=== PATIENT | female | born 1985 | race Two or more races ===

== ENCOUNTER 2017-03-20 03:25 | Inpatient (IN) | payer OTHER ==
[2017-03-20] MEDS ORDERED: METOCLOPRAMIDE HCL INJECTION 10 MG/2 ML VIAL IVPB ONE (03:55)
[2017-03-20] MEDS ORDERED: SODIUM CHLORIDE 1,000 ML IV STA ×2 (03:55→06:39)
--- NOTE | 2017-03-20 03:55 | PDOC ---
History of Present Illness - General Stated Complaint: VOMITING Time Seen by Provider: 03/20/17 03:31 History Source: Patient, Other (boyfriend) Exam Limitations: No Limitations - History of Present Illness Initial Comments: 03/20/17 05:04 Surg h/o Lap christiano turned into OPEN cholecystectomy 31-year-old female with no medical history presents to the emergency department with her boyfriend complaining of subjective fever, nausea/vomiting and diarrhea , general malaise. Patient states she's been complaining of 6/10 nonradiating intermittent epigastric abdominal discomfort 5 days. There were no alleviating or exacerbating factors. Patient had 2 bouts of vomiting this evening that were nonbloody and nonbilious. Patient had 5 episodes of diarrhea this evening and denies noticing any blood. Patient took Tylenol for the past 3 days with minimal relief. Patient denies any headache, dizziness, lightheadedness, chest pain, shortness of breath, flank pains. No recent travels, no prolong sitting, no BCP Timing/Duration: 24 hours Severity: mild Associated Symptoms: reports: fever/chills Past History - Past Medical History Allergies/Adverse Reactions: Allergies Allergy/AdvReac Type Severity Reaction Status Date / Time No Known Allergies Allergy Verified 03/20/17 04:04 Home Medications: Ambulatory Orders No Home Medications 0 dose .ROUTE UTDICT 05/05/12 Anemia: No Asthma: No Cancer: No Cardiac Disorders: No CVA: No COPD: No CHF: No Dementia: No Diabetes: No Dialysis: No GI Disorders: No Disorders: No HTN: No Hypercholesterolemia: No HIV: No Kidney Stones: No Liver Disease: No Suicide Attempt (Hx): No Seizures: No Thyroid Disease: No - Surgical History Abdominal Surgery: No Appendectomy: No Cardiac Surgery: No Cholecystectomy: No Lung Surgery: No Neurologic Surgery: No Orthopedic Surgery: No - Immunization History Td Vaccination: Yes TDAP Vaccination: No Immunization Up to Date: Yes - Psycho/Social/Smoking Cessation Hx Anxiety: No Suicidal Ideation: No Smoking Status: No Smoking History: Never smoked Years of Tobacco Use: 0 Number of Cigarettes Smoked Daily: 0 Cigars Per Day: 0 Hx Alcohol Use: No Drug/Substance Use Hx: No Substance Use Type: None Hx Substance Use Treatment: No Review of Systems - Review of Systems Able to Perform ROS?: Yes Comments:: 03/20/17 04:09 CONSTITUTIONAL: +malaise Absent: fever, chills, diaphoresis, generalized weakness, loss of appetite HEENT: Absent: rhinorrhea, nasal congestion, throat pain, throat swelling, difficulty swallowing, mouth swelling, ear pain, eye pain, visual Changes CARDIOVASCULAR: Absent: chest pain, loss of consciousness, palpitations, irregular heart rate, peripheral edema RESPIRATORY: Absent: cough, shortness of breath, dyspnea with exertion, orthopnea, wheezing, stridor, hemoptysis GASTROINTESTINAL: +epigastric pain Absent: abdominal distension, nausea, vomiting, diarrhea, constipation, melena, hematochezia GENITOURINARY: Absent: dysuria, frequency, urgency, hesitancy, hematuria, flank pain, genital pain MUSCULOSKELETAL: Absent: myalgia, arthralgia, joint swelling SKIN: Absent: rash, itching, pallor HEMATOLOGIC/IMMUNOLOGIC: Absent: easy bleeding, easy bruising, lymphadenopathy, frequent infections ENDOCRINE: Absent: unexplained weight gain, unexplained weight loss, heat intolerance, cold intolerance NEUROLOGIC: +dizziness Absent: headache, focal weakness or paresthesias unsteady gait, seizure, mental status changes, bladder or bowel incontinence PSYCHIATRIC: Absent: anxiety, depression, suicidal or homicidal ideation, hallucinations. Is the patient limited Bel[place]ian proficient: No *Physical Exam - Physical Exam Comments: 03/20/17 04:10 GENERAL: Well developed, well nourished. Awake and alert. No acute distress. HEENT: Normocephalic, atraumatic. PERRLA, EOMI. No conjunctival pallor. Sclera are non- icteric. Moist mucous membranes. Oropharynx is clear. NECK: Supple. Full ROM. No JVD. Carotid pulses 2+ and symmetric, without bruits. No thyromegaly. No lymphadenopathy. CARDIOVASCULAR: Regular rate and rhythm. No murmurs, rubs, or gallops. Distal pulses are 2+ and symmetric. PULMONARY: No evidence of respiratory distress. Lungs clear to auscultation bilaterally. No wheezing, rales or rhonchi. ABDOMINAL: +epigastric pain on palp Soft. Non-distended. No rebound or guarding. No organomegaly. Normoactive bowel sounds. MUSCULOSKELETAL Normal range of motion at all joints. No bony deformities or tenderness. No CVA tenderness. EXTREMITIES: No cyanosis. No clubbing. No edema. No calf tenderness. SKIN: Warm and dry. Normal capillary refill. No rashes. No jaundice. NEUROLOGICAL: Alert, awake, appropriate. Cranial nerves 2-12 intact. No deficits to light touch and temperature in face, upper extremities and lower extremities. No motor deficits in the in face, upper extremities and lower extremities. Normoreflexic in the upper and lower extremities. Normal speech. Toes are down- going bilaterally. Gait is normal without ataxia. PSYCHIATRIC: Cooperative. Good eye contact. Appropriate mood and affect. Heart Score/ECG Review - History History: Slightly suspicious - Electrocardiogram EKG: Normal - Age Age: >/= 65 - Risk Factors Based on the list above the patient has:: No risk factors known ED Treatment Course - LABORATORY CBC & Chemistry Diagram: 03/20/17 09:45 03/20/17 09:45 Medical Decision Making - Critical Care Time Total Critical Care Time (minutes): 60 Critical Care Statement: The care of this patient involved high complexity decision making to prevent further life threatening deterioration of the patient 's condition and/or to evalute & treat vital organ system(s) failure or risk of failure. - Medical Decision Making 03/20/17 05:59 Pt extremely hypotensive but mentating well. B/P slowly increasing with NS IVB Multiple bedside visits Pressure improving Empirically will tx with karen Called learning and development consultant for ICU bed/ approved by DR. Hayden Called general surgery/Dr. Perdomo, will consult pt *DC/Admit/Observation/Transfer Diagnosis at time of Disposition: Dehydration, Hypovolemic shock, Enterocolitis Hypotension Qualifiers: Hypotension type: other hypotension type Qualified Code(s): I95.89 - Other hypotension Renal failure Qualifiers: Renal failure chronicity: acute Acute renal failure type: with other specified pathological lesion Qualified Code(s): N17.8 - Other acute kidney failure Liver failure Qualifiers: Liver failure chronicity: acute Hepatic coma status: without hepatic coma Qualified Code(s): K72.00 - Acute and subacute hepatic failure without coma - Discharge Dispostion Condition at time of disposition: Guarded Admit: Yes - Referrals Progress Note - Progress Note Progress Note: Ct abd/pelvis without contrast: There is a heterogeneous right liver lobe lesion measuring up to 7.2 cm x 6.5 cm There is no evidence of obstructive urolithiasis, free air, free fluid or acute appendicitis ?liver abscess 0605hrs: Consulted Dr. Perdomo/General surgery ?CBD stone 0614: US tech called/ will come in 0628hrs: Spoke to Dr. Hayden/ learning and development consultant. Assproced ICU bed 0641hrs: Spoke to Hospitalist
[2017-03-20] MEDS ORDERED: METOCLOPRAMIDE HCL INJECTION 10 MG/2 ML VIAL ONE (04:09)
[2017-03-20 04:20] LABS: MCH 30.1 pg (25.7-33.7); MCHC 32.6 g/dl (32.0-36.0); MEAN CELL VOLUME 92.5 fl (80-96); MEAN PLT VOLUME 8.1 fl (7.5-11.1); PLATELET COUNT 165 K/MM3 (134-434); RDW 14.1 % (11.6-15.6); WHITE BLOOD COUNT 18.3 K/mm3 (4.0-10.0)
[2017-03-20 04:54] LABS: ALBUMIN 2.3 g/dl (3.4-5.0); ALK PHOS 198 U/L (45-117); ANION GAP 19 (8-16); BILIRUBIN,TOTAL 2.2 mg/dL (0.2-1.0); CALCIUM 7.7 mg/dL (8.5-10.1); CO2 21 mmol/L (21-32); CREATININE 3.4 mg/dL (0.55-1.02); GLUCOSE,RANDOM 104 mg/dL (74-106); SGOT/AST 203 U/L (15-37); SGPT/ALT 133 U/L (12-78); TOT PROT 5.9 g/dl (6.4-8.2)
[2017-03-20] MEDS ORDERED: METRONIDAZOLE 500 MG PREMIXED 100 ML IVPB ONE ×2 (06:16→06:22)
[2017-03-20] MEDS ORDERED: PIPERACILLIN/TAZOB 3.375 GM/50 ML PRE-DOCKED IV ONE (06:16)
[2017-03-20 06:17] LABS: ANISOCYTOSIS 1+; METAMYELOCYTE 5 % (0-2); PLATELET COMMENT2 NO CLOTTING DETECTED; PLATELET ESTIMATE ADEQUATE (NORMAL)
[2017-03-20] MEDS ORDERED: PIPERACILLIN/TAZOB 3.375 GM 50 ML IVPB ONE (06:22)
[2017-03-20 06:39] LABS: AMYLASE 31 U/L (25-115)
[2017-03-20] MEDS ORDERED: DEXTROSE 5%-LACTATED RINGERS 1,000 ML IV SCH (06:45)
[2017-03-20] MEDS ORDERED: HYDROCORTISONE SOD SUCCINATE 100 MG/2 ML VIAL IVPUSH ONE (06:53)
[2017-03-20] MEDS ORDERED: HYDROCORTISONE SOD SUCCINATE 2 ML ONE (06:57)
[2017-03-20 07:02] LABS: INR 1.8 (0.82-1.09)
[2017-03-20 07:39] LABS: ARTERIAL BLD GAS O2 SATURATION 93.7 % (90-98.9); ARTERIAL BLOOD GAS BASE EXCESS -19.9 meq/l (-2-2); ARTERIAL BLOOD GAS HCO3 7.8 meq/L (22-26); ARTERIAL BLOOD GAS PO2 98.7 mmHg (80-100)
[2017-03-20 07:42] LABS: ART PUNCT SITE RIGHT BRACHIAL; LPM/O2% 100; PT. ON O2? YES
[2017-03-20 07:45] LABS: TYPE OF O2 non rebreather
[2017-03-20 07:46] LABS: ARTERIAL BLOOD GAS pH 7.13 (7.35-7.45)
[2017-03-20 07:49] LABS: URINE APPEARANCE CLOUDY; URINE BILIRUBIN NEGATIVE (NEGATIVE); URINE COLOR AMBER; URINE GLUCOSE (UA) NEGATIVE (NEGATIVE); URINE KETONE TRACE (NEGATIVE); URINE LEUK ESTERASE NEGATIVE (NEGATIVE); URINE NITRITE NEGATIVE (NEGATIVE); URINE UROBILINOGEN 2.0 E.U/dl E.U./dl (0.2-1.0)
[2017-03-20] MEDS ORDERED: VANCOMYCIN 1 GRAM (PRE-DOCKED) 250 ML IVPB ONE (07:51)
[2017-03-20 08:00] LABS: URINE BLOOD 3+ (NEGATIVE); URINE PROTEIN 2+ (NEGATIVE)
[2017-03-20 08:01] LABS: URINE BACTERIA RARE /hpf (NONE SEEN); URINE MUCUS MODERATE; URINE RBC 10 /hpf (0-3); URINE WBC 40 /hpf (3-5); YEAST FEW
[2017-03-20] MEDS ORDERED: POTASSIUM CHLORIDE TABS 20 MEQ TABLET.ER (FP) PO ONE (08:15)
[2017-03-20] MEDS ORDERED: SODIUM BICARBONATE 8.4% 50 MEQ/50 ML VIAL ONE (08:18)
[2017-03-20] MEDS ORDERED: SODIUM BICARBONATE 8.4% - 150 MEQ in DEXTROSE 5%-NORMAL SALINE 1,000 ML IV SCH (08:30)
--- NOTE | 2017-03-20 08:30 | HP ---
CHIEF COMPLAINT: PCP: None HISTORY OF PRESENT ILLNESS: The patient is a 31 year old female with a significant past medical history of cholecystectomy (8 years ago), who emigrated from [place] (9 years ago) and presents with two weeks of intermittent fever and chills, constant right shoulder pain and progressive weakness/fatigue. Last night she developed severe generalized weakness, nausea with two episodes of vomiting (non-bloody/ bilious) and three episodes of diarrhea (no blood or mucous). She denies travel outside of the [place] since emigration. She denies ingestion or river, stream or [place] water. She denies ER course was notable for: -Septic shock -Uptrending lactic acid -US and CT abd/pelvis (non-contrast) suggestive of liver abscess -7 liters of IVF (NS) -Zosyn/Flagyl Recent Travel: None PAST MEDICAL HISTORY: Nephrolithiasis / Ureterolithiasis PAST SURGICAL HISTORY: Lap to open cholecystectomy 8 years ago 2 C-sections Social History: Smoking: No Alcohol: No Drugs: No Allergies No Known Allergies Allergy (Verified 03/20/17 04:04) HOME MEDICATIONS: Home Medications Medication Instructions Recorded No Home Medications 0 dose .ROUTE UTDICT 05/05/12 REVIEW OF SYSTEMS CONSTITUTIONAL: Present: fever, chills, diaphoresis, generalized weakness, malaise, loss of appetite Absent: weight change HEENT: Absent: rhinorrhea, nasal congestion, throat pain, throat swelling, difficulty swallowing, mouth swelling, ear pain, eye pain, visual changes CARDIOVASCULAR: Absent: chest pain, syncope, palpitations, irregular heart rate, lightheadedness , peripheral edema RESPIRATORY: Absent: cough, shortness of breath, dyspnea with exertion, orthopnea, wheezing, stridor, hemoptysis GASTROINTESTINAL: Present: abdominal pain, nausea, vomiting, diarrhea Absent: constipation, melena, hematochezia, abdominal distension GENITOURINARY: Present: menses now Absent: dysuria, frequency, urgency, hesitancy, hematuria, flank pain, genital pain MUSCULOSKELETAL: Absent: myalgia, arthralgia, joint swelling, back pain, neck pain SKIN: Absent: rash, itching, pallor HEMATOLOGIC/IMMUNOLOGIC: Absent: easy bleeding, easy bruising, lymphadenopathy, frequent infections ENDOCRINE: Absent: unexplained weight gain, unexplained weight loss, heat intolerance, cold intolerance NEUROLOGIC: Absent: headache, focal weakness or paresthesias, dizziness, unsteady gait, seizure, mental status changes, bladder or bowel incontinence PSYCHIATRIC: Absent: anxiety, depression, suicidal or homicidal ideation, hallucinations. PHYSICAL EXAMINATION Vital Signs - 24 hr 03/20/17 07:00 Pulse Rate [ 100 H Apical] Respiratory 32 H Rate Blood Pressure 77/52 [Right Arm] O2 Sat by Pulse 100 Oximetry (%) GENERAL: Awake, alert, and fully oriented. Mild distress. Slightly lethargic. HEAD: Normal with no signs of trauma. EYES: Pupils equal, round and reactive to light, extraocular movements intact, sclera anicteric, conjunctiva clear. No lid lag. EARS, NOSE, THROAT: Ears normal, nares patent, oropharynx clear without exudates. Moist mucous membranes. NECK: Normal range of motion, supple without lymphadenopathy, JVD, or masses. LUNGS: Tachynpneic. Scattered rhonchi and crackles (L slightly greater than right) HEART: Regular rate and rhythm, normal S1 and S2 without murmur, rub or gallop. ABDOMEN: Soft, nontender, not distended, normoactive bowel sounds, no guarding, no rebound, no masses. No hepatomegaly or splenomegaly. MUSCULOSKELETAL: Normal range of motion at all joints. No bony deformities or tenderness. No CVA tenderness. UPPER EXTREMITIES: 2+ pulses, warm, well-perfused. No cyanosis. No clubbing. No peripheral edema. LOWER EXTREMITIES: 2+ pulses, warm, well-perfused. No calf tenderness. No peripheral edema. NEUROLOGICAL: Cranial nerves II-XII intact. Normal speech. Normal gait. PSYCHIATRIC: Cooperative. Good eye contact. Appropriate mood and affect. SKIN: Warm, dry, normal turgor, no rashes or lesions noted, normal capillary refill. Laboratory Results - last 24 hr 03/20/17 03/20/17 03/20/17 06:42 07:23 07:30 INR 1.80 H PTT (Actin FS) 30.0 Puncture Site Right brachial ABG pH 7.13 L* ABG pCO2 at Pt Temp 24.9 L ABG pO2 at Pt Temp 98.7 ABG HCO3 7.8 L* ABG O2 Sat (Measured) 93.7 ABG O2 Content 11.0 L ABG Base Excess -19.9 L* Beau Test Not applicable O2 Delivery Device non rebreather Oxygen Flow Rate 100 PEEP 0.0 Urine Color Tresa Urine Appearance Cloudy Urine pH 5.0 Urine Protein 2+ H Urine Glucose (UA) Negative Urine Ketones Trace H Urine Blood 3+ H Urine Nitrite Negative Urine Bilirubin Negative Urine Urobilinogen 2.0 e.u/dl H Ur Leukocyte Esterase Negative Urine RBC 10 Urine WBC 40 Ur Epithelial Cells Rare Urine Bacteria Rare Urine Mucus Moderate Urine Yeast Few ASSESSMENT/PLAN: -Septic shock with severe lactic acidosis and possible developing ARDS Source is unclear Possible liver abscess seen on CT and US Her clinical presentation is most consistent with liver abscess, and this is my primary concern DDx: pyogenic or amoebic I feel she will most liklely require percutaneous evacuation / drainage Infiltrative changes seen on CXR and Chest CT, which are somewhat dependent and not clearly infectious These infiltrative changes were not as pronounced on the earlier CT abd/ pelvis as compared to the Abd CT I am concerned with developing ARDS I do not suspect primary pneumonia Urine with moderate pyuria but only minimal bacteriuria. I don't think this is the source. IR has reviewed the CT and US images and he feels that the appearance is not necessarily one of a clear-cut liver abscess He suggests further evaluation prior to any IR procedure I also discussed the case with our radiologist (Dr. Loco) and is going to read the study stat Official radiology reading of US and Abd/Pelvis CT pending She is making urine, approximately 150ml in the last hour Her mentation is much improved She looks clinically improved per the ED staff MAP is now 65 She received Zosyn and Flagyl in the ED I will add Vancomycin and Levaquin now IVF changed to D5W with 3 amps bicarbonate and slowed rate to 125ml / hr I suspect she has been adequately volume resuscitated Will place central line for CVP monitoring and more accurate hemodynamic monitoring I have consulted ID, general surgery, gastroenterology General surgery is at the bedside Will repeat labs now and obtain HIV test She received stress dose steroids in the ED to cover possible adrenal insufficiency She was inappropriately bradycardic in [facility] ED She is hypothermic in the ICU I asked the ED to add a random cortisol Radiology has noted some adrenal abnormality Will continue hydrocortisone Will also add TSH to rule out hypothyroidism Elevated INR noted WIth normal platelet count, DIC is unlikely Will monitor She will need reversal of coagulopathy if we are to percutaneously drain liver lesion -Pulmonary infiltrates As above, I suspect developing ARDS Will electively intubate -Severe acidemia She has a triple acid base disorder Primary metabolic anion gap acidosis (due to lactic acidosis) Concurrent respiratory acidosis (due to pulmonary infiltrates and inadequate ventilation) Concurrent metabolic alkalosis (I suspect due to contraction alkalosis and diarrhea) Given SETH, will begin D5W with bicarbonate Given suspected developing ARDS, will intubate electively to assure adequate ventilation -SETH / Hypokalemia Triple acid base disorder as above I suspect this is largely pre-renal from hypovolemia / septic shock but am concerned for intrinsic renal causes due to possible ATN Will consult renal I have ordered additional K replacement Repeat labs sent -Prophylaxis SCDs No lovenox for now pending biopsy and given coagulopathy IV Protonix She is a full code Visit type - Emergency Visit Emergency Visit: Yes ED Registration Date: 03/20/17 Care time: The patient presented to the Emergency Department on the above date and was hospitalized for further evaluation of their emergent condition. - New Patient This patient is new to me today: Yes Date on this admission: 03/20/17 - Critical Care Critical Care patient: Yes Total Critical Care Time (in minutes): 90 Critical Care Statement: The care of this patient involved high complexity decision making to prevent further life threatening deterioration of the patient 's condition and/or to evalute & treat vital organ system(s) failure or risk of failure.
[2017-03-20] MEDS: KCL 10 MEQ IVPB 100 ML IVPB SCH ×2 (08:37→09:30)
[2017-03-20] MEDS ORDERED: LEVOFLOXACIN 750 MG IVPB 150 ML IVPB ONE (08:45)
[2017-03-20] MEDS: SODIUM BICARBONATE 8.4% - 150 MEQ in DEXTROSE 5%-WATER - 1,000 ML IV SCH ×3 (08:50→23:24)
[2017-03-20] MEDS ORDERED: NOREPINEPHRINE BITARTRATE 4 MG/4 ML ML IV ONE ×2 (08:56→20:01)
--- NOTE | 2017-03-20 08:59 | CONSULT ---
Consult - text type - Consultation Consultation Note: Renal Consult for SETH and Metabolic acidosis This is a 31 year old woman with PMhx of ovarian cyst, ? nephrolithiasis who presented with Abd pain and fever and found to have Sepsis with shock with suspected liver abcess and SETH and metabolic acidosis. Pt currently in the ICU, s/p 7-8L of fluid in the ED. Pt very hypotensive and hypothermic on presenation. Pt with worsening congestion on CXR. Lanier in place with good urine output. No prior Hx of renal insufficiency. + NSAID use at home. no contrast exposure. No + N/V. No diarrhea. No Rash. No recent Abx use. Was given Vanco and Levaquin in the ED. PMhx: as above Allergies: NKDA Family hx: NC Social hx: + Tobacco ROs: as per HPI, all other pertinent ros negative Home Meds: Home Medications Medication Instructions Recorded No Home Medications 0 dose .ROUTE UTDICT 05/05/12 Vital Signs Temperature 95.2 F L 03/20/17 08:30 Pulse Rate 114 H 03/20/17 08:30 Respiratory Rate 32 H 03/20/17 08:30 Blood Pressure 97/59 03/20/17 08:30 O2 Sat by Pulse Oximetry (%) 100 03/20/17 07:00 Intake & Output 03/17/17 03/18/17 03/19/17 03/20/17 23:59 23:59 23:59 23:59 Intake Total 6000 Balance 6000 Weight 149 lb Gen: Moderate distress from pain and dyspnea HEENT: NC/AT, No JVD, neck supple CVS: tachycardic, no M/R Lungs: DEC BS throughout the lung giraldo Abd: + diffuse tenderness, + guardiing Ext: No edema, clubbing or cyanosis : Lanier in place with yellow urine Neuro: awake and alert CBC, BMP 03/20/17 03:58 03/20/17 03:58 Laboratory Tests 03/20/17 03/20/17 03/20/17 03:58 03:58 04:00 Lactic Acid 8.5 H* Calcium 7.7 L Total Bilirubin 2.2 H D AST 203 H D ALT 133 H D Alkaline Phosphatase 198 H D Albumin 2.3 L D Total Amylase 31 Lipase 49 L 03/20/17 05:13 Lactic Acid 9.5 H* Calcium Total Bilirubin AST ALT Alkaline Phosphatase Albumin Total Amylase Lipase Current Medications Chlorhexidine Gluconate (Hibiclens For Decolonization -) 1 applic TP HS CHELY Potassium Chloride (Potassium Chloride 10 Meq Premix Ivpb -) 100 mls @ 100 mls/ hr IVPB Q60M [facility] Stop: 03/20/17 09:14 Last Admin: 03/20/17 08:37 Dose: 100 mls/hr Levofloxacin (Levaquin 750 Mg Premixed Ivpb -) 150 mls @ 100 mls/hr IVPB ONCE ONE Stop: 03/20/17 10:14 Sodium Bicarbonate 150 meq/ (Dextrose) 1,150 mls @ 125 mls/hr IV Q9H [facility] Stop: 03/21/17 11:44 Mupirocin (Bactroban Ointment (For Decolonization) -) 1 applic NS BID [facility] Stop: 03/25/17 09:59 A/P 31 year old woman with PMhx of ovarian cyst, ? nephrolithiasis who presented with Abd pain and fever and found to have Sepsis with shock with suspected liver abcess and SETH and metabolic acidosis. 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
[2017-03-20] MEDS ORDERED: PROPOFOL 100 ML ONE (09:01)
--- NOTE | 2017-03-20 09:02 | CONSULT ---
Consult Consult Specialty:: General Surgery Referred by:: Dr. Delgadillo Reason for Consultation:: septic shock s/p cholecystectomy with elevated LFTs - History of Present Illness Chief Complaint: epigastric pain, n/v, f/c, diarrhea History of Present Illness: 31yo [place] F with h/o urolithiasis, c/s x 2, lap converted to open cholecystectomy 8 yrs ago with intermittent epigastric pain since, 2 weeks ago developed subjective fever/chills, sweats, R shoulder pain and progressive overall weakness. Yesterday, she began vomiting NBNB and having diarrhea NB and was brought to ER nearly unresponsive by boyfriend. She had initial BP of 30 systolic, was tachycardic and afebrile, and had labs consistent with septic shock, acute kidney injury and INR 1.8. She was aggressively volume resuscitated , had blood cultures drawn, and was given Zosyn renal dose and Flagyl, as well as stress dose hydrocortisone. Her pressure improved and she has been responsive but remains tachycardic and tachypneic. Lanier was inserted with initial anuria. Imaging includes noncontrast CT which showed a heterogeneous liver lesion, no free air/fluid, no urolithiasis, normal appendix, no obvious cause for abdominal pain. CXR afterward showed infiltrates. US was called in - showed 9x6cm collection in right lobe dome of liver with central necrosis, cbd 2.2mm. Chest CT was then done suggestive of developing ARDS. She has been transferred to ICU and is now making urine. BP has improved to means in 60s and bicarb drip is starting. - History Source History Provided By: Patient, Medical Record (and Dr. Stephen) Limitations to Obtaining History: Clinical Condition (acutely septic) - Past Medical History Hepatobiliary: Yes: Other (s/p cholecystectomy) Renal/: Yes: Renal Calculi ...LMP: 03/20/17 ...: No - Past Surgical History Past Surgical History: Yes: Cholecystectomy (lap converted to open 8y ago (here per pt)), (x2) - Alcohol/Substance Use Hx Alcohol Use: No - Smoking History Smoking history: Never smoked Aproximately how many cigarettes per day: 0 - Social History Place of : Other ([place]) Came to [place] (year[place] ~2007 History of Recent Travel: No (not out of country since immigration) Home Medications - Allergies Allergies/Adverse Reactions: Allergies Allergy/AdvReac Type Severity Reaction Status Date / Time No Known Allergies Allergy Verified 03/20/17 04:04 - Home Medications Home Medications: Ambulatory Orders No Home Medications 0 dose .ROUTE UTDICT 05/05/12 Home Medications (free text): used tylenol last few days for pain without effect Family Disease History - Family Disease History Family History: Unable to Obtain Review of Systems Unable to obtain ROS, reason: limited - Review of Systems Constitutional: reports: Chills, Diaphoresis, Fever, Weakness Neck: denies: Pain on Movement, Stiffness Cardiovascular: denies: Chest Pain, Shortness of Breath Respiratory: denies: Cough, SOB Gastrointestinal: reports: Abdominal Pain, Diarrhea, Nausea, Vomiting. denies: Melena, Vomiting Blood Genitourinary: reports: Other (urine smelled strong this am). denies: Dysuria Integumentary: denies: Change in Color, Rash Neurological: reports: Weakness. denies: Pre-Existing Deficit Psychiatric: reports: No Symptoms Pain Intensity: 3 Physical Exam Vital Signs: Vital Signs Temperature 95.2 F L 03/20/17 08:30 Pulse Rate 114 H 03/20/17 08:30 Respiratory Rate 32 H 03/20/17 08:30 Blood Pressure 97/59 03/20/17 08:30 O2 Sat by Pulse Oximetry (%) 100 03/20/17 07:00 Constitutional: Yes: Well Nourished, Moderate Distress Eyes: Yes: Conjunctiva Clear. No: Sclera Icterus HENT: Yes: Atraumatic, Normocephalic Neck: Yes: Supple, Trachea Midline Cardiovascular: Yes: Tachycardia. No: Pulse Irregular Respiratory: Yes: On Venti-Mask, Rhonchi (scattered at bases), Tachypnea, Wheezes (expiratory on right) Gastrointestinal: Yes: Soft, Hepatomegaly, Hypoactive Bowel Sounds, Tenderness ( RUQ less than epigastric), Tenderness, Epigastrium. No: Distention, Tenderness , Rebound ...Rectal Exam: Yes: Deferred, Other (+ soft/loose diarrhea) Renal/: Yes: Lanier Present (yellow), Menses Present Extremities: No: Cool, Cyanosis Edema: No Peripheral Pulses WNL: Yes Integumentary: No: Jaundice, Rash Neurological: Yes: Alert, Oriented Psychiatric: Yes: Alert, Oriented Imaging - Results Chest X-ray: Image Reviewed Cat Scan: Report Reviewed, Image Reviewed (abd/pel with hepatomegaly, liver lesion, gb clips, no free air/fluid; chest with dependent changes, worse than seen on abd/pelvis earlier) Ultrasound: Image Reviewed (9x6cm likely liver abscess with necrotic center, cbd 2.2mm, s/p christiano) Assessment/Plan septic shock likely secondary to liver abscess of unknown etiology developing ARDS acute kidney injury pt admitted to ICU agree with volume resuscitation and bicarb drip agree with cultures and antibiotics recommend correction of coags and percutaneous drainage of liver collection with cultures pt being intubated consider transfer if IR unavailable This patient is critically ill. Time spent reviewing studies, discussing with pt and providers and documenting is 90 min.
[2017-03-20] MEDS ORDERED: MIDAZOLAM HCL 5 MG/1 ML Single Dose Vial ONE (09:03)
--- NOTE | 2017-03-20 09:28 | HOSP ---
Subjective - Review of Symptoms Subjective: 03/20/2017 General surgery and Geotechnical Laboratory Technician at bedside Elective intubation in progress MAP 60 She is making urine I discussed the case with GI, Dr. Loo who will see the patient in consultation Renal has seen the patient Awaiting ID input Given the clinical picture, I do remain concerned for liver abscess IR is in agreement Will tranfuse FFP 1 unit now, with 2 on standby for procedure Physical Examination Vital Signs: Vital Signs Temperature 95.2 F L 03/20/17 08:30 Pulse Rate 114 H 03/20/17 08:30 Respiratory Rate 32 H 03/20/17 08:30 Blood Pressure 97/59 03/20/17 08:30 O2 Sat by Pulse Oximetry (%) 100 03/20/17 07:00
[2017-03-20] MEDS: FENTANYL INJECTION 500 MCG in DEXTROSE 5%-WATER - 90 ML IJ SCH (09:30)
[2017-03-20] MEDS: NOREPINEPHRINE BITARTRATE 8,000 MCG in DEXTROSE 5%-WATER - 492 ML IV SCH ×2 (09:30→23:00)
[2017-03-20] MEDS: MIDAZOLAM 100 MG in SODIUM CHLORIDE 100 ML IVPB SCH (09:35)
[2017-03-20 10:23] LABS: MCH 30.4 pg (25.7-33.7); MCHC 32.1 g/dl (32.0-36.0); MEAN CELL VOLUME 94.7 fl (80-96); MEAN PLT VOLUME 8.1 fl (7.5-11.1); PLATELET COUNT 116 K/MM3 (134-434); RDW 14.4 % (11.6-15.6); WHITE BLOOD COUNT 28.3 K/mm3 (4.0-10.0)
--- NOTE | 2017-03-20 10:27 | PN ---
Progress Note (short form) - Note Progress Note: ID consult dictated imp/reccd septic shock/multiorgan failure possible liver abscess less likely UTI SETH received 7 liters ivf and vancomycin/zosyn/flagyl/levaquin meropenem/flagyl to continue vancomycin level at 6 pm f/u cultures IR to see for possible drainage of abscess -send gram stain, routine culture, afb and fungal culture/cytology amebic serology d/w Dr Stephen, surgery, critical care Problem List - Problems (1) Septic shock Code(s): A41.9 - SEPSIS, UNSPECIFIED ORGANISM R65.21 - SEVERE SEPSIS WITH SEPTIC SHOCK (2) Multiorgan failure Code(s): SKS4037 - (3) Liver abscess Code(s): K75.0 - ABSCESS OF LIVER (4) UTI (urinary tract infection) Code(s): N39.0 - URINARY TRACT INFECTION, SITE NOT SPECIFIED
--- NOTE | 2017-03-20 10:55 | HP ---
CHIEF COMPLAINT: "Fever/Chills" PCP: Doesn't remember the name. HISTORY OF PRESENT ILLNESS: Patient currently sedated and intubated hence history obtained from the chart and patients boyfriend. Patient is a 31 year old female with significant past medical history of Cholecystectomy (8 years ago), pyelonephritis, nephrolithiasis, emigrated from [place] 8 years ago who was brought in by patients boyfriend, with the chief complaints of fever, chills and generalized weakness since 2 weeks. As per the boyfriend, patient was apparently well until 2 weeks ago, started developing fever (not recorded) associated with chills. She took some tylenol and aleeve and was able to go to work until 2 days ago. Last night at around 10pm patient had one episode of vomiting, non bilious, non bloody, non projectile as per her boyfriend. The next episode of vomiting was at 1pm, patient woke up to go the bathroom but didn't know where the light switch was, slightly confused, started complaining of dizziness. Had nausea and 3-4 episodes of diarrhoea. Non bloody. Patients boyfriend mentioned she looked very pale. Hence she was brought to the ED. In the ER, patient was Hypothermic 95.2 F, Hypotensive systolic 60's; WI 100's; tachypenic to 30's; Leukocytosis 18.3, Triple base disorder on ABG, lactic acidosis 9.5, SETH (creatinine 3.4), elevated liver enzymes. CT abdomen: liver abscess; Chest CT- . Patient was resuscitated with IV NS 7 L and IV D5. Patient was intubated for airway protection; transferred to the ICU. Central line was placed. Pressors were started. IR was consulted who performed stat IR guided abscess drainage. Patient's and boyfriend at bed side. Recent Travel: None. (came from [place] 8 years ago) PAST MEDICAL HISTORY: PAST SURGICAL HISTORY: Social History: Smoking: Alcohol: Drugs: Family History: Allergies No Known Allergies Allergy (Verified 03/20/17 04:04) HOME MEDICATIONS: Home Medications Medication Instructions Recorded No Home Medications 0 dose .ROUTE UTDICT 05/05/12 REVIEW OF SYSTEMS CONSTITUTIONAL: Absent: fever, chills, diaphoresis, generalized weakness, malaise, loss of appetite, weight change HEENT: Absent: rhinorrhea, nasal congestion, throat pain, throat swelling, difficulty swallowing, mouth swelling, ear pain, eye pain, visual changes CARDIOVASCULAR: Absent: chest pain, syncope, palpitations, irregular heart rate, lightheadedness , peripheral edema RESPIRATORY: Absent: cough, shortness of breath, dyspnea with exertion, orthopnea, wheezing, stridor, hemoptysis GASTROINTESTINAL: Absent: abdominal pain, abdominal distension, nausea, vomiting, diarrhea, constipation, melena, hematochezia GENITOURINARY: Absent: dysuria, frequency, urgency, hesitancy, hematuria, flank pain, genital pain MUSCULOSKELETAL: Absent: myalgia, arthralgia, joint swelling, back pain, neck pain SKIN: Absent: rash, itching, pallor HEMATOLOGIC/IMMUNOLOGIC: Absent: easy bleeding, easy bruising, lymphadenopathy, frequent infections ENDOCRINE: Absent: unexplained weight gain, unexplained weight loss, heat intolerance, cold intolerance NEUROLOGIC: Absent: headache, focal weakness or paresthesias, dizziness, unsteady gait, seizure, mental status changes, bladder or bowel incontinence PSYCHIATRIC: Absent: anxiety, depression, suicidal or homicidal ideation, hallucinations. PHYSICAL EXAMINATION Vital Signs - 24 hr 03/20/17 03/20/17 03/20/17 07:00 08:00 08:15 Temperature 95.2 F L 95.1 F L Pulse Rate 110 H 112 H Pulse Rate [ 100 H Apical] Respiratory 32 H 28 H 30 H Rate Blood Pressure 97/55 105/57 Blood Pressure 77/52 [Right Arm] O2 Sat by Pulse 100 Oximetry (%) 03/20/17 03/20/17 03/20/17 08:30 09:15 09:30 Temperature 95.2 F L 95.2 F L Pulse Rate 114 H 107 H Pulse Rate [ Apical] Respiratory 32 H 31 H 30 H Rate Blood Pressure 97/59 81/62 Blood Pressure [Right Arm] O2 Sat by Pulse Oximetry (%) GENERAL: Intubated, sedated. IV line: Right IJ HEAD: Normal with no signs of trauma. EYES: No pallor or icterus, PERRL EARS, NOSE, THROAT: Ears normal. Frothing from the mouth. NECK: Normal range of motion, supple without lymphadenopathy, JVD, or masses. LUNGS: Breath sounds equal, clear to auscultation bilaterally. No wheezes, and no crackles. No accessory muscle use. HEART: Regular rate and rhythm, normal S1 and S2 without murmur, rub or gallop. ABDOMEN: Soft, not distended, normoactive bowel sounds, no guarding, no rebound , no masses. No hepatomegaly or splenomegaly. MUSCULOSKELETAL: Normal range of motion at all joints. No bony deformities or tenderness. UPPER EXTREMITIES: 2+ pulses, warm, well-perfused. No cyanosis. No clubbing. No peripheral edema. LOWER EXTREMITIES: 2+ pulses, warm, well-perfused. No calf tenderness. No peripheral edema. NEUROLOGICAL: Intubated and sedated, hence couldnt perform neuro exam. PERRL, moving all her limbs on low sedation. PSYCHIATRIC: couldn't assess. SKIN: Warm, normal turgor, no rashes or lesions noted, normal capillary refill. Laboratory Results - last 24 hr 03/20/17 03/20/17 03/20/17 06:42 07:23 07:30 WBC RBC Hgb Hct MCV MCHC RDW Plt Count MPV Neutrophils % Lymphocytes % INR 1.80 H PTT (Actin FS) 30.0 Puncture Site Right brachial ABG pH 7.13 L* ABG pCO2 at Pt Temp 24.9 L ABG pO2 at Pt Temp 98.7 ABG HCO3 7.8 L* ABG O2 Sat (Measured) 93.7 ABG O2 Content 11.0 L ABG Base Excess -19.9 L* Beau Test Not applicable O2 Delivery Device non rebreather Oxygen Flow Rate 100 PEEP 0.0 TSH Urine Color Tresa Urine Appearance Cloudy Urine pH 5.0 Urine Protein 2+ H Urine Glucose (UA) Negative Urine Ketones Trace H Urine Blood 3+ H Urine Nitrite Negative Urine Bilirubin Negative Urine Urobilinogen 2.0 e.u/dl H Ur Leukocyte Esterase Negative Urine RBC 10 Urine WBC 40 Ur Epithelial Cells Rare Urine Bacteria Rare Urine Mucus Moderate Urine Yeast Few 03/20/17 03/20/17 09:45 09:45 WBC 28.3 H D RBC 2.93 L Hgb 8.9 L D Hct 27.7 L MCV 94.7 MCHC 32.1 RDW 14.4 Plt Count 116 L D MPV 8.1 Neutrophils % Y Lymphocytes % Y INR PTT (Actin FS) Puncture Site ABG pH ABG pCO2 at Pt Temp ABG pO2 at Pt Temp ABG HCO3 ABG O2 Sat (Measured) ABG O2 Content ABG Base Excess Beau Test O2 Delivery Device Oxygen Flow Rate PEEP TSH Cancelled Urine Color Urine Appearance Urine pH Urine Protein Urine Glucose (UA) Urine Ketones Urine Blood Urine Nitrite Urine Bilirubin Urine Urobilinogen Ur Leukocyte Esterase Urine RBC Urine WBC Ur Epithelial Cells Urine Bacteria Urine Mucus Urine Yeast ASSESSMENT/PLAN: Patient is a 31 year old female with significant past medical history of Cholecystectomy (8 years ago), pyelonephritis, nephrolithiasis, emigrated from [place] 8 years ago who was brought in by patients boyfriend, with the chief complaints of fever, chills and generalized weakness since 2 weeks. # Respiratory failure due to septic shock with severe lactic acidosis with impending ARDS Likely due to Liver abscess Amoebic(More likely) VS Pyogenic, as abscess single and patient originally from [place] Admitted in ICU; s/p intubated and placed in MV S/p NS 7 ltrs in ED, Right IJ placed, Started on Levophed Drip CT abdomen- S/o Liver Abscess Consulted with IR by ED physician and 25 Ml of IR Guuided drainage was done and sent for Analysis including culture S/p Zosyn and Metron in ED Continue IV fluid @125 Mls/hr Vancomycin Added, ID service evaluated the patient CT chest- Infiltrative changes, likely due to fluid Overload , Less likely due to co- comitant Pneumonia Lactic Acid-9, started trending down after resucitation, will trend Q 2 hoursly Blood Culture X 2sets General surgery and GI consult called, will f/u recommendations # MODS with septic shock d/t Liver Abscess with bandemia and lactic acidosis Blood culture 2 - Pending s/p IR guided drainage, purulent drainage ~ 25 ccs and sent for analysis including culture and cytology Entamoeba Ab pending, HIV test sent s/p IV NS around 7L in ED and continued with IV D5 with 3amps of bicarb Severe lactic acidosis, will trend Q2H unless normalized IV Zosyn and Metron, one time dose Vanc given, ID on board Hydrocortisone IV 100mg Q8H for possible adrenal insufficiency due to septic shock # Abnormal LFT;s with coagulopathy like shock liver Rising LFTs on repeat labs 2 FFPs given for coagulopathy prior to IR drainage Will monitor Avoid hepatotoxic drugs # SETH with high anion gap metabolic acidosis with lactic acidosis baseline creatinine 0.7, now 3.4 After resuscitation, creatinine improved to 1.7 ABG showed- HAGMA with respiratory alkalosis Lanier in place to monitor urine output Avoid nephrotoxic drugs Renal consult requested Monitor BUN and creatinine and electrolytes # Thrombocytopenia due to septic shock vs dilutational No signs of active bleeding will monitor Avoid medication causing thrombocytopenia # NCNC Anemia likely due to septic shock 07/25.7 H/H No active signs of bleeding No transfusion required at this time Transfuse if Hb < 7gm/dl # FEN IV D5 with 3amps of bicarb @ 125mls/hr Electrolytes to be repeated Intubated, NPO # Prophylaxis FOr DVT: Not on AC due to coagulopathy, on SCDs For GI: ON Protonix # Code status: Full Code # Dispo: Admitted in the ICU Illness, INvestigation and PLan of care explained to the patients ( since 2 years) and boyfriend (living together since two years). They verbalized understanding and agreed to the plan. Case seen and discussed with Dr. Stephen. Visit type - Emergency Visit Emergency Visit: Yes ED Registration Date: 03/20/17 Care time: The patient presented to the Emergency Department on the above date and was hospitalized for further evaluation of their emergent condition. - New Patient This patient is new to me today: Yes Date on this admission: 03/20/17 - Critical Care Critical Care patient: No
[2017-03-20 11:07] LABS: ALBUMIN 1.6 g/dl (3.4-5.0); ANION GAP 15 (8-16); BILIRUBIN,TOTAL 2.1 mg/dL (0.2-1.0); CO2 15 mmol/L (21-32); CREATININE 2.1 mg/dL (0.55-1.02); GLUCOSE,RANDOM 241 mg/dL (74-106); MAGNESIUM 1.4 mg/dL (1.8-2.4); PHOSPHOROUS 5.4 mg/dL (2.5-4.9); TOT PROT 4.5 g/dl (6.4-8.2)
[2017-03-20 11:16] LABS: ALK PHOS 158 U/L (45-117); THYROID STIMULATING HORMONE 1.78 uIU/ml (0.358-3.74)
--- NOTE | 2017-03-20 11:16 | CONSULT ---
Consult - text type - Consultation Consultation Note: consulted to perform a liver collection drainage. films reviewed. small fluid collection in the liver with mostly solid component. felt by clinicians that its the source of sepsis. review of chest ct reveals a bilateral basilar infiltrates suggesting aspiration pneumonia. nevertheless, it is felt by clinicians that the abscess in the liver should be drained percutaneously.
[2017-03-20 11:22] LABS: SGOT/AST 842 U/L (15-37); SGPT/ALT 402 U/L (12-78)
[2017-03-20 11:28] LABS: CALCIUM 5.8 mg/dL (8.5-10.1)
[2017-03-20] MEDS ORDERED: MAGNESIUM SULFATE 2 GM in SODIUM CHLORIDE 100 ML IVPB ONE (11:28)
[2017-03-20 11:30] LABS: DOHLE BODIES 1+; HYPOCHROMIA 1+; METAMYELOCYTE 1 % (0-2); PLATELET ESTIMATE DECREASED (NORMAL); POLYCHROMASIA FEW
[2017-03-20] MEDS: MEROPENEM 1 GM in DEXTROSE 5%-WATER - 100 ML IVPB SCH ×2 (11:30→22:05)
--- NOTE | 2017-03-20 11:34 | CONSULT ---
Consult Consult Specialty:: PULM/CCM Referred by:: BRANDT Reason for Consultation:: Sepsis - History of Present Illness Chief Complaint: fever, N/V, malaise History of Present Illness: 31 F, history of cholecystectomy 8 years ago. She emigrated from [place] about 9 years ago. Admitted via the ER due to 2 weeks of intermittent fever and chills and persistent right shoulder pain. Apparently, last night she developed worsening weakness and fatigue with associated nausea and vomiting. She apparently had three episodes of diarrhea. Seen in the ICU in significant respiratory distress. Intubated with Glidescope, size 8 ETT. Emergent Right IJ TLC Inserted for access and pressors. CXR : Bilateral infiltrates : rapidly worsening since her presentation to the ER. DDX : diffuse Aspiration pneumonitis / ARDS - History Source History Provided By: Medical Record Limitations to Obtaining History: Clinical Condition - Past Medical History Hepatobiliary: Yes: Other (s/p cholecystectomy) Renal/: Yes: Renal Calculi ...LMP: 03/20/17 ...: No - Past Surgical History Past Surgical History: Yes: Cholecystectomy (lap converted to open 8y ago (here per pt)), (x2) - Alcohol/Substance Use Hx Alcohol Use: No - Smoking History Smoking history: Never smoked Aproximately how many cigarettes per day: 0 - Social History History of Recent Travel: No (not out of country since immigration) Home Medications - Allergies Allergies/Adverse Reactions: Allergies Allergy/AdvReac Type Severity Reaction Status Date / Time No Known Allergies Allergy Verified 03/20/17 04:04 - Home Medications Home Medications: Ambulatory Orders No Home Medications 0 dose .ROUTE UTDICT 05/05/12 Review of Systems Unable to obtain ROS, reason: not able to provide Physical Exam Vital Signs: Vital Signs Temperature 95.2 F L 03/20/17 09:30 Pulse Rate 107 H 03/20/17 09:30 Respiratory Rate 25 H 03/20/17 11:26 Blood Pressure 81/62 03/20/17 09:30 O2 Sat by Pulse Oximetry (%) 100 03/20/17 07:00 Constitutional: Yes: Severe Distress Eyes: Yes: Conjunctiva Clear, EOM Intact HENT: Yes: Atraumatic, Normocephalic Neck: Yes: Supple, Trachea Midline Cardiovascular: Yes: Tachycardia Respiratory: Yes: Accessory Muscle Use, Mechanically Ventilated, Rhonchi, Tachypnea. No: Stridor, Wheezes Gastrointestinal: Yes: Normal Bowel Sounds, Soft, Abdomen, Obese Renal/: Yes: WNL Breast(s): Yes: WNL Musculoskeletal: Yes: WNL Extremities: Yes: WNL Edema: No Peripheral Pulses WNL: Yes Integumentary: Yes: WNL Neurological: Yes: Other (sedated) Labs: CBC, BMP 03/20/17 09:45 03/20/17 09:45 Imaging - Results Chest X-ray: Report Reviewed, Image Reviewed Cat Scan: Report Reviewed, Image Reviewed Assessment/Plan IMP: Acute Respiratory Failure Bilateral and rapidly progressive infiltrates : DDX: Aspiration Pneumonitis : ARDS : TACO R/O Liver Abscess Septic Shock ARF Coagulopathy R/O DIC ARF UTI Transaminitis Severe Electrolyte Derangement PLAN: Lung protective ventilation based on ideal body weight starting at 8cc/kg : VT = 450cc : Pplat : 22 Follow Pplat Follow ABG IVF Follow CVP ABX per ID Pelvic exam has been completed BD TX Follow Lactic acid Renal consult called Strict I&O For IR drainage of possible abscess Patient critically ill with rapidly worsening MOF. Family/significant other has been made aware. Dr Hayden Critical care time spent in reviewing chart, evaluating patient and formulating plan 40 min
[2017-03-20] MEDS ORDERED: MAGNESIUM SULF 50% (8.12 MEQ/2 ML-1 GM VIAL) ONE (11:35)
--- NOTE | 2017-03-20 11:35 | HOSP ---
Subjective - Review of Symptoms Subjective: 03/20/2017 11:30am Interventional Radiologist is on site Awaiting IR nurse arrival 2nd and 3rd unit of FFP thawing for transfusion Repeat labs noted Lactate has trended slightly down Bicarbonate remains decreased Corrected calcium does not need repletion Will replete magnesium Bedside pelvic exam with no evidence of retained tampon/vaginal foreign body MAP 60 but requiring Levophed 12mcg She is making urine No signs of peripheral necrosis Hopefully, percutaneous drainage on suspected liver abscess will provide source control and allow for resolution of septic shock Physical Examination Vital Signs: Vital Signs Temperature 95.2 F L 03/20/17 09:30 Pulse Rate 107 H 03/20/17 09:30 Respiratory Rate 25 H 03/20/17 11:26 Blood Pressure 81/62 03/20/17 09:30 O2 Sat by Pulse Oximetry (%) 100 03/20/17 07:00 Labs: CBC, BMP 03/20/17 09:45 03/20/17 09:45 Critical Care Total Critical Care Time (in minutes): 35 Critical Care Statement: The care of this patient involved high complexity decision making to prevent further life threatening deterioration of the patient 's condition and/or to evalute & treat vital organ system(s) failure or risk of failure.
[2017-03-20] MEDS ORDERED: MAGNESIUM SULF 50% (8.12 MEQ/2 ML-1 GM VIAL) IVPB ONE (12:00)
[2017-03-20] MEDS ORDERED: PROPOFOL 200 MG/20 ML VIAL IVPUSH ONE (12:13)
--- NOTE | 2017-03-20 12:13 | PROC ---
Central Line Insertion Indication: Poor Venous Access, Vasopressor Risks and Benefits Explained: No (emeregent) Central Line: Triple Lumen Catheter Anesthesia: 1% Lidocaine Sterile Technique: Yes Ultrasound Guided Assistance: Yes Position: Right Internal Jugular Post Insertion: Yes: Bilateral Breath Sounds, Bilateral Chest Expansion, Chest X-Ray Ordered
--- NOTE | 2017-03-20 12:14 | PROC ---
Intubation - Intubation Reason for Intubation: Respiratory Failure, Ventilatory Failure Intubation Method: orotracheal Blade used: Glidescope Tube Size (cm): 8.0 Tube position @ lip (cm): 22 Tube position confirmed by: Direct visualization, CO2 detector, Chest x-ray, Breath sounds Breath Sounds after Intubation: equal Post Intubation Xray: Yes
[2017-03-20 12:59] LABS: ACTIVATED PTT 31.6 SECONDS (26.9-34.4); INR 2.1 (0.82-1.09); PROTHROMBIN TIME (PATIENT) 23.4 SEC (9.98-11.88)
[2017-03-20] MEDS ORDERED: PIPERACILLIN/TAZOB 3.375 GM/50 ML PRE-DOCKED IVPB ONE (13:00)
[2017-03-20 13:05] LABS: HIV 1 & 2 AB NEGATIVE; HIV 1 AGp24 NEGATIVE
[2017-03-20 13:47] LABS: ARTERIAL BLD GAS O2 SATURATION 99.3 % (90-98.9); ARTERIAL BLOOD GAS BASE EXCESS -11.4 meq/l (-2-2); ARTERIAL BLOOD GAS HCO3 14.5 meq/L (22-26)
[2017-03-20 13:50] LABS: ALLENS TEST POSITIVE; ART PUNCT SITE RIGHT RADIAL; LPM/O2% 1005; MECH. VENT. ESPRIT; PT. ON O2? YES; TYPE OF O2 MEC.VENT; VENT RATE 16; VT/PRESS 400
[2017-03-20 13:51] LABS: ARTERIAL BLOOD GAS pH 7.25 (7.35-7.45)
--- NOTE | 2017-03-20 13:54 | HOSP ---
Subjective - Review of Symptoms Subjective: 03/20/17 1:51pm Pt returned from IR 25ml purulence drained There was reportedly a significant solid portion of the lesion Drain placed She remains intubated and well sedated All cultures (bacterial, fungal) and gram stain were ordered MAP is now 78 UOP 1200ml since 7am 300ml in last 3 hours Repeat ABG noted Will titrate Levophed lower and to off Will decrease IVF rate to 100ml/hr HIV negativity noted Will add AFP, Hepatitis panel, Amoeba titers Labs to be repeated at 4pm Will continue to follow closely Case discussed in detail with several family members who are aware of her critical illness Physical Examination Vital Signs: Vital Signs Temperature 95.2 F L 03/20/17 11:30 Pulse Rate 100 H 03/20/17 13:00 Respiratory Rate 22 03/20/17 13:00 Blood Pressure 102/75 03/20/17 13:00 O2 Sat by Pulse Oximetry (%) 100 03/20/17 13:00 Labs: CBC, BMP 03/20/17 09:45 03/20/17 09:45 Critical Care Total Critical Care Time (in minutes): 35 Critical Care Statement: The care of this patient involved high complexity decision making to prevent further life threatening deterioration of the patient 's condition and/or to evalute & treat vital organ system(s) failure or risk of failure.
[2017-03-20 14:21] VITALS: BMI 28.5
--- NOTE | 2017-03-20 14:21 | CONS ---
DATE OF CONSULTATION: 03/20/2017 REQUESTED BY: Everardo Stephen MD The patient was seen immediately after consult was placed. This is a 31-year-old woman, otherwise healthy, who immigrated from [place] 9 years ago. She has been living here since that time. She presents with 2 weeks of intermittent fevers and chills, right shoulder pain, and progressive weakness and fatigue. She, last night, started having severe chills at home. She had 2 episodes of vomiting, 3 episodes of nonbloody diarrhea. She presented to the emergency room. In the ER, she was found to be in septic shock. She had a systolic blood pressure of 57/46. She had an initial blood pressure of 60/palpable and temperature of 98.6. She was aggressively fluid resuscitated and she was treated with Zosyn and Flagyl in the emergency room, after which she also received vancomycin and Levaquin. 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 She was brought to the ICU, where she was immediately intubated. She has a central line in place as well and is now on pressors. She has received 7 L of fluids. She has gotten vancomycin, Levaquin, Zosyn, and Flagyl. I spoke with her boyfriend, who she lives with for the last 2 years. They have not been on any recent vacations. Their last trip was last year: they went to [place], [place], and did some camping. They did not drink any stream water, they used bottled water, and they did not go swimming in any water. They have no pets at home. They live with their children, two 6-year-olds and a 14-year-old. He does not know if she has been on any antibiotics. He says she goes to the [facility] with the children. She rarely drinks any alcohol. She does not smoke any cigarettes. She has no known drug allergies. Her past medical history is notable for nephrolithiasis, ureterolithiasis. He does not know about UTIs. She has evidence of an E coli UTI in 2012 in our computer. Surgical history is notable for a cholecystectomy 8 years ago and 2 sections. 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 She socially drinks alcohol rarely. There is no history of any drug or smoking use. She has no known drug allergies. She does not take any medicine at home. REVIEW OF SYSTEMS: He notes the shoulder pain, which has been worsening over the past 2 weeks, and he is not aware of any weight loss. She has apparently been having intermittent fevers and chills at home along with generalized weakness. PHYSICAL EXAMINATION: Vital Signs: Temperature is 95.2. T-max was 100. Blood pressure is 97/59. Pulse 114. Respiratory rate 31. HEENT: Normocephalic. Her eyes are anicteric. General: She is sedated and intubated. Neck: Supple. Lungs: Diminished breath sounds at the bases. Heart: Tachycardic. Abdomen: Soft. There is no distention. Extremities: Without edema. She has no rash. Her labs are notable for a white count of 18.3, hemoglobin 10, platelets of 165, with 32% bands. INR is 1.8. On ABG this morning, her pH was 7.13. Her lactic acid is 9.5. Her labs on admission, BUN 27, creatinine 3.4, with a total bilirubin of 2.2, AST of 203, ALT of 133, and alkaline phosphatase of 198, lipase is 49. Urinalysis shows 40 white cells. Blood cultures and urine cultures are pending. Chest CT was also done this morning and shows she now has prominent bilateral alveolar opacities that are new, which is suggesting of non-cardiogenic pulmonary edema. She had a CAT scan of her abdomen and pelvis earlier that confirms this nonspecific 7.3 x 6.4-cm right hepatic lobe lesion. In summary, this is a 31-year-old woman with severe septic shock, multiorgan failure, possible liver abscess, less likely UTI, acute kidney injury. I would suggest we continue meropenem and Flagyl to cover for possible ESBL-producing organisms. We have started to see them [place] in the community, even in antibiotic-inexperienced patients, and given the level of her sepsis, this would be appropriate. Would repeat a vancomycin level later today and continue vancomycin as well to cover for possible MRSA, follow up cultures. IR to see the patient today for possible drainage. Would send Gram stain, routine culture, AFB, fungal culture, and cytology. This was also discussed with Dr. Corvini, Surgery, and Critical Care. SARAY ELIAS M.D. [id number]
[2017-03-20 14:42] LABS: URINE MARIJUANA THC NEGATIVE ng/ml (CUTOFF=50)
[2017-03-20] MEDS: PANTOPRAZOLE SODIUM 100 ML IVPB SCH ×2 (15:22→15:23)
[2017-03-20] MEDS: CHLORHEXIDINE GLUCONATE 0.12% 15ML CUP MM SCH ×2 (16:48→22:06)
[2017-03-20] MEDS: MUPIROCIN 2% TOPICAL OINTMENT FOR DECOLONIZATION NS SCH ×2 (16:49→22:04)
[2017-03-20 16:51] LABS: MCH 30.1 pg (25.7-33.7); MCHC 32.5 g/dl (32.0-36.0); MEAN CELL VOLUME 92.6 fl (80-96); MEAN PLT VOLUME 8.5 fl (7.5-11.1); PLATELET COUNT 100 K/MM3 (134-434); RDW 14.2 % (11.6-15.6); WHITE BLOOD COUNT 20.2 K/mm3 (4.0-10.0)
--- NOTE | 2017-03-20 17:02 | CON.GI ---
Consult Consult Specialty:: Gastroenterology Referred by:: Dr Everardo Stephen - History of Present Illness History of Present Illness: The patient is a 31 year old female with a significant past medical history of cholecystectomy (8 years ago), who emigrated from [place] (9 years ago) and presents with two weeks of intermittent fever and chills, constant right shoulder pain and progressive weakness/fatigue. Last night she developed severe generalized weakness, nausea with two episodes of vomiting (non-bloody/ bilious) and three episodes of diarrhea (no blood or mucous). - Past Medical History Hepatobiliary: Yes: Other (s/p cholecystectomy) Renal/: Yes: Renal Calculi ...LMP: 03/20/17 ...: No - Past Surgical History Past Surgical History: Yes: Cholecystectomy (lap converted to open 8y ago (here per pt)), (x2) - Alcohol/Substance Use Hx Alcohol Use: No - Smoking History Smoking history: Never smoked Have you smoked in the past 12 months: No Aproximately how many cigarettes per day: 0 - Social History History of Recent Travel: No (not out of country since immigration) Home Medications - Allergies Allergies/Adverse Reactions: Allergies Allergy/AdvReac Type Severity Reaction Status Date / Time No Known Allergies Allergy Verified 03/20/17 04:04 - Home Medications Home Medications: Ambulatory Orders No Home Medications 0 dose .ROUTE UTDICT 05/05/12 Review of Systems Unable to obtain ROS, reason: intubated Physical Exam-GI Vital Signs: Vital Signs Temperature 96.9 F L 03/20/17 15:00 Pulse Rate 92 H 03/20/17 15:00 Respiratory Rate 24 03/20/17 16:37 Blood Pressure 92/70 03/20/17 15:00 O2 Sat by Pulse Oximetry (%) 100 03/20/17 13:00 Constitutional: Yes: Well Nourished Eyes: Yes: Conjunctiva Clear HENT: Yes: Atraumatic Neck: Yes: Supple Cardiovascular: Yes: Regular Rate and Rhythm Respiratory: Yes: CTA Bilaterally ...Palpate: Yes: Soft. No: Firm/Rigid, Guarding, Hepatomegaly, Mass, Splenomegaly Labs: CBC, BMP 03/20/17 16:00 INR, PTT INR 2.10 (0.82-1.09) H 03/20/17 07:49 Fibrinogen 540.0 mg/dL (238-498) H 03/20/17 09:45 Problem List - Problems (1) Liver abscess Assessment/Plan: s/p percutaneous drainage,on Norepinephrine 10mic /hr R> discussed case with Dr Stephen culture, cytology AFP level ameoba ab titer hepatitis profile Code(s): K75.0 - ABSCESS OF LIVER
[2017-03-20] MEDS: HYDROCORTISONE SOD SUCCINATE 100 MG/2 ML VIAL IVPB SCH (17:07)
[2017-03-20 17:15] LABS: BODY FLUID CHLORIDE 98.64 mmol/L
[2017-03-20 17:19] LABS: INR 2.18 (0.82-1.09); PROTHROMBIN TIME (PATIENT) 24.4 SEC (9.98-11.88)
[2017-03-20 17:22] LABS: ACTIVATED PTT 29.9 SECONDS (26.9-34.4)
[2017-03-20 17:33] LABS: ALBUMIN 1.9 g/dl (3.4-5.0); ALK PHOS 147 U/L (45-117); ANION GAP 14 (8-16); CO2 20 mmol/L (21-32); CREATININE 1.7 mg/dL (0.55-1.02); GLUCOSE,RANDOM 235 mg/dL (74-106); MAGNESIUM 2.2 mg/dL (1.8-2.4); PHOSPHOROUS 3.3 mg/dL (2.5-4.9); TOT PROT 4.6 g/dl (6.4-8.2)
[2017-03-20 17:48] LABS: SGOT/AST 1429 U/L (15-37); SGPT/ALT 672 U/L (12-78)
[2017-03-20 17:50] LABS: CALCIUM 5.6 mg/dL (8.5-10.1); TROPONIN I 0.94 ng/ml (0.00-0.05)
[2017-03-20 17:56] LABS: PERITONEAL FLUID LYMPHOCYTE 6 %; PERITONEAL FLUID MONOCYTE 4 %; PERITONEAL FLUID NEUTROPHIL 90 %
[2017-03-20] MEDS ORDERED: PIPERACILLIN/TAZOB 3.375 GM/50 ML PRE-DOCKED IVPB SCH (18:00)
[2017-03-20] MEDS: METRONIDAZOLE 500 MG PREMIXED 100 ML IVPB SCH (18:27)
[2017-03-20 19:14] LABS: METAMYELOCYTE 2 % (0-2); PLATELET ESTIMATE SLT DECREASED (NORMAL)
[2017-03-20 19:16] LABS: TOXIC GRANULATION 1+
[2017-03-20] MEDS ORDERED: PT OWN MED DRAWER 7, Y5N ONE (20:41)
--- NOTE | 2017-03-20 20:47 | HOSP ---
Subjective - Review of Symptoms Subjective: Pt. Evaluated at bedside, able to open eyes to name Physical VS: MAP 79 on matthew 11 02 100 on 80% vent RR 24 T 97.4 GEN: Sedated, on Vent HEENT: PERRL CARD: RRR S1, S2 RESP: Bilateral Breath sounds ABD: Drain in place with serosanginous drainage EXT: - C/C/E U OP 1200 Drain OP: 14 cc LABS: CBCD WBC 20.2 K/mm3 (4.0-10.0) H 03/20/17 16:00 RBC 2.47 M/mm3 (3.60-5.2) L 03/20/17 16:00 Hgb 7.4 GM/dL (10.7-15.3) L D 03/20/17 16:00 Hct 22.8 % (32.4-45.2) L D 03/20/17 16:00 MCV 92.6 fl (80-96) 03/20/17 16:00 MCHC 32.5 g/dl (32.0-36.0) 03/20/17 16:00 RDW 14.2 % (11.6-15.6) 03/20/17 16:00 Plt Count 100 K/MM3 (134-434) L 03/20/17 16:00 MPV 8.5 fl (7.5-11.1) 03/20/17 16:00 CMP Sodium 142 mmol/L (136-145) 03/20/17 16:00 Potassium 4.1 mmol/L (3.5-5.1) 03/20/17 16:00 Chloride 108 mmol/L (98-107) H 03/20/17 16:00 Carbon Dioxide 20 mmol/L (21-32) L D 03/20/17 16:00 Anion Gap 14 (8-16) 03/20/17 16:00 BUN 22 mg/dL (7-18) H 03/20/17 16:00 Creatinine 1.7 mg/dL (0.55-1.02) H 03/20/17 16:00 Creat Clearance w eGFR 34.83 (>60) 03/20/17 16:00 Random Glucose 235 mg/dL (74-106) H 03/20/17 16:00 Calcium 5.6 mg/dL (8.5-10.1) L* 03/20/17 16:00 Total Bilirubin 2.0 mg/dL (0.2-1.0) H 03/20/17 16:00 AST 1429 U/L (15-37) H 03/20/17 16:00 ALT 672 U/L (12-78) H D 03/20/17 16:00 Alkaline Phosphatase 147 U/L (45-117) H 03/20/17 16:00 Total Protein 4.6 g/dl (6.4-8.2) L 03/20/17 16:00 Albumin 1.9 g/dl (3.4-5.0) L 03/20/17 16:00 CARDIAC ENZYMES Creatine Kinase 253 IU/L (26-192) H D 03/20/17 16:00 Troponin I 0.94 ng/ml (0.00-0.05) H* 03/20/17 16:00 ABG Results ABG pH 7.25 (7.35-7.45) L 03/20/17 13:40 ABG pCO2 at Pt Temp 34.1 mmHg (35-45) L D 03/20/17 13:40 ABG pO2 at Pt Temp 234.0 mmHg (80-100) H* 03/20/17 13:40 ABG HCO3 14.5 meq/L (22-26) L* 03/20/17 13:40 ABG O2 Sat (Measured) 99.3 % (90-98.9) H 03/20/17 13:40 ABG O2 Content 11.7 % vol (15-22) L 03/20/17 13:40 ABG Base Excess -11.4 meq/l (-2-2) L* 03/20/17 13:40 A/P.) Sepsis MODS- Hepatic Abcess - S/P Drain - C/W Meropenum/Flagyl - Follow up Cx - C/W IVF, Decrease Matthew maintain MAP >70 - Repeat LA, CBC, CMP, ABG - Repeat ABG, Decrease Fi02 - C/W 5 cc flush of drain - Follow AFP, Cx's, Ameoba, Hep panel Troponin Elevation - Most likely demand - Repeat EKG - Trend - Hold off A/C for now- Inc. Inr - FU Echo SETH - Improving - C/W IVF Thrombocytopenia/ Anemia/ inc INR - FIrbinogen 540 ( less likely DIC), trend coags - Trend - Most likely due to sepsis DVt PPX - SCD CC time 40 Minutes Addendum: NSTEMI - Trend Trop - EKG no acute ST-T chnages - Cardiology called, No A/C due to Thrombocytopenia -Trend Trop/EKG Physical Examination Vital Signs: Vital Signs Temperature 97.4 F L 03/20/17 17:30 Pulse Rate 92 H 03/20/17 18:31 Respiratory Rate 24 03/20/17 18:54 Blood Pressure 81/64 03/20/17 18:31 O2 Sat by Pulse Oximetry (%) 100 03/20/17 18:30 Labs: CBC, BMP 03/20/17 16:00 03/20/17 16:00
--- NOTE | 2017-03-20 20:56 | EKG ---
Test Reason : Blood Pressure : / mmHG Vent. Rate : 110 BPM Atrial Rate : 110 BPM P-R Int : 128 ms QRS Dur : 084 ms QT Int : 358 ms P-R-T Axes : 058 066 035 degrees QTc Int : 484 ms SINUS TACHYCARDIA OTHERWISE NORMAL ECG NO PREVIOUS ECGS AVAILABLE Confirmed by MIGUEL A PERSAUD MD ([id number]) on 03/20/2017 8:55:49 PM Referred By: Confirmed By:MIGUEL A PERSAUD MD
[2017-03-20] MEDS: SODIUM CHLORIDE 500 ML IV SCH (21:00)
[2017-03-20 21:42] LABS: MCH 29.6 pg (25.7-33.7); MCHC 32.1 g/dl (32.0-36.0); MEAN CELL VOLUME 92.4 fl (80-96); PLATELET COUNT 88 K/MM3 (134-434); RDW 14.4 % (11.6-15.6); WHITE BLOOD COUNT 21.5 K/mm3 (4.0-10.0)
[2017-03-20] MEDS: CHLORHEXIDINE GLUCONATE 4% CLEANSER FOR DECOLONIZATION TP SCH (22:05)
[2017-03-20 22:17] LABS: ANION GAP 13 (8-16); CO2 21 mmol/L (21-32); CREATININE 1.5 mg/dL (0.55-1.02); GLUCOSE,RANDOM 199 mg/dL (74-106)
[2017-03-20 22:34] LABS: CALCIUM 5.7 mg/dL (8.5-10.1)
[2017-03-20 22:35] LABS: TROPONIN I 2.18 ng/ml (0.00-0.05)
[2017-03-21] MEDS: FENTANYL INJECTION 500 MCG in DEXTROSE 5%-WATER - 90 ML IJ SCH ×3 (01:52→22:11)
[2017-03-21] MEDS: MIDAZOLAM 100 MG in SODIUM CHLORIDE 100 ML IVPB SCH ×2 (01:53→19:05)
[2017-03-21] MEDS: HYDROCORTISONE SOD SUCCINATE 100 MG/2 ML VIAL IVPB SCH ×3 (02:25→17:54)
[2017-03-21] MEDS: METRONIDAZOLE 500 MG PREMIXED 100 ML IVPB SCH ×3 (02:25→17:54)
[2017-03-21] MEDS: SODIUM BICARBONATE 8.4% - 150 MEQ in DEXTROSE 5%-WATER - 1,000 ML IV SCH (03:00)
[2017-03-21] MEDS ORDERED: VANCOMYCIN 1 GRAM (PRE-DOCKED) 1,000 MG/250 ML BAG IVPB ONE (05:05)
[2017-03-21 06:36] LABS: BASOPHIL 0.2 % (0-2.0); MCH 30.2 pg (25.7-33.7); MCHC 33.2 g/dl (32.0-36.0); MEAN PLT VOLUME 9.3 fl (7.5-11.1); NEUTROPHILS 89.1 % (42.8-82.8); PLATELET COUNT 70 K/MM3 (134-434); RDW 14.3 % (11.6-15.6); WHITE BLOOD COUNT 21.4 K/mm3 (4.0-10.0)
[2017-03-21 07:10] LABS: INR 2.77 (0.82-1.09); PROTHROMBIN TIME (PATIENT) 31.1 SEC (9.98-11.88)
[2017-03-21 07:13] LABS: ACTIVATED PTT 28.4 SECONDS (26.9-34.4)
--- NOTE | 2017-03-21 07:29 | PN ---
Progress Note, Physician Chief Complaint: ICU follow up for sepsis with bacteremia Meropenem and metronidazole Intubated & pressor support - Current Medication List Current Medications: Active Medications Chlorhexidine Gluconate (Hibiclens For Decolonization -) 1 applic TP HS CHELY Last Admin: 03/20/17 22:05 Dose: 1 applic Chlorhexidine Gluconate (Peridex -) 15 ml MM BID CHELY Last Admin: 03/20/17 22:06 Dose: 15 ml Hydrocortisone Sodium Succinate (Solu-Cortef -) 100 mg IVPB Q8H-IV CHELY Last Admin: 03/21/17 02:25 Dose: 100 mg Sodium Bicarbonate 150 meq/ (Dextrose) 1,150 mls @ 125 mls/hr IV Q9H CHELY Stop: 03/21/17 11:44 Last Admin: 03/21/17 03:00 Dose: Not Given Pantoprazole Sodium (Protonix 40mg Ivpb (Pre-Docked)) 100 mls @ 200 mls/hr IVPB DAILY CHELY Last Admin: 03/20/17 15:23 Dose: Not Given Metronidazole (Flagyl 500mg Premixed Ivpb -) 100 mls @ 100 mls/hr IVPB Q8H-IV CHELY Last Admin: 03/21/17 02:25 Dose: 100 mls/hr Meropenem 1 gm/ Dextrose 100 mls @ 100 mls/hr IVPB BID CHELY PRN Reason: Protocol Last Admin: 03/20/17 22:05 Dose: 100 mls/hr Midazolam HCl 100 mg/ Sodium (Chloride) 100 mls @ 4 mls/hr IVPB TITR CHELY; 4 MG/ HR PRN Reason: Protocol Last Admin: 03/21/17 01:53 Dose: 4 mls/hr Norepinephrine Bitartrate 8, (000 mcg/ Dextrose) 500 mls @ 37.5 mls/hr IV TITR CHELY; 10 MCG/MIN PRN Reason: Protocol Last Admin: 03/20/17 23:00 Dose: 45 mls/hr Fentanyl 500 mcg/ Dextrose 100 mls @ 5 mls/hr IJ TITR CHELY PRN Reason: 25 MCG/HR Last Admin: 03/21/17 01:52 Dose: 5 mls/hr Sodium Chloride (Normal Saline -) 500 mls @ 500 mls/hr IV ASDIR CHELY Mupirocin (Bactroban Ointment (For Decolonization) -) 1 applic NS BID CHELY Stop: 03/25/17 09:59 Last Admin: 03/20/17 22:04 Dose: 1 applic - Objective Vital Signs: Vital Signs Temperature 98.1 F 03/21/17 06:00 Pulse Rate 90 03/21/17 06:00 Respiratory Rate 17 03/21/17 07:05 Blood Pressure 113/91 03/21/17 06:00 O2 Sat by Pulse Oximetry (%) 100 03/20/17 22:00 Constitutional: Yes: Other (Intubated) Cardiovascular: Yes: Regular Rate and Rhythm, S1, S2. No: Murmur Respiratory: Yes: WNL, Regular, CTA Bilaterally Gastrointestinal: Yes: WNL, Normal Bowel Sounds, Soft, Other (drainage catheter) . No: Tenderness Edema: No Labs: CBC, BMP 03/21/17 05:20 INR, PTT INR 2.18 (0.82-1.09) H 03/20/17 16:00 Fibrinogen 540.0 mg/dL (238-498) H 03/20/17 09:45 Problem List - Problems (1) Liver abscess Code(s): K75.0 - ABSCESS OF LIVER (2) Multiorgan failure Code(s): SIC2909 - (3) Anaerobic bacteremia Code(s): R78.81 - BACTEREMIA Assessment/Plan Microbiology 03/20/17 04:32 Blood - Peripheral Venous Blood Culture - Preliminary Pending Organism Laboratory Tests 03/20/17 03/20/17 03/20/17 13:40 16:00 20:00 WBC Plt Count INR 2.18 H ABG pH 7.25 L ABG pO2 at Pt Temp 234.0 H* BUN 23 H Creatinine 1.5 H Lactic Acid Troponin I 03/20/17 03/21/17 03/21/17 20:00 02:30 05:20 WBC 21.4 H Plt Count 70 L D INR ABG pH ABG pO2 at Pt Temp BUN Creatinine Lactic Acid 6.4 H* Troponin I 20.50 H* 03/21/17 05:20 WBC Plt Count INR ABG pH ABG pO2 at Pt Temp BUN Pending Creatinine Pending Lactic Acid Troponin I Assessment Sepsis syndrome Multiorgan failure Liver abscess ? source ? Anaerobic bacteremia Elevated TNI !! Cardiogenic pulmnary edema Plan Continue current antibiotics Awaiting c/s Critical care support Eunice RANDOLPH
[2017-03-21 07:34] LABS: ALBUMIN 1.9 g/dl (3.4-5.0); ALK PHOS 172 U/L (45-117); ANION GAP 12 (8-16); BILIRUBIN,TOTAL 1.3 mg/dL (0.2-1.0); CO2 25 mmol/L (21-32); CREATININE 1.4 mg/dL (0.55-1.02); GLUCOSE,RANDOM 245 mg/dL (74-106); MAGNESIUM 2.1 mg/dL (1.8-2.4); PHOSPHOROUS 2.6 mg/dL (2.5-4.9); TOT PROT 4.8 g/dl (6.4-8.2)
[2017-03-21 07:37] LABS: SGOT/AST 3636 U/L (15-37); SGPT/ALT 1776 U/L (12-78)
[2017-03-21 07:39] LABS: CALCIUM 5.6 mg/dL (8.5-10.1)
[2017-03-21 07:45] LABS: ALLENS TEST POSITIVE; ART PUNCT SITE RIGHT RADIAL; ARTERIAL BLD GAS O2 SATURATION 99.4 % (90-98.9); ARTERIAL BLOOD GAS BASE EXCESS 0.6 meq/l (-2-2); ARTERIAL BLOOD GAS HCO3 24.2 meq/L (22-26); ARTERIAL BLOOD GAS pH 7.44 (7.35-7.45); LPM/O2% 70%; PT. ON O2? YES
[2017-03-21 07:46] LABS: MECH. VENT. Y; TYPE OF O2 VENT; VENT RATE 16; VT/PRESS 400
[2017-03-21] MEDS ORDERED: NOREPINEPHRINE BITARTRATE 4 MG/4 ML ML IV ONE ×2 (07:48→23:51)
--- NOTE | 2017-03-21 08:51 | CON.CARD ---
Consult Consult Specialty:: cardio Referred by:: hospitalist Reason for Consultation:: elev troponin - History of Present Illness Chief Complaint: fever, vomiting History of Present Illness: 31 year old female with a significant past medical history of cholecystectomy ( 8 years ago), who emigrated from [place] (9 years ago) and presents with two weeks of intermittent fever and chills, constant right shoulder pain and progressive weakness/fatigue. Last night she developed severe generalized weakness, nausea with two episodes of vomiting (non-bloody/bilious) and three episodes of diarrhea (no blood or mucous). She denies travel outside of the [place] since emigration. She denies ingestion or river, stream or [place] water. She denies ER course was notable for: -Septic shock -Uptrending lactic acid -US and CT abd/pelvis (non-contrast) suggestive of liver abscess -7 liters of IVF (NS) -Zosyn/Flagyl required high dose pressors for shock. was intubated for impending resp failure, with ? of ARDS given rapidly developing infiltrates on CT scan had IR drainage of purulent liver abscess with solid component. BCx's growing gram negative rods severe lactic acidosis, severe SETH (creat > 3) noted, ivf resuscitation started she is intubated/sedated, cannot provide further hx PMH (from chart): no known DM, HTN, CV dz no cigs - Past Medical History Hepatobiliary: Yes: Other (s/p cholecystectomy) Renal/: Yes: Renal Calculi ...LMP: 03/20/17 ...: No - Past Surgical History Past Surgical History: Yes: Cholecystectomy (lap converted to open 8y ago (here per pt)), (x2) - Alcohol/Substance Use Hx Alcohol Use: No - Smoking History Smoking history: Never smoked Have you smoked in the past 12 months: No Aproximately how many cigarettes per day: 0 - Social History History of Recent Travel: No (not out of country since immigration) Home Medications - Allergies Allergies/Adverse Reactions: Allergies Allergy/AdvReac Type Severity Reaction Status Date / Time No Known Allergies Allergy Verified 03/20/17 04:04 - Home Medications Home Medications: Ambulatory Orders No Home Medications 0 dose .ROUTE UTDICT 05/05/12 Family Disease History - Family Disease History Family History: Unable to Obtain Review of Systems Unable to obtain ROS, reason: sedated/intubated Vital Signs: Vital Signs Temperature 98.1 F 03/21/17 06:00 Pulse Rate 90 03/21/17 06:00 Respiratory Rate 17 03/21/17 07:05 Blood Pressure 113/91 03/21/17 06:00 O2 Sat by Pulse Oximetry (%) 100 03/20/17 22:00 Constitutional: Yes: Well Nourished, No Distress Eyes: No: Sclera Icterus HENT: No: Nasal Congestion Neck: No: Decreased ROM Respiratory: Yes: CTA Bilaterally (anteriorly). No: Accessory Muscle Use, Rales , Wheezes Gastrointestinal: Yes: Normal Bowel Sounds. No: Distention, Hepatomegaly, Palpable Mass, Tenderness Cardiovascular: Yes: Regular Rate and Rhythm JVD: No Carotid Bruit: No PMI: Non-Displaced Heart Sounds: Yes: S1, S2. No: Gallop Murmur: No: Systolic Murmur, Diastolic Murmur Musculoskeletal: Yes: Other (No kyphosis) Extremities: No: Cold, Cyanosis Edema: No Peripheral Pulses: 2+ Left Carotid, 2+ Right Carotid, 2+ Left Doralis Pedis, 2+ Right Dorsalis Pedis Integumentary: No: Jaundice Neurological: No: Alert, Oriented (x3), Seizure Psychiatric: No: Agitated - Other Data Labs, Other Data: CBC, BMP 03/21/17 05:20 03/21/17 05:20 INR, PTT INR 2.77 (0.82-1.09) H 03/21/17 05:20 Fibrinogen 540.0 mg/dL (238-498) H 03/20/17 09:45 Troponin, BNP 03/20/17 03/20/17 03/21/17 16:00 20:00 02:30 Troponin I 0.94 H* 2.18 H* 20.50 H* 03/21/17 05:20 Troponin I 19.00 H* Troponin, BNP 03/20/17 03/20/17 03/21/17 16:00 20:00 02:30 Troponin I 0.94 H* 2.18 H* 20.50 H* 03/21/17 05:20 Troponin I 19.00 H* Laboratory Tests 03/20/17 03/20/17 03/20/17 03:58 16:00 20:00 WBC Hgb Plt Count INR ABG pH ABG pCO2 at Pt Temp ABG pO2 at Pt Temp Oxygen Flow Rate Sodium Potassium Carbon Dioxide BUN 27 H D Creatinine 3.4 H D Lactic Acid 6.4 H* Total Bilirubin AST ALT Alkaline Phosphatase Troponin I 0.94 H* Albumin 03/21/17 03/21/17 03/21/17 02:30 05:20 05:20 WBC 21.4 H Hgb 8.1 L Plt Count 70 L D INR 2.77 H ABG pH ABG pCO2 at Pt Temp ABG pO2 at Pt Temp Oxygen Flow Rate Sodium Potassium Carbon Dioxide BUN Creatinine Lactic Acid Total Bilirubin AST ALT Alkaline Phosphatase Troponin I 20.50 H* Albumin 03/21/17 03/21/17 05:20 07:30 WBC Hgb Plt Count INR ABG pH 7.44 D ABG pCO2 at Pt Temp 36.8 ABG pO2 at Pt Temp 196.0 H* Oxygen Flow Rate 70% Sodium 141 Potassium 3.5 Carbon Dioxide 25 BUN 25 H Creatinine 1.4 H Lactic Acid Total Bilirubin 1.3 H D AST 3636 H ALT 1776 H D Alkaline Phosphatase 172 H Troponin I 19.00 H* Albumin 1.9 L tele: NSR/sinus tach Assessment/Plan ECG's: #1: sinus tach, no isch abnormality #2: same, mildly prolonged QT #3: NSR, nonspecific ST-T abnormalities (QT normalized) CXR 03/21 am: bilat effusions and diffuse infiltrates, stable vs last film (incr vs admit film) septic shock, gram negative rich bacteremia: -hemodynamically stable at present -cont levophed at current dose--goal MAP >60 -cont stress dose steroids for now -abx per ID, f/u of abscess cx's elevated troponin: -trop peg to 20, trending down -ECG initially non-ischemic, now with nonspecific changes this am -young female pt with no reported history of severe hyperlipidemia, diabetes, cigarettes--extremely low pretest prob of obstructive CAD -troponins and ECG are very likely secondary to sepsis related myonecrosis. hence ASA/AC, BB, statin not indicated (regardless, she is at prohibitive risks for these medical therapies, or invasive therapy of CAD, in light of heme abnormalities described above and septic shock) -less likely Takotsubo's from immense stressors -f/u echo for LV fxn -f/u rpt ECG this am shows stable nonsp ST-Ts (actually improved slightly vs last tracing) anemia, thrombocytopenia, coagulopathy: -likely sec to sepsis -shock liver likely contributing to coagulopathy, ? DIC component -PLTs trending down, INR trending up -per critical care--consider heme consult SETH: -sec to hypoperfusion vs sepsis -renal fxn improving -IVF, hemodynamic support as doing -renal following shock liver: -BP support as doing -coagulation support as above -per critical care acute resp failure: -sec to severe metabolic acidosis/septic shock -oxygenating and ventilating well on current vent settings, per last ABG -acidosis has resolved -rapid vent wean if tolerates, per crit care est crit care time in mgmt and review of data = 35 min
[2017-03-21] MEDS: MEROPENEM 1 GM in DEXTROSE 5%-WATER - 100 ML IVPB SCH ×2 (09:25→22:17)
[2017-03-21] MEDS: PANTOPRAZOLE SODIUM 100 ML IVPB SCH (09:29)
[2017-03-21] MEDS: MUPIROCIN 2% TOPICAL OINTMENT FOR DECOLONIZATION NS SCH ×2 (09:30→22:10)
--- NOTE | 2017-03-21 09:51 | PN ---
Progress Note, Physician Chief Complaint: This is a 31 year old woman with PMhx of ovarian cyst, ? nephrolithiasis who presented with Abd pain and fever and found to have Sepsis with shock and liver abcess and SETH and metabolic acidosis. Pt currently in the ICU.Pt hypotensive on Levophed. The liver abscess was drained, and further studies are pending. The patient has a walter catheter draining dark yellow urine. - Current Medication List Current Medications: Active Medications Chlorhexidine Gluconate (Hibiclens For Decolonization -) 1 applic TP HS CHELY Last Admin: 03/20/17 22:05 Dose: 1 applic Chlorhexidine Gluconate (Peridex -) 15 ml MM BID CHELY Last Admin: 03/20/17 22:06 Dose: 15 ml Hydrocortisone Sodium Succinate (Solu-Cortef -) 100 mg IVPB Q8H-IV CHELY Last Admin: 03/21/17 09:25 Dose: 100 mg Sodium Bicarbonate 150 meq/ (Dextrose) 1,150 mls @ 125 mls/hr IV Q9H CHELY Stop: 03/21/17 11:44 Last Admin: 03/21/17 03:00 Dose: Not Given Pantoprazole Sodium (Protonix 40mg Ivpb (Pre-Docked)) 100 mls @ 200 mls/hr IVPB DAILY CEHLY Last Admin: 03/21/17 09:29 Dose: 200 mls/hr Metronidazole (Flagyl 500mg Premixed Ivpb -) 100 mls @ 100 mls/hr IVPB Q8H-IV HCELY Last Admin: 03/21/17 09:28 Dose: 100 mls/hr Meropenem 1 gm/ Dextrose 100 mls @ 100 mls/hr IVPB BID CHELY PRN Reason: Protocol Last Admin: 03/21/17 09:25 Dose: 100 mls/hr Midazolam HCl 100 mg/ Sodium (Chloride) 100 mls @ 4 mls/hr IVPB TITR CHELY; 4 MG/ HR PRN Reason: Protocol Last Admin: 03/21/17 01:53 Dose: 4 mls/hr Norepinephrine Bitartrate 8, (000 mcg/ Dextrose) 500 mls @ 37.5 mls/hr IV TITR CHELY; 10 MCG/MIN PRN Reason: Protocol Last Admin: 03/20/17 23:00 Dose: 45 mls/hr Fentanyl 500 mcg/ Dextrose 100 mls @ 5 mls/hr IJ TITR CHELY PRN Reason: 25 MCG/HR Last Admin: 03/21/17 01:52 Dose: 5 mls/hr Sodium Chloride (Normal Saline -) 500 mls @ 500 mls/hr IV ASDIR CHELY Mupirocin (Bactroban Ointment (For Decolonization) -) 1 applic NS BID CHELY Stop: 03/25/17 09:59 Last Admin: 03/21/17 09:30 Dose: 1 applic - Objective Vital Signs: Vital Signs Temperature 98.1 F 03/21/17 06:00 Pulse Rate 87 03/21/17 08:00 Respiratory Rate 16 03/21/17 08:00 Blood Pressure 97/81 03/21/17 08:00 O2 Sat by Pulse Oximetry (%) 100 03/20/17 22:00 Constitutional: Yes: Other (Patient sedated, intubated and supported by mechanical vent.) HENT: Yes: Atraumatic, Normocephalic Neck: Yes: Trachea Midline Respiratory: Yes: Mechanically Ventilated, Rhonchi Gastrointestinal: Yes: Hypoactive Bowel Sounds Genitourinary: Yes: Walter Present Labs: CBC, BMP 03/21/17 05:20 03/21/17 05:20 INR, PTT INR 2.77 (0.82-1.09) H 03/21/17 05:20 Fibrinogen 540.0 mg/dL (238-498) H 03/20/17 09:45 Problem List - Problems (1) Anaerobic bacteremia Code(s): R78.81 - BACTEREMIA (2) Hypotension Code(s): I95.9 - HYPOTENSION, UNSPECIFIED Qualifiers: Hypotension type: other hypotension type Qualified Code(s): I95.89 - Other hypotension (3) Hypovolemic shock Code(s): R57.1 - HYPOVOLEMIC SHOCK (4) Liver abscess Code(s): K75.0 - ABSCESS OF LIVER (5) Renal failure Code(s): N19 - UNSPECIFIED KIDNEY FAILURE Qualifiers: Renal failure chronicity: acute Acute renal failure type: with other specified pathological lesion Qualified Code(s): N17.8 - Other acute kidney failure (6) Septic shock Code(s): A41.9 - SEPSIS, UNSPECIFIED ORGANISM R65.21 - SEVERE SEPSIS WITH SEPTIC SHOCK Assessment/Plan 31 y/o female admitted with Septic shock, and the finding of Liver abscess, which was drained and further studies pending. Acute renal failure related to Renal Hypoperfusion in the setting of Hypotension and sepsis. There is profound Hypocalcemia( even when corrected for Hypoalbuminemia), and if the Calcium drops any further, will need supplements. The Serum Bicarb is 25, and will reduce the Bicarb supplement. Should help improve the Alkalemia and the ionized Calcium level. Will monitor the Renal functions with you. Laura Tirado MD
--- NOTE | 2017-03-21 11:36 | PN ---
Physical Exam: SUBJECTIVE: ICU Progress Note Patient seen and examined at bedside. Intubated and sedated. Norepinephrine ggt , Bicarb ggt, fentanyl ggt. OBJECTIVE: Vital Signs Period Temp Pulse Resp BP Sys/Bonner Pulse Ox Last 24 Hr 96.4 F-98.1 F 86-100 16-25 81-113/59-93 77-100 GENERAL: Intubated, sedated. HEAD: Normal with no signs of trauma. EYES: PERRL, sclera anicteric, conjunctiva clear. NECK: Trachea midline, full range of motion, supple. LUNGS: Breath sounds equal, with scattered rhonchi to auscultation bilaterally, no wheezes, no crackles, no accessory muscle use. HEART: Regular rate and rhythm, S1, S2 without murmur, rub or gallop. ABDOMEN: Soft, nontender, nondistended, normoactive bowel sounds, no guarding, no rebound, no hepatosplenomegaly, no masses. EXTREMITIES: 2+ pulses, warm, well-perfused, 2+ edema b/l UE and LE NEUROLOGICAL: Sedated. PERRLA SKIN: Warm, dry, normal turgor, no rashes, bruising, or lesions noted Laboratory Results - last 24 hr 03/20/17 03/20/17 03/20/17 07:30 07:49 09:45 INR 2.10 H PTT (Actin FS) 31.6 Urine Color Tresa Urine Appearance Cloudy Urine pH 5.0 Ur Specific Shunk 1.025 Urine Protein 2+ H Urine Glucose (UA) Negative Urine Ketones Trace H Urine Blood 3+ H Urine Nitrite Negative Urine Bilirubin Negative Urine Urobilinogen 2.0 e.u/dl H Ur Leukocyte Esterase Negative Urine RBC 10 Urine WBC 40 Ur Epithelial Cells Rare Urine Bacteria Rare Urine Mucus Moderate Urine Yeast Few HIV 1&2 Antibody Screen Negative HIV P24 Antigen Negative 03/20/17 03/20/17 03/20/17 12:50 13:40 13:40 Puncture Site Right radial ABG pH 7.25 L ABG pCO2 at Pt Temp 34.1 L D ABG pO2 at Pt Temp 234.0 H* ABG HCO3 14.5 L* ABG O2 Sat (Measured) 99.3 H ABG O2 Content 11.7 L ABG Base Excess -11.4 L* Beau Test Positive O2 Delivery Device [facility].vent Oxygen Flow Rate 1005 Vent Mode A/c Vent Rate 16 Mechanical Rate Esprit PEEP 7.0 Pressure Support Vent 400 Sodium Potassium Chloride Carbon Dioxide Anion Gap BUN Creatinine Creat Clearance w eGFR Random Glucose Lactic Acid Calcium Phosphorus Magnesium Total Bilirubin AST ALT Alkaline Phosphatase Creatine Kinase CK-MB (CK-2) Troponin I Total Protein Albumin Urine Color Urine Appearance Urine pH Ur Specific Shunk Urine Protein Urine Glucose (UA) Urine Ketones Urine Blood Urine Nitrite Urine Bilirubin Urine Urobilinogen Ur Leukocyte Esterase Urine RBC Urine WBC Ur Epithelial Cells Urine Bacteria Urine Mucus Urine Yeast U Random Total Protein Ur Random Sodium Ur Random Potassium Ur Random Chloride Urine Creatinine Fluid Chloride 98.64 Fluid Total Protein 3.2 LDH Serum/Fluid Ratio 67621 Peritoneal WBC Peritoneal RBC Shingle Inspector Periton Neutrophils 90 Periton Lymphocytes 6 Peritoneal Monocytes 4 Peritoneal Glucose 13 Random Vancomycin Opiates Screen Negative Methadone Screen Negative Barbiturate Screen Negative Phencyclidine Screen Negative Ur Amphetamines Screen Negative MDMA (Ecstasy) Screen Negative Benzodiazepines Screen Positive Cocaine Screen Negative U Marijuana (THC) Screen Negative 03/20/17 03/20/17 03/20/17 13:40 13:40 13:40 WBC RBC Hgb Hct MCV MCHC RDW Plt Count MPV Neutrophils % Lymphocytes % Monocytes % Eosinophils % Basophils % Band Neutrophils Metamyelocytes Differential Comment Toxic Granulation Platelet Estimate Platelet Comment Morphology Comment INR PTT (Actin FS) Anticoagulation Therapy Puncture Site ABG pH ABG pCO2 at Pt Temp ABG pO2 at Pt Temp ABG HCO3 ABG O2 Sat (Measured) ABG O2 Content ABG Base Excess Beau Test O2 Delivery Device Oxygen Flow Rate Vent Mode Vent Rate Mechanical Rate PEEP Pressure Support Vent Sodium Potassium Chloride Carbon Dioxide Anion Gap BUN Creatinine Creat Clearance w eGFR Random Glucose Lactic Acid Calcium Phosphorus Magnesium Total Bilirubin AST ALT Alkaline Phosphatase Creatine Kinase CK-MB (CK-2) Troponin I Total Protein Albumin Urine Color Urine Appearance Urine pH Ur Specific Shunk Urine Protein Urine Glucose (UA) Urine Ketones Urine Blood Urine Nitrite Urine Bilirubin Urine Urobilinogen Ur Leukocyte Esterase Urine RBC Urine WBC Ur Epithelial Cells Urine Bacteria Urine Mucus Urine Yeast U Random Total Protein 81 H Ur Random Sodium 33 Ur Random Potassium 30.8 Ur Random Chloride 33 Urine Creatinine 35.1 Fluid Chloride Fluid Total Protein LDH Serum/Fluid Ratio Peritoneal WBC Peritoneal RBC Periton Neutrophils Periton Lymphocytes Peritoneal Monocytes Peritoneal Glucose Random Vancomycin Opiates Screen Methadone Screen Barbiturate Screen Phencyclidine Screen Ur Amphetamines Screen MDMA (Ecstasy) Screen Benzodiazepines Screen Cocaine Screen U Marijuana (THC) Screen HIV 1&2 Antibody Screen HIV P24 Antigen 03/20/17 03/20/17 03/20/17 16:00 16:00 16:00 WBC 20.2 H RBC 2.47 L Hgb 7.4 L D Hct 22.8 L D MCV 92.6 MCHC 32.5 RDW 14.2 Plt Count 100 L MPV 8.5 Neutrophils % 64.0 Lymphocytes % 5.0 L D Monocytes % 2.0 L Eosinophils % Basophils % Band Neutrophils 27.0 H D Metamyelocytes 2 D Differential Comment Manual diff done Toxic Granulation 1+ Platelet Estimate Slt decreased Platelet Comment Few large plts Morphology Comment Slide scanned INR 2.18 H PTT (Actin FS) 29.9 Anticoagulation Therapy Puncture Site ABG pH ABG pCO2 at Pt Temp ABG pO2 at Pt Temp ABG HCO3 ABG O2 Sat (Measured) ABG O2 Content ABG Base Excess Beau Test O2 Delivery Device Oxygen Flow Rate Vent Mode Vent Rate Mechanical Rate PEEP Pressure Support Vent Sodium Potassium Chloride Carbon Dioxide Anion Gap BUN Creatinine Creat Clearance w eGFR Random Glucose Lactic Acid Calcium Phosphorus Magnesium Total Bilirubin AST ALT Alkaline Phosphatase Creatine Kinase CK-MB (CK-2) Troponin I Total Protein Albumin Urine Color Urine Appearance Urine pH Ur Specific Shunk Urine Protein Urine Glucose (UA) Urine Ketones Urine Blood Urine Nitrite Urine Bilirubin Urine Urobilinogen Ur Leukocyte Esterase Urine RBC Urine WBC Ur Epithelial Cells Urine Bacteria Urine Mucus Urine Yeast U Random Total Protein Ur Random Sodium Ur Random Potassium Ur Random Chloride Urine Creatinine Fluid Chloride Fluid Total Protein LDH Serum/Fluid Ratio Peritoneal WBC Peritoneal RBC Periton Neutrophils Periton Lymphocytes Peritoneal Monocytes Peritoneal Glucose Random Vancomycin 11.833 Opiates Screen Methadone Screen Barbiturate Screen Phencyclidine Screen Ur Amphetamines Screen MDMA (Ecstasy) Screen Benzodiazepines Screen Cocaine Screen U Marijuana (THC) Screen HIV 1&2 Antibody Screen HIV P24 Antigen 03/20/17 03/20/17 03/20/17 16:00 16:00 20:00 WBC 21.5 H RBC 2.68 L Hgb 8.0 L Hct 24.8 L MCV 92.4 MCHC 32.1 RDW 14.4 Plt Count 88 L MPV 9.0 Neutrophils % Lymphocytes % Monocytes % Eosinophils % Basophils % Band Neutrophils Metamyelocytes Differential Comment Toxic Granulation Platelet Estimate Platelet Comment Morphology Comment INR PTT (Actin FS) Anticoagulation Therapy Puncture Site ABG pH ABG pCO2 at Pt Temp ABG pO2 at Pt Temp ABG HCO3 ABG O2 Sat (Measured) ABG O2 Content ABG Base Excess Beau Test O2 Delivery Device Oxygen Flow Rate Vent Mode Vent Rate Mechanical Rate PEEP Pressure Support Vent Sodium 142 Potassium 4.1 Chloride 108 H Carbon Dioxide 20 L D Anion Gap 14 BUN 22 H Creatinine 1.7 H Creat Clearance w eGFR 34.83 Random Glucose 235 H Lactic Acid 7.2 H* Calcium 5.6 L* Phosphorus 3.3 D Magnesium 2.2 D Total Bilirubin 2.0 H AST 1429 H ALT 672 H D Alkaline Phosphatase 147 H Creatine Kinase 253 H D CK-MB (CK-2) 14.360 H Troponin I 0.94 H* Total Protein 4.6 L Albumin 1.9 L Urine Color Urine Appearance Urine pH Ur Specific Shunk Urine Protein Urine Glucose (UA) Urine Ketones Urine Blood Urine Nitrite Urine Bilirubin Urine Urobilinogen Ur Leukocyte Esterase Urine RBC Urine WBC Ur Epithelial Cells Urine Bacteria Urine Mucus Urine Yeast U Random Total Protein Ur Random Sodium Ur Random Potassium Ur Random Chloride Urine Creatinine Fluid Chloride Fluid Total Protein LDH Serum/Fluid Ratio Peritoneal WBC Peritoneal RBC Periton Neutrophils Periton Lymphocytes Peritoneal Monocytes Peritoneal Glucose Random Vancomycin Opiates Screen Methadone Screen Barbiturate Screen Phencyclidine Screen Ur Amphetamines Screen MDMA (Ecstasy) Screen Benzodiazepines Screen Cocaine Screen U Marijuana (THC) Screen HIV 1&2 Antibody Screen HIV P24 Antigen 03/20/17 03/20/17 03/21/17 20:00 20:00 02:30 WBC RBC Hgb Hct MCV MCHC RDW Plt Count MPV Neutrophils % Lymphocytes % Monocytes % Eosinophils % Basophils % Band Neutrophils Metamyelocytes Differential Comment Toxic Granulation Platelet Estimate Platelet Comment Morphology Comment INR PTT (Actin FS) Anticoagulation Therapy Puncture Site ABG pH ABG pCO2 at Pt Temp ABG pO2 at Pt Temp ABG HCO3 ABG O2 Sat (Measured) ABG O2 Content ABG Base Excess Beau Test O2 Delivery Device Oxygen Flow Rate Vent Mode Vent Rate Mechanical Rate PEEP Pressure Support Vent Sodium 140 Potassium 3.8 Chloride 106 Carbon Dioxide 21 Anion Gap 13 BUN 23 H Creatinine 1.5 H Creat Clearance w eGFR Random Glucose 199 H Lactic Acid 6.4 H* Calcium 5.7 L* Phosphorus Magnesium Total Bilirubin AST ALT Alkaline Phosphatase Creatine Kinase 306 H D CK-MB (CK-2) 19.109 H Troponin I 2.18 H* 20.50 H* Total Protein Albumin Urine Color Urine Appearance Urine pH Ur Specific Shunk Urine Protein Urine Glucose (UA) Urine Ketones Urine Blood Urine Nitrite Urine Bilirubin Urine Urobilinogen Ur Leukocyte Esterase Urine RBC Urine WBC Ur Epithelial Cells Urine Bacteria Urine Mucus Urine Yeast U Random Total Protein Ur Random Sodium Ur Random Potassium Ur Random Chloride Urine Creatinine Fluid Chloride Fluid Total Protein LDH Serum/Fluid Ratio Peritoneal WBC Peritoneal RBC Periton Neutrophils Periton Lymphocytes Peritoneal Monocytes Peritoneal Glucose Random Vancomycin Opiates Screen Methadone Screen Barbiturate Screen Phencyclidine Screen Ur Amphetamines Screen MDMA (Ecstasy) Screen Benzodiazepines Screen Cocaine Screen U Marijuana (THC) Screen HIV 1&2 Antibody Screen HIV P24 Antigen 03/21/17 03/21/17 03/21/17 05:20 05:20 05:20 WBC 21.4 H RBC 2.68 L Hgb 8.1 L Hct 24.4 L MCV 91.0 MCHC 33.2 RDW 14.3 Plt Count 70 L D MPV 9.3 Neutrophils % 89.1 H D Lymphocytes % 6.1 L D Monocytes % 1.6 L Eosinophils % 3.0 D Basophils % 0.2 Band Neutrophils Metamyelocytes Differential Comment Toxic Granulation Platelet Estimate Platelet Comment Morphology Comment INR 2.77 H PTT (Actin FS) 28.4 Anticoagulation Therapy Puncture Site ABG pH ABG pCO2 at Pt Temp ABG pO2 at Pt Temp ABG HCO3 ABG O2 Sat (Measured) ABG O2 Content ABG Base Excess Beau Test O2 Delivery Device Oxygen Flow Rate Vent Mode Vent Rate Mechanical Rate PEEP Pressure Support Vent Sodium 141 Potassium 3.5 Chloride 104 Carbon Dioxide 25 Anion Gap 12 BUN 25 H Creatinine 1.4 H Creat Clearance w eGFR 43.58 Random Glucose 245 H D Lactic Acid Calcium 5.6 L* Phosphorus 2.6 D Magnesium 2.1 Total Bilirubin 1.3 H D AST 3636 H ALT 1776 H D Alkaline Phosphatase 172 H Creatine Kinase 768 H D CK-MB (CK-2) 75.462 H Troponin I 19.00 H* Total Protein 4.8 L Albumin 1.9 L Urine Color Urine Appearance Urine pH Ur Specific Shunk Urine Protein Urine Glucose (UA) Urine Ketones Urine Blood Urine Nitrite Urine Bilirubin Urine Urobilinogen Ur Leukocyte Esterase Urine RBC Urine WBC Ur Epithelial Cells Urine Bacteria Urine Mucus Urine Yeast U Random Total Protein Ur Random Sodium Ur Random Potassium Ur Random Chloride Urine Creatinine Fluid Chloride Fluid Total Protein LDH Serum/Fluid Ratio Peritoneal WBC Peritoneal RBC Periton Neutrophils Periton Lymphocytes Peritoneal Monocytes Peritoneal Glucose Random Vancomycin Opiates Screen Methadone Screen Barbiturate Screen Phencyclidine Screen Ur Amphetamines Screen MDMA (Ecstasy) Screen Benzodiazepines Screen Cocaine Screen U Marijuana (THC) Screen HIV 1&2 Antibody Screen HIV P24 Antigen 03/21/17 07:30 WBC RBC Hgb Hct MCV MCHC RDW Plt Count MPV Neutrophils % Lymphocytes % Monocytes % Eosinophils % Basophils % Band Neutrophils Metamyelocytes Differential Comment Toxic Granulation Platelet Estimate Platelet Comment Morphology Comment INR PTT (Actin FS) Anticoagulation Therapy Y Puncture Site Right radial ABG pH 7.44 D ABG pCO2 at Pt Temp 36.8 ABG pO2 at Pt Temp 196.0 H* ABG HCO3 24.2 ABG O2 Sat (Measured) 99.4 H ABG O2 Content 12.5 L ABG Base Excess 0.6 Beau Test Positive O2 Delivery Device Vent Oxygen Flow Rate 70% Vent Mode A/c Vent Rate 16 Mechanical Rate Y PEEP 7.0 Pressure Support Vent 400 Sodium Potassium Chloride Carbon Dioxide Anion Gap BUN Creatinine Creat Clearance w eGFR Random Glucose Lactic Acid Calcium Phosphorus Magnesium Total Bilirubin AST ALT Alkaline Phosphatase Creatine Kinase CK-MB (CK-2) Troponin I Total Protein Albumin Urine Color Urine Appearance Urine pH Ur Specific Shunk Urine Protein Urine Glucose (UA) Urine Ketones Urine Blood Urine Nitrite Urine Bilirubin Urine Urobilinogen Ur Leukocyte Esterase Urine RBC Urine WBC Ur Epithelial Cells Urine Bacteria Urine Mucus Urine Yeast U Random Total Protein Ur Random Sodium Ur Random Potassium Ur Random Chloride Urine Creatinine Fluid Chloride Fluid Total Protein LDH Serum/Fluid Ratio Peritoneal WBC Peritoneal RBC Periton Neutrophils Periton Lymphocytes Peritoneal Monocytes Peritoneal Glucose Random Vancomycin Opiates Screen Methadone Screen Barbiturate Screen Phencyclidine Screen Ur Amphetamines Screen MDMA (Ecstasy) Screen Benzodiazepines Screen Cocaine Screen U Marijuana (THC) Screen HIV 1&2 Antibody Screen HIV P24 Antigen Active Medications Generic Name Dose Route Start Last Admin Trade Name Freq PRN Reason Stop Dose Admin Chlorhexidine Gluconate 1 applic 03/20/17 22:00 03/20/17 22:05 Hibiclens For Decolonization - TP 1 applic HS CHELY Administration Chlorhexidine Gluconate 15 ml 03/20/17 12:15 03/20/17 22:06 Peridex - MM 15 ml BID CHELY Administration Hydrocortisone Sodium Succinate 100 mg 03/20/17 18:00 03/21/17 09:25 Solu-Cortef - IVPB 100 mg Q8H-IV CHELY Administration Sodium Bicarbonate 150 meq/ 1,150 mls @ 125 mls/hr 03/20/17 08:45 03/21/17 03: 00 Dextrose IV 03/21/17 11:44 Not Given Q9H CHELY Pantoprazole Sodium 100 mls @ 200 mls/hr 03/20/17 09:30 03/21/17 09:29 Protonix 40mg Ivpb (Pre-Docked) IVPB 200 mls/hr DAILY CHELY Administration Metronidazole 100 mls @ 100 mls/hr 03/20/17 18:00 03/21/17 09:28 Flagyl 500mg Premixed Ivpb - IVPB 100 mls/hr Q8H-IV CHELY Administration Meropenem 1 gm/ Dextrose 100 mls @ 100 mls/hr 03/20/17 10:45 03/21/17 09:25 IVPB 100 mls/hr BID CHELY Administration Protocol Midazolam HCl 100 mg/ Sodium 100 mls @ 4 mls/hr 03/20/17 12:15 03/21/17 01:53 Chloride IVPB 4 mls/hr TITR CHELY Administration Protocol 4 MG/HR Norepinephrine Bitartrate 8, 500 mls @ 37.5 mls/hr 03/20/17 12:15 03/20/17 23: 00 000 mcg/ Dextrose IV 45 mls/hr TITR CHELY Administration Protocol 10 MCG/MIN Fentanyl 500 mcg/ Dextrose 100 mls @ 5 mls/hr 03/20/17 12:15 03/21/17 01:52 IJ 5 mls/hr TITR CHELY Administration 25 MCG/HR Sodium Chloride 500 mls @ 500 mls/hr 03/20/17 21:00 Normal Saline - IV ASDIR CHELY Mupirocin 1 applic 03/20/17 10:00 03/21/17 09:30 Bactroban Ointment (For Decolonization) - NS 03/25/17 09:59 1 applic BID CHELY Administration ASSESSMENT/PLAN: Pt. is a 31 y/o female with PMH of cholecystectomy who presents with gram negative sepsis bactermia with multi-system organ failure Sepsis with multi-system organ failure d/t liver abscess? - Blood cultures, UC, and abscess drainage growing lactose fermenting growing gram (-) bacilli - Continue meropenem and metronidazole per ID - Pressors to maintain BP. Weaning - MAP > 65% - Stop IVF at this time d/t CVP of 15 - Maintain CVP between 8-12 - Stress dose hydrocortisone Liver abscess - Percutaneously drained by IR on 03/20 - Catheter in place with ANNEMARIE drain to suction - Surgery following Respiratory failure; possible ARDS - Pt. remains intubated and sedated - Vent settings: a/c, FiO2 40%, PEEP 7, Rate 16, Tidal volume 400 - Ween FiO2 to maintain O2 saturation > 40% - Repeat CXR in morning - Possible aspiration pnumonitis SETH - Improving - Cr 3.4 --> 1.4 - + urine output - Hold Bicarb drip - Renal following Elevated Troponins - Most likely d/t sepsis - Trop of 20 this morning 0400; with repeat trop of 19 at 0700 - Serial Troponins - EKG - ECHO to evaluate LV function - Cardiology following Transaminitis - Most likely d/t ischemia from sepsis - Monitor LFT's - GI following Thrombocytopenia - S/p FFP transfusion x3 - Platelets count 70 - Will transfuse one PRBC, and one FFP today - Monitor coags, platelets, fibrinogen for signs of DIC F/E/N: - Fluids: hold until blood products complete. Then to D5NS @75 cc/hr - NPO - Repleted calcium Code Status: FULL CODE Disposition: Pt. still requiring ICU care. Problem List - Problems (1) Anaerobic bacteremia Code(s): R78.81 - BACTEREMIA (2) Hypotension Code(s): I95.9 - HYPOTENSION, UNSPECIFIED Qualifiers: Hypotension type: other hypotension type Qualified Code(s): I95.89 - Other hypotension (3) Liver abscess Code(s): K75.0 - ABSCESS OF LIVER (4) Multiorgan failure Code(s): AKQ8945 - (5) Septic shock Code(s): A41.9 - SEPSIS, UNSPECIFIED ORGANISM R65.21 - SEVERE SEPSIS WITH SEPTIC SHOCK (6) UTI (urinary tract infection) Code(s): N39.0 - URINARY TRACT INFECTION, SITE NOT SPECIFIED Visit type - Emergency Visit Emergency Visit: Yes ED Registration Date: 03/20/17 Care time: The patient presented to the Emergency Department on the above date and was hospitalized for further evaluation of their emergent condition. - New Patient This patient is new to me today: Yes Date on this admission: 03/21/17 - Critical Care Critical Care patient: Yes Total Critical Care Time (in minutes): 40 Critical Care Statement: The care of this patient involved high complexity decision making to prevent further life threatening deterioration of the patient 's condition and/or to evalute & treat vital organ system(s) failure or risk of failure.
--- NOTE | 2017-03-21 12:28 | PN ---
Teaching Attending Note Name of Resident: Clari Hearn ATTENDING PHYSICIAN STATEMENT I saw and evaluated the patient. I reviewed the resident's note and discussed the case with the resident. I agree with the resident's findings and plan as documented. SUBJECTIVE: Pt seen and examined in the ICU. Remains intubated, sedated on levophed gtt. Blood cultures growing gram negative bacilli. OBJECTIVE: Last Vital Signs Temp Pulse Resp BP Pulse Ox 97.9 F 93 H 16 101/80 100 03/21/17 10:02 03/21/17 10:02 03/21/17 11:25 03/21/17 10:02 03/21/17 11:26 Intake & Output 03/18/17 03/19/17 03/20/17 03/21/17 23:59 23:59 23:59 23:59 Intake Total 8499 2796 Output Total 2045 590 Balance 6454 2206 Weight 171 lb 4.787 oz 176 lb 5.917 oz Gen: intubated, sedated Heart: RRR Lung: scattered rhonchi Abd: soft, nontender, +ANNEMARIE drain with serosanguinous drainage Ext: + edema CBC, BMP 03/21/17 05:20 03/21/17 05:20 Active Medications Calcium Carbonate (Calcium Carb Oral Suspension -) 1,000 mg PO ONCE ONE Stop: 03/22/17 12:01 Chlorhexidine Gluconate (Hibiclens For Decolonization -) 1 applic TP HS CHELY Last Admin: 03/20/17 22:05 Dose: 1 applic Chlorhexidine Gluconate (Peridex -) 15 ml MM BID CHELY Last Admin: 03/20/17 22:06 Dose: 15 ml Hydrocortisone Sodium Succinate (Solu-Cortef -) 100 mg IVPB Q8H-IV CHELY Last Admin: 03/21/17 09:25 Dose: 100 mg Pantoprazole Sodium (Protonix 40mg Ivpb (Pre-Docked)) 100 mls @ 200 mls/hr IVPB DAILY CHELY Last Admin: 03/21/17 09:29 Dose: 200 mls/hr Metronidazole (Flagyl 500mg Premixed Ivpb -) 100 mls @ 100 mls/hr IVPB Q8H-IV CHELY Last Admin: 03/21/17 09:28 Dose: 100 mls/hr Meropenem 1 gm/ Dextrose 100 mls @ 100 mls/hr IVPB BID CHELY PRN Reason: Protocol Last Admin: 03/21/17 09:25 Dose: 100 mls/hr Midazolam HCl 100 mg/ Sodium (Chloride) 100 mls @ 4 mls/hr IVPB TITR CHELY; 4 MG/ HR PRN Reason: Protocol Last Admin: 03/21/17 01:53 Dose: 4 mls/hr Norepinephrine Bitartrate 8, (000 mcg/ Dextrose) 500 mls @ 37.5 mls/hr IV TITR CHELY; 10 MCG/MIN PRN Reason: Protocol Last Admin: 03/20/17 23:00 Dose: 45 mls/hr Fentanyl 500 mcg/ Dextrose 100 mls @ 5 mls/hr IJ TITR CHELY PRN Reason: 25 MCG/HR Last Admin: 03/21/17 01:52 Dose: 5 mls/hr Sodium Chloride (Normal Saline -) 500 mls @ 500 mls/hr IV ASDIR CHELY Mupirocin (Bactroban Ointment (For Decolonization) -) 1 applic NS BID CHELY Stop: 03/25/17 09:59 Last Admin: 03/21/17 09:30 Dose: 1 applic ASSESSMENT AND PLAN: Hepatic Abscess Gram Negative Bacteremia Septic Shock Multiorgan Failure Acute Hypoxic Respiratory Failure Acute Kidney Injury Lactic Acidosis +Troponins likely Demand Ischemia Elevated LFTs likely Ischemic Injury Coagulopathy/Thrombocytopenia r/o DIC - continue antibiotics - f/u cultures - IVF to keep CVP 8-12 - pressor support to maintain MAP >65 - empiric stress dose steroids - replete lytes - trend cardiac enzymes, LFTs, lactate - monitor coags, platelets, fibrinogen level - taper Fio2 to keep Spo2 >90% - keep sedated for now for vent synchrony - DVT/GI prophylaxis - ICU monitoring
[2017-03-21] MEDS ORDERED: CALCIUM CARBONATE SUSPENSION - 500 MG/5 ML ML PO ONE (12:45)
--- NOTE | 2017-03-21 12:51 | EKG ---
Test Reason : Blood Pressure : / mmHG Vent. Rate : 092 BPM Atrial Rate : 092 BPM P-R Int : 104 ms QRS Dur : 082 ms QT Int : 384 ms P-R-T Axes : 067 052 042 degrees QTc Int : 474 ms SINUS RHYTHM WITH SHORT ID NONSPECIFIC T WAVE ABNORMALITY PROLONGED QT ABNORMAL ECG WHEN COMPARED WITH ECG OF 20-MAR-2017 10:40, T WAVE VARIATION Confirmed by LIZETTE DIA MD [id number]) on 03/21/2017 12:51:25 PM Referred By: Confirmed By:LIZETTE DIA MD
--- NOTE | 2017-03-21 15:38 | PN ---
Physical Exam: SUBJECTIVE: Patient seen and examined at bed side this morning. Sedated and on Mechanical Ventilation settings @14/400/40/7 OBJECTIVE: Vital Signs Period Temp Pulse Resp BP Sys/Bonner Pulse Ox Last 24 Hr 97.3 F-98.1 F 86-96 16-24 81-113/59-93 100-100 GENERAL: Intubated, sedated. IV line: Right IJ HEAD: Normal with no signs of trauma. EYES: No pallor or icterus, PERRL EARS, NOSE, THROAT: Ears normal. No frothing from the mouth. NECK: Normal range of motion, supple without lymphadenopathy, JVD, or masses. LUNGS: Breath sounds equal, clear to auscultation bilaterally. No wheezes, and no crackles. No accessory muscle use. HEART: Regular rate and rhythm, normal S1 and S2 without murmur, rub or gallop. ABDOMEN: Soft, not distended, normoactive bowel sounds, no guarding, no rebound , no masses. No hepatomegaly or splenomegaly. MUSCULOSKELETAL: Normal range of motion at all joints. No bony deformities or tenderness. UPPER EXTREMITIES: 2+ pulses, warm, well-perfused. No cyanosis. No clubbing. No peripheral edema. LOWER EXTREMITIES: 2+ pulses, warm, well-perfused. No calf tenderness. No peripheral edema. NEUROLOGICAL: Intubated and sedated, hence couldnt perform neuro exam. PERRL, moving all her limbs on low sedation. PSYCHIATRIC: couldn't assess. SKIN: Warm, normal turgor, no rashes or lesions noted, normal capillary refill. Laboratory Results - last 24 hr 03/20/17 03/20/17 03/20/17 12:50 16:00 16:00 WBC 20.2 H RBC 2.47 L Hgb 7.4 L D Hct 22.8 L D MCV 92.6 MCHC 32.5 RDW 14.2 Plt Count 100 L MPV 8.5 Neutrophils % 64.0 Lymphocytes % 5.0 L D Monocytes % 2.0 L Eosinophils % Basophils % Band Neutrophils 27.0 H D Metamyelocytes 2 D Differential Comment Manual diff done Toxic Granulation 1+ Platelet Estimate Slt decreased Platelet Comment Few large plts Morphology Comment Slide scanned INR PTT (Actin FS) Anticoagulation Therapy Puncture Site ABG pH ABG pCO2 at Pt Temp ABG pO2 at Pt Temp ABG HCO3 ABG O2 Sat (Measured) ABG O2 Content ABG Base Excess Beau Test O2 Delivery Device Oxygen Flow Rate Vent Mode Vent Rate Mechanical Rate PEEP Pressure Support Vent Sodium Potassium Chloride Carbon Dioxide Anion Gap BUN Creatinine Creat Clearance w eGFR Random Glucose Lactic Acid Calcium Phosphorus Magnesium Total Bilirubin AST ALT Alkaline Phosphatase Creatine Kinase CK-MB (CK-2) Troponin I Total Protein Albumin Fluid Chloride 98.64 Fluid Total Protein 3.2 LDH Serum/Fluid Ratio 55316 Peritoneal WBC Peritoneal RBC Auto Body Technician Periton Neutrophils 90 Periton Lymphocytes 6 Peritoneal Monocytes 4 Peritoneal Glucose 13 Random Vancomycin 11.833 03/20/17 03/20/17 03/20/17 16:00 16:00 16:00 WBC RBC Hgb Hct MCV MCHC RDW Plt Count MPV Neutrophils % Lymphocytes % Monocytes % Eosinophils % Basophils % Band Neutrophils Metamyelocytes Differential Comment Toxic Granulation Platelet Estimate Platelet Comment Morphology Comment INR 2.18 H PTT (Actin FS) 29.9 Anticoagulation Therapy Puncture Site ABG pH ABG pCO2 at Pt Temp ABG pO2 at Pt Temp ABG HCO3 ABG O2 Sat (Measured) ABG O2 Content ABG Base Excess Beau Test O2 Delivery Device Oxygen Flow Rate Vent Mode Vent Rate Mechanical Rate PEEP Pressure Support Vent Sodium 142 Potassium 4.1 Chloride 108 H Carbon Dioxide 20 L D Anion Gap 14 BUN 22 H Creatinine 1.7 H Creat Clearance w eGFR 34.83 Random Glucose 235 H Lactic Acid 7.2 H* Calcium 5.6 L* Phosphorus 3.3 D Magnesium 2.2 D Total Bilirubin 2.0 H AST 1429 H ALT 672 H D Alkaline Phosphatase 147 H Creatine Kinase 253 H D CK-MB (CK-2) 14.360 H Troponin I 0.94 H* Total Protein 4.6 L Albumin 1.9 L Fluid Chloride Fluid Total Protein LDH Serum/Fluid Ratio Peritoneal WBC Peritoneal RBC Periton Neutrophils Periton Lymphocytes Peritoneal Monocytes Peritoneal Glucose Random Vancomycin 03/20/17 03/20/17 03/20/17 20:00 20:00 20:00 WBC 21.5 H RBC 2.68 L Hgb 8.0 L Hct 24.8 L MCV 92.4 MCHC 32.1 RDW 14.4 Plt Count 88 L MPV 9.0 Neutrophils % Lymphocytes % Monocytes % Eosinophils % Basophils % Band Neutrophils Metamyelocytes Differential Comment Toxic Granulation Platelet Estimate Platelet Comment Morphology Comment INR PTT (Actin FS) Anticoagulation Therapy Puncture Site ABG pH ABG pCO2 at Pt Temp ABG pO2 at Pt Temp ABG HCO3 ABG O2 Sat (Measured) ABG O2 Content ABG Base Excess Beau Test O2 Delivery Device Oxygen Flow Rate Vent Mode Vent Rate Mechanical Rate PEEP Pressure Support Vent Sodium 140 Potassium 3.8 Chloride 106 Carbon Dioxide 21 Anion Gap 13 BUN 23 H Creatinine 1.5 H Creat Clearance w eGFR Random Glucose 199 H Lactic Acid 6.4 H* Calcium 5.7 L* Phosphorus Magnesium Total Bilirubin AST ALT Alkaline Phosphatase Creatine Kinase 306 H D CK-MB (CK-2) 19.109 H Troponin I 2.18 H* Total Protein Albumin Fluid Chloride Fluid Total Protein LDH Serum/Fluid Ratio Peritoneal WBC Peritoneal RBC Periton Neutrophils Periton Lymphocytes Peritoneal Monocytes Peritoneal Glucose Random Vancomycin 03/21/17 03/21/17 03/21/17 02:30 05:20 05:20 WBC 21.4 H RBC 2.68 L Hgb 8.1 L Hct 24.4 L MCV 91.0 MCHC 33.2 RDW 14.3 Plt Count 70 L D MPV 9.3 Neutrophils % 89.1 H D Lymphocytes % 6.1 L D Monocytes % 1.6 L Eosinophils % 3.0 D Basophils % 0.2 Band Neutrophils Metamyelocytes Differential Comment Toxic Granulation Platelet Estimate Platelet Comment Morphology Comment INR 2.77 H PTT (Actin FS) 28.4 Anticoagulation Therapy Puncture Site ABG pH ABG pCO2 at Pt Temp ABG pO2 at Pt Temp ABG HCO3 ABG O2 Sat (Measured) ABG O2 Content ABG Base Excess Beau Test O2 Delivery Device Oxygen Flow Rate Vent Mode Vent Rate Mechanical Rate PEEP Pressure Support Vent Sodium Potassium Chloride Carbon Dioxide Anion Gap BUN Creatinine Creat Clearance w eGFR Random Glucose Lactic Acid Calcium Phosphorus Magnesium Total Bilirubin AST ALT Alkaline Phosphatase Creatine Kinase CK-MB (CK-2) Troponin I 20.50 H* Total Protein Albumin Fluid Chloride Fluid Total Protein LDH Serum/Fluid Ratio Peritoneal WBC Peritoneal RBC Periton Neutrophils Periton Lymphocytes Peritoneal Monocytes Peritoneal Glucose Random Vancomycin 03/21/17 03/21/17 05:20 07:30 WBC RBC Hgb Hct MCV MCHC RDW Plt Count MPV Neutrophils % Lymphocytes % Monocytes % Eosinophils % Basophils % Band Neutrophils Metamyelocytes Differential Comment Toxic Granulation Platelet Estimate Platelet Comment Morphology Comment INR PTT (Actin FS) Anticoagulation Therapy Y Puncture Site Right radial ABG pH 7.44 D ABG pCO2 at Pt Temp 36.8 ABG pO2 at Pt Temp 196.0 H* ABG HCO3 24.2 ABG O2 Sat (Measured) 99.4 H ABG O2 Content 12.5 L ABG Base Excess 0.6 Beau Test Positive O2 Delivery Device Vent Oxygen Flow Rate 70% Vent Mode A/c Vent Rate 16 Mechanical Rate Y PEEP 7.0 Pressure Support Vent 400 Sodium 141 Potassium 3.5 Chloride 104 Carbon Dioxide 25 Anion Gap 12 BUN 25 H Creatinine 1.4 H Creat Clearance w eGFR 43.58 Random Glucose 245 H D Lactic Acid Calcium 5.6 L* Phosphorus 2.6 D Magnesium 2.1 Total Bilirubin 1.3 H D AST 3636 H ALT 1776 H D Alkaline Phosphatase 172 H Creatine Kinase 768 H D CK-MB (CK-2) 75.462 H Troponin I 19.00 H* Total Protein 4.8 L Albumin 1.9 L Fluid Chloride Fluid Total Protein LDH Serum/Fluid Ratio Peritoneal WBC Peritoneal RBC Periton Neutrophils Periton Lymphocytes Peritoneal Monocytes Peritoneal Glucose Random Vancomycin Active Medications Generic Name Dose Route Start Last Admin Trade Name Freq PRN Reason Stop Dose Admin Calcium Carbonate 1,000 mg 03/22/17 12:00 Calcium Carb Oral Suspension - PO 03/22/17 12:01 ONCE ONE Chlorhexidine Gluconate 1 applic 03/20/17 22:00 03/20/17 22:05 Hibiclens For Decolonization - TP 1 applic HS CHELY Administration Chlorhexidine Gluconate 15 ml 03/20/17 12:15 03/20/17 22:06 Peridex - MM 15 ml BID CHELY Administration Hydrocortisone Sodium Succinate 100 mg 03/20/17 18:00 03/21/17 09:25 Solu-Cortef - IVPB 100 mg Q8H-IV CHELY Administration Pantoprazole Sodium 100 mls @ 200 mls/hr 03/20/17 09:30 03/21/17 09:29 Protonix 40mg Ivpb (Pre-Docked) IVPB 200 mls/hr DAILY CHELY Administration Metronidazole 100 mls @ 100 mls/hr 03/20/17 18:00 03/21/17 09:28 Flagyl 500mg Premixed Ivpb - IVPB 100 mls/hr Q8H-IV CHELY Administration Meropenem 1 gm/ Dextrose 100 mls @ 100 mls/hr 03/20/17 10:45 03/21/17 09:25 IVPB 100 mls/hr BID CHELY Administration Protocol Midazolam HCl 100 mg/ Sodium 100 mls @ 4 mls/hr 03/20/17 12:15 03/21/17 01:53 Chloride IVPB 4 mls/hr TITR CHELY Administration Protocol 4 MG/HR Norepinephrine Bitartrate 8, 500 mls @ 37.5 mls/hr 03/20/17 12:15 03/20/17 23: 00 000 mcg/ Dextrose IV 45 mls/hr TITR CHELY Administration Protocol 10 MCG/MIN Fentanyl 500 mcg/ Dextrose 100 mls @ 5 mls/hr 03/20/17 12:15 03/21/17 01:52 IJ 5 mls/hr TITR CHELY Administration 25 MCG/HR Sodium Chloride 500 mls @ 500 mls/hr 03/20/17 21:00 Normal Saline - IV ASDIR CHELY Mupirocin 1 applic 03/20/17 10:00 03/21/17 09:30 Bactroban Ointment (For Decolonization) - NS 03/25/17 09:59 1 applic BID CHELY Administration ASSESSMENT/PLAN: Patient is a 31 year old female with significant past medical history of Cholecystectomy (8 years ago), pyelonephritis, nephrolithiasis, emigrated from [place] 8 years ago who was brought in by patients boyfriend, with the chief complaints of fever, chills and generalized weakness since 2 weeks. # Respiratory failure due to septic shock with severe lactic acidosis with impending ARDS with gram negative bacteremia Likely due to Liver abscess Amoebic(More likely) VS Pyogenic, as abscess single and patient originally from [place] Admitted in ICU; s/p intubated and placed in MV On Levophed Drip @ 7 CT abdomen- S/o Liver Abscess Consulted with IR by ED physician and 25 Ml of IR Guuided drainage was done and sent for Analysis including culture Continue IV D5W @75 Mls/hr IV Meropenam 1gm BID added, as per ID CT chest- Infiltrative changes, likely due to fluid Overload , Less likely due to co- comitant Pneumonia Lactic Acid-initally 9, started trending down after resucitation, now its 4.4 Blood Culture -Lactose fermenting gram negative bacilli. General surgery and GI consult appreciated, will f/u recommendations # MODS with septic shock d/t Liver Abscess with bandemia and lactic acidosis Blood culture 2 - Pending s/p IR guided drainage, purulent drainage ~ 25 ccs and sent for analysis including culture and cytology Entamoeba Ab pending, HIV test negative IV Meropenam 1gm daily. Hydrocortisone IV 100mg Q8H for possible adrenal insufficiency due to septic shock # Abnormal LFT;s with coagulopathy like shock liver Rising LFTs on repeat labs FFPs 4 total given for coagulopathy Will monitor Avoid hepatotoxic drugs # SETH (improving) with high anion gap metabolic acidosis(now with normal anion gap) with lactic acidosis baseline creatinine 0.7, now 1.4 After resuscitation, creatinine improved On arrival, ABG showed- HAGMA with respiratory alkalosis Lanier in place to monitor urine output Avoid nephrotoxic drugs Renal consult requested Monitor BUN and creatinine and electrolytes # Thrombocytopenia due to septic shock vs dilutational No signs of active bleeding will monitor Avoid medication causing thrombocytopenia # NCNC Anemia likely due to septic shock 7.4/22.8 H/H- 1 PRBC No active signs of bleeding Transfuse if Hb < 7gm/dl # FEN IV D5W @ 75mls/hr Electrolytes to be repeated Intubated, NPO # Prophylaxis FOr DVT: Not on AC due to coagulopathy, on SCDs For GI: ON Protonix # Code status: Full Code # Dispo: Admitted in the ICU Illness, INvestigation and PLan of care explained to the patients boyfriend ( living together since two years). He verbalized understanding and agreed to the plan. Case seen and discussed with Dr. Leal. Visit type - Emergency Visit Emergency Visit: Yes ED Registration Date: 03/20/17 Care time: The patient presented to the Emergency Department on the above date and was hospitalized for further evaluation of their emergent condition. - New Patient This patient is new to me today: No - Critical Care Critical Care patient: No - Discharge Referral Referred to [facility] No
[2017-03-21 16:27] LABS: INR 2.32 (0.82-1.09)
[2017-03-21 16:30] LABS: ACTIVATED PTT 26.9 SECONDS (26.9-34.4)
[2017-03-21 16:32] LABS: ALBUMIN 1.6 g/dl (3.4-5.0); ANION GAP 10 (8-16); CO2 26 mmol/L (21-32); GLUCOSE,RANDOM 209 mg/dL (74-106)
--- NOTE | 2017-03-21 16:50 | PN ---
Progress Note, Physician Chief Complaint: HD2 septic shock secondary to liver abscess History of Present Illness: Pt had percutaneous drainage yesterday of liver abscess with drain left in place. 25ml pus was obtained, pending final cultures and cytology. Current output is serosanguineous - 45ml yesterday, 10ml today. Blood and urine are positive for GNR. Pt remains intubated and sedated; she does not respond to voice or the exam. She is on norepinephrine, fentanyl and versed drips and receiving antibiotics. BP with means ~90. Renal function is improving. Troponins peaked at 20 and are coming down. She received FFP yesterday for procedure, but is still coagulopathic. Platelets are low at 70. Lytes have been repleted, calcium is being given today. Lactate is decreasing. Vent support continues at FiO2 40%. - Current Medication List Current Medications: Active Medications Calcium Carbonate (Calcium Carb Oral Suspension -) 1,000 mg PO ONCE ONE Stop: 03/22/17 12:01 Chlorhexidine Gluconate (Hibiclens For Decolonization -) 1 applic TP HS CHELY Last Admin: 03/20/17 22:05 Dose: 1 applic Chlorhexidine Gluconate (Peridex -) 15 ml MM BID CHELY Last Admin: 03/20/17 22:06 Dose: 15 ml Hydrocortisone Sodium Succinate (Solu-Cortef -) 100 mg IVPB Q8H-IV CHELY Last Admin: 03/21/17 09:25 Dose: 100 mg Pantoprazole Sodium (Protonix 40mg Ivpb (Pre-Docked)) 100 mls @ 200 mls/hr IVPB DAILY CHELY Last Admin: 03/21/17 09:29 Dose: 200 mls/hr Metronidazole (Flagyl 500mg Premixed Ivpb -) 100 mls @ 100 mls/hr IVPB Q8H-IV CHELY Last Admin: 03/21/17 09:28 Dose: 100 mls/hr Meropenem 1 gm/ Dextrose 100 mls @ 100 mls/hr IVPB BID CHELY PRN Reason: Protocol Last Admin: 03/21/17 09:25 Dose: 100 mls/hr Midazolam HCl 100 mg/ Sodium (Chloride) 100 mls @ 4 mls/hr IVPB TITR CHELY; 4 MG/ HR PRN Reason: Protocol Last Admin: 03/21/17 01:53 Dose: 4 mls/hr Norepinephrine Bitartrate 8, (000 mcg/ Dextrose) 500 mls @ 37.5 mls/hr IV TITR CHELY; 10 MCG/MIN PRN Reason: Protocol Last Admin: 03/20/17 23:00 Dose: 45 mls/hr Fentanyl 500 mcg/ Dextrose 100 mls @ 5 mls/hr IJ TITR CHELY PRN Reason: 25 MCG/HR Last Admin: 03/21/17 01:52 Dose: 5 mls/hr Sodium Chloride (Normal Saline -) 500 mls @ 500 mls/hr IV ASDIR CHELY Mupirocin (Bactroban Ointment (For Decolonization) -) 1 applic NS BID CHELY Stop: 03/25/17 09:59 Last Admin: 03/21/17 09:30 Dose: 1 applic - Objective Vital Signs: Vital Signs Temperature 98.1 F 03/21/17 14:00 Pulse Rate 96 H 03/21/17 14:00 Respiratory Rate 19 03/21/17 15:34 Blood Pressure 99/85 03/21/17 14:00 O2 Sat by Pulse Oximetry (%) 100 03/21/17 11:26 Intake & Output 03/18/17 03/19/17 03/20/17 03/21/17 23:59 23:59 23:59 23:59 Intake Total 8499 2796 Output Total 2045 1590 Balance 6454 1206 Weight 171 lb 4.787 oz 176 lb 5.917 oz Constitutional: Yes: Other (sedated, intubated, + generalized edema) Eyes: Yes: Conjunctiva Clear, Other (closed - does not open to voice or exam) HENT: Yes: Other (ETT, OGT in place) Cardiovascular: Yes: Regular Rate and Rhythm. No: Murmur Respiratory: Yes: CTA Bilaterally, Intubated, Mechanically Ventilated Gastrointestinal: Yes: Soft, Distention (mild), Hypoactive Bowel Sounds (absent) , Other (perc drain at lateral RUQ, serosanguineous, to ANNEMARIE bulb). No: Tenderness (no response to exam) Genitourinary: Yes: Lanier Present (yellow urine). No: Hematuria Extremities: No: Cool, Cyanosis Edema: Yes (generalized) Integumentary: No: Bruising, Jaundice, Rash Wound/Incision: Yes: Dressing Dry and Intact (at drain site) Neurological: Yes: Unresponsive. No: Alert Labs: CBC, BMP 03/21/17 05:20 INR, PTT INR 2.32 (0.82-1.09) H 03/21/17 15:00 Fibrinogen 540.0 mg/dL (238-498) H 03/20/17 09:45 CMP Sodium 144 mmol/L (136-145) 03/21/17 15:00 Potassium 3.1 mmol/L (3.5-5.1) L 03/21/17 15:00 Chloride 108 mmol/L (98-107) H 03/21/17 15:00 Carbon Dioxide 26 mmol/L (21-32) 03/21/17 15:00 Anion Gap 10 (8-16) 03/21/17 15:00 BUN 18 mg/dL (7-18) D 03/21/17 15:00 Creatinine 0.9 mg/dL (0.55-1.02) D 03/21/17 15:00 Creat Clearance w eGFR > 60 (>60) 03/21/17 15:00 Random Glucose 209 mg/dL (74-106) H 03/21/17 15:00 Lactic Acid 4.4 mmol/L (0.4-2.0) H* 03/21/17 13:00 Calcium 5.1 mg/dL (8.5-10.1) L* 03/21/17 15:00 Phosphorus 2.6 mg/dL (2.5-4.9) D 03/21/17 05:20 Magnesium 2.1 mg/dL (1.8-2.4) 03/21/17 05:20 Total Bilirubin 0.8 mg/dL (0.2-1.0) D 03/21/17 15:00 AST 1831 U/L (15-37) H 03/21/17 15:00 ALT 1468 U/L (12-78) H 03/21/17 15:00 Alkaline Phosphatase 162 U/L (45-117) H 03/21/17 15:00 Creatine Kinase 368 IU/L (26-192) H D 03/21/17 15:00 CK-MB (CK-2) 75.462 ng/ml (0.5-3.6) H 03/21/17 05:20 Troponin I 4.54 ng/ml (0.00-0.05) H* 03/21/17 15:00 Total Protein 4.0 g/dl (6.4-8.2) L 03/21/17 15:00 Albumin 1.6 g/dl (3.4-5.0) L 03/21/17 15:00 Total Amylase 31 U/L (25-115) 03/20/17 03:58 Lipase 43 U/L (73-393) L 03/20/17 09:45 TSH 1.78 uIU/ml (0.358-3.74) 03/20/17 09:45 Serum , Qual Negative 03/20/17 03:58 Cortisol AM Sample 63.4 ug/dL (.) 03/20/17 03:58 Microbiology 03/20/17 Unknown Gram Stain - Final Abscess Body Fluid Culture - Preliminary Lactose Fermenting Neg Bacilli 03/20/17 06:20 Urine Culture - Preliminary Urine - Urine - Catheterized Lactose Fermenting Neg Bacilli 03/20/17 12:50 AFB Smear Concentration - Preliminary Abscess Mycobacterial Culture - Preliminary 03/20/17 04:32 Blood Culture - Preliminary Blood - Peripheral Venous Lactose Fermenting Neg Bacilli 03/20/17 04:32 Blood Culture - Preliminary Blood - Peripheral Venous Lactose Fermenting Neg Bacilli ABG Results ABG pH 7.44 (7.35-7.45) D 03/21/17 07:30 ABG pCO2 at Pt Temp 36.8 mmHg (35-45) 03/21/17 07:30 ABG pO2 at Pt Temp 196.0 mmHg (80-100) H* 03/21/17 07:30 ABG HCO3 24.2 meq/L (22-26) 03/21/17 07:30 ABG O2 Sat (Measured) 99.4 % (90-98.9) H 03/21/17 07:30 ABG O2 Content 12.5 % vol (15-22) L 03/21/17 07:30 ABG Base Excess 0.6 meq/l (-2-2) 03/21/17 07:30 Problem List - Problems (1) Liver abscess Assessment/Plan: s/p percutaneous drainage - continue to monitor and record drainage on antibiotics for gram negative sepsis cultures and cytology pending etiology unclear, especially with possible solid component continue current care Code(s): K75.0 - ABSCESS OF LIVER (2) Multiorgan failure Assessment/Plan: continue vent support, wean as able renal function improving - nephro on board cardiology consult noted would not attempt tube feeding yet - maintain NPO with OG suction correct coagulopathy as indicated, watch platelets anticipate positive fluid balance over next couple days with third-spacing replete lytes prn continue current care Code(s): JSQ4963 - (3) Gram negative septic shock Assessment/Plan: continue antibiotics await id of organism and sensitivities continue current care ID on board Code(s): A41.50 - GRAM-NEGATIVE SEPSIS, UNSPECIFIED R65.21 - SEVERE SEPSIS WITH SEPTIC SHOCK (4) Respiratory failure requiring intubation Assessment/Plan: continue vent support weaning trials as appropriate follow CXR Code(s): J96.90 - RESPIRATORY FAILURE, UNSP, UNSP W HYPOXIA OR HYPERCAPNIA Assessment/Plan This patient is critically ill. Time spent reviewing records, examining pt and documenting is 35 min.
[2017-03-21 16:54] LABS: ALK PHOS 162 U/L (45-117); BILIRUBIN,TOTAL 0.8 mg/dL (0.2-1.0); CREATININE 0.9 mg/dL (0.55-1.02)
[2017-03-21 16:57] LABS: SGOT/AST 1831 U/L (15-37); SGPT/ALT 1468 U/L (12-78)
[2017-03-21 17:00] LABS: CALCIUM 5.1 mg/dL (8.5-10.1); TROPONIN I 4.54 ng/ml (0.00-0.05)
--- NOTE | 2017-03-21 17:46 | PN ---
Teaching Attending Note Name of Resident: Mary Hernadez ATTENDING PHYSICIAN STATEMENT I saw and evaluated the patient. I reviewed the resident's note and discussed the case with the resident. I agree with the resident's findings and plan as documented. SUBJECTIVE: Patient is in ICU intubated ,sedated on Levophed ggt. OBJECTIVE: Vital Signs Temperature 97.7 F 03/21/17 17:04 Pulse Rate 82 03/21/17 17:04 Respiratory Rate 20 03/21/17 17:04 Blood Pressure 90/70 03/21/17 17:04 O2 Sat by Pulse Oximetry (%) 100 03/21/17 11:26 PE: per resident's note CBCD WBC 21.4 K/mm3 (4.0-10.0) H 03/21/17 05:20 RBC 2.68 M/mm3 (3.60-5.2) L 03/21/17 05:20 Hgb 8.1 GM/dL (10.7-15.3) L 03/21/17 05:20 Hct 24.4 % (32.4-45.2) L 03/21/17 05:20 MCV 91.0 fl (80-96) 03/21/17 05:20 MCHC 33.2 g/dl (32.0-36.0) 03/21/17 05:20 RDW 14.3 % (11.6-15.6) 03/21/17 05:20 Plt Count 70 K/MM3 (134-434) L D 03/21/17 05:20 MPV 9.3 fl (7.5-11.1) 03/21/17 05:20 CMP Sodium 144 mmol/L (136-145) 03/21/17 15:00 Potassium 3.1 mmol/L (3.5-5.1) L 03/21/17 15:00 Chloride 108 mmol/L (98-107) H 03/21/17 15:00 Carbon Dioxide 26 mmol/L (21-32) 03/21/17 15:00 Anion Gap 10 (8-16) 03/21/17 15:00 BUN 18 mg/dL (7-18) D 03/21/17 15:00 Creatinine 0.9 mg/dL (0.55-1.02) D 03/21/17 15:00 Creat Clearance w eGFR > 60 (>60) 03/21/17 15:00 Random Glucose 209 mg/dL (74-106) H 03/21/17 15:00 Calcium 5.1 mg/dL (8.5-10.1) L* 03/21/17 15:00 Total Bilirubin 0.8 mg/dL (0.2-1.0) D 03/21/17 15:00 AST 1831 U/L (15-37) H 03/21/17 15:00 ALT 1468 U/L (12-78) H 03/21/17 15:00 Alkaline Phosphatase 162 U/L (45-117) H 03/21/17 15:00 Total Protein 4.0 g/dl (6.4-8.2) L 03/21/17 15:00 Albumin 1.6 g/dl (3.4-5.0) L 03/21/17 15:00 CARDIAC ENZYMES Creatine Kinase 368 IU/L (26-192) H D 03/21/17 15:00 Troponin I 4.54 ng/ml (0.00-0.05) H* 03/21/17 15:00 Current Medications Generic Name Dose Route Start Last Admin Trade Name Freq PRN Reason Stop Dose Admin Calcium Carbonate 1,000 mg 03/22/17 12:00 Calcium Carb Oral Suspension - PO 03/22/17 12:01 ONCE ONE Chlorhexidine Gluconate 1 applic 03/20/17 22:00 03/20/17 22:05 Hibiclens For Decolonization - TP 1 applic HS CHELY Administration Chlorhexidine Gluconate 15 ml 03/20/17 12:15 03/20/17 22:06 Peridex - MM 15 ml BID CHELY Administration Hydrocortisone Sodium Succinate 100 mg 03/20/17 18:00 03/21/17 09:25 Solu-Cortef - IVPB 100 mg Q8H-IV CHELY Administration Pantoprazole Sodium 100 mls @ 200 mls/hr 03/20/17 09:30 03/21/17 09:29 Protonix 40mg Ivpb (Pre-Docked) IVPB 200 mls/hr DAILY CHELY Administration Metronidazole 100 mls @ 100 mls/hr 03/20/17 18:00 03/21/17 09:28 Flagyl 500mg Premixed Ivpb - IVPB 100 mls/hr Q8H-IV CHELY Administration Meropenem 1 gm/ Dextrose 100 mls @ 100 mls/hr 03/20/17 10:45 03/21/17 09:25 IVPB 100 mls/hr BID CHELY Administration Protocol Midazolam HCl 100 mg/ Sodium 100 mls @ 4 mls/hr 03/20/17 12:15 03/21/17 01:53 Chloride IVPB 4 mls/hr TITR CHELY Administration Protocol 4 MG/HR Norepinephrine Bitartrate 8, 500 mls @ 37.5 mls/hr 03/20/17 12:15 03/20/17 23: 00 000 mcg/ Dextrose IV 45 mls/hr TITR CHELY Administration Protocol 10 MCG/MIN Fentanyl 500 mcg/ Dextrose 100 mls @ 5 mls/hr 03/20/17 12:15 03/21/17 01:52 IJ 5 mls/hr TITR CHELY Administration 25 MCG/HR Sodium Chloride 500 mls @ 500 mls/hr 03/20/17 21:00 Normal Saline - IV ASDIR CHELY Dextrose/Sodium Chloride 1,000 mls @ 75 mls/hr 03/21/17 17:00 D5-Ns - IV ASDIR CHELY Mupirocin 1 applic 03/20/17 10:00 03/21/17 09:30 Bactroban Ointment (For Decolonization) - NS 03/25/17 09:59 1 applic BID CHELY Administration Home Medications Medication Instructions Recorded No Home Medications 0 dose .ROUTE UTDICT 05/05/12 Laboratory Tests 03/20/17 03/20/17 03/20/17 03:58 04:00 05:13 BUN 27 H D Creatinine 3.4 H D Lactic Acid 8.5 H* 9.5 H* Calcium Total Bilirubin 2.2 H D AST 203 H D ALT 133 H D Alkaline Phosphatase 198 H D Creatine Kinase CK-MB (CK-2) Troponin I 03/20/17 03/20/17 03/20/17 09:45 09:45 16:00 BUN 23 H 22 H Creatinine 2.1 H D 1.7 H Lactic Acid 7.5 H* Calcium 5.8 L* D Total Bilirubin AST 842 H D ALT 402 H D 672 H D Alkaline Phosphatase 158 H D 147 H Creatine Kinase 253 H D CK-MB (CK-2) Troponin I 0.94 H* 03/20/17 03/20/17 03/20/17 16:00 20:00 20:00 BUN Creatinine Lactic Acid 7.2 H* 6.4 H* Calcium Total Bilirubin AST ALT Alkaline Phosphatase Creatine Kinase 306 H D CK-MB (CK-2) 19.109 H Troponin I 2.18 H* 03/21/17 03/21/17 03/21/17 02:30 05:20 15:00 BUN 25 H 18 D Creatinine 1.4 H 0.9 D Lactic Acid Calcium Total Bilirubin 1.3 H D AST 3636 H 1831 H ALT 1776 H D 1468 H Alkaline Phosphatase 172 H 162 H Creatine Kinase 768 H D 368 H D CK-MB (CK-2) 75.462 H 31.013 H Troponin I 20.50 H* 19.00 H* 4.54 H* Microbiology 03/20/17 Unknown Abscess Gram Stain - Final 03/20/17 Unknown Abscess Body Fluid Culture - Preliminary Lactose Fermenting Neg Bacilli 03/20/17 06:20 Urine - Urine - Catheterized Urine Culture - Preliminary Lactose Fermenting Neg Bacilli 03/20/17 12:50 Abscess AFB Smear Concentration - Preliminary 03/20/17 12:50 Abscess Mycobacterial Culture - Preliminary 03/20/17 04:32 Blood - Peripheral Venous Blood Culture - Preliminary Lactose Fermenting Neg Bacilli 03/20/17 04:32 Blood - Peripheral Venous Blood Culture - Preliminary Lactose Fermenting Neg Bacilli ASSESSMENT AND PLAN: Patient is a 31 year old female with a significant past medical history of cholecystectomy (8 years ago), who emigrated from [place] (9 years ago) and presents with two weeks of intermittent fever and chills, constant right shoulder pain and progressive weakness/fatigue. Last night she developed severe generalized weakness, nausea with two episodes of vomiting (non-bloody/ bilious) and three episodes of diarrhea (no blood or mucous). # Acute severe septic shock due to Liver abscess/ gram negative bacteremia on IV antibiotic ; s/p drainange of Liver abscess by IR (03/20/2017). On iV levophed ggt. goal MAP >60 , On stress dose steroids, continue IV antibiotics on flagyl/ meropenem as per ID, f/u of abscess cx's, C&S IVF to keep CVP 8-12 # elevated troponin: trop peg to 20, trending down due to demand Ischemia. Cardiology on the case D. Gitig # Acute respiratory failure intubated, on IV sedation , Pulmonary/intencivist on the case for further management. # Acute shock liver: with coagulopathy with elevated INR, monitor LFTs. # Acute anemia, thrombocytopenia, coagulopathy: due to sepsis. Hematology consult # Acute Thrombocytopenia possible due to Liver shock will monitor # SETH: due sepsis s/p IVF # acute resp failure: improving s/p IVF # Acute Lactic acidosis improving DVT Px: SCds
[2017-03-21] MEDS ORDERED: CALCIUM GLUCONATE 10% - 1,000 MG/10 ML VIAL ONE (17:51)
[2017-03-21] MEDS: DEXTROSE 5%-NORMAL SALINE 1,000 ML IV SCH (17:54)
[2017-03-21] MEDS: CHLORHEXIDINE GLUCONATE 0.12% 15ML CUP MM SCH ×2 (17:54→22:17)
[2017-03-21] MEDS ORDERED: CALCIUM GLUCONATE 10% - 1,000 MG/10 ML VIAL IVPB ONE (17:56)
--- NOTE | 2017-03-21 18:58 | PN ---
GI Progress Note Subjective: Patient intubated, sedated - Objective Vital Signs: Vital Signs Temperature 97.7 F 03/21/17 17:04 Pulse Rate 78 03/21/17 18:46 Respiratory Rate 16 03/21/17 18:46 Blood Pressure 89/74 03/21/17 18:46 O2 Sat by Pulse Oximetry (%) 100 03/21/17 11:26 Constitutional: Well Nourished HENT: Yes: Normocephalic Cardiovascular: Yes: Regular Rate and Rhythm Respiratory: Yes: CTA Bilaterally ...Auscultate: Yes: Hypoactive Bowel Sounds Neurological: Yes: Other (sedated) Labs: CBC, BMP 03/21/17 05:20 03/21/17 15:00 INR, PTT INR 2.32 (0.82-1.09) H 03/21/17 15:00 Fibrinogen 540.0 mg/dL (238-498) H 03/20/17 09:45 Hepatic Panel Total Bilirubin 0.8 mg/dL (0.2-1.0) D 03/21/17 15:00 AST 1831 U/L (15-37) H 03/21/17 15:00 ALT 1468 U/L (12-78) H 03/21/17 15:00 Alkaline Phosphatase 162 U/L (45-117) H 03/21/17 15:00 Albumin 1.6 g/dl (3.4-5.0) L 03/21/17 15:00 - ....Imaging Cat Scan: Report Reviewed (Hepatic abscess as noted) Assessment/Plan Patient appears to be growing the same organism in urine, blood and abscess. Likely urosepsis with seeding of liver. She seems to be responding well to AbRx and vent support. Await final ID of organism-likely e coli VS improving and levo down to 4 Continue present care
[2017-03-21] MEDS: KCL 10 MEQ IVPB 100 ML IVPB SCH ×4 (20:44→23:50)
[2017-03-21] MEDS: CHLORHEXIDINE GLUCONATE 4% CLEANSER FOR DECOLONIZATION TP SCH (22:10)
[2017-03-21] MEDS ORDERED: PT OWN MED DRAWER 7, Y5N ONE (22:16)
[2017-03-22] MEDS: MIDAZOLAM 100 MG in SODIUM CHLORIDE 100 ML IVPB SCH (00:34)
[2017-03-22] MEDS: NOREPINEPHRINE BITARTRATE 8,000 MCG in DEXTROSE 5%-WATER - 492 ML IV SCH (00:38)
[2017-03-22] MEDS: METRONIDAZOLE 500 MG PREMIXED 100 ML IVPB SCH ×3 (01:22→17:41)
[2017-03-22] MEDS: HYDROCORTISONE SOD SUCCINATE 100 MG/2 ML VIAL IVPB SCH ×3 (01:22→17:41)
[2017-03-22 06:52] LABS: MCH 29.3 pg (25.7-33.7); MCHC 32.6 g/dl (32.0-36.0); MEAN CELL VOLUME 89.9 fl (80-96); MEAN PLT VOLUME 9.7 fl (7.5-11.1); PLATELET COUNT 43 K/MM3 (134-434); RDW 15.8 % (11.6-15.6); WHITE BLOOD COUNT 18.4 K/mm3 (4.0-10.0)
[2017-03-22 07:07] LABS: INR 2.07 (0.82-1.09); PROTHROMBIN TIME (PATIENT) 23.1 SEC (9.98-11.88)
[2017-03-22 07:24] LABS: ANION GAP 6 (8-16); CO2 32 mmol/L (21-32); GLUCOSE,RANDOM 228 mg/dL (74-106); MAGNESIUM 2.5 mg/dL (1.8-2.4)
[2017-03-22 07:26] LABS: ALLENS TEST POSITIVE; ART PUNCT SITE RIGHT RADIAL; ARTERIAL BLD GAS O2 SATURATION 98.6 % (90-98.9); ARTERIAL BLOOD GAS BASE EXCESS 5.2 meq/l (-2-2); LPM/O2% 40; MECH. VENT. YES; PT. ON O2? YES; TYPE OF O2 VENT; VENT RATE 14; VT/PRESS 400
[2017-03-22 07:27] LABS: ARTERIAL BLOOD GAS pH 7.46 (7.35-7.45)
[2017-03-22 07:42] LABS: ALK PHOS 218 U/L (45-117); BILIRUBIN,TOTAL 0.8 mg/dL (0.2-1.0); CREATININE 0.9 mg/dL (0.55-1.02); LDH 578 U/L (84-246); PHOSPHOROUS 1.2 mg/dL (2.5-4.9)
[2017-03-22] MEDS: SODIUM CHLORIDE 500 ML IV SCH (07:43)
[2017-03-22 07:58] LABS: SGOT/AST 1168 U/L (15-37); SGPT/ALT 1427 U/L (12-78)
[2017-03-22 08:00] LABS: CALCIUM 6.6 mg/dL (8.5-10.1); TROPONIN I 2.72 ng/ml (0.00-0.05)
[2017-03-22 08:18] LABS: PLATELET ESTIMATE DECREASED (NORMAL)
--- NOTE | 2017-03-22 08:55 | PN ---
Progress Note (short form) - Note Progress Note: remains sedated and intubated pressors being weaned fio2 down to 40% Vital Signs Period Temp Pulse Resp BP Sys/Bonner Pulse Ox Last 24 Hr 97.7 F-99.7 F 76-96 14-20 89-111/59-87 99-100 cor-rrr lungs decreased at bases abd soft,nt +drain with clear fluid ext +edema CBC, BMP 03/22/17 05:20 03/22/17 05:20 Microbiology 03/20/17 Unknown Abscess Gram Stain - Final 03/20/17 Unknown Abscess Body Fluid Culture - Preliminary Lactose Fermenting Neg Bacilli 03/20/17 06:20 Urine - Urine - Catheterized Urine Culture - Preliminary Lactose Fermenting Neg Bacilli 03/20/17 12:50 Abscess AFB Smear Concentration - Preliminary 03/20/17 12:50 Abscess Mycobacterial Culture - Preliminary 03/20/17 04:32 Blood - Peripheral Venous Blood Culture - Preliminary Lactose Fermenting Neg Bacilli 03/20/17 04:32 Blood - Peripheral Venous Blood Culture - Preliminary Lactose Fermenting Neg Bacilli a/p septic shock/multiorgan failure gram negative sepsis liver abscess s/p IR drainage less likely UTI SETH coagulopathy elevated LFTs continue antibiotics, adjust doses for improved renal function meropenem/flagyl f/u cultures f/u cytology and serologies Problem List - Problems (1) Septic shock Code(s): A41.9 - SEPSIS, UNSPECIFIED ORGANISM R65.21 - SEVERE SEPSIS WITH SEPTIC SHOCK (2) Multiorgan failure Code(s): JPI4913 - (3) Liver abscess Code(s): K75.0 - ABSCESS OF LIVER (4) UTI (urinary tract infection) Code(s): N39.0 - URINARY TRACT INFECTION, SITE NOT SPECIFIED
[2017-03-22 09:15] LABS: FERRITIN 858.147 ng/ml (6.9-282.5)
[2017-03-22] MEDS ORDERED: PT OWN MED DRAWER 7, Y5N ONE ×2 (09:46→17:37)
[2017-03-22] MEDS: PANTOPRAZOLE SODIUM 100 ML IVPB SCH (09:50)
[2017-03-22] MEDS: MEROPENEM 1 GM in DEXTROSE 5%-WATER - 100 ML IVPB SCH ×2 (09:50→17:41)
[2017-03-22] MEDS: MUPIROCIN 2% TOPICAL OINTMENT FOR DECOLONIZATION NS SCH ×2 (09:55→22:30)
[2017-03-22] MEDS: CHLORHEXIDINE GLUCONATE 0.12% 15ML CUP MM SCH ×2 (09:56→22:30)
--- NOTE | 2017-03-22 10:12 | PN ---
Progress Note, Physician Chief Complaint: The patient seen in bed. Off sedatives. Starting to wake up. Remains intubated. Possibly will be extubatd soon. Low grade fever. BIRDIE maintained on low dose Levophed. Good urine output is maintained. - Current Medication List Current Medications: Active Medications Chlorhexidine Gluconate (Hibiclens For Decolonization -) 1 applic TP HS CHELY Last Admin: 03/21/17 22:10 Dose: 1 applic Chlorhexidine Gluconate (Peridex -) 15 ml MM BID CHELY Last Admin: 03/22/17 09:56 Dose: 15 ml Hydrocortisone Sodium Succinate (Solu-Cortef -) 100 mg IVPB Q8H-IV CHELY Last Admin: 03/22/17 09:56 Dose: 100 mg Pantoprazole Sodium (Protonix 40mg Ivpb (Pre-Docked)) 100 mls @ 200 mls/hr IVPB DAILY CHELY Last Admin: 03/22/17 09:50 Dose: 200 mls/hr Metronidazole (Flagyl 500mg Premixed Ivpb -) 100 mls @ 100 mls/hr IVPB Q8H-IV CHELY Last Admin: 03/22/17 09:55 Dose: 100 mls/hr Midazolam HCl 100 mg/ Sodium (Chloride) 100 mls @ 4 mls/hr IVPB TITR CHELY; 4 MG/ HR PRN Reason: Protocol Last Admin: 03/22/17 00:34 Dose: 4 mls/hr Norepinephrine Bitartrate 8, (000 mcg/ Dextrose) 500 mls @ 37.5 mls/hr IV TITR CHELY; 10 MCG/MIN PRN Reason: Protocol Last Titration: 03/22/17 10:01 Dose: 2 mcg/min Fentanyl 500 mcg/ Dextrose 100 mls @ 5 mls/hr IJ TITR CHELY PRN Reason: 25 MCG/HR Last Admin: 03/21/17 22:11 Dose: 5 mls/hr Dextrose/Sodium Chloride (D5-Ns -) 1,000 mls @ 75 mls/hr IV ASDIR CHELY Last Admin: 03/21/17 17:54 Dose: 75 mls/hr Meropenem 1 gm/ Dextrose 100 mls @ 100 mls/hr IVPB Q8H-IV CHELY PRN Reason: Protocol Last Admin: 03/22/17 09:50 Dose: 100 mls/hr Mupirocin (Bactroban Ointment (For Decolonization) -) 1 applic NS BID CHELY Stop: 03/25/17 09:59 Last Admin: 03/22/17 09:55 Dose: 1 applic - Objective Vital Signs: Vital Signs Temperature 99.7 F H 03/22/17 06:00 Pulse Rate 92 H 03/22/17 10:01 Respiratory Rate 14 03/22/17 09:56 Blood Pressure 109/82 03/22/17 10:01 O2 Sat by Pulse Oximetry (%) 100 03/22/17 09:00 Constitutional: Yes: Calm HENT: Yes: Normocephalic Cardiovascular: Yes: S1, S2 Respiratory: Yes: Mechanically Ventilated, Rhonchi Gastrointestinal: Yes: Normal Bowel Sounds Genitourinary: Yes: [place] Present Labs: CBC, BMP 03/22/17 05:20 03/22/17 05:20 INR, PTT INR 2.07 (0.82-1.09) H 03/22/17 05:20 Fibrinogen 448.0 mg/dL (238-498) 03/22/17 05:20 Problem List - Problems (1) Anaerobic bacteremia Code(s): R78.81 - BACTEREMIA (2) Hypotension Code(s): I95.9 - HYPOTENSION, UNSPECIFIED Qualifiers: Hypotension type: other hypotension type Qualified Code(s): I95.89 - Other hypotension (3) Hypovolemic shock Code(s): R57.1 - HYPOVOLEMIC SHOCK (4) Liver abscess Code(s): K75.0 - ABSCESS OF LIVER (5) Renal failure Code(s): N19 - UNSPECIFIED KIDNEY FAILURE Qualifiers: Renal failure chronicity: acute Acute renal failure type: with other specified pathological lesion Qualified Code(s): N17.8 - Other acute kidney failure (6) Septic shock Code(s): A41.9 - SEPSIS, UNSPECIFIED ORGANISM R65.21 - SEVERE SEPSIS WITH SEPTIC SHOCK Assessment/Plan 31 y/o female admitted with Septic shock, and the finding of Liver abscess, which was drained . Urine, blood and the abscess C/S growing the same organism. IV Abx weel tolerated. Renal functions stable. Serum Calcium has improved since discontinuation of Bicarb. Corrected calcium >8.5 mg/dL. Will monitor the Renal and Electrolyte profile. Renal functions at her baseline. Laura Tirado MD
[2017-03-22] MEDS ORDERED: FUROSEMIDE 40 MG/4 ML INJECTABLE VIAL ONE (10:57)
--- NOTE | 2017-03-22 11:06 | PN ---
Teaching Attending Note Name of Resident: Clari Hearn ATTENDING PHYSICIAN STATEMENT I saw and evaluated the patient. I reviewed the resident's note and discussed the case with the resident. I agree with the resident's findings and plan as documented. SUBJECTIVE: Pt seen and examined in the ICU. Remains intubated, sedated. Pressor requirements improving. Good urine output. OBJECTIVE: Last Vital Signs Temp Pulse Resp BP Pulse Ox 99.7 F H 73 12 109/82 98 03/22/17 06:00 03/22/17 10:30 03/22/17 10:37 03/22/17 10:01 03/22/17 10:37 Intake & Output 03/19/17 03/20/17 03/21/17 03/22/17 23:59 23:59 23:59 23:59 Intake Total 8499 5746 1688 Output Total 2045 2220 950 Balance 6454 3526 738 Weight 171 lb 4.787 oz 176 lb 5.917 oz 181 lb 9 oz Gen: intubated, sedated Heart: RRR Lung: scattered rhonchi Abd: soft, nontender, +ANNEMARIE drain with minimal drainage Ext: + edema CBC, BMP 03/22/17 05:20 03/22/17 05:20 Active Medications Chlorhexidine Gluconate (Hibiclens For Decolonization -) 1 applic TP HS CHELY Last Admin: 03/21/17 22:10 Dose: 1 applic Chlorhexidine Gluconate (Peridex -) 15 ml MM BID CHELY Last Admin: 03/22/17 09:56 Dose: 15 ml Hydrocortisone Sodium Succinate (Solu-Cortef -) 100 mg IVPB Q8H-IV CHELY Last Admin: 03/22/17 09:56 Dose: 100 mg Pantoprazole Sodium (Protonix 40mg Ivpb (Pre-Docked)) 100 mls @ 200 mls/hr IVPB DAILY CHELY Last Admin: 03/22/17 09:50 Dose: 200 mls/hr Metronidazole (Flagyl 500mg Premixed Ivpb -) 100 mls @ 100 mls/hr IVPB Q8H-IV CHELY Last Admin: 03/22/17 09:55 Dose: 100 mls/hr Midazolam HCl 100 mg/ Sodium (Chloride) 100 mls @ 4 mls/hr IVPB TITR CHELY; 4 MG/ HR PRN Reason: Protocol Last Admin: 03/22/17 00:34 Dose: 4 mls/hr Norepinephrine Bitartrate 8, (000 mcg/ Dextrose) 500 mls @ 37.5 mls/hr IV TITR CHELY; 10 MCG/MIN PRN Reason: Protocol Last Titration: 03/22/17 10:01 Dose: 2 mcg/min Fentanyl 500 mcg/ Dextrose 100 mls @ 5 mls/hr IJ TITR CHELY PRN Reason: 25 MCG/HR Last Admin: 03/21/17 22:11 Dose: 5 mls/hr Dextrose/Sodium Chloride (D5-Ns -) 1,000 mls @ 75 mls/hr IV ASDIR CHELY Last Admin: 03/21/17 17:54 Dose: 75 mls/hr Meropenem 1 gm/ Dextrose 100 mls @ 100 mls/hr IVPB Q8H-IV CHELY PRN Reason: Protocol Last Admin: 03/22/17 09:50 Dose: 100 mls/hr Mupirocin (Bactroban Ointment (For Decolonization) -) 1 applic NS BID CHELY Stop: 03/25/17 09:59 Last Admin: 03/22/17 09:55 Dose: 1 applic ASSESSMENT AND PLAN: Hepatic Abscess UTI Gram Negative Bacteremia Septic Shock Multiorgan Failure Acute Hypoxic Respiratory Failure Acute Kidney Injury Lactic Acidosis +Troponins likely Demand Ischemia Elevated LFTs likely Ischemic Injury Coagulopathy/Thrombocytopenia r/o DIC - continue antibiotics - f/u cultures - IVF to keep CVP 8-12 - pressor support to maintain MAP >65 - empiric stress dose steroids - replete lytes - trend cardiac enzymes, LFTs, lactate - monitor coags, platelets, fibrinogen level - taper Fio2 to keep Spo2 >90% - hold sedation to assess mental status - spontaneous breathing trials as tolerated - DVT/GI prophylaxis - ICU monitoring critical care time spent in reviewing chart, evaluating patient and formulating plan 36 min
[2017-03-22] MEDS ORDERED: FUROSEMIDE 40 MG/4 ML INJECTABLE VIAL IVPB ONE (11:15)
[2017-03-22] MEDS ORDERED: CALCIUM CARBONATE SUSPENSION - 500 MG/5 ML ML PO ONE (12:00)
[2017-03-22] MEDS ORDERED: CALCIUM CHLORIDE 10% 1 GM/10 ML *VIAL IVPB ONE (13:46)
[2017-03-22] MEDS ORDERED: CALCIUM CHLORIDE 1 GM/10 ML *DISP.SYRIN ONE (13:52)
--- NOTE | 2017-03-22 13:59 | PN ---
Progress Note (short form) - Note Progress Note: Chief Complaint: fever, vomiting S: Remains intubated, and on pressors. sedation lifted today, making some movements per nursing. Trial of lasix yesterday. continues to make urine. Current Medications Chlorhexidine Gluconate (Hibiclens For Decolonization -) 1 applic TP HS [facility] Last Admin: 03/21/17 22:10 Dose: 1 applic Chlorhexidine Gluconate (Peridex -) 15 ml MM BID [facility] Last Admin: 03/22/17 09:56 Dose: 15 ml Hydrocortisone Sodium Succinate (Solu-Cortef -) 100 mg IVPB Q8H-IV CHELY Last Admin: 03/22/17 17:41 Dose: 100 mg Pantoprazole Sodium (Protonix 40mg Ivpb (Pre-Docked)) 100 mls @ 200 mls/hr IVPB DAILY [facility] Last Admin: 03/22/17 09:50 Dose: 200 mls/hr Metronidazole (Flagyl 500mg Premixed Ivpb -) 100 mls @ 100 mls/hr IVPB Q8H-IV CHELY Last Admin: 03/22/17 17:41 Dose: 100 mls/hr Norepinephrine Bitartrate 8, (000 mcg/ Dextrose) 500 mls @ 37.5 mls/hr IV TITR CHELY; 10 MCG/MIN PRN Reason: Protocol Last Titration: 03/22/17 10:01 Dose: 2 mcg/min Dextrose/Sodium Chloride (D5-Ns -) 1,000 mls @ 75 mls/hr IV ASDIR CHELY Last Admin: 03/22/17 17:42 Dose: 75 mls/hr Meropenem 1 gm/ Dextrose 100 mls @ 100 mls/hr IVPB Q8H-IV CHELY PRN Reason: Protocol Last Admin: 03/22/17 17:41 Dose: 100 mls/hr Midazolam HCl (Versed -) 2 mg IVPUSH PRN PRN PRN Reason: AGITATION Mupirocin (Bactroban Ointment (For Decolonization) -) 1 applic NS BID [facility] Stop: 03/25/17 09:59 Last Admin: 03/22/17 09:55 Dose: 1 applic Vital Signs Period Temp Pulse Resp BP Sys/Bonner Pulse Ox Last 24 Hr 98.5 F-100.0 F 64-92 12-18 91-114/54-89 98-100 Intake & Output 03/20/17 03/21/17 03/22/17 03/23/17 07:59 07:59 07:59 07:59 Intake Total 6000 5295 4638 1570 Output Total 2635 2580 2620 Balance 6000 2660 2058 -1050 Weight 149 lb 176 lb 5.917 oz 181 lb 9 oz Per nursing CVP remains < 5. Constitutional: Yes: Well Nourished, No Distress Eyes: No: Sclera Icterus HENT: intubated No: Nasal Congestion Neck: No: Decreased ROM Respiratory: Yes: Coarse BS, mech ventilation. No: Accessory Muscle Use, Rales , Wheezes Gastrointestinal: Yes: Normal Bowel Sounds. No: Distention, Hepatomegaly, Palpable Mass, Tenderness Cardiovascular: Yes: Regular Rate and Rhythm JVD: No Carotid Bruit: No PMI: Non-Displaced Heart Sounds: Yes: S1, S2. No: Gallop Murmur: No: Systolic Murmur, Diastolic Murmur Musculoskeletal: Yes: Other (No kyphosis) Extremities: + dependent edema diffusely No: Cold, Cyanosis Edema: No Peripheral Pulses: 2+ Left Carotid, 2+ Right Carotid, 2+ Left Doralis Pedis, 2+ Right Dorsalis Pedis Integumentary: No: Jaundice Neurological: sedated, withdraws to painful stimuli Psychiatric: No: Agitated - Other Data Labs, Other Data: CBC, BMP 03/22/17 14:00 03/22/17 14:00 tele: NSR/sinus tach Assessment/Plan ECG's: #1: sinus tach, no isch abnormality #2: same, mildly prolonged QT #3: NSR, nonspecific ST-T abnormalities (QT normalized) CXR 03/21 am: bilat effusions and diffuse infiltrates, stable vs last film (incr vs admit film) echo here 02/2017: moderately decreased biventricular function (global), mild- mod TR rvsp 34, + pleural effusion A/p 31 year old female with a significant past medical history of cholecystectomy ( 8 years ago), who emigrated from [place] (9 years ago) and presents in severe shock gram negative rich sepsis 2/2 hepatic abscess now s/p IR drainage.. septic shock, gram negative rich bacteremia, hepatic abscess: - s/p percutaneous liver drain -hemodynamically stable at present -cont levophed --goal MAP >60. IVF as needed, CVP remains low. -cont stress dose steroids for now -abx per ID, f/u of abscess cx's elevated troponin: -trop peg to 20, trending down -ECG initially non-ischemic, then with nonspecific changes --> repeat with nonsp ST-Ts (actually improved slightly vs last tracing) -young female pt with no reported history of severe hyperlipidemia, diabetes, cigarettes--extremely low pretest prob of obstructive CAD -troponins and ECG are very likely secondary to sepsis related myonecrosis. hence ASA/AC, BB, statin not indicated (regardless, she is at prohibitive risks for these medical therapies, or invasive therapy of CAD, in light of heme abnormalities described above and septic shock) -less likely Takotsubo's from immense stressors -f/u echo with moderately decreased biventricular function (global). 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 takotsubo cardiomyopathy (less likely ). - Will need follow up echo once acute issues resolve. - ongoing mgm't of underlying condition/sepsis - Although patient is total body volume overloaded, would not diurese. Fluid is mainly third-spaced as CVP is low. Would continue IVF resuscitation as needed to manage sepsis. Diuresis once clinical condition improves. anemia, thrombocytopenia, coagulopathy: -likely sec to sepsis -shock liver likely contributing to coagulopathy, ? DIC component -PLTs trending down, INR trending up -per critical care--consider heme consult SETH: -sec to hypoperfusion vs sepsis -renal fxn improving -IVF, hemodynamic support as doing -renal following shock liver: -BP support as doing -coagulation support as above -per critical care acute resp failure: -sec to severe metabolic acidosis/septic shock - vent settings, per pulm/critical care est crit care time in mgmt and review of data = 35 min
--- NOTE | 2017-03-22 14:17 | PN ---
Physical Exam: SUBJECTIVE: ICU Progress Note: ED PA Fellow Patient seen and examined at bedside. Sedated and intubated. Levophed ggt 4mcg/ min. Vent settings: CPAP, PSV: 10, PEEP 5, Rate 16, Tidal Volume, 400 No events over night. Pt. is making urine, In's 5746, Out's 2220. ANNEMARIE drain with serosanguanous fluid. OBJECTIVE: Vital Signs Period Temp Pulse Resp BP Sys/Bonner Pulse Ox Last 24 Hr 97.7 F-99.7 F 73-92 12-20 89-114/57-89 98-100 GENERAL: Sedated and intubated in no acute distress. EYES: PERRL, extraocular movements intact, sclera anicteric, conjunctiva clear. No ptosis. ENT: Ears normal, nares patent, oropharynx clear without exudates, moist mucous membranes. NECK: Trachea midline, full range of motion, supple. LUNGS: Breath sounds with fair aeration to the bases, scattered rhonchi b/l, no accessory muscle use. HEART: Regular rate and rhythm, S1, S2 without murmur, rub or gallop. ABDOMEN: ANNEMARIE drain from RUQ present to suction with serosanguanous drainage. Soft , nontender, nondistended, normoactive bowel sounds, no guarding, no rebound, no hepatosplenomegaly, no masses. EXTREMITIES: 2+ pulses, warm, well-perfused, 3+ edema in UE and LE. NEUROLOGICAL: PERRLA+ Sedated SKIN: Warm, dry, normal turgor, no rashes bruising or lesions noted Laboratory Results - last 24 hr 03/20/17 03/21/17 03/21/17 16:00 13:00 15:00 WBC RBC Hgb Hct MCV MCHC RDW Plt Count MPV Neutrophils % Lymphocytes % Monocytes % Eosinophils % Basophils % Band Neutrophils Myelocytes Differential Comment Platelet Estimate Platelet Comment Retic Count INR PTT (Actin FS) Fibrinogen Puncture Site ABG pH ABG pCO2 at Pt Temp ABG pO2 at Pt Temp ABG HCO3 ABG O2 Sat (Measured) ABG O2 Content ABG Base Excess Beau Test O2 Delivery Device Oxygen Flow Rate Vent Mode Vent Rate Mechanical Rate PEEP Pressure Support Vent Sodium 144 Potassium 3.1 L Chloride 108 H Carbon Dioxide 26 Anion Gap 10 BUN 18 D Creatinine 0.9 D Creat Clearance w eGFR > 60 Random Glucose 209 H Lactic Acid 4.4 H* Calcium 5.1 L* Phosphorus Magnesium Ferritin Total Bilirubin 0.8 D AST 1831 H ALT 1468 H Alkaline Phosphatase 162 H LD Total Creatine Kinase 368 H D CK-MB (CK-2) 31.013 H Troponin I 4.54 H* Total Protein 4.0 L Albumin 1.6 L Tumor Marker AFP 1.5 Vitamin B12 Serum Folate Hepatitis A IgM Ab Negative Hep Bs Antigen Negative Hep B Core IgM Ab Negative Hepatitis C Ab (EIA) <0.1 03/21/17 03/22/17 03/22/17 15:00 05:20 05:20 WBC 18.4 H RBC 3.29 L D Hgb 9.6 L D Hct 29.5 L D MCV 89.9 MCHC 32.6 RDW 15.8 H D Plt Count 43 L D MPV 9.7 Neutrophils % 73.0 Lymphocytes % 10.0 D Monocytes % 2.0 L Eosinophils % 0.0 D Basophils % 0.0 Band Neutrophils 14.0 H D Myelocytes 1 Differential Comment Manual diff done Platelet Estimate Decreased Platelet Comment No clumping noted Retic Count INR 2.32 H 2.07 H PTT (Actin FS) 26.9 Fibrinogen 448.0 Puncture Site ABG pH ABG pCO2 at Pt Temp ABG pO2 at Pt Temp ABG HCO3 ABG O2 Sat (Measured) ABG O2 Content ABG Base Excess Beau Test O2 Delivery Device Oxygen Flow Rate Vent Mode Vent Rate Mechanical Rate PEEP Pressure Support Vent Sodium Potassium Chloride Carbon Dioxide Anion Gap BUN Creatinine Creat Clearance w eGFR Random Glucose Lactic Acid Calcium Phosphorus Magnesium Ferritin Total Bilirubin AST ALT Alkaline Phosphatase LD Total Creatine Kinase CK-MB (CK-2) Troponin I Total Protein Albumin Tumor Marker AFP Vitamin B12 Serum Folate Hepatitis A IgM Ab Hep Bs Antigen Hep B Core IgM Ab Hepatitis C Ab (EIA) 03/22/17 03/22/17 03/22/17 05:20 05:20 05:20 WBC RBC Hgb Hct MCV MCHC RDW Plt Count MPV Neutrophils % Lymphocytes % Monocytes % Eosinophils % Basophils % Band Neutrophils Myelocytes Differential Comment Platelet Estimate Platelet Comment Retic Count 0.32 L INR PTT (Actin FS) Fibrinogen Puncture Site ABG pH ABG pCO2 at Pt Temp ABG pO2 at Pt Temp ABG HCO3 ABG O2 Sat (Measured) ABG O2 Content ABG Base Excess Beau Test O2 Delivery Device Oxygen Flow Rate Vent Mode Vent Rate Mechanical Rate PEEP Pressure Support Vent Sodium 142 Potassium 3.9 D Chloride 104 Carbon Dioxide 32 D Anion Gap 6 L BUN 20 H Creatinine 0.9 Creat Clearance w eGFR > 60 Random Glucose 228 H Lactic Acid 3.2 H* Calcium 6.6 L* D Phosphorus 1.2 L D Magnesium 2.5 H Ferritin Total Bilirubin 0.8 AST 1168 H ALT 1427 H Alkaline Phosphatase 218 H D LD Total 578 H Creatine Kinase 144 CK-MB (CK-2) Troponin I 2.72 H* Total Protein 5.0 L D Albumin 2.0 L D Tumor Marker AFP Vitamin B12 Serum Folate 16 Hepatitis A IgM Ab Hep Bs Antigen Hep B Core IgM Ab Hepatitis C Ab (EIA) 03/22/17 03/22/17 03/22/17 05:20 05:20 07:10 WBC RBC Hgb Hct MCV MCHC RDW Plt Count MPV Neutrophils % Lymphocytes % Monocytes % Eosinophils % Basophils % Band Neutrophils Myelocytes Differential Comment Platelet Estimate Platelet Comment Retic Count INR PTT (Actin FS) 26.3 L Fibrinogen Puncture Site Right radial ABG pH 7.46 H ABG pCO2 at Pt Temp 41.6 ABG pO2 at Pt Temp 112.0 H D ABG HCO3 29.0 H ABG O2 Sat (Measured) 98.6 ABG O2 Content 13.4 L ABG Base Excess 5.2 H Beau Test Positive O2 Delivery Device Vent Oxygen Flow Rate 40 Vent Mode A/c Vent Rate 14 Mechanical Rate Yes PEEP 7.0 Pressure Support Vent 400 Sodium Potassium Chloride Carbon Dioxide Anion Gap BUN Creatinine Creat Clearance w eGFR Random Glucose Lactic Acid Calcium Phosphorus Magnesium Ferritin 858.147 H Total Bilirubin AST ALT Alkaline Phosphatase LD Total Creatine Kinase CK-MB (CK-2) Troponin I Total Protein Albumin Tumor Marker AFP Vitamin B12 65199 H Serum Folate Hepatitis A IgM Ab Hep Bs Antigen Hep B Core IgM Ab Hepatitis C Ab (EIA) Active Medications Generic Name Dose Route Start Last Admin Trade Name Freq PRN Reason Stop Dose Admin Chlorhexidine Gluconate 1 applic 03/20/17 22:00 03/21/17 22:10 Hibiclens For Decolonization - TP 1 applic HS CHELY Administration Chlorhexidine Gluconate 15 ml 03/20/17 12:15 03/22/17 09:56 Peridex - MM 15 ml BID CHELY Administration Hydrocortisone Sodium Succinate 100 mg 03/20/17 18:00 03/22/17 09:56 Solu-Cortef - IVPB 100 mg Q8H-IV CHELY Administration Pantoprazole Sodium 100 mls @ 200 mls/hr 03/20/17 09:30 03/22/17 09:50 Protonix 40mg Ivpb (Pre-Docked) IVPB 200 mls/hr DAILY CHELY Administration Metronidazole 100 mls @ 100 mls/hr 03/20/17 18:00 03/22/17 09:55 Flagyl 500mg Premixed Ivpb - IVPB 100 mls/hr Q8H-IV CHELY Administration Midazolam HCl 100 mg/ Sodium 100 mls @ 4 mls/hr 03/20/17 12:15 03/22/17 00:34 Chloride IVPB 4 mls/hr TITR CHELY Administration Protocol 4 MG/HR Norepinephrine Bitartrate 8, 500 mls @ 37.5 mls/hr 03/20/17 12:15 03/22/17 10: 01 000 mcg/ Dextrose IV 2 mcg/min TITR CHELY Titration Protocol 10 MCG/MIN Fentanyl 500 mcg/ Dextrose 100 mls @ 5 mls/hr 03/20/17 12:15 03/21/17 22:11 IJ 5 mls/hr TITR CHELY Administration 25 MCG/HR Dextrose/Sodium Chloride 1,000 mls @ 75 mls/hr 03/21/17 17:00 03/21/17 17:54 D5-Ns - IV 75 mls/hr ASDIR CHELY Administration Meropenem 1 gm/ Dextrose 100 mls @ 100 mls/hr 03/22/17 10:00 03/22/17 09:50 IVPB 100 mls/hr Q8H-IV CHELY Administration Protocol Mupirocin 1 applic 03/20/17 10:00 03/22/17 09:55 Bactroban Ointment (For Decolonization) - NS 03/25/17 09:59 1 applic BID CHELY Administration ASSESSMENT/PLAN: Pt. is a 31 y/o female with PMH of cholecystectomy who presents with gram negative sepsis bactermia with multi-system organ failure Septic shock with multi-system organ failure d/t liver abscess? - Blood cultures, UC, and abscess drainage finalized. Zhao sensitive E. Coli cultured - Continue meropenem and metronidazole per ID - Pressors to maintain BP. Weaning. - MAP > 65% - IVF to maintain CVP between 8-12 - Stress dose hydrocortisone Liver abscess - Percutaneously drained by IR on 03/20 - Catheter in place with ANNEMARIE drain to suction - Serosanguanous fluid in drain. - Surgery following Respiratory failure; possible ARDS - Pt. remains intubated and off sedation - Vent settings: CPAP, FiO2 40%, PEEP 5, PSV 10, Tidal volume 400 - Ween FiO2 to maintain O2 saturation > 40% - Repeat CXR in morning - Possible aspiration pnumonitis SETH - Improving - + urine output - Lasix 20mg IVP today - Renal following Elevated Troponins - Most likely d/t sepsis - Trop of 20 and down trending. Last trop - Serial Troponins - Cardiology following Transaminitis - Shock liver most likely d/t ischemia from sepsis - Monitor LFT's - GI following Thrombocytopenia - S/p FFP transfusion x4 - Platelet count 40 - Monitor coags, platelets, fibrinogen for signs of DIC - Heme/Onc consult F/E/N: - Fluids: D5NS @75 cc/hr - NPO - Repleted calcium Code Status: FULL CODE Disposition: Pt. still requiring ICU care. Problem List - Problems (1) Anaerobic bacteremia Code(s): R78.81 - BACTEREMIA (2) Hypotension Code(s): I95.9 - HYPOTENSION, UNSPECIFIED Qualifiers: Hypotension type: other hypotension type Qualified Code(s): I95.89 - Other hypotension (3) Liver abscess Code(s): K75.0 - ABSCESS OF LIVER (4) Multiorgan failure Code(s): PYP3660 - (5) Septic shock Code(s): A41.9 - SEPSIS, UNSPECIFIED ORGANISM R65.21 - SEVERE SEPSIS WITH SEPTIC SHOCK (6) UTI (urinary tract infection) Code(s): N39.0 - URINARY TRACT INFECTION, SITE NOT SPECIFIED Visit type - Emergency Visit Emergency Visit: Yes ED Registration Date: 03/20/17 Care time: The patient presented to the Emergency Department on the above date and was hospitalized for further evaluation of their emergent condition. - New Patient This patient is new to me today: No - Critical Care Critical Care patient: Yes Total Critical Care Time (in minutes): 35 Critical Care Statement: The care of this patient involved high complexity decision making to prevent further life threatening deterioration of the patient 's condition and/or to evalute & treat vital organ system(s) failure or risk of failure.
[2017-03-22 15:06] LABS: MCH 29.6 pg (25.7-33.7); MCHC 32.8 g/dl (32.0-36.0); MEAN CELL VOLUME 90.4 fl (80-96); MEAN PLT VOLUME 10.1 fl (7.5-11.1); PLATELET COUNT 39 K/MM3 (134-434); RDW 16.1 % (11.6-15.6); WHITE BLOOD COUNT 20.2 K/mm3 (4.0-10.0)
--- NOTE | 2017-03-22 15:26 | PN ---
Physical Exam: SUBJECTIVE: Patient seen and examined Patient intubated, sedated, in ICU on pressor. OBJECTIVE: Vital Signs Temperature 100.0 F H 03/22/17 18:00 Pulse Rate 70 03/23/17 00:25 Respiratory Rate 16 03/23/17 00:35 Blood Pressure 97/69 03/23/17 00:25 O2 Sat by Pulse Oximetry (%) 99 03/22/17 19:59 GENERAL: patient intubated, sedated. HEAD: Normal with no signs of trauma. EYES: PERRL, extraocular movements intact, sclera anicteric, conjunctiva clear. ENT: Ears normal, oropharynx clear without exudates, moist mucous membranes. NECK: Trachea midline, full range of motion, supple. LUNGS:decreased BS BL , intubated , no wheezes, no crackles, no accessory muscle use. HEART: Regular rate and rhythm, S1, S2 without murmur, rub or gallop. ABDOMEN: Soft, nontender, nondistended, normoactive bowel sounds, no guarding, no rebound, no hepatosplenomegaly, no masses. EXTREMITIES: 2+ pulses, warm, well-perfused, no edema. NEUROLOGICAL: Cranial nerves II through XII grossly intact. PSYCH: intubated, lying in a bed. SKIN: Warm, dry, normal turgor, no rashes or lesions noted CBCD WBC 20.2 K/mm3 (4.0-10.0) H 03/22/17 14:00 RBC 3.60 M/mm3 (3.60-5.2) 03/22/17 14:00 Hgb 10.7 GM/dL (10.7-15.3) D 03/22/17 14:00 Hct 32.6 % (32.4-45.2) 03/22/17 14:00 MCV 90.4 fl (80-96) 03/22/17 14:00 MCHC 32.8 g/dl (32.0-36.0) 03/22/17 14:00 RDW 16.1 % (11.6-15.6) H 03/22/17 14:00 Plt Count 39 K/MM3 (134-434) L 03/22/17 14:00 MPV 10.1 fl (7.5-11.1) 03/22/17 14:00 CMP Sodium 142 mmol/L (136-145) 03/22/17 05:20 Potassium 3.9 mmol/L (3.5-5.1) D 03/22/17 05:20 Chloride 104 mmol/L (98-107) 03/22/17 05:20 Carbon Dioxide 32 mmol/L (21-32) D 03/22/17 05:20 Anion Gap 6 (8-16) L 03/22/17 05:20 BUN 20 mg/dL (7-18) H 03/22/17 05:20 Creatinine 0.9 mg/dL (0.55-1.02) 03/22/17 05:20 Creat Clearance w eGFR > 60 (>60) 03/22/17 05:20 Random Glucose 228 mg/dL (74-106) H 03/22/17 05:20 Calcium 6.6 mg/dL (8.5-10.1) L* D 03/22/17 05:20 Total Bilirubin 0.8 mg/dL (0.2-1.0) 03/22/17 05:20 AST 1168 U/L (15-37) H 03/22/17 05:20 ALT 1427 U/L (12-78) H 03/22/17 05:20 Alkaline Phosphatase 218 U/L (45-117) H D 03/22/17 05:20 Total Protein 5.0 g/dl (6.4-8.2) L D 03/22/17 05:20 Albumin 2.0 g/dl (3.4-5.0) L D 03/22/17 05:20 CARDIAC ENZYMES Creatine Kinase 144 IU/L (26-192) 03/22/17 05:20 Troponin I 2.72 ng/ml (0.00-0.05) H* 03/22/17 05:20 Home Medications Medication Instructions Recorded No Home Medications 0 dose .ROUTE UTDICT 05/05/12 Microbiology 03/20/17 04:32 Blood - Peripheral Venous Blood Culture - Final Escherichia Coli 03/20/17 04:32 Blood - Peripheral Venous Blood Culture - Final Escherichia Coli 03/20/17 Unknown Abscess Gram Stain - Final 03/20/17 Unknown Abscess Body Fluid Culture - Final Escherichia Coli 03/20/17 Unknown Abscess Anaerobic Culture - Final NO ANAEROBES WERE ISOLATED 03/20/17 06:20 Urine - Urine - Catheterized Urine Culture - Final Escherichia Coli 03/20/17 12:50 Abscess AFB Smear Concentration - Preliminary 03/20/17 12:50 Abscess Mycobacterial Culture - Preliminary Active Medications Generic Name Dose Route Start Last Admin Trade Name Elio PRN Reason Stop Dose Admin Chlorhexidine Gluconate 1 applic 03/20/17 22:00 03/21/17 22:10 Hibiclens For Decolonization - TP 1 applic HS CHELY Administration Chlorhexidine Gluconate 15 ml 03/20/17 12:15 03/22/17 09:56 Peridex - MM 15 ml BID CHELY Administration Hydrocortisone Sodium Succinate 100 mg 03/20/17 18:00 03/22/17 09:56 Solu-Cortef - IVPB 100 mg Q8H-IV CHELY Administration Pantoprazole Sodium 100 mls @ 200 mls/hr 03/20/17 09:30 03/22/17 09:50 Protonix 40mg Ivpb (Pre-Docked) IVPB 200 mls/hr DAILY CHELY Administration Metronidazole 100 mls @ 100 mls/hr 03/20/17 18:00 03/22/17 09:55 Flagyl 500mg Premixed Ivpb - IVPB 100 mls/hr Q8H-IV CHELY Administration Midazolam HCl 100 mg/ Sodium 100 mls @ 4 mls/hr 03/20/17 12:15 03/22/17 00:34 Chloride IVPB 4 mls/hr TITR CHELY Administration Protocol 4 MG/HR Norepinephrine Bitartrate 8, 500 mls @ 37.5 mls/hr 03/20/17 12:15 03/22/17 10: 01 000 mcg/ Dextrose IV 2 mcg/min TITR CHELY Titration Protocol 10 MCG/MIN Fentanyl 500 mcg/ Dextrose 100 mls @ 5 mls/hr 03/20/17 12:15 03/21/17 22:11 IJ 5 mls/hr TITR CHELY Administration 25 MCG/HR Dextrose/Sodium Chloride 1,000 mls @ 75 mls/hr 03/21/17 17:00 03/21/17 17:54 D5-Ns - IV 75 mls/hr ASDIR CHELY Administration Meropenem 1 gm/ Dextrose 100 mls @ 100 mls/hr 03/22/17 10:00 03/22/17 09:50 IVPB 100 mls/hr Q8H-IV CHELY Administration Protocol Mupirocin 1 applic 03/20/17 10:00 03/22/17 09:55 Bactroban Ointment (For Decolonization) - NS 03/25/17 09:59 1 applic BID CHELY Administration ASSESSMENT/PLAN: Patient is a 31 year old female with a significant past medical history of cholecystectomy (8 years ago), who emigrated from [place] (9 years ago) and presents with two weeks of intermittent fever and chills, constant right shoulder pain and progressive weakness/fatigue. Last night she developed severe generalized weakness, nausea with two episodes of vomiting (non-bloody/ bilious) and three episodes of diarrhea (no blood or mucous). # Acute severe septic shock due to E.coli UTI/gram neg.bactermia to seeding to Liver presented with Liver abscess/ gram negative bacteremia on IV antibiotic ; s/p drainange of Liver abscess by IR (03/20/2017). On iV levophed ggt. goal MAP >60 , On stress dose steroids, continue IV antibiotics on flagyl/ meropenem as per ID, f/u of abscess cx's, C&S IVF to keep CVP 8-12 # elevated troponin: due to trop peg to 20, trending down due to demand Ischemia. Cardiology on the case Ousmane Wong # Acute respiratory failure intubated, on IV sedation , Pulmonary/intencivist on the case for further management. # Acute shock liver: with coagulopathy with elevated INR, monitor LFTs. # Acute anemia, thrombocytopenia, coagulopathy: due to sepsis. Hematology consult appreciated # Acute Thrombocytopenia possible due to Liver shock will monitor , platelets are 39. will hold the hepainr # SETH: due sepsis s/p IVF # acute resp failure: improving s/p IVF # Acute Lactic acidosis improving DVT Px: SCds, hold heparin for patricia Visit type - Emergency Visit Emergency Visit: Yes ED Registration Date: 03/20/17 Care time: The patient presented to the Emergency Department on the above date and was hospitalized for further evaluation of their emergent condition. - New Patient This patient is new to me today: No - Critical Care Critical Care patient: Yes Total Critical Care Time (in minutes): 35 Critical Care Statement: The care of this patient involved high complexity decision making to prevent further life threatening deterioration of the patient 's condition and/or to evalute & treat vital organ system(s) failure or risk of failure.
[2017-03-22 15:34] LABS: ALBUMIN 2.1 g/dl (3.4-5.0); ANION GAP 9 (8-16); BILIRUBIN,TOTAL 0.8 mg/dL (0.2-1.0); CO2 33 mmol/L (21-32); CREATININE 0.9 mg/dL (0.55-1.02); GLUCOSE,RANDOM 221 mg/dL (74-106); TOT PROT 5.2 g/dl (6.4-8.2)
[2017-03-22] MEDS ORDERED: MIDAZOLAM HCL 2 MG/2 ML SINGLE DOSE VIAL IVPUSH PRN (15:41)
[2017-03-22 15:48] LABS: ALK PHOS 234 U/L (45-117); SGOT/AST 761 U/L (15-37); SGPT/ALT 1280 U/L (12-78)
[2017-03-22 15:49] LABS: INR 1.96 (0.82-1.09); PROTHROMBIN TIME (PATIENT) 21.9 SEC (9.98-11.88)
[2017-03-22 15:50] LABS: TROPONIN I 2.15 ng/ml (0.00-0.05)
[2017-03-22 15:52] LABS: ACTIVATED PTT 25.8 SECONDS (26.9-34.4)
--- NOTE | 2017-03-22 16:42 | PATH ---
Cytology Non-Gynecological Report Patient Name: FELIX BALBUENA [facility]. Rec. #: [id number] /Age/Gender: 1985 (Age: 31) / F Account: [id number] Location: ICU STICK ROLLER Taken: 03/20/2017 Received: 03/21/2017 Reported: 03/22/2017 Physicians: Jennifer Orozco M.D. Piotr Kapinos, M.D. Specimen(s) Received FLUID FROM LIVER COLLECTION Clinical History Liver collection, r/o amebic abscess, r/o malignancy Final Diagnosis FLUID FROM LIVER COLLECTION, ASPIRATION: SATISFACTORY FOR EVALUATION. NO MALIGNANT CELLS IDENTIFIED. MARKED ACUTE INFLAMMATION, MACROPHAGES, NECROINFLAMMATORY AND FIBRINOHEMORRHAGIC DEBRIS (SEE COMMENT). Comment: The findings are consistent with an abscess. Clinical and imaging correlations are suggested. Special stains for fungal, acid-fast and protozoan organisms are pending; results will be reported in an addendum. Electronically Signed Gilbert Luz M.D. Addendum Reported: 03/23/2017 Addendum Diagnosis No protozoan organisms (entameba) are identified with PAS stain. No fungal organisms identified GMS stain. No acid-fast bacilli are identified with AFB stain. Comment: Correlations with microbiologic studies are suggested. Gilbert Luz M.D. Gross Description Received is 10 cc of bloody fluid fresh. One cytofunnel slide and one are made.
--- NOTE | 2017-03-22 17:05 | PN ---
Progress Note, Physician Chief Complaint: HD3 septic shock secondary to liver abscess History of Present Illness: Pt has percutaneous liver drain RUQ with serosanguineous output - small amount in bulb, no more recorded since yesterday. Abscess, blood and urine are positive for pansensitive E. coli (R to bactrim). Pt remains intubated and sedated; she does not respond to voice or the exam. Norepinephrine drip minimal , antibiotics continue (adjusted for now-normal renal function). She is still somewhat coagulopathic, and platelets remain low at ~40. Vent support continues at FiO2 40%. Lactate down to 3. K and Phos low this afternoon. Pt got Lasix earlier today with diuresis. Na 145. - Current Medication List Current Medications: Active Medications Chlorhexidine Gluconate (Hibiclens For Decolonization -) 1 applic TP HS [facility] Last Admin: 03/21/17 22:10 Dose: 1 applic Chlorhexidine Gluconate (Peridex -) 15 ml MM BID [facility] Last Admin: 03/22/17 09:56 Dose: 15 ml Hydrocortisone Sodium Succinate (Solu-Cortef -) 100 mg IVPB Q8H-IV [facility] Last Admin: 03/22/17 09:56 Dose: 100 mg Pantoprazole Sodium (Protonix 40mg Ivpb (Pre-Docked)) 100 mls @ 200 mls/hr IVPB DAILY [facility] Last Admin: 03/22/17 09:50 Dose: 200 mls/hr Metronidazole (Flagyl 500mg Premixed Ivpb -) 100 mls @ 100 mls/hr IVPB Q8H-IV [facility] Last Admin: 03/22/17 09:55 Dose: 100 mls/hr Norepinephrine Bitartrate 8, (000 mcg/ Dextrose) 500 mls @ 37.5 mls/hr IV TITR [facility]; 10 MCG/MIN PRN Reason: Protocol Last Titration: 03/22/17 10:01 Dose: 2 mcg/min Dextrose/Sodium Chloride (D5-Ns -) 1,000 mls @ 75 mls/hr IV ASDIR [facility] Last Admin: 03/21/17 17:54 Dose: 75 mls/hr Meropenem 1 gm/ Dextrose 100 mls @ 100 mls/hr IVPB Q8H-IV [facility] PRN Reason: Protocol Last Admin: 03/22/17 09:50 Dose: 100 mls/hr Potassium Chloride (Potassium Chloride 10 Meq Premix Ivpb -) 100 mls @ 100 mls/ hr IVPB Q60M [facility] Stop: 03/22/17 18:29 Midazolam HCl (Versed -) 2 mg IVPUSH PRN PRN PRN Reason: AGITATION Mupirocin (Bactroban Ointment (For Decolonization) -) 1 applic NS BID [facility] Stop: 03/25/17 09:59 Last Admin: 03/22/17 09:55 Dose: 1 applic - Objective Vital Signs: Vital Signs Temperature 99.4 F 03/22/17 13:04 Pulse Rate 64 03/22/17 15:00 Respiratory Rate 13 03/22/17 16:20 Blood Pressure 99/86 03/22/17 15:00 O2 Sat by Pulse Oximetry (%) 100 03/22/17 16:18 Intake & Output 03/19/17 03/20/17 03/21/17 03/22/17 23:59 23:59 23:59 23:59 Intake Total 8499 5728 2708 Output Total 2046 2220 3550 Balance 6454 3526 -842 Weight 171 lb 4.787 oz 176 lb 5.917 oz 181 lb 9 oz Constitutional: Yes: No Distress, Other (intubated, not responsive) HENT: Yes: Other (ETT, OGT) Cardiovascular: Yes: Regular Rate and Rhythm. No: Murmur Respiratory: Yes: Intubated, Mechanically Ventilated, Other (hiccups). No: Rales, Rhonchi, Wheezes Gastrointestinal: Yes: Normal Bowel Sounds (lower quadrants), Soft, Hypoactive Bowel Sounds (upper quadrants), Other (RUQ drain with <1/2 bulb of serosanguineous drainage). No: Tenderness Genitourinary: Yes: [place] Present (marbella yellow) Edema: Yes (generalized) Peripheral Pulses WNL: Yes Integumentary: No: Jaundice, Rash Neurological: No: Alert Labs: CBC, BMP 03/22/17 14:00 03/22/17 14:00 INR, PTT INR 1.96 (0.82-1.09) H 03/22/17 14:00 Fibrinogen 455.0 mg/dL (238-498) 03/22/17 14:00 CMP Sodium 145 mmol/L (136-145) 03/22/17 14:00 Potassium 3.3 mmol/L (3.5-5.1) L 03/22/17 14:00 Chloride 103 mmol/L (98-107) 03/22/17 14:00 Carbon Dioxide 33 mmol/L (21-32) H 03/22/17 14:00 Anion Gap 9 (8-16) 03/22/17 14:00 BUN 20 mg/dL (7-18) H 03/22/17 14:00 Creatinine 0.9 mg/dL (0.55-1.02) 03/22/17 14:00 Creat Clearance w eGFR > 60 (>60) 03/22/17 14:00 Random Glucose 221 mg/dL (74-106) H 03/22/17 14:00 Lactic Acid 3.0 mmol/L (0.4-2.0) H* 03/22/17 14:00 Calcium 7.0 mg/dL (8.5-10.1) L 03/22/17 14:00 Ionized Calcium 3.4 mg/dL (4.5-5.6) L 03/20/17 16:00 Phosphorus 1.2 mg/dL (2.5-4.9) L D 03/22/17 05:20 Magnesium 2.5 mg/dL (1.8-2.4) H 03/22/17 05:20 Ferritin 858.147 ng/ml (6.9-282.5) H 03/22/17 05:20 Total Bilirubin 0.8 mg/dL (0.2-1.0) 03/22/17 14:00 AST 761 U/L (15-37) H D 03/22/17 14:00 ALT 1280 U/L (12-78) H 03/22/17 14:00 Alkaline Phosphatase 234 U/L (45-117) H 03/22/17 14:00 LD Total 578 U/L (84-246) H 03/22/17 05:20 Creatine Kinase 83 IU/L (26-192) 03/22/17 14:00 CK-MB (CK-2) 31.013 ng/ml (0.5-3.6) H 03/21/17 15:00 Troponin I 2.15 ng/ml (0.00-0.05) H* 03/22/17 14:00 Total Protein 5.2 g/dl (6.4-8.2) L 03/22/17 14:00 Albumin 2.1 g/dl (3.4-5.0) L 03/22/17 14:00 Total Amylase 31 U/L (25-115) 03/20/17 03:58 Lipase 43 U/L (73-393) L 03/20/17 09:45 Tumor Marker AFP 1.5 ng/ml (0.0-8.3) 03/20/17 16:00 Vitamin B12 94719 pg/ml (180-914) H 03/22/17 05:20 Serum Folate 16 ng/ml (3.1-17.5) 03/22/17 05:20 TSH 1.78 uIU/ml (0.358-3.74) 03/20/17 09:45 Serum , Qual Negative 03/20/17 03:58 Cortisol AM Sample 63.4 ug/dL (.) 03/20/17 03:58 ABG Results ABG pH 7.46 (7.35-7.45) H 03/22/17 07:10 ABG pCO2 at Pt Temp 41.6 mmHg (35-45) 03/22/17 07:10 ABG pO2 at Pt Temp 112.0 mmHg (80-100) H D 03/22/17 07:10 ABG HCO3 29.0 meq/L (22-26) H 03/22/17 07:10 ABG O2 Sat (Measured) 98.6 % (90-98.9) 03/22/17 07:10 ABG O2 Content 13.4 % vol (15-22) L 03/22/17 07:10 ABG Base Excess 5.2 meq/l (-2-2) H 03/22/17 07:10 - ....Imaging Chest X-ray: Report Reviewed, Image Reviewed Problem List - Problems (1) Liver abscess Assessment/Plan: s/p percutaneous drainage - continue to monitor and record drainage on antibiotics for E. coli sepsis cytology negative for malignant cells, consistent with abscess, special stains pending original etiology unclear continue current care Code(s): K75.0 - ABSCESS OF LIVER (2) Multiorgan failure Assessment/Plan: continue vent support, wean as able renal function improved - nephro on board cardiology consult noted would not attempt tube feeding yet - maintain NPO with OG suction correct coagulopathy as needed, watch platelets anticipate third spacing will start to decrease as cap leak seals replete lytes prn continue current care Code(s): [id number] - (3) Respiratory failure requiring intubation Assessment/Plan: continue vent support weaning trials as appropriate follow CXR Code(s): J96.90 - RESPIRATORY FAILURE, UNSP, UNSP W HYPOXIA OR HYPERCAPNIA (4) E. coli septic shock Assessment/Plan: on antibiotics ID on board continue current care Code(s): A41.51 - SEPSIS DUE TO ESCHERICHIA COLI [E. COLI] R65.21 - SEVERE SEPSIS WITH SEPTIC SHOCK Assessment/Plan This patient is critically ill. Time spent reviewing chart, examining patient and documenting is 35 mins.
[2017-03-22] MEDS: KCL 10 MEQ IVPB 100 ML IVPB SCH ×2 (17:39→18:31)
[2017-03-22] MEDS: DEXTROSE 5%-NORMAL SALINE 1,000 ML IV SCH (17:42)
--- NOTE | 2017-03-22 21:44 | PN ---
GI Progress Note Subjective: Patient more responsive earlier-now somnolent On CPAP 40% Off pressors Afebrile - Objective Vital Signs: Vital Signs Temperature 100.0 F H 03/22/17 18:00 Pulse Rate 72 03/22/17 19:00 Respiratory Rate 18 03/22/17 21:33 Blood Pressure 94/64 03/22/17 19:00 O2 Sat by Pulse Oximetry (%) 99 03/22/17 19:59 Constitutional: Well Nourished, Other (On CPAP) Cardiovascular: Yes: Regular Rate and Rhythm Respiratory: Yes: CTA Bilaterally Gastrointestinal Inspection: Yes: WNL ...Auscultate: Yes: Hypoactive Bowel Sounds ...Palpate: Yes: Soft Labs: CBC, BMP 03/22/17 14:00 03/22/17 14:00 INR, PTT INR 1.96 (0.82-1.09) H 03/22/17 14:00 Fibrinogen 455.0 mg/dL (238-498) 03/22/17 14:00 Assessment/Plan 31 F with likely UTI--> bascteremia--> liver abscess. E coli cultured from all 3 sources. Rapid evolution of infection, now seems to be responding to AbRx Increased LFTs likely secondary to sepsis/hypotension/shock liver. Normal bili Follow LFTs and WBC Persistent leukocytosis
[2017-03-22] MEDS: CHLORHEXIDINE GLUCONATE 4% CLEANSER FOR DECOLONIZATION TP SCH (22:30)
[2017-03-23] MEDS ORDERED: PT OWN MED DRAWER 7, Y5N ONE (00:41)
[2017-03-23] MEDS: HYDROCORTISONE SOD SUCCINATE 100 MG/2 ML VIAL IVPB SCH ×3 (01:12→17:38)
[2017-03-23] MEDS: MEROPENEM 1 GM in DEXTROSE 5%-WATER - 100 ML IVPB SCH (01:12)
[2017-03-23] MEDS: METRONIDAZOLE 500 MG PREMIXED 100 ML IVPB SCH (01:14)
[2017-03-23] MEDS: NOREPINEPHRINE BITARTRATE 8,000 MCG in DEXTROSE 5%-WATER - 492 ML IV SCH (01:44)
[2017-03-23 06:18] LABS: ALLENS TEST POSITIVE; ART PUNCT SITE RIGHT RADIAL; ARTERIAL BLD GAS O2 SATURATION 90.4 % (90-98.9); ARTERIAL BLOOD GAS BASE EXCESS 9.3 meq/l (-2-2); LPM/O2% 40%; MECH. VENT. YES; PT. ON O2? YES; TYPE OF O2 MECH VENT
[2017-03-23 06:19] LABS: ARTERIAL BLOOD GAS HCO3 33.1 meq/L (22-26); ARTERIAL BLOOD GAS PO2 57.4 mmHg (80-100); VT/PRESS PS+10
[2017-03-23 06:50] LABS: BASOPHIL 0.1 % (0-2.0); MCH 29.6 pg (25.7-33.7); MCHC 32.9 g/dl (32.0-36.0); MEAN CELL VOLUME 89.8 fl (80-96); MEAN PLT VOLUME 9.9 fl (7.5-11.1); NEUTROPHILS 81.2 % (42.8-82.8); RDW 15.6 % (11.6-15.6); WHITE BLOOD COUNT 17.2 K/mm3 (4.0-10.0)
[2017-03-23 07:01] LABS: INR 2.19 (0.82-1.09); PROTHROMBIN TIME (PATIENT) 24.5 SEC (9.98-11.88)
[2017-03-23 07:17] LABS: PLATELET COUNT 34 K/MM3 (134-434)
--- NOTE | 2017-03-23 07:17 | PN ---
Progress Note, Physician Chief Complaint: ID Remains critically ill on the vent 80% FIO2 Meropenem and metronidazole - Current Medication List Current Medications: Active Medications Chlorhexidine Gluconate (Hibiclens For Decolonization -) 1 applic TP HS [facility] Last Admin: 03/22/17 22:30 Dose: 1 applic Chlorhexidine Gluconate (Peridex -) 15 ml MM BID [facility] Last Admin: 03/22/17 22:30 Dose: 15 ml Hydrocortisone Sodium Succinate (Solu-Cortef -) 100 mg IVPB Q8H-IV [facility] Last Admin: 03/23/17 01:12 Dose: 100 mg Pantoprazole Sodium (Protonix 40mg Ivpb (Pre-Docked)) 100 mls @ 200 mls/hr IVPB DAILY [facility] Last Admin: 03/22/17 09:50 Dose: 200 mls/hr Metronidazole (Flagyl 500mg Premixed Ivpb -) 100 mls @ 100 mls/hr IVPB Q8H-IV [facility] Last Admin: 03/23/17 01:14 Dose: 100 mls/hr Norepinephrine Bitartrate 8, (000 mcg/ Dextrose) 500 mls @ 37.5 mls/hr IV TITR [facility]; 10 MCG/MIN PRN Reason: Protocol Last Admin: 03/23/17 01:44 Dose: Not Given Dextrose/Sodium Chloride (D5-Ns -) 1,000 mls @ 75 mls/hr IV ASDIR [facility] Last Admin: 03/22/17 17:42 Dose: 75 mls/hr Meropenem 1 gm/ Dextrose 100 mls @ 100 mls/hr IVPB Q8H-IV [facility] PRN Reason: Protocol Last Admin: 03/23/17 01:12 Dose: 100 mls/hr Midazolam HCl (Versed -) 2 mg IVPUSH PRN PRN PRN Reason: AGITATION Last Admin: 03/23/17 06:33 Dose: 2 mg Mupirocin (Bactroban Ointment (For Decolonization) -) 1 applic NS BID [facility] Stop: 03/25/17 09:59 Last Admin: 03/22/17 22:30 Dose: 1 applic - Objective Vital Signs: Vital Signs Temperature 98 F 03/23/17 06:00 Pulse Rate 57 L 03/23/17 07:00 Respiratory Rate 15 03/23/17 07:00 Blood Pressure 108/73 03/23/17 07:00 O2 Sat by Pulse Oximetry (%) 96 03/23/17 06:44 Constitutional: Yes: Well Nourished, Other (vent) Cardiovascular: Yes: Regular Rate and Rhythm, S1, S2. No: Murmur Respiratory: Yes: WNL, Regular, CTA Bilaterally Gastrointestinal: Yes: WNL, Normal Bowel Sounds, Soft. No: Tenderness, Tenderness, Rebound Edema: No Labs: INR, PTT INR 2.19 (0.82-1.09) H 03/23/17 05:20 Fibrinogen 455.0 mg/dL (238-498) 03/22/17 14:00 Problem List - Problems (1) Liver abscess Code(s): K75.0 - ABSCESS OF LIVER (2) Multiorgan failure Code(s): [id number] - (3) Anaerobic bacteremia Code(s): R78.81 - BACTEREMIA Assessment/Plan Microbiology 03/20/17 Unknown Abscess Gram Stain - Final 03/20/17 Unknown Abscess Anaerobic Culture - Final Escherichia Coli NO ANAEROBES WERE ISOLATED 03/20/17 06:20 Urine - Urine - Catheterized Urine Culture - Final Escherichia Coli 03/20/17 04:32 Blood - Peripheral Venous Blood Culture - Final Escherichia Coli 03/20/17 04:32 Blood - Peripheral Venous Blood Culture - Final Escherichia Coli Laboratory Tests 03/22/17 03/22/17 03/23/17 14:00 14:00 05:20 WBC 20.2 H Pending Hgb 10.7 D Pending Plt Count 39 L Pending ABG pH BUN 20 H Creatinine 0.9 Total Bilirubin 0.8 AST 761 H D ALT 1280 H Alkaline Phosphatase 234 H 03/23/17 06:00 WBC Hgb Plt Count ABG pH 7.50 H BUN Creatinine Total Bilirubin AST ALT Alkaline Phosphatase Assessment Sepsis syndrome from UTI Liver abscess with hematogenous origin related to UTI Acute lung injury Shock liver E Coli bacteremia Plan Stop meropenem flagyl Ceftriaxone 2 grs daily Eunice RANDOLPH
[2017-03-23 07:35] LABS: ALBUMIN 1.8 g/dl (3.4-5.0); ANION GAP 6 (8-16); BILIRUBIN,TOTAL 0.7 mg/dL (0.2-1.0); CALCIUM 7.1 mg/dL (8.5-10.1); CO2 34 mmol/L (21-32); CREATININE 0.7 mg/dL (0.55-1.02); GLUCOSE,RANDOM 154 mg/dL (74-106); SGOT/AST 352 U/L (15-37); TOT PROT 4.6 g/dl (6.4-8.2)
[2017-03-23 07:51] LABS: ALK PHOS 201 U/L (45-117)
[2017-03-23 08:23] LABS: SGPT/ALT 872 U/L (12-78); TROPONIN I 1.66 ng/ml (0.00-0.05)
--- NOTE | 2017-03-23 08:55 | PN ---
Physical Exam: SUBJECTIVE: ICU Progress Note: ED PA Fellow Patient seen and examined at bedside. Intubated. Off pressors and sedation Vent settings: CPAP, PSV: 10, PEEP 5, Rate 16, Tidal Volume, 400 No events over night. In's 3258, Out's 4270. ANNEMARIE drain with serosanguanous fluid. OBJECTIVE: Vital Signs Period Temp Pulse Resp BP Sys/Bonner Pulse Ox Last 24 Hr 98 F-100.0 F 57-92 12-20 92-114/54-89 96-100 GENERAL: The patient is awake, alert, and fully oriented, in no acute distress. EYES: PERRL, sclera anicteric, conjunctiva clear. ENT: Oropharynx clear without exudates or petechia, moist mucous membranes. NECK: Trachea midline, full range of motion, supple. LUNGS: Breath sounds equal, scattered rhonchi b/l. HEART: Regular rate and rhythm, S1, S2 without murmur, rub or gallop. ABDOMEN: Soft, nontender, nondistended, normoactive bowel sounds, no guarding, no rebound, no hepatosplenomegaly, no masses. EXTREMITIES: 2+ pulses, warm, well-perfused, 2+ edema. NEUROLOGICAL: sedated. PERRLA SKIN: Warm, dry, normal turgor, no rashes, bruising, bleeding, or lesions noted. Laboratory Results - last 24 hr 03/20/17 03/20/17 03/22/17 13:40 16:00 05:20 WBC RBC Hgb Hct MCV MCHC RDW Plt Count MPV Neutrophils % Lymphocytes % Monocytes % Eosinophils % Basophils % Haptoglobin INR PTT (Actin FS) Fibrinogen Puncture Site ABG pH ABG pCO2 at Pt Temp ABG pO2 at Pt Temp ABG HCO3 ABG O2 Sat (Measured) ABG O2 Content ABG Base Excess Beau Test O2 Delivery Device Oxygen Flow Rate Vent Mode Mechanical Rate PEEP Pressure Support Vent Sodium Potassium Chloride Carbon Dioxide Anion Gap BUN Creatinine Creat Clearance w eGFR Random Glucose Lactic Acid Calcium Ionized Calcium 3.4 L Iron 173 H TIBC 192 L Iron Saturation 90 H Ferritin Total Bilirubin AST ALT Alkaline Phosphatase Creatine Kinase Troponin I Total Protein Albumin Vitamin B12 Urine Myoglobin 18 H 03/22/17 03/22/17 03/22/17 05:20 05:20 14:00 WBC 20.2 H RBC 3.60 Hgb 10.7 D Hct 32.6 MCV 90.4 MCHC 32.8 RDW 16.1 H Plt Count 39 L MPV 10.1 Neutrophils % 91.0 H D Lymphocytes % 4.0 L D Monocytes % 5.0 D Eosinophils % Basophils % Haptoglobin 269 H INR PTT (Actin FS) Fibrinogen Puncture Site ABG pH ABG pCO2 at Pt Temp ABG pO2 at Pt Temp ABG HCO3 ABG O2 Sat (Measured) ABG O2 Content ABG Base Excess Beau Test O2 Delivery Device Oxygen Flow Rate Vent Mode Mechanical Rate PEEP Pressure Support Vent Sodium Potassium Chloride Carbon Dioxide Anion Gap BUN Creatinine Creat Clearance w eGFR Random Glucose Lactic Acid Calcium Ionized Calcium Iron TIBC Iron Saturation Ferritin 858.147 H Total Bilirubin AST ALT Alkaline Phosphatase Creatine Kinase Troponin I Total Protein Albumin Vitamin B12 44272 H Urine Myoglobin 03/22/17 03/22/17 03/22/17 14:00 14:00 14:00 WBC RBC Hgb Hct MCV MCHC RDW Plt Count MPV Neutrophils % Lymphocytes % Monocytes % Eosinophils % Basophils % Haptoglobin INR 1.96 H PTT (Actin FS) 25.8 L Fibrinogen 455.0 Puncture Site ABG pH ABG pCO2 at Pt Temp ABG pO2 at Pt Temp ABG HCO3 ABG O2 Sat (Measured) ABG O2 Content ABG Base Excess Beau Test O2 Delivery Device Oxygen Flow Rate Vent Mode Mechanical Rate PEEP Pressure Support Vent Sodium 145 Potassium 3.3 L Chloride 103 Carbon Dioxide 33 H Anion Gap 9 BUN 20 H Creatinine 0.9 Creat Clearance w eGFR > 60 Random Glucose 221 H Lactic Acid 3.0 H* Calcium 7.0 L Ionized Calcium Iron TIBC Iron Saturation Ferritin Total Bilirubin 0.8 AST 761 H D ALT 1280 H Alkaline Phosphatase 234 H Creatine Kinase 83 Troponin I 2.15 H* Total Protein 5.2 L Albumin 2.1 L Vitamin B12 Urine Myoglobin 03/23/17 03/23/17 03/23/17 05:20 05:20 05:20 WBC 17.2 H RBC 3.33 L Hgb 9.8 L Hct 29.9 L MCV 89.8 MCHC 32.9 RDW 15.6 Plt Count 34 L* MPV 9.9 Neutrophils % 81.2 Lymphocytes % 12.2 D Monocytes % 6.5 Eosinophils % 0.0 Basophils % 0.1 D Haptoglobin INR 2.19 H PTT (Actin FS) Fibrinogen 341.0 D Puncture Site ABG pH ABG pCO2 at Pt Temp ABG pO2 at Pt Temp ABG HCO3 ABG O2 Sat (Measured) ABG O2 Content ABG Base Excess Beau Test O2 Delivery Device Oxygen Flow Rate Vent Mode Mechanical Rate PEEP Pressure Support Vent Sodium 147 H Potassium 3.4 L Chloride 107 Carbon Dioxide 34 H Anion Gap 6 L BUN 24 H Creatinine 0.7 D Creat Clearance w eGFR > 60 Random Glucose 154 H D Lactic Acid Calcium 7.1 L Ionized Calcium Iron TIBC Iron Saturation Ferritin Total Bilirubin 0.7 AST 352 H D ALT 872 H D Alkaline Phosphatase 201 H Creatine Kinase 38 Troponin I 1.66 H* Total Protein 4.6 L Albumin 1.8 L Vitamin B12 Urine Myoglobin 03/23/17 03/23/17 05:20 06:00 WBC RBC Hgb Hct MCV MCHC RDW Plt Count MPV Neutrophils % Lymphocytes % Monocytes % Eosinophils % Basophils % Haptoglobin INR PTT (Actin FS) Fibrinogen Puncture Site Right radial ABG pH 7.50 H ABG pCO2 at Pt Temp 42.5 ABG pO2 at Pt Temp 57.4 L D ABG HCO3 33.1 H ABG O2 Sat (Measured) 90.4 ABG O2 Content 12.9 L ABG Base Excess 9.3 H Beau Test Positive O2 Delivery Device Mech vent Oxygen Flow Rate 40% Vent Mode Cpap Mechanical Rate Yes PEEP 5.0 Pressure Support Vent Ps+10 Sodium Potassium Chloride Carbon Dioxide Anion Gap BUN Creatinine Creat Clearance w eGFR Random Glucose Lactic Acid 2.5 H* Calcium Ionized Calcium Iron TIBC Iron Saturation Ferritin Total Bilirubin AST ALT Alkaline Phosphatase Creatine Kinase Troponin I Total Protein Albumin Vitamin B12 Urine Myoglobin Active Medications Generic Name Dose Route Start Last Admin Trade Name Freq PRN Reason Stop Dose Admin Ceftriaxone Sodium 2 gm 03/23/17 10:00 Rocephin 2gm Ivpb (Pre-Docked) IVPB DAILY [facility] Chlorhexidine Gluconate 1 applic 03/20/17 22:00 03/22/17 22:30 Hibiclens For Decolonization - TP 1 applic HS [facility] Administration Chlorhexidine Gluconate 15 ml 03/20/17 12:15 03/22/17 22:30 Peridex - MM 15 ml BID [facility] Administration Hydrocortisone Sodium Succinate 100 mg 03/20/17 18:00 03/23/17 01:12 Solu-Cortef - IVPB 100 mg Q8H-IV [facility] Administration Pantoprazole Sodium 100 mls @ 200 mls/hr 03/20/17 09:30 03/22/17 09:50 Protonix 40mg Ivpb (Pre-Docked) IVPB 200 mls/hr DAILY [facility] Administration Norepinephrine Bitartrate 8, 500 mls @ 37.5 mls/hr 03/20/17 12:15 03/23/17 01: 44 000 mcg/ Dextrose IV Not Given TITR [facility] Protocol 10 MCG/MIN Dextrose/Sodium Chloride 1,000 mls @ 75 mls/hr 03/21/17 17:00 03/22/17 17:42 D5-Ns - IV 75 mls/hr ASDIR [facility] Administration Midazolam HCl 2 mg 03/22/17 15:41 03/23/17 06:33 Versed - IVPUSH 2 mg PRN PRN Administration AGITATION Mupirocin 1 applic 03/20/17 10:00 03/22/17 22:30 Bactroban Ointment (For Decolonization) - NS 03/25/17 09:59 1 applic BID [facility] Administration ASSESSMENT/PLAN: Pt. is a 31 y/o female with PMH of cholecystectomy who presents with gram negative sepsis bactermia with multi-system organ failure Septic shock with multi-system organ failure d/t liver abscess? - Blood cultures, UC, and abscess drainage finalized. Zhao sensitive E. Coli cultured - Possible systemic infection seeding from urine - Stop meroperem. Switch to Ceftriaxone per ID. - Off of pressors; MAP > 65% - IVF to maintain CVP between 8-12 - Stress dose hydrocortisone Liver abscess - Percutaneously drained by IR on 03/20 - Catheter in place with ANNEMARIE drain to suction - Serosanguanous fluid in drain. - Surgery following Respiratory failure; possible ARDS - Pt. remains intubated and off sedation - Vent settings: CPAP, FiO2 40%, PEEP 5, PSV 10, Tidal volume 400 - Ween FiO2 to maintain O2 saturation > 40% - Repeat CXR in morning - Possible aspiration pnumonitis SETH - Improving - Responded well to lasix - Lasix 20mg IVP repeated today - Renal following Elevated Troponins - Most likely d/t sepsis - Trop of 20 and down trending. Last trop 1.7 - Serial Troponins - Cardiology following Transaminitis - Shock liver most likely d/t ischemia from sepsis - Monitor LFT's - GI following Thrombocytopenia - S/p FFP transfusion x4 - Platelet count 37 - Monitor coags, platelets, fibrinogen for signs of DIC - Heme/Onc consult appreciated F/E/N: - Hold fluids at this time - Begin tube feeds - Repleted potassium and phosphorus Code Status: FULL CODE Disposition: Pt. still requiring ICU care. Problem List - Problems (1) Anaerobic bacteremia Code(s): R78.81 - BACTEREMIA (2) Hypotension Code(s): I95.9 - HYPOTENSION, UNSPECIFIED Qualifiers: Qualified Code(s): I95.89 - Other hypotension (3) Liver abscess Code(s): K75.0 - ABSCESS OF LIVER (4) Multiorgan failure Code(s): [id number] - (5) Septic shock Code(s): A41.9 - SEPSIS, UNSPECIFIED ORGANISM R65.21 - SEVERE SEPSIS WITH SEPTIC SHOCK (6) UTI (urinary tract infection) Code(s): N39.0 - URINARY TRACT INFECTION, SITE NOT SPECIFIED Visit type - Emergency Visit Emergency Visit: Yes ED Registration Date: 03/20/17 Care time: The patient presented to the Emergency Department on the above date and was hospitalized for further evaluation of their emergent condition. - New Patient This patient is new to me today: No - Critical Care Critical Care patient: Yes Total Critical Care Time (in minutes): 35 Critical Care Statement: The care of this patient involved high complexity decision making to prevent further life threatening deterioration of the patient 's condition and/or to evalute & treat vital organ system(s) failure or risk of failure.
[2017-03-23] MEDS: cefTRIAXone 2 GM/100 ML BAG (PRE-DOCKED) IVPB SCH (09:24)
[2017-03-23] MEDS: PANTOPRAZOLE SODIUM 100 ML IVPB SCH (09:25)
[2017-03-23] MEDS: CHLORHEXIDINE GLUCONATE 0.12% 15ML CUP MM SCH ×2 (09:25→21:27)
[2017-03-23] MEDS: MUPIROCIN 2% TOPICAL OINTMENT FOR DECOLONIZATION NS SCH ×2 (09:26→21:27)
[2017-03-23] MEDS ORDERED: KCL 10 MEQ IVPB 100 ML IVPB SCH ×3 (09:30→16:15)
[2017-03-23] MEDS ORDERED: CEFTRIAXONE 2 GM in DEXTROSE 5%-WATER - 100 ML IVPB SCH (10:00)
--- NOTE | 2017-03-23 10:50 | PN ---
Progress Note, Physician Chief Complaint: The patient seen in bed in ICU. Remains intubated, supported by mechanical vent, and on low dose of Levophed. Much more awake and alert. Put out 4,000 ml of urine. No chest pain. seems comfortable. - Current Medication List Current Medications: Active Medications Ceftriaxone Sodium (Rocephin 2gm Ivpb (Pre-Docked)) 2 gm IVPB DAILY [facility] Last Admin: 03/23/17 09:24 Dose: 2 gm Chlorhexidine Gluconate (Hibiclens For Decolonization -) 1 applic TP HS [facility] Last Admin: 03/22/17 22:30 Dose: 1 applic Chlorhexidine Gluconate (Peridex -) 15 ml MM BID [facility] Last Admin: 03/23/17 09:25 Dose: 15 ml Hydrocortisone Sodium Succinate (Solu-Cortef -) 100 mg IVPB Q8H-IV [facility] Last Admin: 03/23/17 09:25 Dose: 100 mg Pantoprazole Sodium (Protonix 40mg Ivpb (Pre-Docked)) 100 mls @ 200 mls/hr IVPB DAILY [facility] Last Admin: 03/23/17 09:25 Dose: 200 mls/hr Norepinephrine Bitartrate 8, (000 mcg/ Dextrose) 500 mls @ 37.5 mls/hr IV TITR [facility]; 10 MCG/MIN PRN Reason: Protocol Last Admin: 03/23/17 01:44 Dose: Not Given Dextrose/Sodium Chloride (D5-Ns -) 1,000 mls @ 75 mls/hr IV ASDIR [facility] Last Admin: 03/22/17 17:42 Dose: 75 mls/hr Midazolam HCl (Versed -) 2 mg IVPUSH PRN PRN PRN Reason: AGITATION Last Admin: 03/23/17 06:33 Dose: 2 mg Mupirocin (Bactroban Ointment (For Decolonization) -) 1 applic NS BID [facility] Stop: 03/25/17 09:59 Last Admin: 03/23/17 09:26 Dose: 1 applic - Objective Vital Signs: Vital Signs Temperature 98 F 03/23/17 06:00 Pulse Rate 57 L 03/23/17 09:13 Respiratory Rate 15 03/23/17 10:00 Blood Pressure 114/75 03/23/17 09:13 O2 Sat by Pulse Oximetry (%) 96 06/28/17 06:44 Constitutional: Yes: Calm HENT: Yes: Normocephalic Neck: Yes: Trachea Midline Cardiovascular: Yes: S1, S2 Respiratory: Yes: Mechanically Ventilated, Rales Gastrointestinal: Yes: Normal Bowel Sounds Musculoskeletal: No: Joint Stiffness, Joint Swelling Edema: No Labs: CBC, BMP 03/23/17 05:20 03/23/17 05:20 INR, PTT INR 2.19 (0.82-1.09) H 03/23/17 05:20 Fibrinogen 341.0 mg/dL (238-498) D 03/23/17 05:20 Problem List - Problems (1) Anaerobic bacteremia Code(s): R78.81 - BACTEREMIA (2) Hypotension Code(s): I95.9 - HYPOTENSION, UNSPECIFIED Qualifiers: Hypotension type: other hypotension type Qualified Code(s): I95.89 - Other hypotension (3) Hypovolemic shock Code(s): R57.1 - HYPOVOLEMIC SHOCK (4) Liver abscess Code(s): K75.0 - ABSCESS OF LIVER (5) Renal failure Code(s): N19 - UNSPECIFIED KIDNEY FAILURE Qualifiers: Renal failure chronicity: acute Acute renal failure type: with other specified pathological lesion Qualified Code(s): N17.8 - Other acute kidney failure (6) Septic shock Code(s): A41.9 - SEPSIS, UNSPECIFIED ORGANISM R65.21 - SEVERE SEPSIS WITH SEPTIC SHOCK (7) Hypokalemia due to loss of potassium Code(s): E87.6 - HYPOKALEMIA Assessment/Plan 31 y/o female admitted with Septic shock, and the finding of Liver abscess, which was drained . Most likely the Hepatic abscess by hematogenous spread. Renal functions stable. Serum Calcium has improved since discontinuation of Bicarb. Corrected calcium >9 mg/dL. No need for supplements. Put out 4,00 ml of urine. Serum K tends to run low, because of massive dumping of k in the tubular urine. Will need K supplements. Also will check Serum Mg. Will monitor the Renal and Electrolyte profile. Laura Tirado MD
[2017-03-23] MEDS ORDERED: FUROSEMIDE 40 MG/4 ML INJECTABLE VIAL IVPUSH ONE ×2 (11:00→20:52)
--- NOTE | 2017-03-23 11:08 | PN ---
Teaching Attending Note Name of Resident: Clari Hearn ATTENDING PHYSICIAN STATEMENT I saw and evaluated the patient. I reviewed the resident's note and discussed the case with the resident. I agree with the resident's findings and plan as documented. SUBJECTIVE: Pt seen and examined in the ICU. Remains intubated, sedated. Diuresed well with lasix yesterday. Blood, urine, abscess cultures growing E coli. Off pressors this AM. OBJECTIVE: Last Vital Signs Temp Pulse Resp BP Pulse Ox 98 F 57 L 15 114/75 96 03/23/17 06:00 03/23/17 09:13 03/23/17 10:00 03/23/17 09:13 03/23/17 06:44 Intake & Output 03/20/17 03/21/17 03/22/17 03/23/17 23:59 23:59 23:59 23:59 Intake Total 8499 5746 3258 1100 Output Total 2045 2220 4270 615 Balance 6454 3526 -1012 485 Weight 171 lb 4.787 oz 176 lb 5.917 oz 181 lb 9 oz 173 lb 8 oz Gen: intubated, sedated Heart: RRR Lung: scattered rhonchi Abd: soft, nontender, minimal drain output Ext: + edema CBC, BMP 03/23/17 05:20 03/23/17 05:20 Active Medications Ceftriaxone Sodium (Rocephin 2gm Ivpb (Pre-Docked)) 2 gm IVPB DAILY [facility] Last Admin: 03/23/17 09:24 Dose: 2 gm Chlorhexidine Gluconate (Hibiclens For Decolonization -) 1 applic TP HS [facility] Last Admin: 03/22/17 22:30 Dose: 1 applic Chlorhexidine Gluconate (Peridex -) 15 ml MM BID [facility] Last Admin: 03/23/17 09:25 Dose: 15 ml Hydrocortisone Sodium Succinate (Solu-Cortef -) 100 mg IVPB Q8H-IV [facility] Last Admin: 03/23/17 09:25 Dose: 100 mg Pantoprazole Sodium (Protonix 40mg Ivpb (Pre-Docked)) 100 mls @ 200 mls/hr IVPB DAILY [facility] Last Admin: 03/23/17 09:25 Dose: 200 mls/hr Norepinephrine Bitartrate 8, (000 mcg/ Dextrose) 500 mls @ 37.5 mls/hr IV TITR [facility]; 10 MCG/MIN PRN Reason: Protocol Last Admin: 03/23/17 01:44 Dose: Not Given Potassium Chloride (Potassium Chloride 10 Meq Premix Ivpb -) 100 mls @ 100 mls/ hr IVPB Q60M [facility] Stop: 03/23/17 11:59 Midazolam HCl (Versed -) 2 mg IVPUSH PRN PRN PRN Reason: AGITATION Last Admin: 03/23/17 06:33 Dose: 2 mg Mupirocin (Bactroban Ointment (For Decolonization) -) 1 applic NS BID [facility] Stop: 03/25/17 09:59 Last Admin: 03/23/17 09:26 Dose: 1 applic ASSESSMENT AND PLAN: Hepatic Abscess UTI E coli Bacteremia Septic Shock Multiorgan Failure Acute Hypoxic Respiratory Failure Acute Kidney Injury improving Lactic Acidosis +Troponins likely Demand Ischemia Elevated LFTs likely Ischemic Injury Coagulopathy/Thrombocytopenia r/o DIC - continue antibiotics - f/u cultures - d/c IVF - lasix 20mg IVP x 1 today - off pressors, maintain MAP >65 - continue empiric stress dose steroids - replete lytes - trend cardiac enzymes, LFTs, lactate - monitor coags, platelets, fibrinogen level - taper Fio2 to keep Spo2 >90% - hold sedation to assess mental status - spontaneous breathing trials as tolerated - DVT/GI prophylaxis - ICU monitoring critical care time spent in reviewing chart, evaluating patient and formulating plan 36 min
[2017-03-23 14:36] LABS: MCH 29.8 pg (25.7-33.7); MCHC 33.1 g/dl (32.0-36.0); MEAN CELL VOLUME 90.1 fl (80-96); MEAN PLT VOLUME 10.9 fl (7.5-11.1); PLATELET COUNT 37 K/MM3 (134-434); RDW 15.5 % (11.6-15.6); WHITE BLOOD COUNT 17.2 K/mm3 (4.0-10.0)
[2017-03-23 14:58] LABS: INR 2.11 (0.82-1.09); PROTHROMBIN TIME (PATIENT) 23.6 SEC (9.98-11.88)
[2017-03-23 15:20] LABS: ALBUMIN 1.9 g/dl (3.4-5.0); ANION GAP 7 (8-16); BILIRUBIN,TOTAL 0.6 mg/dL (0.2-1.0); CALCIUM 7.5 mg/dL (8.5-10.1); CO2 36 mmol/L (21-32); CREATININE 0.7 mg/dL (0.55-1.02); GLUCOSE,RANDOM 136 mg/dL (74-106); MAGNESIUM 1.9 mg/dL (1.8-2.4); PHOSPHOROUS 1.7 mg/dL (2.5-4.9); SGOT/AST 291 U/L (15-37); TOT PROT 5.2 g/dl (6.4-8.2)
[2017-03-23 15:25] LABS: ALK PHOS 222 U/L (45-117)
[2017-03-23 15:49] LABS: SGPT/ALT 877 U/L (12-78)
[2017-03-23 15:51] LABS: TROPONIN I 1.14 ng/ml (0.00-0.05)
--- NOTE | 2017-03-23 16:02 | PN ---
Teaching Attending Note Name of Resident: Mary Hernadez ATTENDING PHYSICIAN STATEMENT I saw and evaluated the patient. I reviewed the resident's note and discussed the case with the resident. I agree with the resident's findings and plan as documented. SUBJECTIVE: intubated . no events over night OBJECTIVE: intubated , sedated . comfortable CV : RRR Lungs ; clear anteriorly Abd : soft , grimaces with RUQ apalpation . hypoactive BS . ND Ext : trace edema on feet. no erythema on legs ASSESSMENT AND PLAN: 31 y/o lady with no significant PMH who presented with fever , chills was found to have septic shock from LIver abscess. 1- Septic shock, 2/2 UTI--> bacteremia--> liver abscess . S/p IR drainage leukocytosis improved ,lactic acid also improved . - ceftriaxone 2 g/daily - repeat blood cx - monitor out put from [facility] drain - cont stress dose steroids - off pressors now 2- acute hypoxic resp failure , possible ARDS . cont vent support weaning trials 3- thrombocytopenia : likely due to sepsis . did not receive heparin products plt started to increase. Monitor 4- NSTEMI: 2/2 to sepsis . no indication of asa or BB trop trended down. Echo with no focal WMA 5- new cardiomyopathy, with Mod reduced EF. likely due to sepsis montiro . repeat echo after recovery 6- shocked liver . follow LFTS 7- L adrenalk gland thickening , of nclear etiology . could be due to ischemia , adenoma , or other etiologies . taper stress dose steroids and monitor BP . ICU . Critical Care Total Critical Care Time (in minutes): 45 Critical Care Statement: The care of this patient involved high complexity decision making to prevent further life threatening deterioration of the patient 's condition and/or to evalute & treat vital organ system(s) failure or risk of failure.
[2017-03-23 16:11] LABS: FERRITIN 380.216 ng/ml (6.9-282.5); URIC ACID 3.7 mg/dL (2.6-7.2)
[2017-03-23] MEDS ORDERED: POTASSIUM PHOSPHATE 30 MM in SODIUM CHLORIDE 250 ML IVPB ONE (16:40)
[2017-03-23] MEDS ORDERED: POTASSIUM CHLORIDE ORAL LIQUID 20 MEQ/15 ML PO ONE (16:41)
--- NOTE | 2017-03-23 16:45 | PN ---
Progress Note, Physician Chief Complaint: HD4 septic shock secondary to liver abscess History of Present Illness: Pt has percutaneous liver drain RUQ with output turning serous - small amount in bulb; 20ml yest, 15ml recorded today so far. Abscess, blood and urine are positive for pansensitive E. coli (R to bactrim). Pt remains intubated but sedation is off; she does not respond to voice but does grimace slightly at times. Norepinephrine drip off, antibiotics continue (adjusted for now-normal renal function). She is still somewhat coagulopathic with INR 2.11, and platelets remain low at <40. Vent support with CPAP trials as tolerated. Lactate down to 2.5. K and Phos still low. Pt diuresing with Lasix, but hypernatremic, alkalotic. Tube feeds started at 20, + liquid brown stool present. - Current Medication List Current Medications: Active Medications Ceftriaxone Sodium (Rocephin 2gm Ivpb (Pre-Docked)) 2 gm IVPB DAILY [facility] Last Admin: 03/23/17 09:24 Dose: 2 gm Chlorhexidine Gluconate (Hibiclens For Decolonization -) 1 applic TP HS [facility] Last Admin: 03/22/17 22:30 Dose: 1 applic Chlorhexidine Gluconate (Peridex -) 15 ml MM BID [facility] Last Admin: 03/23/17 09:25 Dose: 15 ml Hydrocortisone Sodium Succinate (Solu-Cortef -) 100 mg IVPB Q8H-IV [facility] Last Admin: 03/23/17 09:25 Dose: 100 mg Pantoprazole Sodium (Protonix 40mg Ivpb (Pre-Docked)) 100 mls @ 200 mls/hr IVPB DAILY [facility] Last Admin: 03/23/17 09:25 Dose: 200 mls/hr Potassium Chloride (Potassium Chloride 10 Meq Premix Ivpb -) 100 mls @ 100 mls/ hr IVPB Q60M [facility] Stop: 03/23/17 19:14 Midazolam HCl (Versed -) 2 mg IVPUSH PRN PRN PRN Reason: AGITATION Last Admin: 03/23/17 06:33 Dose: 2 mg Mupirocin (Bactroban Ointment (For Decolonization) -) 1 applic NS BID [facility] Stop: 03/25/17 09:59 Last Admin: 03/23/17 09:26 Dose: 1 applic - Objective Vital Signs: Vital Signs Temperature 97.8 F 03/23/17 14:05 Pulse Rate 59 L 03/23/17 14:05 Respiratory Rate 15 03/23/17 14:18 Blood Pressure 122/79 03/23/17 14:05 O2 Sat by Pulse Oximetry (%) 96 03/23/17 06:44 Constitutional: Yes: Well Nourished, Other (not responding to voice yet) HENT: Yes: Other (ETT, OGT with TF going) Cardiovascular: Yes: Regular Rate and Rhythm Respiratory: Yes: CTA Bilaterally, Intubated, Mechanically Ventilated, Rhonchi ( few scattered) Gastrointestinal: Yes: Soft, Distention (mild), Hypoactive Bowel Sounds, Tenderness (none apparent), Other (+ liquid brown stool present; RUQ drain with mostly serous output in bulb) Genitourinary: Yes: [place] Present (clear light yellow urine) Edema: Yes (gen, less than previous) Integumentary: No: Jaundice, Rash Neurological: No: Alert Labs: CBC, BMP 03/23/17 14:00 03/23/17 14:00 INR, PTT INR 2.11 (0.82-1.09) H 03/23/17 14:00 Fibrinogen 329.0 mg/dL (238-498) 03/23/17 14:00 CBCD WBC 17.2 K/mm3 (4.0-10.0) H 03/23/17 14:00 RBC 3.82 M/mm3 (3.60-5.2) 03/23/17 14:00 Hgb 11.4 GM/dL (10.7-15.3) D 03/23/17 14:00 Hct 34.4 % (32.4-45.2) D 03/23/17 14:00 MCV 90.1 fl (80-96) 03/23/17 14:00 MCHC 33.1 g/dl (32.0-36.0) 03/23/17 14:00 RDW 15.5 % (11.6-15.6) 03/23/17 14:00 Plt Count 37 K/MM3 (134-434) L 03/23/17 14:00 MPV 10.9 fl (7.5-11.1) D 03/23/17 14:00 CMP Sodium 146 mmol/L (136-145) H 03/23/17 14:00 Potassium 3.0 mmol/L (3.5-5.1) L 03/23/17 14:00 Chloride 103 mmol/L (98-107) 03/23/17 14:00 Carbon Dioxide 36 mmol/L (21-32) H 03/23/17 14:00 Anion Gap 7 (8-16) L 03/23/17 14:00 BUN 25 mg/dL (7-18) H 03/23/17 14:00 Creatinine 0.7 mg/dL (0.55-1.02) 03/23/17 14:00 Creat Clearance w eGFR > 60 (>60) 03/23/17 14:00 Calcium 7.5 mg/dL (8.5-10.1) L 03/23/17 14:00 Total Bilirubin 0.6 mg/dL (0.2-1.0) 03/23/17 14:00 AST 291 U/L (15-37) H 03/23/17 14:00 ALT 877 U/L (12-78) H 03/23/17 14:00 Alkaline Phosphatase 222 U/L (45-117) H 03/23/17 14:00 Total Protein 5.2 g/dl (6.4-8.2) L 03/23/17 14:00 Albumin 1.9 g/dl (3.4-5.0) L 03/23/17 14:00 ABG Results ABG pH 7.50 (7.35-7.45) H 03/23/17 06:00 ABG pCO2 at Pt Temp 42.5 mmHg (35-45) 03/23/17 06:00 ABG pO2 at Pt Temp 57.4 mmHg (80-100) L D 03/23/17 06:00 ABG HCO3 33.1 meq/L (22-26) H 03/23/17 06:00 ABG O2 Sat (Measured) 90.4 % (90-98.9) 03/23/17 06:00 ABG O2 Content 12.9 % vol (15-22) L 03/23/17 06:00 ABG Base Excess 9.3 meq/l (-2-2) H 03/23/17 06:00 - ....Imaging Chest X-ray: Report Reviewed Problem List - Problems (1) Liver abscess Assessment/Plan: s/p percutaneous drainage - continue to monitor and record drainage on antibiotics for E. coli sepsis cytology negative for malignant cells, consistent with abscess, special stains pending original etiology unclear continue current care Code(s): K75.0 - ABSCESS OF LIVER (2) Multiorgan failure Assessment/Plan: continue vent support, wean as able trophic tube feeds - bowel sounds minimal, + stool renal function improved - nephro on board cardiology consult noted correct coagulopathy as needed, watch platelets replete lytes prn, consider KPhos continue current care Code(s): OSP1057 - (3) Respiratory failure requiring intubation Assessment/Plan: continue weaning vent support as able follow CXR Code(s): J96.90 - RESPIRATORY FAILURE, UNSP, UNSP W HYPOXIA OR HYPERCAPNIA (4) E. coli septic shock Assessment/Plan: on antibiotics ID on board continue current care Code(s): A41.51 - SEPSIS DUE TO ESCHERICHIA COLI [E. COLI] R65.21 - SEVERE SEPSIS WITH SEPTIC SHOCK Assessment/Plan This patient is critically ill. Time spent reviewing chart, examining patient and documenting is 30 mins.
--- NOTE | 2017-03-23 17:28 | PN ---
Progress Note (short form) - Note Progress Note: Chief Complaint: fever, vomiting S: Remains intubated, sedation off. Pressors and IVF now off. s/p IV lasix today --> bp remained stable, cvp improving. continues to make urine. Current Medications Ceftriaxone Sodium (Rocephin 2gm Ivpb (Pre-Docked)) 2 gm IVPB DAILY [facility] Last Admin: 03/23/17 09:24 Dose: 2 gm Chlorhexidine Gluconate (Hibiclens For Decolonization -) 1 applic TP HS [facility] Last Admin: 03/22/17 22:30 Dose: 1 applic Chlorhexidine Gluconate (Peridex -) 15 ml MM BID [facility] Last Admin: 03/23/17 09:25 Dose: 15 ml Hydrocortisone Sodium Succinate (Solu-Cortef -) 100 mg IVPB Q8H-IV [facility] Last Admin: 03/23/17 09:25 Dose: 100 mg Pantoprazole Sodium (Protonix 40mg Ivpb (Pre-Docked)) 100 mls @ 200 mls/hr IVPB DAILY [facility] Last Admin: 03/23/17 09:25 Dose: 200 mls/hr Potassium Phosphate 30 mm/ (Sodium Chloride) 260 mls @ 62.5 mls/hr IVPB ONCE ONE Stop: 03/23/17 20:49 Midazolam HCl (Versed -) 2 mg IVPUSH PRN PRN PRN Reason: AGITATION Last Admin: 03/23/17 06:33 Dose: 2 mg Mupirocin (Bactroban Ointment (For Decolonization) -) 1 applic NS BID [facility] Stop: 03/25/17 09:59 Last Admin: 03/23/17 09:26 Dose: 1 applic Vital Signs - 24 hr 03/22/17 03/22/17 03/22/17 18:00 18:05 19:00 Temperature 100.0 F H Pulse Rate 68 72 Respiratory 14 15 14 Rate Blood Pressure 104/75 94/64 O2 Sat by Pulse Oximetry (%) 03/22/17 03/22/17 03/22/17 19:59 20:00 21:00 Temperature 99.2 F Pulse Rate 84 81 Respiratory 15 20 17 Rate Blood Pressure 96/77 97/80 O2 Sat by Pulse 98 Oximetry (%) 03/22/17 03/22/17 03/22/17 21:33 22:00 23:00 Temperature 99.4 F 99 F Pulse Rate 81 75 Respiratory 18 15 15 Rate Blood Pressure 106/87 98/67 O2 Sat by Pulse Oximetry (%) 03/23/17 03/23/17 03/23/17 00:25 00:35 01:00 Temperature 99 F Pulse Rate 70 71 Respiratory 17 16 17 Rate Blood Pressure 97/69 98/69 O2 Sat by Pulse Oximetry (%) 03/23/17 03/23/17 03/23/17 02:00 02:53 03:00 Temperature 98.8 F Pulse Rate 68 66 Respiratory 18 18 17 Rate Blood Pressure 92/69 108/74 O2 Sat by Pulse Oximetry (%) 03/23/17 03/23/17 03/23/17 04:00 05:00 05:27 Temperature Pulse Rate 59 L 58 L Respiratory 18 15 18 Rate Blood Pressure 103/71 109/77 O2 Sat by Pulse Oximetry (%) 03/23/17 03/23/17 03/23/17 06:00 06:44 07:00 Temperature 98 F Pulse Rate 57 L 57 L Respiratory 14 16 15 Rate Blood Pressure 109/75 108/73 O2 Sat by Pulse 96 Oximetry (%) 03/23/17 03/23/17 03/23/17 07:15 09:00 09:13 Temperature Pulse Rate 56 L 57 L Respiratory 15 16 15 Rate Blood Pressure 114/75 114/75 O2 Sat by Pulse Oximetry (%) 03/23/17 03/23/17 03/23/17 10:00 11:00 12:08 Temperature 97.8 F Pulse Rate 58 L Respiratory 15 17 14 Rate Blood Pressure 117/78 O2 Sat by Pulse Oximetry (%) 03/23/17 03/23/17 03/23/17 13:00 14:05 14:18 Temperature 97.8 F 97.8 F Pulse Rate 60 59 L Respiratory 18 18 15 Rate Blood Pressure 125/80 122/79 O2 Sat by Pulse Oximetry (%) 03/23/17 03/23/17 03/23/17 16:00 16:29 17:17 Temperature Pulse Rate 58 L Respiratory 18 14 Rate Blood Pressure 108/70 O2 Sat by Pulse 96 Oximetry (%) Intake & Output 03/21/17 03/22/17 03/23/17 03/24/17 07:59 07:59 07:59 07:59 Intake Total 95 0319 6840 400 Output Total 7486 9679 0839 1999 Balance 2660 7430 -4484 -9031 Weight 176 lb 5.917 oz 181 lb 9 oz 173 lb 8 oz Per nursing CVP 6-7 Constitutional: Yes: Well Nourished, No Distress Eyes: No: Sclera Icterus HENT: intubated No: Nasal Congestion Neck: No: Decreased ROM Respiratory: Yes: Coarse BS, mech ventilation. No: Accessory Muscle Use, Rales , Wheezes Gastrointestinal: Yes: Normal Bowel Sounds. No: Distention, Hepatomegaly, Palpable Mass, Tenderness Cardiovascular: Yes: Regular Rate and Rhythm JVD: No Carotid Bruit: No PMI: Non-Displaced Heart Sounds: Yes: S1, S2. No: Gallop Murmur: No: Systolic Murmur, Diastolic Murmur Musculoskeletal: Yes: Other (No kyphosis) Extremities: + trace dependent edema diffusely (improving)No: Cold, Cyanosis Peripheral Pulses: 2+ Left Carotid, 2+ Right Carotid, 2+ Left Doralis Pedis, 2+ Right Dorsalis Pedis Integumentary: No: Jaundice Neurological: sedated, withdraws to painful stimuli Psychiatric: No: Agitated - Other Data Labs, Other Data: CBC, BMP 03/23/17 14:00 03/23/17 14:00 Microbiology 03/20/17 Unknown Abscess Gram Stain - Final 03/20/17 Unknown Abscess Anaerobic Culture - Final Escherichia Coli NO ANAEROBES WERE ISOLATED 03/20/17 06:20 Urine - Urine - Catheterized Urine Culture - Final Escherichia Coli 03/20/17 04:32 Blood - Peripheral Venous Blood Culture - Final Escherichia Coli 03/20/17 04:32 Blood - Peripheral Venous Blood Culture - Final Escherichia Coli Laboratory Tests 03/22/17 03/22/17 03/22/17 05:20 05:20 05:20 Band Neutrophils 14.0 H D Retic Count INR 2.07 H PTT (Actin FS) Fibrinogen 448.0 ABG pH ABG pCO2 at Pt Temp ABG pO2 at Pt Temp ABG HCO3 O2 Delivery Device Oxygen Flow Rate Vent Mode Lactic Acid Calcium 6.6 L* D Magnesium Total Bilirubin 0.8 AST 1168 H ALT 1427 H Alkaline Phosphatase 218 H D LD Total 578 H Creatine Kinase 144 Troponin I 2.72 H* Total Protein 5.0 L D Albumin 2.0 L D 03/22/17 03/22/17 03/22/17 05:20 05:20 05:20 Band Neutrophils Retic Count 0.32 L INR PTT (Actin FS) 26.3 L Fibrinogen ABG pH ABG pCO2 at Pt Temp ABG pO2 at Pt Temp ABG HCO3 O2 Delivery Device Oxygen Flow Rate Vent Mode Lactic Acid 3.2 H* Calcium Magnesium Total Bilirubin AST ALT Alkaline Phosphatase LD Total Creatine Kinase Troponin I Total Protein Albumin 03/22/17 03/23/17 03/23/17 07:10 05:20 06:00 Band Neutrophils Retic Count INR 2.19 H PTT (Actin FS) Fibrinogen 341.0 D ABG pH 7.46 H 7.50 H ABG pCO2 at Pt Temp 41.6 42.5 ABG pO2 at Pt Temp 112.0 H D 57.4 L D ABG HCO3 29.0 H 33.1 H O2 Delivery Device Mech vent Oxygen Flow Rate 40% Vent Mode Cpap Lactic Acid Calcium Magnesium Total Bilirubin AST ALT Alkaline Phosphatase LD Total Creatine Kinase Troponin I Total Protein Albumin 03/23/17 03/23/17 03/23/17 14:00 14:00 14:00 Band Neutrophils Retic Count INR 2.11 H PTT (Actin FS) 25.0 L Fibrinogen 329.0 ABG pH ABG pCO2 at Pt Temp ABG pO2 at Pt Temp ABG HCO3 O2 Delivery Device Oxygen Flow Rate Vent Mode Lactic Acid 2.3 H* Calcium Magnesium 1.9 D Total Bilirubin 0.6 AST 291 H ALT 877 H Alkaline Phosphatase 222 H LD Total Creatine Kinase Troponin I 1.14 H* Total Protein Albumin 1.9 L 03/23/17 14:00 Band Neutrophils Retic Count INR PTT (Actin FS) Fibrinogen ABG pH ABG pCO2 at Pt Temp ABG pO2 at Pt Temp ABG HCO3 O2 Delivery Device Oxygen Flow Rate Vent Mode Lactic Acid Calcium Magnesium Total Bilirubin AST ALT Alkaline Phosphatase LD Total 326 H D Creatine Kinase Troponin I Total Protein Albumin tele: New Sinus neil. ? abnormal/prolonged t wave Assessment/Plan ECG's: #1: sinus tach, no isch abnormality #2: same, mildly prolonged QT #3: NSR, nonspecific ST-T abnormalities (QT normalized) CXR 03/21 am: bilat effusions and diffuse infiltrates, stable vs last film (incr vs admit film) echo here 02/2017: moderately decreased biventricular function (global), mild- mod TR rvsp 34, + pleural effusion A/p 31 year old female with a significant past medical history of cholecystectomy ( 8 years ago), who emigrated from [place] (9 years ago) and presents in severe shock gram negative rich sepsis 2/2 hepatic abscess now s/p IR drainage.. septic shock, gram negative rich bacteremia, hepatic abscess: - s/p percutaneous liver drain -cont stress dose steroids per pmd/pulm/critical care. -abx per ID, f/u of abscess cx's - hemodynamically stable at present off levophed and IVF. CVP improving today 03/23 s/p lasix trial. Close monitoring of alkalosis and potassium/ electrolyte abnoromalities while on lasix - most recent pH 7.5, k 3.0 and patient with new bradycardia ?long qt. Repeat ekg tomorrow am. elevated troponin: -trop peg to 20, trending down -ECG initially non-ischemic, then with nonspecific changes --> repeat with nonsp ST-Ts (actually improved slightly vs last tracing) -young female pt with no reported history of severe hyperlipidemia, diabetes, cigarettes--extremely low pretest prob of obstructive CAD -troponins and ECG are very likely secondary to sepsis related myonecrosis. hence ASA/AC, BB, statin not indicated (regardless, she is at prohibitive risks for these medical therapies, or invasive therapy of CAD, in light of heme abnormalities described above and septic shock) -less likely Takotsubo's from immense stressors. Echo here with moderately decreased biventricular function (global) see discusion below. 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 takotsubo cardiomyopathy (less likely ). - Will need follow up echo as outpatient once acute issues resolve. - ongoing mgm't of underlying condition/sepsis - 03/22: Although patient is total body volume overloaded, would not diurese. Fluid is mainly third-spaced as CVP is low. Would continue IVF resuscitation as needed to manage sepsis. Diuresis once clinical condition improves. - 03/23: now off IVF, pressors. Given trial of lasix 20 mg IV x1 today --> tolerated well. If redose tomorrow, close montiroing of pH and K as mentioned above. anemia, thrombocytopenia, coagulopathy: -likely sec to sepsis -shock liver likely contributing to coagulopathy, ? DIC component -PLTs low, INR high -per critical care/heme SETH: resolved -sec to hypoperfusion vs sepsis -renal fxn improved s/p IVF, hemodynamic support as doing -renal following shock liver: -BP support as doing -coagulation support as above -per critical care acute resp failure: -sec to severe metabolic acidosis/septic shock - vent settings, per pulm/critical care est crit care time in mgmt and review of data = 35 min
--- NOTE | 2017-03-23 18:18 | PN ---
Physical Exam: SUBJECTIVE:Patient seen and examined at bed side this morning. Sedated and on Mechanical Ventilation settings @14/400/60/5 OBJECTIVE: Vital Signs Period Temp Pulse Resp BP Sys/Bonner Pulse Ox Last 24 Hr 97.8 F-99.4 F 56-84 14-20 92-125/64-87 96-99 GENERAL: Intubated, sedated. IV line: Right IJ HEAD: Normal with no signs of trauma. EYES: No pallor or icterus, PERRL EARS, NOSE, THROAT: Ears normal. No frothing from the mouth. NECK: Normal range of motion, supple without lymphadenopathy, JVD, or masses. LUNGS: Breath sounds equal, clear to auscultation bilaterally. No wheezes, and no crackles. No accessory muscle use. HEART: Regular rate and rhythm, normal S1 and S2 without murmur, rub or gallop. ABDOMEN: Soft, not distended, normoactive bowel sounds, no guarding, no rebound , no masses. No hepatomegaly or splenomegaly. MUSCULOSKELETAL: Normal range of motion at all joints. No bony deformities or tenderness. UPPER EXTREMITIES: 2+ pulses, warm, well-perfused. No cyanosis. No clubbing. No peripheral edema. LOWER EXTREMITIES: 2+ pulses, warm, well-perfused. No calf tenderness. No peripheral edema. NEUROLOGICAL: Intubated and sedated, hence couldnt perform neuro exam. PERRL, moving all her limbs on low sedation. PSYCHIATRIC: couldn't assess. SKIN: Warm, normal turgor, no rashes or lesions noted, normal capillary refill. Laboratory Results - last 24 hr 03/22/17 03/22/17 03/22/17 05:20 05:20 14:00 WBC 20.2 H RBC 3.60 Hgb 10.7 D Hct 32.6 MCV 90.4 MCHC 32.8 RDW 16.1 H Plt Count 39 L MPV 10.1 Neutrophils % 91.0 H D Lymphocytes % 4.0 L D Monocytes % 5.0 D Eosinophils % Basophils % Retic Count Haptoglobin 269 H INR PTT (Actin FS) Fibrinogen Puncture Site ABG pH ABG pCO2 at Pt Temp ABG pO2 at Pt Temp ABG HCO3 ABG O2 Sat (Measured) ABG O2 Content ABG Base Excess Beau Test O2 Delivery Device Oxygen Flow Rate Vent Mode Mechanical Rate PEEP Pressure Support Vent Sodium Potassium Chloride Carbon Dioxide Anion Gap BUN Creatinine Creat Clearance w eGFR Random Glucose Lactic Acid Uric Acid Calcium Phosphorus Magnesium Iron 173 H TIBC 192 L Iron Saturation 90 H Ferritin Total Bilirubin AST ALT Alkaline Phosphatase LD Total Creatine Kinase Troponin I Total Protein Albumin Direct Antiglob Test 03/23/17 03/23/17 03/23/17 05:20 05:20 05:20 WBC 17.2 H RBC 3.33 L Hgb 9.8 L Hct 29.9 L MCV 89.8 MCHC 32.9 RDW 15.6 Plt Count 34 L* MPV 9.9 Neutrophils % 81.2 Lymphocytes % 12.2 D Monocytes % 6.5 Eosinophils % 0.0 Basophils % 0.1 D Retic Count Haptoglobin INR 2.19 H PTT (Actin FS) Fibrinogen 341.0 D Puncture Site ABG pH ABG pCO2 at Pt Temp ABG pO2 at Pt Temp ABG HCO3 ABG O2 Sat (Measured) ABG O2 Content ABG Base Excess Beau Test O2 Delivery Device Oxygen Flow Rate Vent Mode Mechanical Rate PEEP Pressure Support Vent Sodium 147 H Potassium 3.4 L Chloride 107 Carbon Dioxide 34 H Anion Gap 6 L BUN 24 H Creatinine 0.7 D Creat Clearance w eGFR > 60 Random Glucose 154 H D Lactic Acid Uric Acid Calcium 7.1 L Phosphorus Magnesium Iron TIBC Iron Saturation Ferritin Total Bilirubin 0.7 AST 352 H D ALT 872 H D Alkaline Phosphatase 201 H LD Total Creatine Kinase 38 Troponin I 1.66 H* Total Protein 4.6 L Albumin 1.8 L Direct Antiglob Test 03/23/17 03/23/17 03/23/17 05:20 06:00 14:00 WBC 17.2 H RBC 3.82 Hgb 11.4 D Hct 34.4 D MCV 90.1 MCHC 33.1 RDW 15.5 Plt Count 37 L MPV 10.9 D Neutrophils % Y Lymphocytes % Y Monocytes % Eosinophils % Basophils % Retic Count Haptoglobin INR PTT (Actin FS) Fibrinogen Puncture Site Right radial ABG pH 7.50 H ABG pCO2 at Pt Temp 42.5 ABG pO2 at Pt Temp 57.4 L D ABG HCO3 33.1 H ABG O2 Sat (Measured) 90.4 ABG O2 Content 12.9 L ABG Base Excess 9.3 H Beau Test Positive O2 Delivery Device Mech vent Oxygen Flow Rate 40% Vent Mode Cpap Mechanical Rate Yes PEEP 5.0 Pressure Support Vent Ps+10 Sodium Potassium Chloride Carbon Dioxide Anion Gap BUN Creatinine Creat Clearance w eGFR Random Glucose Lactic Acid 2.5 H* Uric Acid Calcium Phosphorus Magnesium Iron TIBC Iron Saturation Ferritin Total Bilirubin AST ALT Alkaline Phosphatase LD Total Creatine Kinase Troponin I Total Protein Albumin Direct Antiglob Test 03/23/17 03/23/17 03/23/17 14:00 14:00 14:00 WBC RBC Hgb Hct MCV MCHC RDW Plt Count MPV Neutrophils % Lymphocytes % Monocytes % Eosinophils % Basophils % Retic Count Haptoglobin INR 2.11 H PTT (Actin FS) 25.0 L Fibrinogen 329.0 Puncture Site ABG pH ABG pCO2 at Pt Temp ABG pO2 at Pt Temp ABG HCO3 ABG O2 Sat (Measured) ABG O2 Content ABG Base Excess Beau Test O2 Delivery Device Oxygen Flow Rate Vent Mode Mechanical Rate PEEP Pressure Support Vent Sodium 146 H Potassium 3.0 L Chloride 103 Carbon Dioxide 36 H Anion Gap 7 L BUN 25 H Creatinine 0.7 Creat Clearance w eGFR > 60 Random Glucose 136 H Lactic Acid 2.3 H* Uric Acid Calcium 7.5 L Phosphorus 1.7 L D Magnesium 1.9 D Iron TIBC Iron Saturation Ferritin Total Bilirubin 0.6 AST 291 H ALT 877 H Alkaline Phosphatase 222 H LD Total Creatine Kinase 39 Troponin I 1.14 H* Total Protein 5.2 L Albumin 1.9 L Direct Antiglob Test 03/23/17 03/23/17 03/23/17 14:00 14:00 14:00 WBC RBC Hgb Hct MCV MCHC RDW Plt Count MPV Neutrophils % Lymphocytes % Monocytes % Eosinophils % Basophils % Retic Count 0.22 L D Haptoglobin INR PTT (Actin FS) Fibrinogen Puncture Site ABG pH ABG pCO2 at Pt Temp ABG pO2 at Pt Temp ABG HCO3 ABG O2 Sat (Measured) ABG O2 Content ABG Base Excess Beau Test O2 Delivery Device Oxygen Flow Rate Vent Mode Mechanical Rate PEEP Pressure Support Vent Sodium Potassium Chloride Carbon Dioxide Anion Gap BUN Creatinine Creat Clearance w eGFR Random Glucose Lactic Acid Uric Acid 3.7 Calcium Phosphorus Magnesium Iron TIBC Iron Saturation Ferritin 380.216 H Total Bilirubin AST ALT Alkaline Phosphatase LD Total 326 H D Creatine Kinase Troponin I Total Protein Albumin Direct Antiglob Test Negative Active Medications Generic Name Dose Route Start Last Admin Trade Name Freq PRN Reason Stop Dose Admin Ceftriaxone Sodium 2 gm 03/23/17 10:00 03/23/17 09:24 Rocephin 2gm Ivpb (Pre-Docked) IVPB 2 gm DAILY [facility] Administration Chlorhexidine Gluconate 1 applic 03/20/17 22:00 03/22/17 22:30 Hibiclens For Decolonization - TP 1 applic HS [facility] Administration Chlorhexidine Gluconate 15 ml 03/20/17 12:15 03/23/17 09:25 Peridex - MM 15 ml BID [facility] Administration Hydrocortisone Sodium Succinate 100 mg 03/20/17 18:00 03/23/17 17:38 Solu-Cortef - IVPB 100 mg Q8H-IV [facility] Administration Pantoprazole Sodium 100 mls @ 200 mls/hr 03/20/17 09:30 03/23/17 09:25 Protonix 40mg Ivpb (Pre-Docked) IVPB 200 mls/hr DAILY [facility] Administration Potassium Phosphate 30 mm/ 260 mls @ 62.5 mls/hr 03/23/17 16:40 Sodium Chloride IVPB 03/23/17 20:49 ONCE ONE Midazolam HCl 2 mg 03/22/17 15:41 03/23/17 06:33 Versed - IVPUSH 2 mg PRN PRN Administration AGITATION Mupirocin 1 applic 03/20/17 10:00 03/23/17 09:26 Bactroban Ointment (For Decolonization) - NS 03/25/17 09:59 1 applic BID [facility] Administration ASSESSMENT/PLAN: Patient is a 31 year old female with significant past medical history of Cholecystectomy (8 years ago), pyelonephritis, nephrolithiasis, emigrated from [place] 8 years ago who was brought in by patients boyfriend, with the chief complaints of fever, chills and generalized weakness since 2 weeks. # Respiratory failure due to septic shock with severe lactic acidosis with impending ARDS with Gram negative bacteremia (E.coli) with UTI Likely had UTI leading to bacteremia as urine culture, blood culture and fluid culture is positive for E.coli. R/O Liver abscess d/t [place](More likely) VS Pyogenic, as abscess single and patient originally from [place] Admitted in ICU; s/p intubated and placed in MV; Off pressors and sedation. CT abdomen- S/o Liver Abscess s/p IR guided drainage ~ 25mls sent for Analysis including culture Continue IV D5 NS @75 Mls/hr Changed to IV Ceftriaxone 2gm Daily Day 1. CT chest- Infiltrative changes, likely due to fluid Overload , Less likely due to co- comitant Pneumonia Lactic Acid-trending down after resucitation, now its 2.3 General surgery and GI consult appreciated, will f/u recommendations # MODS with septic shock d/t Liver Abscess with bandemia and lactic acidosis s/p IR guided drainage, purulent drainage ~ 25 ccs and sent for analysis including culture and cytology Entamoeba Ab pending, HIV test negative IV Ceftriaxone 2gm Daily Day 1 Hydrocortisone IV 100mg Q8H for possible adrenal insufficiency due to septic shock, will slowly taper it tomorrow. # Abnormal LFT;s with coagulopathy like shock liver Rising LFTs on repeat labs FFPs 4 total given for coagulopathy Will monitor Avoid hepatotoxic drugs # SETH (resolved) with high anion gap metabolic acidosis(now with normal anion gap) with lactic acidosis Creatinine now at baseline 0.7 after resuscitation [place] in place to monitor urine output Avoid nephrotoxic drugs Renal consult appreciated Monitor BUN and creatinine and electrolytes # Thrombocytopenia due to septic shock vs dilutational No signs of active bleeding will monitor Avoid medication causing thrombocytopenia # NCNC Anemia likely due to septic shock 11.4/34.4 H/H- 1 PRBC transfusion this admission. No active signs of bleeding Transfuse if Hb < 7gm/dl # FEN IV D5 NS@ 75mls/hr Electrolytes to be repeated Intubated, NPO # Prophylaxis FOr DVT: Not on AC due to coagulopathy, on SCDs For GI: ON Protonix # Code status: Full Code # Dispo: Admitted in the ICU. Duration of stay unknown. Illness, Investigation and Plan of care explained to the patients boyfriend ( living together since two years). He verbalized understanding and agreed to the plan. Case seen and discussed with Dr. Beckham. Visit type - Emergency Visit Emergency Visit: Yes ED Registration Date: 03/20/17 Care time: The patient presented to the Emergency Department on the above date and was hospitalized for further evaluation of their emergent condition. - New Patient This patient is new to me today: No - Critical Care Critical Care patient: Yes Total Critical Care Time (in minutes): 45 Critical Care Statement: The care of this patient involved high complexity decision making to prevent further life threatening deterioration of the patient 's condition and/or to evalute & treat vital organ system(s) failure or risk of failure.
[2017-03-23 19:05] LABS: METAMYELOCYTE 1 % (0-2)
[2017-03-23 19:06] LABS: PLATELET COMMENT2 NO CLUMPING NOTED; PLATELET ESTIMATE MOD DECREASED (NORMAL)
[2017-03-23 19:26] LABS: ALLENS TEST POSITIVE; ARTERIAL BLOOD GAS BASE EXCESS 11.6 meq/l (-2-2); ARTERIAL BLOOD GAS pH 7.53 (7.35-7.45)
[2017-03-23 19:27] LABS: ART PUNCT SITE RIGHT RADIAL; LPM/O2% 50%; MECH. VENT. YES; PT. ON O2? YES; TYPE OF O2 MECH VENT
[2017-03-23 19:28] LABS: ARTERIAL BLOOD GAS HCO3 35.7 meq/L (22-26); VT/PRESS PS+8
[2017-03-23] MEDS ORDERED: MAGNESIUM SULF 50% (8.12 MEQ/2 ML-1 GM VIAL) IVPB ONE (20:08)
[2017-03-23] MEDS ORDERED: POTASSIUM CHLORIDE ORAL LIQUID 20 MEQ/15 ML NGT ONE (20:52)
--- NOTE | 2017-03-23 20:55 | PN ---
GI Progress Note Subjective: Slowly opens eyes to verbal stimulatioon - Objective Vital Signs: Vital Signs Temperature 98 F 03/23/17 18:00 Pulse Rate 56 L 03/23/17 18:00 Respiratory Rate 14 03/23/17 18:44 Blood Pressure 101/70 03/23/17 18:00 O2 Sat by Pulse Oximetry (%) 96 03/23/17 17:17 Constitutional: Well Nourished HENT: Yes: Atraumatic Neck: Yes: Trachea Midline Cardiovascular: Yes: Regular Rate and Rhythm Respiratory: Yes: CTA Bilaterally Gastrointestinal Inspection: Yes: WNL ...Auscultate: Yes: Normoactive Bowel Sounds ...Palpate: Yes: Soft Labs: CBC, BMP 03/23/17 14:00 03/23/17 14:00 INR, PTT INR 2.11 (0.82-1.09) H 03/23/17 14:00 Fibrinogen 329.0 mg/dL (238-498) 03/23/17 14:00 Assessment/Plan Gradually improving Still off of pressors and on CPAP Troponin down Rec: Continue present therapy
[2017-03-23] MEDS: CHLORHEXIDINE GLUCONATE 4% CLEANSER FOR DECOLONIZATION TP SCH (21:27)
[2017-03-23] MEDS ORDERED: ALBUTEROL SO4 0.083% IH SOL 2.5 MG/3 ML VIAL.NEB. NEB ONE (21:43)
[2017-03-24] MEDS: HYDROCORTISONE SOD SUCCINATE 100 MG/2 ML VIAL IVPB SCH ×3 (01:07→17:47)
[2017-03-24 07:02] LABS: MCH 29.6 pg (25.7-33.7); MCHC 32.8 g/dl (32.0-36.0); MEAN CELL VOLUME 90.1 fl (80-96); MEAN PLT VOLUME 10.3 fl (7.5-11.1); PLATELET COUNT 50 K/MM3 (134-434); RDW 15.1 % (11.6-15.6); WHITE BLOOD COUNT 20.5 K/mm3 (4.0-10.0)
[2017-03-24 07:07] LABS: ANION GAP 8 (8-16); CALCIUM 7.5 mg/dL (8.5-10.1); CO2 37 mmol/L (21-32); GLUCOSE,RANDOM 194 mg/dL (74-106)
[2017-03-24 07:11] LABS: ALK PHOS 226 U/L (45-117); BILIRUBIN,TOTAL 0.7 mg/dL (0.2-1.0); CREATININE 0.8 mg/dL (0.55-1.02); PHOSPHOROUS 2.7 mg/dL (2.5-4.9); SGOT/AST 188 U/L (15-37); TOT PROT 5.4 g/dl (6.4-8.2)
[2017-03-24 07:15] LABS: SGPT/ALT 696 U/L (12-78)
[2017-03-24 07:16] LABS: INR 1.84 (0.82-1.09); PROTHROMBIN TIME (PATIENT) 20.5 SEC (9.98-11.88)
[2017-03-24 07:27] LABS: TROPONIN I 1.03 ng/ml (0.00-0.05)
[2017-03-24 07:44] LABS: ARTERIAL BLD GAS O2 SATURATION 92.2 % (90-98.9); ARTERIAL BLOOD GAS BASE EXCESS 11.3 meq/l (-2-2); ARTERIAL BLOOD GAS HCO3 35.2 meq/L (22-26); ARTERIAL BLOOD GAS PO2 62.2 mmHg (80-100)
[2017-03-24 07:47] LABS: ALLENS TEST POSITIVE; ART PUNCT SITE RIGHT RADIAL; LPM/O2% 50%; MECH. VENT. YES; PT. ON O2? YES; TYPE OF O2 MEC.VENT
[2017-03-24 07:48] LABS: ARTERIAL BLOOD GAS pH 7.53 (7.35-7.45)
[2017-03-24] MEDS ORDERED: POTASSIUM CHLORIDE ORAL LIQUID 20 MEQ/15 ML PO ONE (08:04)
[2017-03-24] MEDS: KCL 10 MEQ IVPB 100 ML IVPB SCH ×2 (08:52→09:50)
[2017-03-24] MEDS: MUPIROCIN 2% TOPICAL OINTMENT FOR DECOLONIZATION NS SCH ×2 (09:13→21:42)
[2017-03-24] MEDS: CHLORHEXIDINE GLUCONATE 0.12% 15ML CUP MM SCH ×2 (09:13→21:42)
[2017-03-24] MEDS: PANTOPRAZOLE SODIUM 100 ML IVPB SCH (09:13)
[2017-03-24] MEDS: cefTRIAXone 2 GM/100 ML BAG (PRE-DOCKED) IVPB SCH (09:13)
--- NOTE | 2017-03-24 09:22 | PN ---
Progress Note, Physician History of Present Illness: Awake on ventilator Afebrile WBC remains elevated - Current Medication List Current Medications: Active Medications Ceftriaxone Sodium (Rocephin 2gm Ivpb (Pre-Docked)) 2 gm IVPB DAILY [facility] Last Admin: 03/24/17 09:13 Dose: 2 gm Chlorhexidine Gluconate (Hibiclens For Decolonization -) 1 applic TP HS [facility] Last Admin: 03/23/17 21:27 Dose: 1 applic Chlorhexidine Gluconate (Peridex -) 15 ml MM BID [facility] Last Admin: 03/24/17 09:13 Dose: 15 ml Hydrocortisone Sodium Succinate (Solu-Cortef -) 100 mg IVPB Q8H-IV [facility] Last Admin: 03/24/17 09:12 Dose: 100 mg Pantoprazole Sodium (Protonix 40mg Ivpb (Pre-Docked)) 100 mls @ 200 mls/hr IVPB DAILY [facility] Last Admin: 03/24/17 09:13 Dose: 200 mls/hr Potassium Chloride (Potassium Chloride 10 Meq Premix Ivpb -) 100 mls @ 100 mls/ hr IVPB Q60M [facility] Stop: 03/24/17 10:14 Last Admin: 03/24/17 08:52 Dose: 100 mls/hr Mupirocin (Bactroban Ointment (For Decolonization) -) 1 applic NS BID [facility] Stop: 03/25/17 09:59 Last Admin: 03/24/17 09:13 Dose: 1 applic - Objective Vital Signs: Vital Signs Temperature 98.4 F 03/24/17 05:59 Pulse Rate 88 03/24/17 08:00 Respiratory Rate 15 03/24/17 08:00 Blood Pressure 92/57 03/24/17 08:00 O2 Sat by Pulse Oximetry (%) 96 03/23/17 17:17 Constitutional: Yes: No Distress Eyes: Yes: Conjunctiva Clear Cardiovascular: Yes: Regular Rate and Rhythm, S1, S2 Respiratory: Yes: Mechanically Ventilated Gastrointestinal: Yes: Normal Bowel Sounds, Soft. No: Tenderness Edema: No Labs: CBC, BMP 03/24/17 05:50 03/24/17 05:50 INR, PTT INR 1.84 (0.82-1.09) H 03/24/17 05:50 Fibrinogen 266.0 mg/dL (238-498) 03/24/17 05:50 Assessment/Plan E coli bacteremia/ sepsis Liver abscess Respiratory failure Thrombocytopenia Continue ceftriaxone Ventilatory support. Weaning as tolerated
[2017-03-24 09:45] LABS: METAMYELOCYTE 7 % (0-2)
[2017-03-24] MEDS ORDERED: POTASSIUM CHLORIDE 10 MEQ in SODIUM CHLORIDE 0.45% 1,000 ML IVPB SCH (10:00)
--- NOTE | 2017-03-24 10:35 | PN ---
Progress Note, Physician Chief Complaint: The patient seen in bed in ICU. Remains intubated, supported by mechanical vent. On CPAP mode, and scheduled fro possible extubation today. Put out 4,000 ml of urine. No chest pain. seems comfortable. - Current Medication List Current Medications: Active Medications Ceftriaxone Sodium (Rocephin 2gm Ivpb (Pre-Docked)) 2 gm IVPB DAILY [facility] Last Admin: 03/24/17 09:13 Dose: 2 gm Chlorhexidine Gluconate (Hibiclens For Decolonization -) 1 applic TP HS [facility] Last Admin: 03/23/17 21:27 Dose: 1 applic Chlorhexidine Gluconate (Peridex -) 15 ml MM BID [facility] Last Admin: 03/24/17 09:13 Dose: 15 ml Hydrocortisone Sodium Succinate (Solu-Cortef -) 100 mg IVPB Q8H-IV [facility] Last Admin: 03/24/17 09:12 Dose: 100 mg Pantoprazole Sodium (Protonix 40mg Ivpb (Pre-Docked)) 100 mls @ 200 mls/hr IVPB DAILY [facility] Last Admin: 03/24/17 09:13 Dose: 200 mls/hr Potassium Chloride 10 meq/ (Sodium Chloride) 1,005 mls @ 75 mls/hr IVPB Q13H [facility] Mupirocin (Bactroban Ointment (For Decolonization) -) 1 applic NS BID [facility] Stop: 03/25/17 09:59 Last Admin: 03/24/17 09:13 Dose: 1 applic - Objective Vital Signs: Vital Signs Temperature 99.5 F 03/24/17 10:00 Pulse Rate 86 03/24/17 10:00 Respiratory Rate 17 03/24/17 10:16 Blood Pressure 99/61 03/24/17 10:00 O2 Sat by Pulse Oximetry (%) 84 L 03/24/17 10:16 Constitutional: Yes: Other (Intubated, mechanically ventilated, comfortaBLE.) HENT: Yes: Normocephalic Cardiovascular: Yes: Regular Rate and Rhythm, Tachycardia, S1, S2 Respiratory: Yes: Diminished, Rhonchi Gastrointestinal: Yes: Soft, Hypoactive Bowel Sounds Genitourinary: Yes: Lanier Present Edema: No Labs: CBC, BMP 03/24/17 05:50 03/24/17 05:50 INR, PTT INR 1.84 (0.82-1.09) H 03/24/17 05:50 Fibrinogen 266.0 mg/dL (238-498) 03/24/17 05:50 Problem List - Problems (1) Anaerobic bacteremia Code(s): R78.81 - BACTEREMIA (2) Hypotension Code(s): I95.9 - HYPOTENSION, UNSPECIFIED Qualifiers: Qualified Code(s): I95.89 - Other hypotension (3) Hypovolemic shock Code(s): R57.1 - HYPOVOLEMIC SHOCK (4) Liver abscess Code(s): K75.0 - ABSCESS OF LIVER (5) Renal failure Code(s): N19 - UNSPECIFIED KIDNEY FAILURE Qualifiers: Qualified Code(s): N17.8 - Other acute kidney failure (6) Septic shock Code(s): A41.9 - SEPSIS, UNSPECIFIED ORGANISM R65.21 - SEVERE SEPSIS WITH SEPTIC SHOCK (7) Hypokalemia due to loss of potassium Code(s): E87.6 - HYPOKALEMIA Assessment/Plan 31 y/o female admitted with Septic shock, and the finding of Liver abscess, which was drained . Acute Respiratory failure: Weaning off ventilator. For possible extubation today. Renal functions stable. Serum Calcium has improved since discontinuation of Bicarb. Corrected calcium >9 mg/dL. No need for supplements. Put out 4,900 ml of urine. Serum K tends to run low, because of massive Kaliuresis . Will need K supplements. Noted massive diuresis, tendency for Hypernatremia, and Hypercarbia. Possibly due to massive volume loss, Contraction alkalosis, and free water loss. Should hold off on any further use of loop diuretics at this point. Concur with KCl supplements. Will monitor the Renal and Electrolyte profile. Laura Tirado MD
--- NOTE | 2017-03-24 11:53 | PN ---
Teaching Attending Note Name of Resident: Clari Hearn ATTENDING PHYSICIAN STATEMENT I saw and evaluated the patient. I reviewed the resident's note and discussed the case with the resident. I agree with the resident's findings and plan as documented. SUBJECTIVE: Pt seen and examined in the ICU. Remains intubated, somnolent but arousable. Tolerating CPAP/PS trials. OBJECTIVE: Last Vital Signs Temp Pulse Resp BP Pulse Ox 99.5 F 86 17 99/61 98 03/24/17 10:00 03/24/17 10:00 03/24/17 11:00 03/24/17 10:00 03/24/17 11:00 Intake & Output 03/21/17 03/22/17 03/23/17 03/24/17 23:59 23:59 23:59 23:59 Intake Total 5746 3258 2120 1150 Output Total 2220 4270 4525 810 Balance 9335 -7956 -0114 340 Weight 176 lb 5.917 oz 181 lb 9 oz 173 lb 8 oz 169 lb 8.568 oz Gen: intubated, arousable Heart: RRR Lung: scattered rhonchi Abd: soft, nontender Ext: + edema CBC, BMP 03/24/17 05:50 03/24/17 05:50 Active Medications Ceftriaxone Sodium (Rocephin 2gm Ivpb (Pre-Docked)) 2 gm IVPB DAILY [facility] Last Admin: 03/24/17 09:13 Dose: 2 gm Chlorhexidine Gluconate (Hibiclens For Decolonization -) 1 applic TP HS [facility] Last Admin: 03/23/17 21:27 Dose: 1 applic Chlorhexidine Gluconate (Peridex -) 15 ml MM BID [facility] Last Admin: 03/24/17 09:13 Dose: 15 ml Hydrocortisone Sodium Succinate (Solu-Cortef -) 100 mg IVPB Q8H-IV [facility] Last Admin: 03/24/17 09:12 Dose: 100 mg Pantoprazole Sodium (Protonix 40mg Ivpb (Pre-Docked)) 100 mls @ 200 mls/hr IVPB DAILY [facility] Last Admin: 03/24/17 09:13 Dose: 200 mls/hr Potassium Chloride 10 meq/ (Sodium Chloride) 1,005 mls @ 75 mls/hr IVPB Q13H [facility] Mupirocin (Bactroban Ointment (For Decolonization) -) 1 applic NS BID [facility] Stop: 03/25/17 09:59 Last Admin: 03/24/17 09:13 Dose: 1 applic ASSESSMENT AND PLAN: Hepatic Abscess UTI E coli Bacteremia Septic Shock resolving Multiorgan Failure Acute Hypoxic Respiratory Failure Acute Kidney Injury improving Lactic Acidosis +Troponins likely Demand Ischemia Elevated LFTs likely Ischemic Injury improving Coagulopathy/Thrombocytopenia r/o DIC - wean to extubate - continue antibiotics - off pressors, maintain MAP >65 - continue empiric stress dose steroids, can start taper in AM - replete lytes - trend cardiac enzymes, LFTs, lactate - monitor coags, platelets, fibrinogen level - taper Fio2 to keep Spo2 >90% - DVT/GI prophylaxis - ICU monitoring critical care time spent in reviewing chart, evaluating patient and formulating plan 36 min
--- NOTE | 2017-03-24 12:27 | PN ---
Teaching Attending Note Name of Resident: Mary Hernadez ATTENDING PHYSICIAN STATEMENT I saw and evaluated the patient. I reviewed the resident's note and discussed the case with the resident. I agree with the resident's findings and plan as documented. SUBJECTIVE: no events over night . more responsive to boyfriend this am OBJECTIVE: Intubated ,comfortable , arousable . Shakes her head" no " to pain or discomfort CV : RRR Lungs; clear anteriorly Abd : soft , NT, ND . hypoactive BS Ext : trace edema on feet. no erythema on legs ASSESSMENT AND PLAN: 31 y/o lady with no significant PMH who presented with fever , chills was found to have septic shock from LIver abscess. 1- Septic shock, 2/2 UTI--> bacteremia--> liver abscess . S/p IR drainage clinically still improving. lactic acid is stable ( slight increase) and WBC peg probably due to steroids - Cont ceftriaxone 2 g/daily - follow reepat blood cx - monitor out put from [facility] drain - cont stress dose steroids, BP stable off pressors . start steroids taper in AM 2- Acute hypoxic resp failure , possible ARDS . cont weaning trials 3- Dehydration : with hypernatremia , rising BUN and contraction alkalosis. Free water deficit 2.6 L I&O : Net neg 3.5 L in past 2 days . start 1/2 NS with Kcl @ 75. monitor NA and electrolytes. Free water 4- Thrombocytopenia : likely due to sepsis . did not receive heparin products plt cont to rise Monitor 5- NSTEMI: 2/2 to sepsis . no indication of asa or BB trop trended down. Echo with no focal WMA 6- New cardiomyopathy, with Mod reduced EF. likely due to sepsis montior . repeat echo after complete recovery 7- shocked liver . LFTS cont to improve 8- L adrenal gland thickening , of unclear etiology . could be due to ischemia , adenoma , or other etiologies . taper stress dose steroids and monitor BP . ICU level of care Critical Care Total Critical Care Time (in minutes): 40 Critical Care Statement: The care of this patient involved high complexity decision making to prevent further life threatening deterioration of the patient 's condition and/or to evalute & treat vital organ system(s) failure or risk of failure.
--- NOTE | 2017-03-24 12:42 | PN ---
Physical Exam: SUBJECTIVE: ICU Progress Note: ED PA Fellow Patient seen and examined at bedside. Intubated. Off pressors and sedation; Awake, responding to simple questions, denies pain. Vent settings: CPAP, PSV: 10, PEEP 5, Rate 16, Tidal Volume, 400 FiO2 40% No events over night. In's 1150, Out's 810. ANNEMAREI drain with serosanguanous fluid. OBJECTIVE: Vital Signs Period Temp Pulse Resp BP Sys/Bonner Pulse Ox Last 24 Hr 97.1 F-99.5 F 56-88 13-18 91-125/56-80 84-98 GENERAL: The patient is awake, alert, responsive to voice, following simple commands, NAD EYES: PERRL, extraocular movements intact, sclera anicteric, subconjunctival hemorrhage R lateral eye. ENT: Moist mucous membranes. NECK: Trachea midline, full range of motion, supple. LUNGS: Breath sounds equal, scattered rhonchi with fair aeration to bases HEART: Regular rate and rhythm, S1, S2 without murmur, rub or gallop. ABDOMEN: Soft, nontender, nondistended, normoactive bowel sounds, no guarding, no rebound, no hepatosplenomegaly, no masses. EXTREMITIES: 2+ pulses, warm, well-perfused, 2+ non-pitting edema UE and LE. SKIN: Warm, dry, normal turgor, no rashes, bruising, petechia, or lesions noted Laboratory Results - last 24 hr 03/23/17 03/23/17 03/23/17 14:00 14:00 14:00 WBC 17.2 H RBC 3.82 Hgb 11.4 D Hct 34.4 D MCV 90.1 MCHC 33.1 RDW 15.5 Plt Count 37 L MPV 10.9 D Neutrophils % 66.0 Lymphocytes % 13.0 Monocytes % 9.0 Band Neutrophils 6.0 D Metamyelocytes 1 D Myelocytes 3 H D Nucleated RBCs Differential Comment Manual diff done Reactive Lymphocytes 2 Platelet Estimate Mod decreased Platelet Comment No clumping noted Retic Count INR 2.11 H PTT (Actin FS) 25.0 L Fibrinogen 329.0 Puncture Site ABG pH ABG pCO2 at Pt Temp ABG pO2 at Pt Temp ABG HCO3 ABG O2 Sat (Measured) ABG O2 Content ABG Base Excess Beau Test O2 Delivery Device Oxygen Flow Rate Vent Mode Mechanical Rate PEEP Pressure Support Vent Sodium 146 H Potassium 3.0 L Chloride 103 Carbon Dioxide 36 H Anion Gap 7 L BUN 25 H Creatinine 0.7 Creat Clearance w eGFR > 60 Random Glucose 136 H Lactic Acid Uric Acid Calcium 7.5 L Phosphorus 1.7 L D Magnesium 1.9 D Ferritin Total Bilirubin 0.6 AST 291 H ALT 877 H Alkaline Phosphatase 222 H LD Total Creatine Kinase 39 Troponin I 1.14 H* Total Protein 5.2 L Albumin 1.9 L Serum Folate Direct Antiglob Test 03/23/17 03/23/17 03/23/17 14:00 14:00 14:00 WBC RBC Hgb Hct MCV MCHC RDW Plt Count MPV Neutrophils % Lymphocytes % Monocytes % Band Neutrophils Metamyelocytes Myelocytes Nucleated RBCs Differential Comment Reactive Lymphocytes Platelet Estimate Platelet Comment Retic Count 0.22 L D INR PTT (Actin FS) Fibrinogen Puncture Site ABG pH ABG pCO2 at Pt Temp ABG pO2 at Pt Temp ABG HCO3 ABG O2 Sat (Measured) ABG O2 Content ABG Base Excess Beau Test O2 Delivery Device Oxygen Flow Rate Vent Mode Mechanical Rate PEEP Pressure Support Vent Sodium Potassium Chloride Carbon Dioxide Anion Gap BUN Creatinine Creat Clearance w eGFR Random Glucose Lactic Acid 2.3 H* Uric Acid 3.7 Calcium Phosphorus Magnesium Ferritin 380.216 H Total Bilirubin AST ALT Alkaline Phosphatase LD Total 326 H D Creatine Kinase Troponin I Total Protein Albumin Serum Folate 16 Direct Antiglob Test 03/23/17 03/23/17 03/24/17 14:00 19:20 05:50 WBC RBC Hgb Hct MCV MCHC RDW Plt Count MPV Neutrophils % Lymphocytes % Monocytes % Band Neutrophils Metamyelocytes Myelocytes Nucleated RBCs Differential Comment Reactive Lymphocytes Platelet Estimate Platelet Comment Retic Count INR 1.84 H PTT (Actin FS) Fibrinogen Puncture Site Right radial ABG pH 7.53 H ABG pCO2 at Pt Temp 43.5 ABG pO2 at Pt Temp 57.0 L ABG HCO3 35.7 H ABG O2 Sat (Measured) 90.0 ABG O2 Content 13.5 L ABG Base Excess 11.6 H Beau Test Positive O2 Delivery Device Mech vent Oxygen Flow Rate 50% Vent Mode Cpap Mechanical Rate Yes PEEP 5.0 Pressure Support Vent Ps+8 Sodium Potassium Chloride Carbon Dioxide Anion Gap BUN Creatinine Creat Clearance w eGFR Random Glucose Lactic Acid Uric Acid Calcium Phosphorus Magnesium Ferritin Total Bilirubin AST ALT Alkaline Phosphatase LD Total Creatine Kinase Troponin I Total Protein Albumin Serum Folate Direct Antiglob Test Negative 03/24/17 03/24/17 03/24/17 05:50 05:50 05:50 WBC 20.5 H RBC 4.00 Hgb 11.8 Hct 36.0 MCV 90.1 MCHC 32.8 RDW 15.1 Plt Count 50 L D MPV 10.3 Neutrophils % 76.0 Lymphocytes % 6.0 L D Monocytes % 6.0 Band Neutrophils 2.0 D Metamyelocytes 7 H D Myelocytes 3 H Nucleated RBCs 2 H Differential Comment Reactive Lymphocytes Platelet Estimate Platelet Comment Retic Count INR PTT (Actin FS) Fibrinogen 266.0 Puncture Site ABG pH ABG pCO2 at Pt Temp ABG pO2 at Pt Temp ABG HCO3 ABG O2 Sat (Measured) ABG O2 Content ABG Base Excess Beau Test O2 Delivery Device Oxygen Flow Rate Vent Mode Mechanical Rate PEEP Pressure Support Vent Sodium 148 H Potassium 3.2 L Chloride 103 Carbon Dioxide 37 H Anion Gap 8 BUN 35 H D Creatinine 0.8 Creat Clearance w eGFR > 60 Random Glucose 194 H D Lactic Acid Uric Acid Calcium 7.5 L Phosphorus 2.7 D Magnesium 2.0 Ferritin Total Bilirubin 0.7 AST 188 H D ALT 696 H D Alkaline Phosphatase 226 H LD Total Creatine Kinase Troponin I Total Protein 5.4 L Albumin 2.0 L Serum Folate Direct Antiglob Test 03/24/17 03/24/17 03/24/17 05:50 05:50 05:50 WBC RBC Hgb Hct MCV MCHC RDW Plt Count MPV Neutrophils % Lymphocytes % Monocytes % Band Neutrophils Metamyelocytes Myelocytes Nucleated RBCs Differential Comment Reactive Lymphocytes Platelet Estimate Platelet Comment Retic Count INR PTT (Actin FS) 24.9 L Fibrinogen Puncture Site ABG pH ABG pCO2 at Pt Temp ABG pO2 at Pt Temp ABG HCO3 ABG O2 Sat (Measured) ABG O2 Content ABG Base Excess Beau Test O2 Delivery Device Oxygen Flow Rate Vent Mode Mechanical Rate PEEP Pressure Support Vent Sodium Potassium Chloride Carbon Dioxide Anion Gap BUN Creatinine Creat Clearance w eGFR Random Glucose Lactic Acid 2.6 H* Uric Acid Calcium Phosphorus Magnesium Ferritin Total Bilirubin AST ALT Alkaline Phosphatase LD Total Creatine Kinase 27 Troponin I 1.03 H* Total Protein Albumin Serum Folate Direct Antiglob Test 03/24/17 07:20 WBC RBC Hgb Hct MCV MCHC RDW Plt Count MPV Neutrophils % Lymphocytes % Monocytes % Band Neutrophils Metamyelocytes Myelocytes Nucleated RBCs Differential Comment Reactive Lymphocytes Platelet Estimate Platelet Comment Retic Count INR PTT (Actin FS) Fibrinogen Puncture Site Right radial ABG pH 7.53 H ABG pCO2 at Pt Temp 42.7 ABG pO2 at Pt Temp 62.2 L ABG HCO3 35.2 H ABG O2 Sat (Measured) 92.2 ABG O2 Content 14.7 L ABG Base Excess 11.3 H Beau Test Positive O2 Delivery Device Mec.vent Oxygen Flow Rate 50% Vent Mode Cpap +10 Mechanical Rate Yes PEEP 5.0 Pressure Support Vent Sodium Potassium Chloride Carbon Dioxide Anion Gap BUN Creatinine Creat Clearance w eGFR Random Glucose Lactic Acid Uric Acid Calcium Phosphorus Magnesium Ferritin Total Bilirubin AST ALT Alkaline Phosphatase LD Total Creatine Kinase Troponin I Total Protein Albumin Serum Folate Direct Antiglob Test Active Medications Generic Name Dose Route Start Last Admin Trade Name Freq PRN Reason Stop Dose Admin Ceftriaxone Sodium 2 gm 03/23/17 10:00 03/24/17 09:13 Rocephin 2gm Ivpb (Pre-Docked) IVPB 2 gm DAILY CHELY Administration Chlorhexidine Gluconate 1 applic 03/20/17 22:00 03/23/17 21:27 Hibiclens For Decolonization - TP 1 applic HS CHELY Administration Chlorhexidine Gluconate 15 ml 03/20/17 12:15 03/24/17 09:13 Peridex - MM 15 ml BID CHELY Administration Hydrocortisone Sodium Succinate 100 mg 03/20/17 18:00 03/24/17 09:12 Solu-Cortef - IVPB 100 mg Q8H-IV CHELY Administration Pantoprazole Sodium 100 mls @ 200 mls/hr 03/20/17 09:30 03/24/17 09:13 Protonix 40mg Ivpb (Pre-Docked) IVPB 200 mls/hr DAILY CHELY Administration Potassium Chloride 10 meq/ 1,005 mls @ 75 mls/hr 03/24/17 10:00 Sodium Chloride IVPB Q13H CHELY Mupirocin 1 applic 03/20/17 10:00 03/24/17 09:13 Bactroban Ointment (For Decolonization) - NS 03/25/17 09:59 1 applic BID CHELY Administration ASSESSMENT/PLAN: Pt. is a 31 y/o female with PMH of cholecystectomy who presents with gram negative sepsis bactermia with multi-system organ failure Septic shock with multi-system organ failure - Blood cultures, UC, and abscess drainage finalized. Zhao sensitive E. Coli cultured - Possible systemic infection seeding from urine - Continue Ceftriaxone (day 2) - Off of pressors; MAP > 65% - IVF to maintain CVP between 8-12 - Lactic acid stable - Stress dose hydrocortisone Liver abscess - Percutaneously drained by IR on 03/20 - Catheter in place with ANNEMARIE drain to suction - Serosanguanous fluid in drain. - Surgery following Respiratory failure; possible ARDS - Pt. remains intubated and off sedation. Answering basic question, and following basic commands - Vent settings: CPAP, FiO2 40%, PEEP 5, PSV 10, Tidal volume 400 - Pt. weened. Will extubate today. - Repeat CXR in morning - Possible aspiration pnumonitis SETH - Resolved - Responded well to lasix - Hold lasix today d/t hypernatremia and elevated BUN - Renal following Elevated Troponins - Most likely d/t sepsis - Trop of 20 and down trending. Last trop 1.17 - Serial Troponins - Repeat ECHO after full recovery to monitor heart function - Cardiology following Transaminitis - Shock liver most likely d/t ischemia from sepsis - Markedly improved - Monitor LFT's - GI following Thrombocytopenia - S/p FFP transfusion x4 - Platelet count 37 and up trending - Monitor coags, platelets, fibrinogen for signs of DIC - Heme/Onc consult appreciated F/E/N: - Oral fluids - Speech and Swallow to evaluate. Full diet if can tolerate - Repleted potassium Code Status: FULL CODE Disposition: Pt. still requiring ICU care. Problem List - Problems (1) Anaerobic bacteremia Code(s): R78.81 - BACTEREMIA (2) Hypotension Code(s): I95.9 - HYPOTENSION, UNSPECIFIED Qualifiers: Qualified Code(s): I95.89 - Other hypotension (3) Liver abscess Code(s): K75.0 - ABSCESS OF LIVER (4) Multiorgan failure Code(s): OTO9711 - (5) Septic shock Code(s): A41.9 - SEPSIS, UNSPECIFIED ORGANISM R65.21 - SEVERE SEPSIS WITH SEPTIC SHOCK (6) UTI (urinary tract infection) Code(s): N39.0 - URINARY TRACT INFECTION, SITE NOT SPECIFIED Visit type - Emergency Visit Emergency Visit: Yes ED Registration Date: 03/20/17 Care time: The patient presented to the Emergency Department on the above date and was hospitalized for further evaluation of their emergent condition. - New Patient This patient is new to me today: No - Critical Care Critical Care patient: Yes Total Critical Care Time (in minutes): 35 Critical Care Statement: The care of this patient involved high complexity decision making to prevent further life threatening deterioration of the patient 's condition and/or to evalute & treat vital organ system(s) failure or risk of failure.
[2017-03-24] MEDS ORDERED: ACETAMINOPHEN 1000 MG/100 ML VIAL (NON FORMULARY) IVPB ONE (13:15)
[2017-03-24 16:52] LABS: MCH 29.4 pg (25.7-33.7); MCHC 32.6 g/dl (32.0-36.0); MEAN CELL VOLUME 90.3 fl (80-96); MEAN PLT VOLUME 11.1 fl (7.5-11.1); PLATELET COUNT 71 K/MM3 (134-434); RDW 15.2 % (11.6-15.6); WHITE BLOOD COUNT 20.8 K/mm3 (4.0-10.0)
--- NOTE | 2017-03-24 17:06 | PN ---
Progress Note, Physician Chief Complaint: HD5 septic shock secondary to liver abscess History of Present Illness: Pt has percutaneous liver drain RUQ with output turning serous - ~25ml in bulb now. Abscess, blood and urine were positive for pansensitive E. coli (R to bactrim). Pt extubated today; she is awake, responsive, and denies pain. Antibiotics continue. She is still somewhat coagulopathic, but platelets are trending slowly up. Lactate 2.6. She is hypernatremic, alkalotic, lytes repleted - starting po slowly and IVF resumed. She has had loose BM. Lanier with yellow urine. - Current Medication List Current Medications: Active Medications Ceftriaxone Sodium (Rocephin 2gm Ivpb (Pre-Docked)) 2 gm IVPB DAILY [facility] Last Admin: 03/24/17 09:13 Dose: 2 gm Chlorhexidine Gluconate (Hibiclens For Decolonization -) 1 applic TP HS [facility] Last Admin: 03/23/17 21:27 Dose: 1 applic Chlorhexidine Gluconate (Peridex -) 15 ml MM BID [facility] Last Admin: 03/24/17 09:13 Dose: 15 ml Hydrocortisone Sodium Succinate (Solu-Cortef -) 100 mg IVPB Q8H-IV [facility] Last Admin: 03/24/17 09:12 Dose: 100 mg Pantoprazole Sodium (Protonix 40mg Ivpb (Pre-Docked)) 100 mls @ 200 mls/hr IVPB DAILY [facility] Last Admin: 03/24/17 09:13 Dose: 200 mls/hr Potassium Chloride 10 meq/ (Sodium Chloride) 1,005 mls @ 75 mls/hr IVPB Q13H [facility] Last Admin: 03/24/17 12:54 Dose: 75 mls/hr Mupirocin (Bactroban Ointment (For Decolonization) -) 1 applic NS BID [facility] Stop: 03/25/17 09:59 Last Admin: 03/24/17 09:13 Dose: 1 applic - Objective Vital Signs: Vital Signs Temperature 99.4 F 03/24/17 14:00 Pulse Rate 86 03/24/17 14:00 Respiratory Rate 16 03/24/17 14:00 Blood Pressure 107/69 03/24/17 14:00 O2 Sat by Pulse Oximetry (%) 98 03/24/17 11:00 Constitutional: Yes: Well Nourished, No Distress, Calm Eyes: Yes: Other (R eye with subconjunctival hemorrhage laterally). No: Sclera Icterus Cardiovascular: Yes: Regular Rate and Rhythm. No: Murmur Respiratory: Yes: Regular, CTA Bilaterally (generally - difficult to appreciate any rhonchi with shallow breaths), Diminished (effort), On Venti-Mask Gastrointestinal: Yes: Normal Bowel Sounds, Soft, Distention (mild), Other (RUQ drain with some mostly serous fluid, some blood-tinge). No: Tenderness Genitourinary: Yes: Lanier Present (yellow urine) Edema: No (general edema resolved) Peripheral Pulses WNL: Yes Integumentary: No: Jaundice, Rash Wound/Incision: Yes: Dressing Dry and Intact (at RUQ drain site) Neurological: Yes: Alert, Oriented Labs: INR, PTT INR 1.84 (0.82-1.09) H 03/24/17 05:50 Fibrinogen 266.0 mg/dL (238-498) 03/24/17 05:50 CBC,CMP WBC 20.8 K/mm3 (4.0-10.0) H 03/24/17 16:30 RBC 3.57 M/mm3 (3.60-5.2) L 03/24/17 16:30 Hgb 10.5 GM/dL (10.7-15.3) L D 03/24/17 16:30 Hct 32.2 % (32.4-45.2) L 03/24/17 16:30 MCV 90.3 fl (80-96) 03/24/17 16:30 MCHC 32.6 g/dl (32.0-36.0) 03/24/17 16:30 RDW 15.2 % (11.6-15.6) 03/24/17 16:30 Plt Count 71 K/MM3 (134-434) L D 03/24/17 16:30 MPV 11.1 fl (7.5-11.1) 03/24/17 16:30 Neutrophils % % (42.8-82.8) 03/24/17 16:30 Lymphocytes % Y 03/24/17 16:30 Monocytes % 6.0 % (3.8-10.2) 03/24/17 05:50 Eosinophils % 0.0 % (0-4.5) 03/23/17 05:20 Basophils % 0.1 % (0-2.0) D 03/23/17 05:20 Band Neutrophils 2.0 % (0-10) D 03/24/17 05:50 Metamyelocytes 7 % (0-2) H D 03/24/17 05:50 Myelocytes 3 % (0-2) H 03/24/17 05:50 Nucleated RBCs 2 % (0-0) H 03/24/17 05:50 Differential Comment Manual diff done 03/23/17 14:00 Reactive Lymphocytes 2 % (0-80) 03/23/17 14:00 Toxic Granulation 1+ 03/20/17 16:00 Dohle Bodies 1+ 03/20/17 09:45 Platelet Estimate Mod decreased (NORMAL) 03/23/17 14:00 Platelet Comment Few giant plts 03/23/17 14:00 Platelet Comment No clumping noted 03/23/17 14:00 Polychromasia Few 03/20/17 09:45 Hypochromic-Microcytic 1+ 03/20/17 09:45 Anisocytosis 1+ 03/20/17 03:58 Morphology Comment Slide scanned 03/20/17 16:00 Retic Count 0.22 % (0.5-1.5) L D 03/23/17 14:00 Haptoglobin 269 mg/dL (34-200) H 03/22/17 05:20 Sodium 148 mmol/L (136-145) H 03/24/17 05:50 Potassium 3.2 mmol/L (3.5-5.1) L 03/24/17 05:50 Chloride 103 mmol/L (98-107) 03/24/17 05:50 Carbon Dioxide 37 mmol/L (21-32) H 03/24/17 05:50 Anion Gap 8 (8-16) 03/24/17 05:50 BUN 35 mg/dL (7-18) H D 03/24/17 05:50 Creatinine 0.8 mg/dL (0.55-1.02) 03/24/17 05:50 Creat Clearance w eGFR > 60 (>60) 03/24/17 05:50 Random Glucose 194 mg/dL (74-106) H D 03/24/17 05:50 Lactic Acid 2.6 mmol/L (0.4-2.0) H* 03/24/17 05:50 Uric Acid 3.7 mg/dL (2.6-7.2) 03/23/17 14:00 Calcium 7.5 mg/dL (8.5-10.1) L 03/24/17 05:50 Ionized Calcium 3.4 mg/dL (4.5-5.6) L 03/20/17 16:00 Phosphorus 2.7 mg/dL (2.5-4.9) D 03/24/17 05:50 Magnesium 2.0 mg/dL (1.8-2.4) 03/24/17 05:50 Iron 173 ug/dL (27-159) H 03/22/17 05:20 TIBC 192 ug/dL (250-450) L 03/22/17 05:20 Iron Saturation 90 % (15-55) H 03/22/17 05:20 Ferritin 380.216 ng/ml (6.9-282.5) H 03/23/17 14:00 Total Bilirubin 0.7 mg/dL (0.2-1.0) 03/24/17 05:50 AST 188 U/L (15-37) H D 03/24/17 05:50 ALT 696 U/L (12-78) H D 03/24/17 05:50 Alkaline Phosphatase 226 U/L (45-117) H 03/24/17 05:50 LD Total 326 U/L (84-246) H D 03/23/17 14:00 Creatine Kinase 27 IU/L (26-192) 03/24/17 05:50 CK-MB (CK-2) 31.013 ng/ml (0.5-3.6) H 03/21/17 15:00 Troponin I 1.03 ng/ml (0.00-0.05) H* 03/24/17 05:50 Total Protein 5.4 g/dl (6.4-8.2) L 03/24/17 05:50 Albumin 2.0 g/dl (3.4-5.0) L 03/24/17 05:50 Total Amylase 31 U/L (25-115) 03/20/17 03:58 Lipase 43 U/L (73-393) L 03/20/17 09:45 Tumor Marker AFP 1.5 ng/ml (0.0-8.3) 03/20/17 16:00 Vitamin B12 49580 pg/ml (180-914) H 03/22/17 05:20 Serum Folate 16 ng/ml (3.1-17.5) 03/23/17 14:00 TSH 1.78 uIU/ml (0.358-3.74) 03/20/17 09:45 Serum , Qual Negative 03/20/17 03:58 Cortisol AM Sample 63.4 ug/dL (.) 03/20/17 03:58 ABG Results ABG pH 7.53 (7.35-7.45) H 03/24/17 07:20 ABG pCO2 at Pt Temp 42.7 mmHg (35-45) 03/24/17 07:20 ABG pO2 at Pt Temp 62.2 mmHg (80-100) L 03/24/17 07:20 ABG HCO3 35.2 meq/L (22-26) H 03/24/17 07:20 ABG O2 Sat (Measured) 92.2 % (90-98.9) 03/24/17 07:20 ABG O2 Content 14.7 % vol (15-22) L 03/24/17 07:20 ABG Base Excess 11.3 meq/l (-2-2) H 03/24/17 07:20 Intake & Output 03/21/17 03/22/17 03/23/17 03/24/17 23:59 23:59 23:59 23:59 Intake Total 5736 3258 2120 1150 Output Total 2220 4270 4525 810 Balance 5986 1012 -2401 340 Weight 176 lb 5.917 oz 181 lb 9 oz 173 lb 8 oz 169 lb 8.568 oz Problem List - Problems (1) Liver abscess Assessment/Plan: s/p percutaneous drainage - continue to monitor and record drainage on antibiotics for E. coli sepsis - responding well cytology negative for malignant cells, consistent with abscess, special stains pending original etiology unclear - doubt urologic etiology - pt describes no urinary symptoms prior to shoulder pain with fevers 2+ weeks prior to admission, also no clear preceding illness that she recalls continue current care Code(s): K75.0 - ABSCESS OF LIVER (2) Multiorgan failure Assessment/Plan: extubated and awake ok for po slowly aggressive diuresis last couple days with alkalosis and hypernatremia - IVF resumed, encourage po fluids when able renal function normal cardio following Code(s): WSL1978 - (3) Respiratory failure requiring intubation Assessment/Plan: extubated Code(s): J96.90 - RESPIRATORY FAILURE, UNSP, UNSP W HYPOXIA OR HYPERCAPNIA (4) E. coli septic shock Assessment/Plan: on antibiotics ID on board continue current care Code(s): A41.51 - SEPSIS DUE TO ESCHERICHIA COLI [E. COLI] R65.21 - SEVERE SEPSIS WITH SEPTIC SHOCK
[2017-03-24 17:19] LABS: INR 1.88 (0.82-1.09)
[2017-03-24 17:22] LABS: ACTIVATED PTT 24.5 SECONDS (26.9-34.4)
[2017-03-24 17:24] LABS: ALBUMIN 1.7 g/dl (3.4-5.0); ANION GAP 8 (8-16); BILIRUBIN,TOTAL 0.6 mg/dL (0.2-1.0); CALCIUM 7.3 mg/dL (8.5-10.1); CO2 35 mmol/L (21-32); CREATININE 0.6 mg/dL (0.55-1.02); GLUCOSE,RANDOM 119 mg/dL (74-106); SGOT/AST 114 U/L (15-37); TOT PROT 4.7 g/dl (6.4-8.2)
[2017-03-24 17:44] LABS: ALK PHOS 188 U/L (45-117)
--- NOTE | 2017-03-24 17:45 | PN ---
Progress Note (short form) - Note Progress Note: Chief Complaint: fever, vomiting S: extubated today. Last lasix dose last night. good uop. diet now liquid, tolerated. no cp, palps, dizziness, sob. Current Medications Ceftriaxone Sodium (Rocephin 2gm Ivpb (Pre-Docked)) 2 gm IVPB DAILY [facility] Last Admin: 03/24/17 09:13 Dose: 2 gm Chlorhexidine Gluconate (Hibiclens For Decolonization -) 1 applic TP HS [facility] Last Admin: 03/23/17 21:27 Dose: 1 applic Chlorhexidine Gluconate (Peridex -) 15 ml MM BID [facility] Last Admin: 03/24/17 09:13 Dose: 15 ml Hydrocortisone Sodium Succinate (Solu-Cortef -) 100 mg IVPB Q8H-IV [facility] Last Admin: 03/24/17 09:12 Dose: 100 mg Pantoprazole Sodium (Protonix 40mg Ivpb (Pre-Docked)) 100 mls @ 200 mls/hr IVPB DAILY [facility] Last Admin: 03/24/17 09:13 Dose: 200 mls/hr Potassium Chloride 10 meq/ (Sodium Chloride) 1,005 mls @ 75 mls/hr IVPB Q13H [facility] Last Admin: 03/24/17 12:54 Dose: 75 mls/hr Mupirocin (Bactroban Ointment (For Decolonization) -) 1 applic NS BID [facility] Stop: 03/25/17 09:59 Last Admin: 03/24/17 09:13 Dose: 1 applic Vital Signs - 24 hr 03/23/17 03/23/17 03/23/17 18:00 18:44 20:00 Temperature 98 F 97.1 F L Pulse Rate 56 L 57 L Respiratory 16 14 14 Rate Blood Pressure 101/70 108/75 O2 Sat by Pulse Oximetry (%) 03/23/17 03/23/17 03/23/17 21:00 21:35 22:00 Temperature 97.7 F Pulse Rate 60 Respiratory 14 14 14 Rate Blood Pressure 91/70 O2 Sat by Pulse Oximetry (%) 03/24/17 03/24/17 03/24/17 00:00 00:30 02:00 Temperature 97.8 F Pulse Rate 83 64 Respiratory 14 14 14 Rate Blood Pressure 96/73 99/75 O2 Sat by Pulse Oximetry (%) 03/24/17 03/24/17 03/24/17 03:35 04:00 05:59 Temperature 98.2 F 98.4 F Pulse Rate 87 86 Respiratory 13 15 15 Rate Blood Pressure 100/73 94/56 O2 Sat by Pulse Oximetry (%) 03/24/17 03/24/17 03/24/17 06:28 08:00 10:00 Temperature 99.5 F Pulse Rate 88 86 Respiratory 14 15 16 Rate Blood Pressure 92/57 99/61 O2 Sat by Pulse Oximetry (%) 03/24/17 03/24/17 03/24/17 10:10 10:16 11:00 Temperature Pulse Rate Respiratory 17 17 17 Rate Blood Pressure O2 Sat by Pulse 84 L 98 Oximetry (%) 03/24/17 03/24/17 12:00 14:00 Temperature 99.4 F Pulse Rate 88 86 Respiratory 16 16 Rate Blood Pressure 108/73 107/69 O2 Sat by Pulse Oximetry (%) Intake & Output 03/22/17 03/23/17 03/24/17 03/25/17 07:59 07:59 07:59 07:59 Intake Total 4638 2670 2170 Output Total 2580 3935 4720 Balance 9062 -3522 -2450 Weight 181 lb 9 oz 173 lb 8 oz 169 lb 8.568 oz Constitutional: Yes: Well Nourished, No Distress Eyes: No: Sclera Icterus HENT: No: Nasal Congestion Neck: No: Decreased ROM Respiratory: Yes: bibasilar dullness. No: Accessory Muscle Use, Rales, Wheezes Gastrointestinal: Yes: Normal Bowel Sounds. No: Distention, Hepatomegaly, Palpable Mass, Tenderness Cardiovascular: Yes: Regular Rate and Rhythm JVD: No Carotid Bruit: No PMI: Non-Displaced Heart Sounds: Yes: S1, S2. No: Gallop Murmur: No: Systolic Murmur, Diastolic Murmur Musculoskeletal: Yes: Other (No kyphosis) Extremities: + trace dependent edema (improving)No: Cold, Cyanosis Peripheral Pulses: 2+ Left Carotid, 2+ Right Carotid, 2+ Left Doralis Pedis, 2+ Right Dorsalis Pedis Integumentary: No: Jaundice Neurological: [email or web address] Psychiatric: No: Agitated - Other Data Labs, Other Data: CBC, BMP 03/24/17 16:30 Laboratory Tests 03/24/17 03/24/17 03/24/17 05:50 05:50 05:50 INR ABG pH ABG pO2 at Pt Temp ABG HCO3 Lactic Acid 2.6 H* Magnesium 2.0 Total Bilirubin 0.7 AST 188 H D ALT 696 H D Alkaline Phosphatase 226 H Troponin I 1.03 H* Albumin 2.0 L 03/24/17 03/24/17 03/24/17 07:20 16:30 16:30 INR 1.88 H ABG pH 7.53 H ABG pO2 at Pt Temp 62.2 L ABG HCO3 35.2 H Lactic Acid 2.1 H* Magnesium Total Bilirubin AST ALT Alkaline Phosphatase Troponin I Albumin tele: nsr Assessment/Plan ECG's: #1: sinus tach, no isch abnormality #2: same, mildly prolonged QT #3: NSR, nonspecific ST-T abnormalities (QT normalized) CXR 03/21 am: bilat effusions and diffuse infiltrates, stable vs last film (incr vs admit film) cxr 03/24: per report slightly worse, but by my review looks improved. echo here 02/2017: moderately decreased biventricular function (global), mild- mod TR rvsp 34, + pleural effusion A/p 31 year old female with a significant past medical history of cholecystectomy ( 8 years ago), who emigrated from [place] (9 years ago) and presents in severe shock gram negative rich sepsis 2/2 hepatic abscess now s/p IR drainage.. septic shock, gram negative rich bacteremia, hepatic abscess: - s/p percutaneous liver drain -cont stress dose steroids per pmd/pulm/critical care. -abx per ID, f/u of abscess cx's - 03/23: hemodynamically stable at present off levophed and IVF. CVP improving today 03/23 s/p lasix trial. Close monitoring of alkalosis and potassium/electrolyte abnoromalities while on lasix - most recent pH 7.5, k 3.0 and patient with new bradycardia ?long qt. Repeat ekg tomorrow am. - 03/24: patient autodiuresing. Net negative. no need for lasix today. Monitor alkalosis and hypokalemia closely. elevated troponin: -trop peg to 20, trending down -ECG initially non-ischemic, then with nonspecific changes --> repeat with nonsp ST-Ts (actually improved slightly vs last tracing) -young female pt with no reported history of severe hyperlipidemia, diabetes, cigarettes--extremely low pretest prob of obstructive CAD -troponins and ECG are very likely secondary to sepsis related myonecrosis. hence ASA/AC, BB, statin not indicated (regardless, she is at prohibitive risks for these medical therapies, or invasive therapy of CAD, in light of heme abnormalities described above and septic shock) -less likely Takotsubo's from immense stressors. Echo here with moderately decreased biventricular function (global) see discusion below. 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 takotsubo cardiomyopathy (less likely ). - Will need follow up echo as outpatient once acute issues resolve. - ongoing mgm't of underlying condition/sepsis - 03/22: Although patient is total body volume overloaded, would not diurese. Fluid is mainly third-spaced as CVP is low. Would continue IVF resuscitation as needed to manage sepsis. Diuresis once clinical condition improves. - 03/23: now off IVF, pressors. Given trial of lasix 20 mg IV x1 --> tolerated well. If redose tomorrow, close montiroing of pH and K as mentioned above. - 03/24: auto diuresing, no need for lasix. anemia, thrombocytopenia, coagulopathy: -likely sec to sepsis -shock liver likely contributing to coagulopathy, ? DIC component -PLTs low, INR high -per critical care/heme SETH: resolved -sec to hypoperfusion vs sepsis -renal fxn improved s/p IVF, hemodynamic support as doing -renal following shock liver: improving -coagulation support as above -per critical care acute resp failure: -sec to severe metabolic acidosis/septic shock - resolved. now s/p extubation. est crit care time in mgmt and review of data = 35 min
[2017-03-24 17:47] LABS: SGPT/ALT 541 U/L (12-78)
[2017-03-24 17:48] LABS: TROPONIN I 1.02 ng/ml (0.00-0.05)
--- NOTE | 2017-03-24 18:50 | PN ---
Physical Exam: SUBJECTIVE: Patient seen and examined at bed side this morning. she was intubated, following commands. Later during the day she was extubated and doing well. OBJECTIVE: Vital Signs Period Temp Pulse Resp BP Sys/Bonner Pulse Ox Last 24 Hr 97.1 F-99.5 F 57-94 13-18 91-114/56-75 84-98 GENERAL: Young female, is lying in bed comfortably, awake, alert, oriented x 3, in no acute distress, non rebreather in place. IV line: Right IJ HEAD: Normal with no signs of trauma. EYES: Right conjunctival hemorrhage, No pallor or icterus, PERRLA EARS, NOSE, THROAT: Ears normal. NECK: Normal range of motion, supple without lymphadenopathy, JVD, or masses. LUNGS: Breath sounds equal, clear to auscultation bilaterally. No wheezes, and no crackles. No accessory muscle use. HEART: Regular rate and rhythm, normal S1 and S2 without murmur, rub or gallop. ABDOMEN: ANNEMARIE drain in place, Soft, not distended, normoactive bowel sounds, no guarding, no rebound, no masses. No hepatomegaly or splenomegaly. MUSCULOSKELETAL: Normal range of motion at all joints. No bony deformities or tenderness. UPPER EXTREMITIES: 2+ pulses, warm, well-perfused. No cyanosis. No clubbing. No peripheral edema. LOWER EXTREMITIES: 2+ pulses, warm, well-perfused. No calf tenderness. No peripheral edema. NEUROLOGICAL: Extubated now, alert, oriented x 3, neuro exam still not cooperative. PERRLA, moving all her limbs on low sedation. PSYCHIATRIC: Normal mood and affect. SKIN: Warm, normal turgor, no rashes or lesions noted, normal capillary refill. Laboratory Results - last 24 hr 03/20/17 03/23/17 03/23/17 16:00 14:00 14:00 WBC 17.2 H RBC 3.82 Hgb 11.4 D Hct 34.4 D MCV 90.1 MCHC 33.1 RDW 15.5 Plt Count 37 L MPV 10.9 D Neutrophils % 66.0 Lymphocytes % 13.0 Monocytes % 9.0 Band Neutrophils 6.0 D Metamyelocytes 1 D Myelocytes 3 H D Nucleated RBCs Differential Comment Manual diff done Reactive Lymphocytes 2 Platelet Estimate Mod decreased Platelet Comment No clumping noted INR PTT (Actin FS) Fibrinogen Puncture Site ABG pH ABG pCO2 at Pt Temp ABG pO2 at Pt Temp ABG HCO3 ABG O2 Sat (Measured) ABG O2 Content ABG Base Excess Beau Test O2 Delivery Device Oxygen Flow Rate Vent Mode Mechanical Rate PEEP Pressure Support Vent Sodium Potassium Chloride Carbon Dioxide Anion Gap BUN Creatinine Creat Clearance w eGFR Random Glucose Lactic Acid Uric Acid 3.7 Calcium Phosphorus Magnesium Ferritin 380.216 H Total Bilirubin AST ALT Alkaline Phosphatase LD Total 326 H D Creatine Kinase Troponin I Total Protein Albumin Tumor Marker AFP 1.5 Serum Folate 16 E. histolytica Antibody Negative Hepatitis A IgM Ab Negative Hep Bs Antigen Negative Hep B Core IgM Ab Negative Hepatitis C Ab (EIA) <0.1 03/23/17 03/24/17 03/24/17 19:20 05:50 05:50 WBC RBC Hgb Hct MCV MCHC RDW Plt Count MPV Neutrophils % Lymphocytes % Monocytes % Band Neutrophils Metamyelocytes Myelocytes Nucleated RBCs Differential Comment Reactive Lymphocytes Platelet Estimate Platelet Comment INR 1.84 H PTT (Actin FS) Fibrinogen Puncture Site Right radial ABG pH 7.53 H ABG pCO2 at Pt Temp 43.5 ABG pO2 at Pt Temp 57.0 L ABG HCO3 35.7 H ABG O2 Sat (Measured) 90.0 ABG O2 Content 13.5 L ABG Base Excess 11.6 H Beau Test Positive O2 Delivery Device Mech vent Oxygen Flow Rate 50% Vent Mode Cpap Mechanical Rate Yes PEEP 5.0 Pressure Support Vent Ps+8 Sodium 148 H Potassium 3.2 L Chloride 103 Carbon Dioxide 37 H Anion Gap 8 BUN 35 H D Creatinine 0.8 Creat Clearance w eGFR > 60 Random Glucose 194 H D Lactic Acid Uric Acid Calcium 7.5 L Phosphorus 2.7 D Magnesium 2.0 Ferritin Total Bilirubin 0.7 AST 188 H D ALT 696 H D Alkaline Phosphatase 226 H LD Total Creatine Kinase Troponin I Total Protein 5.4 L Albumin 2.0 L Tumor Marker AFP Serum Folate E. histolytica Antibody Hepatitis A IgM Ab Hep Bs Antigen Hep B Core IgM Ab Hepatitis C Ab (EIA) 03/24/17 03/24/17 03/24/17 05:50 05:50 05:50 WBC 20.5 H RBC 4.00 Hgb 11.8 Hct 36.0 MCV 90.1 MCHC 32.8 RDW 15.1 Plt Count 50 L D MPV 10.3 Neutrophils % 76.0 Lymphocytes % 6.0 L D Monocytes % 6.0 Band Neutrophils 2.0 D Metamyelocytes 7 H D Myelocytes 3 H Nucleated RBCs 2 H Differential Comment Reactive Lymphocytes Platelet Estimate Platelet Comment INR PTT (Actin FS) 24.9 L Fibrinogen 266.0 Puncture Site ABG pH ABG pCO2 at Pt Temp ABG pO2 at Pt Temp ABG HCO3 ABG O2 Sat (Measured) ABG O2 Content ABG Base Excess Beau Test O2 Delivery Device Oxygen Flow Rate Vent Mode Mechanical Rate PEEP Pressure Support Vent Sodium Potassium Chloride Carbon Dioxide Anion Gap BUN Creatinine Creat Clearance w eGFR Random Glucose Lactic Acid Uric Acid Calcium Phosphorus Magnesium Ferritin Total Bilirubin AST ALT Alkaline Phosphatase LD Total Creatine Kinase Troponin I Total Protein Albumin Tumor Marker AFP Serum Folate E. histolytica Antibody Hepatitis A IgM Ab Hep Bs Antigen Hep B Core IgM Ab Hepatitis C Ab (EIA) 03/24/17 03/24/17 03/24/17 05:50 05:50 07:20 WBC RBC Hgb Hct MCV MCHC RDW Plt Count MPV Neutrophils % Lymphocytes % Monocytes % Band Neutrophils Metamyelocytes Myelocytes Nucleated RBCs Differential Comment Reactive Lymphocytes Platelet Estimate Platelet Comment INR PTT (Actin FS) Fibrinogen Puncture Site Right radial ABG pH 7.53 H ABG pCO2 at Pt Temp 42.7 ABG pO2 at Pt Temp 62.2 L ABG HCO3 35.2 H ABG O2 Sat (Measured) 92.2 ABG O2 Content 14.7 L ABG Base Excess 11.3 H Beau Test Positive O2 Delivery Device Mec.vent Oxygen Flow Rate 50% Vent Mode Cpap +10 Mechanical Rate Yes PEEP 5.0 Pressure Support Vent Sodium Potassium Chloride Carbon Dioxide Anion Gap BUN Creatinine Creat Clearance w eGFR Random Glucose Lactic Acid 2.6 H* Uric Acid Calcium Phosphorus Magnesium Ferritin Total Bilirubin AST ALT Alkaline Phosphatase LD Total Creatine Kinase 27 Troponin I 1.03 H* Total Protein Albumin Tumor Marker AFP Serum Folate E. histolytica Antibody Hepatitis A IgM Ab Hep Bs Antigen Hep B Core IgM Ab Hepatitis C Ab (EIA) 03/24/17 03/24/17 03/24/17 16:30 16:30 16:30 WBC 20.8 H RBC 3.57 L Hgb 10.5 L D Hct 32.2 L MCV 90.3 MCHC 32.6 RDW 15.2 Plt Count 71 L D MPV 11.1 Neutrophils % Lymphocytes % Y Monocytes % Band Neutrophils Metamyelocytes Myelocytes Nucleated RBCs Differential Comment Reactive Lymphocytes Platelet Estimate Platelet Comment INR 1.88 H PTT (Actin FS) 24.5 L Fibrinogen 227.0 L Puncture Site ABG pH ABG pCO2 at Pt Temp ABG pO2 at Pt Temp ABG HCO3 ABG O2 Sat (Measured) ABG O2 Content ABG Base Excess Beau Test O2 Delivery Device Oxygen Flow Rate Vent Mode Mechanical Rate PEEP Pressure Support Vent Sodium 149 H Potassium 3.5 Chloride 106 Carbon Dioxide 35 H Anion Gap 8 BUN 31 H Creatinine 0.6 D Creat Clearance w eGFR > 60 Random Glucose 119 H D Lactic Acid Uric Acid Calcium 7.3 L Phosphorus Magnesium Ferritin Total Bilirubin 0.6 AST 114 H D ALT 541 H D Alkaline Phosphatase 188 H LD Total Creatine Kinase 28 Troponin I 1.02 H* Total Protein 4.7 L Albumin 1.7 L Tumor Marker AFP Serum Folate E. histolytica Antibody Hepatitis A IgM Ab Hep Bs Antigen Hep B Core IgM Ab Hepatitis C Ab (EIA) 03/24/17 16:30 WBC RBC Hgb Hct MCV MCHC RDW Plt Count MPV Neutrophils % Lymphocytes % Monocytes % Band Neutrophils Metamyelocytes Myelocytes Nucleated RBCs Differential Comment Reactive Lymphocytes Platelet Estimate Platelet Comment INR PTT (Actin FS) Fibrinogen Puncture Site ABG pH ABG pCO2 at Pt Temp ABG pO2 at Pt Temp ABG HCO3 ABG O2 Sat (Measured) ABG O2 Content ABG Base Excess Beau Test O2 Delivery Device Oxygen Flow Rate Vent Mode Mechanical Rate PEEP Pressure Support Vent Sodium Potassium Chloride Carbon Dioxide Anion Gap BUN Creatinine Creat Clearance w eGFR Random Glucose Lactic Acid 2.1 H* Uric Acid Calcium Phosphorus Magnesium Ferritin Total Bilirubin AST ALT Alkaline Phosphatase LD Total Creatine Kinase Troponin I Total Protein Albumin Tumor Marker AFP Serum Folate E. histolytica Antibody Hepatitis A IgM Ab Hep Bs Antigen Hep B Core IgM Ab Hepatitis C Ab (EIA) Active Medications Generic Name Dose Route Start Last Admin Trade Name Freq PRN Reason Stop Dose Admin Ceftriaxone Sodium 2 gm 03/23/17 10:00 03/24/17 09:13 Rocephin 2gm Ivpb (Pre-Docked) IVPB 2 gm DAILY [facility] Administration Chlorhexidine Gluconate 1 applic 03/20/17 22:00 03/23/17 21:27 Hibiclens For Decolonization - TP 1 applic HS [facility] Administration Chlorhexidine Gluconate 15 ml 03/20/17 12:15 03/24/17 09:13 Peridex - MM 15 ml BID [facility] Administration Hydrocortisone Sodium Succinate 100 mg 03/20/17 18:00 03/24/17 17:47 Solu-Cortef - IVPB 100 mg Q8H-IV [facility] Administration Pantoprazole Sodium 100 mls @ 200 mls/hr 03/20/17 09:30 03/24/17 09:13 Protonix 40mg Ivpb (Pre-Docked) IVPB 200 mls/hr DAILY [facility] Administration Potassium Chloride 10 meq/ 1,005 mls @ 75 mls/hr 03/24/17 10:00 03/24/17 12:54 Sodium Chloride IVPB 75 mls/hr Q13H [facility] Administration Mupirocin 1 applic 03/20/17 10:00 03/24/17 09:13 Bactroban Ointment (For Decolonization) - NS 03/25/17 09:59 1 applic BID [facility] Administration ASSESSMENT/PLAN: Patient is a 31 year old female with significant past medical history of Cholecystectomy (8 years ago), pyelonephritis, nephrolithiasis, emigrated from [place] 8 years ago who was brought in by patients boyfriend, with the chief complaints of fever, chills and generalized weakness since 2 weeks. # Respiratory failure due to septic shock with severe lactic acidosis with impending ARDS with Gram negative bacteremia (E.coli) with UTI Patient extubated and doing well. Most likely had UTI leading to bacteremia as urine culture, blood culture and fluid culture is positive for E.coli. CT abdomen- S/o Liver Abscess s/p IR guided drainage ~ 25mls sent for Analysis including culture-pending Changed to IV Ceftriaxone 2gm Daily Day2. CT chest- Infiltrative changes, likely due to fluid Overload , Less likely due to co- comitant Pneumonia Lactic Acid-trending down after resucitation, now its 2.1 General surgery and GI consult appreciated, will f/u recommendations # MODS with septic shock d/t Liver Abscess with bandemia and lactic acidosis s/p IR guided drainage, purulent drainage ~ 25 ccs and sent for analysis including culture and cytology Entamoeba Ab pending, HIV test negative IV Ceftriaxone 2gm Daily Day 2 Hydrocortisone IV 100mg Q8H for possible adrenal insufficiency due to septic shock, will slowly taper it tomorrow. # Abnormal LFT;s with coagulopathy like shock liver Decreasing LFTs on repeat labs FFPs 4 total given for coagulopathy Will monitor Avoid hepatotoxic drugs # SETH (resolved) with high anion gap metabolic acidosis(now with normal anion gap) with lactic acidosis Creatinine now at baseline after resuscitation [place] in place to monitor urine output Avoid nephrotoxic drugs Renal consult appreciated Monitor BUN and creatinine and electrolytes # Thrombocytopenia due to septic shock vs dilutational No signs of active bleeding will monitor Avoid medication causing thrombocytopenia # NCNC Anemia likely due to septic shock -at baseline 1 PRBC transfusion this admission. No active signs of bleeding Transfuse if Hb < 7gm/dl # FEN IV 1/2 NS with 10meq KCL, encourage PO Electrolytes to be repeated Clear liquid-sodium restricted # Prophylaxis FOr DVT: Not on AC due to coagulopathy, on SCDs For GI: ON Protonix # Code status: Full Code # Dispo: Admitted in the ICU. Duration of stay unknown. Illness, Investigation and Plan of care explained to the patients boyfriend. He verbalized understanding and agreed to the plan. Case seen and discussed with Dr. Beckham. Visit type - Emergency Visit Emergency Visit: Yes ED Registration Date: 03/20/17 Care time: The patient presented to the Emergency Department on the above date and was hospitalized for further evaluation of their emergent condition. - New Patient This patient is new to me today: No - Critical Care Critical Care patient: Yes Total Critical Care Time (in minutes): 45 Critical Care Statement: The care of this patient involved high complexity decision making to prevent further life threatening deterioration of the patient 's condition and/or to evalute & treat vital organ system(s) failure or risk of failure. - Discharge Referral Referred to [facility] No
[2017-03-24] MEDS: POTASSIUM CHLORIDE 10 MEQ in SODIUM CHLORIDE 0.45% 1,000 ML IVPB SCH (21:41)
[2017-03-24] MEDS: CHLORHEXIDINE GLUCONATE 4% CLEANSER FOR DECOLONIZATION TP SCH (21:42)
[2017-03-25] MEDS: HYDROCORTISONE SOD SUCCINATE 100 MG/2 ML VIAL IVPB SCH ×3 (02:30→17:22)
[2017-03-25 06:34] LABS: MCH 29.7 pg (25.7-33.7); MCHC 32.7 g/dl (32.0-36.0); MEAN CELL VOLUME 90.8 fl (80-96); MEAN PLT VOLUME 10.2 fl (7.5-11.1); PLATELET COUNT 69 K/MM3 (134-434); RDW 15.1 % (11.6-15.6); WHITE BLOOD COUNT 24.3 K/mm3 (4.0-10.0)
[2017-03-25 06:54] LABS: ALBUMIN 1.8 g/dl (3.4-5.0); ANION GAP 8 (8-16); CO2 34 mmol/L (21-32); GLUCOSE,RANDOM 107 mg/dL (74-106); INR 1.83 (0.82-1.09); MAGNESIUM 1.8 mg/dL (1.8-2.4); PROTHROMBIN TIME (PATIENT) 20.4 SEC (9.98-11.88); SGOT/AST 96 U/L (15-37)
[2017-03-25 06:56] LABS: ACTIVATED PTT 24.6 SECONDS (26.9-34.4)
[2017-03-25 07:11] LABS: ALK PHOS 174 U/L (45-117); BILIRUBIN,TOTAL 0.7 mg/dL (0.2-1.0); CALCIUM 7.1 mg/dL (8.5-10.1); CREATININE 0.6 mg/dL (0.55-1.02); PHOSPHOROUS 2.7 mg/dL (2.5-4.9); TOT PROT 4.6 g/dl (6.4-8.2)
[2017-03-25 07:24] LABS: SGPT/ALT 436 U/L (12-78); TROPONIN I 0.67 ng/ml (0.00-0.05)
[2017-03-25] MEDS: ALBUTEROL SO4 2.5/IPRATROPIUM 0.5 INH SOL 3 ML VIAL.NEB. NEB SCH ×4 (07:30→08:15)
--- NOTE | 2017-03-25 08:37 | PN ---
Physical Exam: SUBJECTIVE: ICU Progress Note: ED PA Fellow Patient seen and examined at bedside. Extubated yesterday. AAOx3; reports no pain; venturi mask. Pt. states that she had "shoulder pain and fevers" for one month prior to admission. Denies hematuria, frequency, dysuria, and urgency. No events over night. In's 2200, Out's 1630. ANNEMARIE drain with serosanguanous fluid. OBJECTIVE: Vital Signs Period Temp Pulse Resp BP Sys/Bonner Pulse Ox Last 24 Hr 98.3 F-99.5 F 58-94 14-20 99-129/61-75 84-98 GENERAL: The patient is awake, alert, and fully oriented. No acute distress or reported pain EYES: PERRL, extraocular movements intact, sclera anicteric, subconjunctival hemorrhage R lateral eye. ENT: Moist mucous membranes. NECK: Trachea midline, full range of motion, supple. LUNGS: Breath sounds equal, scattered rhonchi with fair aeration to bases HEART: Regular rate and rhythm, S1, S2 without murmur, rub or gallop. ABDOMEN: Soft, nontender, nondistended, normoactive bowel sounds, no guarding, no rebound, no hepatosplenomegaly, no masses. EXTREMITIES: 2+ pulses, warm, well-perfused, 1+ non-pitting edema UE and LE. SKIN: Warm, dry, normal turgor, no rashes, bruising, petechia, or lesions noted Laboratory Results - last 24 hr 03/20/17 03/23/17 03/24/17 16:00 14:00 05:50 WBC 20.5 H RBC 4.00 Hgb 11.8 Hct 36.0 MCV 90.1 MCHC 32.8 RDW 15.1 Plt Count 50 L D MPV 10.3 Neutrophils % 76.0 Lymphocytes % 6.0 L D Monocytes % 6.0 Band Neutrophils 2.0 D Metamyelocytes 7 H D Myelocytes 3 H Nucleated RBCs 2 H Haptoglobin 266 H INR PTT (Actin FS) Fibrinogen Sodium Potassium Chloride Carbon Dioxide Anion Gap BUN Creatinine Creat Clearance w eGFR Random Glucose Lactic Acid Calcium Phosphorus Magnesium Total Bilirubin AST ALT Alkaline Phosphatase Creatine Kinase Troponin I Total Protein Albumin Tumor Marker AFP 1.5 E. histolytica Antibody Negative Hepatitis A IgM Ab Negative Hep Bs Antigen Negative Hep B Core IgM Ab Negative Hepatitis C Ab (EIA) <0.1 03/24/17 03/24/17 03/24/17 16:30 16:30 16:30 WBC 20.8 H RBC 3.57 L Hgb 10.5 L D Hct 32.2 L MCV 90.3 MCHC 32.6 RDW 15.2 Plt Count 71 L D MPV 11.1 Neutrophils % Lymphocytes % Y Monocytes % Band Neutrophils Metamyelocytes Myelocytes Nucleated RBCs Haptoglobin INR 1.88 H PTT (Actin FS) 24.5 L Fibrinogen 227.0 L Sodium 149 H Potassium 3.5 Chloride 106 Carbon Dioxide 35 H Anion Gap 8 BUN 31 H Creatinine 0.6 D Creat Clearance w eGFR > 60 Random Glucose 119 H D Lactic Acid Calcium 7.3 L Phosphorus Magnesium Total Bilirubin 0.6 AST 114 H D ALT 541 H D Alkaline Phosphatase 188 H Creatine Kinase 28 Troponin I 1.02 H* Total Protein 4.7 L Albumin 1.7 L Tumor Marker AFP E. histolytica Antibody Hepatitis A IgM Ab Hep Bs Antigen Hep B Core IgM Ab Hepatitis C Ab (EIA) 03/24/17 03/25/17 03/25/17 16:30 05:55 05:55 WBC 24.3 H RBC 3.63 Hgb 10.8 Hct 33.0 MCV 90.8 MCHC 32.7 RDW 15.1 Plt Count 69 L MPV 10.2 Neutrophils % Y Lymphocytes % Y Monocytes % Band Neutrophils Metamyelocytes Myelocytes Nucleated RBCs Haptoglobin INR 1.83 H PTT (Actin FS) 24.6 L Fibrinogen 179.0 L D Sodium Potassium Chloride Carbon Dioxide Anion Gap BUN Creatinine Creat Clearance w eGFR Random Glucose Lactic Acid 2.1 H* Calcium Phosphorus Magnesium Total Bilirubin AST ALT Alkaline Phosphatase Creatine Kinase Troponin I Total Protein Albumin Tumor Marker AFP E. histolytica Antibody Hepatitis A IgM Ab Hep Bs Antigen Hep B Core IgM Ab Hepatitis C Ab (EIA) 03/25/17 03/25/17 05:55 05:55 WBC RBC Hgb Hct MCV MCHC RDW Plt Count MPV Neutrophils % Lymphocytes % Monocytes % Band Neutrophils Metamyelocytes Myelocytes Nucleated RBCs Haptoglobin INR PTT (Actin FS) Fibrinogen Sodium 146 H Potassium 3.1 L Chloride 104 Carbon Dioxide 34 H Anion Gap 8 BUN 26 H Creatinine 0.6 Creat Clearance w eGFR > 60 Random Glucose 107 H Lactic Acid 2.2 H* Calcium 7.1 L Phosphorus 2.7 Magnesium 1.8 Total Bilirubin 0.7 AST 96 H ALT 436 H Alkaline Phosphatase 174 H Creatine Kinase 28 Troponin I 0.67 H* Total Protein 4.6 L Albumin 1.8 L Tumor Marker AFP E. histolytica Antibody Hepatitis A IgM Ab Hep Bs Antigen Hep B Core IgM Ab Hepatitis C Ab (EIA) Active Medications Generic Name Dose Route Start Last Admin Trade Name Freq PRN Reason Stop Dose Admin Ceftriaxone Sodium 2 gm 03/23/17 10:00 03/24/17 09:13 Rocephin 2gm Ivpb (Pre-Docked) IVPB 2 gm DAILY CHELY Administration Chlorhexidine Gluconate 1 applic 03/20/17 22:00 03/24/17 21:42 Hibiclens For Decolonization - TP 1 applic HS CHELY Administration Chlorhexidine Gluconate 15 ml 03/20/17 12:15 03/24/17 21:42 Peridex - MM 15 ml BID CHELY Administration Hydrocortisone Sodium Succinate 100 mg 03/20/17 18:00 03/25/17 02:30 Solu-Cortef - IVPB 100 mg Q8H-IV CHELY Administration Pantoprazole Sodium 100 mls @ 200 mls/hr 03/20/17 09:30 03/24/17 09:13 Protonix 40mg Ivpb (Pre-Docked) IVPB 200 mls/hr DAILY CHELY Administration Potassium Chloride 10 meq/ 1,005 mls @ 75 mls/hr 03/24/17 19:15 03/24/17 21:41 Sodium Chloride IVPB 75 mls/hr Q13H CHELY Administration Mupirocin 1 applic 03/20/17 10:00 03/24/17 21:42 Bactroban Ointment (For Decolonization) - NS 03/25/17 09:59 1 applic BID CHELY Administration Potassium Phos/Sodium Phos 1 packet 03/25/17 08:45 Phos-Nak Packet - PO 03/25/17 08:46 ONCE ONE ASSESSMENT/PLAN: Pt. is a 31 y/o female with PMH of cholecystectomy who presents with gram negative sepsis bactermia with multi-system organ failure Septic shock with multi-system organ failure - Resolving. - Blood cultures, UC, and abscess drainage show burden sensitive E. Coli - Possible systemic infection seeding from urine? - Continue Ceftriaxone (day 3) - Central line removed today - Lactic acid stable - Reduce stress dose steroids (50mg TID) Liver abscess - MRI with contrast to further evaluate abscess now that she is stable - Percutaneously drained by IR on 03/20 - Catheter in place with ANNEMARIE drain to suction - Serosanguanous fluid in drain. - Surgery following Respiratory failure; possible ARDS - Extubated yesterday; on ventimask - Repeat CXR in morning SETH - Resolved - Responded well to lasix - Hold lasix today d/t hypernatremia and elevated BUN - Renal following Elevated Troponins - Most likely d/t sepsis - Trop of 20 and down trending. Last trop 0.6 - Serial Troponins - Repeat ECHO after full recovery to monitor heart function - Cardiology following Transaminitis - Shock liver most likely d/t ischemia from sepsis - Markedly improved - Monitor LFT's - GI following Thrombocytopenia - S/p FFP transfusion x4 - Platelet count 69 and up trending - Monitor coags, platelets, fibrinogen for signs of DIC - Heme/Onc consult appreciated Prophylaxis: - Hold a/c d/t coagulopathy; SED's - Protonix 40 mg PO daily F/E/N: - Oral fluids - Full clears today; advance diet as tolerated - Repleted potassium and phosphorus Code Status: FULL CODE Disposition: Pt. still requiring ICU care. Problem List - Problems (1) Anaerobic bacteremia Code(s): R78.81 - BACTEREMIA (2) Hypotension Code(s): I95.9 - HYPOTENSION, UNSPECIFIED Qualifiers: Qualified Code(s): I95.89 - Other hypotension (3) Liver abscess Code(s): K75.0 - ABSCESS OF LIVER (4) Multiorgan failure Code(s): [id number] - (5) Septic shock Code(s): A41.9 - SEPSIS, UNSPECIFIED ORGANISM R65.21 - SEVERE SEPSIS WITH SEPTIC SHOCK (6) UTI (urinary tract infection) Code(s): N39.0 - URINARY TRACT INFECTION, SITE NOT SPECIFIED Visit type - Emergency Visit Emergency Visit: Yes ED Registration Date: 03/20/17 Care time: The patient presented to the Emergency Department on the above date and was hospitalized for further evaluation of their emergent condition. - New Patient This patient is new to me today: No - Critical Care Critical Care patient: Yes Total Critical Care Time (in minutes): 40 Critical Care Statement: The care of this patient involved high complexity decision making to prevent further life threatening deterioration of the patient 's condition and/or to evalute & treat vital organ system(s) failure or risk of failure.
[2017-03-25] MEDS ORDERED: NAPH,MB-DB/K PH,MBDB POWDER PACKET PO ONE (08:45)
[2017-03-25] MEDS: PANTOPRAZOLE SODIUM 100 ML IVPB SCH (09:02)
[2017-03-25] MEDS: CHLORHEXIDINE GLUCONATE 0.12% 15ML CUP MM SCH (09:03)
[2017-03-25] MEDS: cefTRIAXone 2 GM/100 ML BAG (PRE-DOCKED) IVPB SCH (09:03)
[2017-03-25] MEDS: POTASSIUM CHLORIDE 10 MEQ in SODIUM CHLORIDE 0.45% 1,000 ML IVPB SCH ×3 (09:04→21:30)
[2017-03-25] MEDS ORDERED: POTASSIUM CHLORIDE TABS 20 MEQ TABLET.ER (FP) PO ONE ×2 (09:30→16:00)
[2017-03-25] MEDS ORDERED: POTASSIUM PHOSPHATE 30 MM in DEXTROSE 5%-WATER - 250 ML IVPB ONE (09:30)
--- NOTE | 2017-03-25 09:39 | PN ---
Progress Note (short form) - Note Progress Note: extubated oob to chair no pain reports having had fever at home for one month! Vital Signs Period Temp Pulse Resp BP Sys/Bonner Pulse Ox Last 24 Hr 98.3 F-99.5 F 58-94 14-20 88-129/52-75 84-98 cor-rrr lungs decreased bs at bases abd soft,nt +ANNEMARIE drain ext no edema CBC, BMP 03/25/17 05:55 03/25/17 05:55 Microbiology 03/24/17 16:45 Blood - Central Line Blood Parasites Smear (LUAN) - Final 03/23/17 15:00 Stool Clostridium difficile Antigen (LUAN) - Final 03/23/17 15:00 Stool Clostridium difficile Toxin Assay - Final 03/23/17 10:45 Blood - Central Line Blood Culture - Preliminary NO GROWTH OBTAINED AFTER 24 HOURS, INCUBATION TO CONTINUE FOR 4 DAYS. 03/23/17 10:45 Blood - Peripheral Venous Blood Culture - Preliminary NO GROWTH OBTAINED AFTER 24 HOURS, INCUBATION TO CONTINUE FOR 4 DAYS. 03/20/17 12:50 Abscess AFB Smear Concentration - Final 03/20/17 12:50 Abscess Mycobacterial Culture - Preliminary 03/20/17 12:13 Abscess NADYA Preparation - Preliminary 03/20/17 12:13 Abscess Fungal Culture - Preliminary 03/20/17 04:32 Blood - Peripheral Venous Blood Culture - Final Escherichia Coli 03/20/17 04:32 Blood - Peripheral Venous Blood Culture - Final Escherichia Coli 03/20/17 Unknown Abscess Gram Stain - Final 03/20/17 Unknown Abscess Body Fluid Culture - Final Escherichia Coli 03/20/17 Unknown Abscess Anaerobic Culture - Final NO ANAEROBES WERE ISOLATED 03/20/17 06:20 Urine - Urine - Catheterized Urine Culture - Final Escherichia Coli a/p ecoli sepsis- septic shock/multiorgan failure-resolved s/p drainage of liver abscess SETH-resolved coagulopathy elevated LFTs-resolved continue ceftriaxone taper steroids abdominal imaging Problem List - Problems (1) Septic shock Code(s): A41.9 - SEPSIS, UNSPECIFIED ORGANISM R65.21 - SEVERE SEPSIS WITH SEPTIC SHOCK (2) Multiorgan failure Code(s): CCM0878 - (3) Liver abscess Code(s): K75.0 - ABSCESS OF LIVER (4) UTI (urinary tract infection) Code(s): N39.0 - URINARY TRACT INFECTION, SITE NOT SPECIFIED
--- NOTE | 2017-03-25 10:00 | CONSULT ---
Admitting History and Physical - Primary Care Physician PCP: Ruben Beckham - Admission History of Present Illness: 31 y/o lady with no significant PMH who presented with fever , chills was found to have septic shock from Liver abscess. Extubated 03/24. Clear liquid diet ordered. Selected Entries 03/24/17 03/24/17 03/24/17 02:00 04:00 05:59 Lunch Supper Temperature 97.8 F 98.2 F 98.4 F 03/24/17 03/24/17 03/24/17 10:00 14:00 15:32 Lunch NPO Supper Temperature 99.5 F 99.4 F 03/24/17 03/24/17 03/24/17 18:00 19:00 22:00 Lunch Supper 75% Temperature 98.7 F 98.3 F 03/25/17 03/25/17 03/25/17 02:00 04:00 06:00 Lunch Supper Temperature 98.4 F 98.6 F 98.5 F Laboratory Tests 03/22/17 03/23/17 03/24/17 05:20 05:20 05:50 WBC 18.4 H 17.2 H 20.5 H 03/25/17 05:55 WBC 24.3 H Oriented to "hospital", "liver abscess" History Source: Patient, Medical Record Limitations to Obtaining History: Clinical Condition - Past Medical History Hepatobiliary: Yes: Other (s/p cholecystectomy) Renal/: Yes: Renal Calculi ...LMP: 03/20/17 ...: No - Past Surgical History Past Surgical History: Yes: Cholecystectomy (lap converted to open 8y ago (here per pt)), (x2) - Smoking History Smoking history: Never smoked Have you smoked in the past 12 months: No Aproximately how many cigarettes per day: 0 - Alcohol/Substance Use Hx Alcohol Use: No - Social History History of Recent Travel: No (not out of country since immigration) History - Admission Reason For Visit: HYPOVOLEMIC SHOCK,DEHYDRATION - Diagnostics X-ray: Report Reviewed - General Mental Status: Alert and Oriented, Awake and Alert, Able to Follow Commands, Forgetful (reported yesterday, improving), Flat Affect Attention: Intact Ability to Follow Directions: Good Head/Neck Control: WFL - Hearing Hearing: Functional Hearing: Normal Speech Evaluation - Communication Primary Language: MONGOLIAN Communication: Yes: Simple Responses (slow to respond but appropriate) - Speech Production Able to Make Needs Known: Yes: WNL Intelligibility: Yes: WNL - Speech Characteristics Voice Loudness: Normal Voice Pitch: Yes: Normal Voice Phonatory-based Quality: Yes: Normal Speech Pattern: Normal Speech Clarity: < 100% Nasal Resonance: Normal Articulation: Yes: Precise - Language/Auditory Comprehension Follows: Yes: 2 Stage Simple Commands - Language/Verbal Expression Able to Respond to Simple Queries: Yes: WNL Able to Communicate Wants and Needs: Yes: WNL Functional Communication Status: Yes: WNL - Swallow Evaluation/Bedside Assessment Current Nutritional Intake: Clear Liquids Oral Secretions: Yes: WFL Dentition: Yes: Adequate Facial Symmetry at Rest: Symmetrical Facial Symmetry on Retraction: Symmetrical Facial Movement: Controlled Against Resistance Opening: Weak Against Resistance Closing: Weak Pucker Lips: Weak Smile: Weak Lingual Movement: Symmetric Lingual Movement Characteristics: Normal Velopharyngeal Movement: Normal Laryngeal Elevation: WFL Laryngeal Movement: Able to Palpate Rate of Intake: WFL Bolus Size: WFL Pocketing: None Coughing/Throat Clear: No Change in Voice: No Recommendations - Speech Evaluation, Impression/Plan Impression: Per report, much improved today. Memory improving, vocal quality stronger, more euphonic.Reduced rate of response. Flat affect. O x 3. Reports throat feeling "scratchy" from intubattion. Swallow mildly delayed but fairly brisk. She reports coughing intermittently on clear liquids yesterday (?), but not observed by nursing. Overtly good tolerance of thin liquid today. - Dysphagia Impressions/Plan Dysphagia Impressions: Minimal Impairment *Silent aspiration: cannot be R/O at bedside Dysphagia Treatment Plan: Safe Rate, Elevate HOB during feed, Other (monitor tolerance) Recommendations: Modified Barium Swallow (if signs of throat clearing,cough, congestion), Other (Advance diet, as tolerated, if no signs oif dysphagia, and as discomfort improves) - Recommendations Diet Consistency: Other (full liquid) Liquids: Thin Liquids Supplement: Magic Cup, Other (per RD)
--- NOTE | 2017-03-25 11:32 | PN ---
Progress Note, Physician Chief Complaint: The patient seen in bed in ICU. Extubated, and had been out of bed this morning. Awake, alert. Denies any pains. She tells me that before her coming to the hospital, she was experiencing right shoulder pain, and no urinary symptoms, like dysuria, hematuria, frequency, or flank pains. She did notice that her urine was very dark ( ? related to elevated S. bilirubin). - Current Medication List Current Medications: Active Medications Ceftriaxone Sodium (Rocephin 2gm Ivpb (Pre-Docked)) 2 gm IVPB DAILY CHELY Last Admin: 03/25/17 09:03 Dose: 2 gm Chlorhexidine Gluconate (Hibiclens For Decolonization -) 1 applic TP HS CHELY Last Admin: 03/24/17 21:42 Dose: 1 applic Hydrocortisone Sodium Succinate (Solu-Cortef -) 100 mg IVPB Q8H-IV CHELY Last Admin: 03/25/17 09:03 Dose: 100 mg Pantoprazole Sodium (Protonix 40mg Ivpb (Pre-Docked)) 100 mls @ 200 mls/hr IVPB DAILY CHELY Last Admin: 03/25/17 09:02 Dose: 200 mls/hr Potassium Chloride 10 meq/ (Sodium Chloride) 1,005 mls @ 75 mls/hr IVPB Q13H CHELY Last Admin: 03/25/17 09:04 Dose: 75 mls/hr Potassium Phosphate 30 mm/ (Dextrose) 260 mls @ 62.5 mls/hr IVPB ONCE ONE Stop: 03/25/17 13:39 - Objective Vital Signs: Vital Signs Temperature 98.5 F 03/25/17 06:00 Pulse Rate 72 03/25/17 10:00 Respiratory Rate 16 03/25/17 10:00 Blood Pressure 99/64 03/25/17 10:00 O2 Sat by Pulse Oximetry (%) 98 03/24/17 11:00 Constitutional: Yes: Calm, Anxious Eyes: Yes: EOM Intact, Other (small area of Subconjunctival hemorrhage Rt.) HENT: Yes: Normocephalic Neck: Yes: Trachea Midline Cardiovascular: Yes: Regular Rate and Rhythm, S1, S2. No: S3, S4 Respiratory: Yes: Regular, Diminished, Rhonchi Gastrointestinal: Yes: Normal Bowel Sounds, Soft. No: Tenderness Edema: No Labs: CBC, BMP 03/25/17 05:55 03/25/17 05:55 INR, PTT INR 1.83 (0.82-1.09) H 03/25/17 05:55 Fibrinogen 179.0 mg/dL (238-498) L D 03/25/17 05:55 Problem List - Problems (1) Anaerobic bacteremia Code(s): R78.81 - BACTEREMIA (2) Hypotension Code(s): I95.9 - HYPOTENSION, UNSPECIFIED Qualifiers: Qualified Code(s): I95.89 - Other hypotension (3) Hypovolemic shock Code(s): R57.1 - HYPOVOLEMIC SHOCK (4) Liver abscess Code(s): K75.0 - ABSCESS OF LIVER (5) Renal failure Code(s): N19 - UNSPECIFIED KIDNEY FAILURE Qualifiers: Qualified Code(s): N17.8 - Other acute kidney failure (6) Septic shock Code(s): A41.9 - SEPSIS, UNSPECIFIED ORGANISM R65.21 - SEVERE SEPSIS WITH SEPTIC SHOCK (7) Hypokalemia due to loss of potassium Code(s): E87.6 - HYPOKALEMIA Assessment/Plan 31 y/o female admitted with Septic shock, and the finding of Liver abscess, which was drained . Acute Respiratory failure: Extubated now. Renal functions stable. Serum Bicarb still elevated, and should improve over time with euvolemia. Lanier catheter out. Maintains good urine output. Hypokalemia persists, partly due to the Alkalemia. Concur with supplements. The patient denies family history of renal or collagen vascular disease. In the future, the patient should be considered for full work up with regards to the status of her immunity( Collagen vascular, Vasculits etc. ) Thank again, Laura Tirado MD
--- NOTE | 2017-03-25 12:08 | PN ---
Progress Note, Physician Chief Complaint: HD6 septic shock (resolved) secondary to liver abscess History of Present Illness: Pt has percutaneous liver drain RUQ with serosanguineous (?with bile component) drainage, minimal in bulb, 30ml yesterday, 10ml so far today. Abscess, blood and urine were positive for pansensitive E. coli (on antibiotics). Pt extubated yesterday, now up in chair, tolerating clear liquids. She is still somewhat coagulopathic, but platelets are trending slowly up. Lactate 2.2. She has had loose BM. Lanier was removed, and she has voided. Lytes repleted. Fluid status improving. WBC remains high; stress steroids continue. No fever or n/v. Denies pain. She recalls right shoulder pain with fevers, intermittent over several weeks, prior to admission, as well as darker urine, but denies other urinary symptoms or other known illness before the pain and fevers began. - Current Medication List Current Medications: Active Medications Ceftriaxone Sodium (Rocephin 2gm Ivpb (Pre-Docked)) 2 gm IVPB DAILY [facility] Last Admin: 03/25/17 09:03 Dose: 2 gm Chlorhexidine Gluconate (Hibiclens For Decolonization -) 1 applic TP HS [facility] Last Admin: 03/24/17 21:42 Dose: 1 applic Hydrocortisone Sodium Succinate (Solu-Cortef -) 50 mg IVPB Q8H-IV [facility] Pantoprazole Sodium (Protonix 40mg Ivpb (Pre-Docked)) 100 mls @ 200 mls/hr IVPB DAILY [facility] Last Admin: 03/25/17 09:02 Dose: 200 mls/hr Potassium Chloride 10 meq/ (Sodium Chloride) 1,005 mls @ 75 mls/hr IVPB Q13H [facility] Last Admin: 03/25/17 09:04 Dose: 75 mls/hr Potassium Phosphate 30 mm/ (Dextrose) 260 mls @ 62.5 mls/hr IVPB ONCE ONE Stop: 03/25/17 13:39 Last Admin: 03/25/17 11:42 Dose: 62.5 mls/hr - Objective Vital Signs: Vital Signs Temperature 98.5 F 03/25/17 06:00 Pulse Rate 72 03/25/17 10:00 Respiratory Rate 16 03/25/17 10:00 Blood Pressure 99/64 03/25/17 10:00 O2 Sat by Pulse Oximetry (%) 98 03/24/17 11:00 Intake + Output 03/25/17 03/25/17 11:59 23:59 Intake Total 1150 Output Total 160 Balance 990 Intake: IV 750 1/2NS +10meqKCl/liter at 750 75cc/hr IVPB 100 Oral 300 Output: Gastric Drainage 0 Drainage 10 Right Upper Abdomen 10 Urine 150 Lanier 150 Other: Voiding Method Indwelling Catheter Bowel Movement Yes # Bowel Movements 1 Weight 165 lb 9.074 oz Weight Measurement Method Built in [facility] Tmax 99.5 yesterday am. Constitutional: Yes: Well Nourished, No Distress, Calm Eyes: Yes: Other (R subconjunctival hemorrhage). No: Sclera Icterus Cardiovascular: Yes: Regular Rate and Rhythm. No: Murmur Respiratory: Yes: Regular, CTA Bilaterally, Rhonchi (with few scattered basal) Gastrointestinal: Yes: Soft, Distention (mild), Other (RUQ drain with minimal serosang/?bilious output - light brown, only couple bubbles when shaken). No: Tenderness ...Rectal Exam: Yes: Deferred Genitourinary: No: Lanier Present Extremities: No: Cool, Cyanosis Edema: No Peripheral Pulses WNL: Yes Integumentary: No: Jaundice, Rash Wound/Incision: Yes: Dressing Dry and Intact (at RUQ drain site) Neurological: Yes: Alert, Oriented Labs: CBC, BMP 03/25/17 05:55 03/25/17 05:55 INR, PTT INR 1.83 (0.82-1.09) H 03/25/17 05:55 Fibrinogen 179.0 mg/dL (238-498) L D 03/25/17 05:55 CBC,CMP WBC 24.3 K/mm3 (4.0-10.0) H 03/25/17 05:55 RBC 3.63 M/mm3 (3.60-5.2) 03/25/17 05:55 Hgb 10.8 GM/dL (10.7-15.3) 03/25/17 05:55 Hct 33.0 % (32.4-45.2) 03/25/17 05:55 MCV 90.8 fl (80-96) 03/25/17 05:55 MCHC 32.7 g/dl (32.0-36.0) 03/25/17 05:55 RDW 15.1 % (11.6-15.6) 03/25/17 05:55 Plt Count 69 K/MM3 (134-434) L 03/25/17 05:55 MPV 10.2 fl (7.5-11.1) 03/25/17 05:55 Neutrophils % Y 03/25/17 05:55 Lymphocytes % Y 03/25/17 05:55 Monocytes % 6.0 % (3.8-10.2) 03/24/17 05:50 Eosinophils % 0.0 % (0-4.5) 03/23/17 05:20 Basophils % 0.1 % (0-2.0) D 03/23/17 05:20 Band Neutrophils 2.0 % (0-10) D 03/24/17 05:50 Metamyelocytes 7 % (0-2) H D 03/24/17 05:50 Myelocytes 3 % (0-2) H 03/24/17 05:50 Nucleated RBCs 2 % (0-0) H 03/24/17 05:50 Differential Comment Manual diff done 03/23/17 14:00 Reactive Lymphocytes 2 % (0-80) 03/23/17 14:00 Toxic Granulation 1+ 03/20/17 16:00 Dohle Bodies 1+ 03/20/17 09:45 Platelet Estimate Mod decreased (NORMAL) 03/23/17 14:00 Platelet Comment Few giant plts 03/23/17 14:00 Platelet Comment No clumping noted 03/23/17 14:00 Polychromasia Few 03/20/17 09:45 Hypochromic-Microcytic 1+ 03/20/17 09:45 Anisocytosis 1+ 03/20/17 03:58 Morphology Comment Slide scanned 03/20/17 16:00 Retic Count 0.22 % (0.5-1.5) L D 03/23/17 14:00 Haptoglobin 266 mg/dL (34-200) H 03/23/17 14:00 Sodium 146 mmol/L (136-145) H 03/25/17 05:55 Potassium 3.1 mmol/L (3.5-5.1) L 03/25/17 05:55 Chloride 104 mmol/L (98-107) 03/25/17 05:55 Carbon Dioxide 34 mmol/L (21-32) H 03/25/17 05:55 Anion Gap 8 (8-16) 03/25/17 05:55 BUN 26 mg/dL (7-18) H 03/25/17 05:55 Creatinine 0.6 mg/dL (0.55-1.02) 03/25/17 05:55 Creat Clearance w eGFR > 60 (>60) 03/25/17 05:55 Random Glucose 107 mg/dL (74-106) H 03/25/17 05:55 Lactic Acid 2.2 mmol/L (0.4-2.0) H* 03/25/17 05:55 Uric Acid 3.7 mg/dL (2.6-7.2) 03/23/17 14:00 Calcium 7.1 mg/dL (8.5-10.1) L 03/25/17 05:55 Ionized Calcium 3.4 mg/dL (4.5-5.6) L 03/20/17 16:00 Phosphorus 2.7 mg/dL (2.5-4.9) 03/25/17 05:55 Magnesium 1.8 mg/dL (1.8-2.4) 03/25/17 05:55 Iron 173 ug/dL (27-159) H 03/22/17 05:20 TIBC 192 ug/dL (250-450) L 03/22/17 05:20 Iron Saturation 90 % (15-55) H 03/22/17 05:20 Ferritin 380.216 ng/ml (6.9-282.5) H 03/23/17 14:00 Total Bilirubin 0.7 mg/dL (0.2-1.0) 03/25/17 05:55 AST 96 U/L (15-37) H 03/25/17 05:55 ALT 436 U/L (12-78) H 03/25/17 05:55 Alkaline Phosphatase 174 U/L (45-117) H 03/25/17 05:55 LD Total 326 U/L (84-246) H D 03/23/17 14:00 Creatine Kinase 28 IU/L (26-192) 03/25/17 05:55 CK-MB (CK-2) 31.013 ng/ml (0.5-3.6) H 03/21/17 15:00 Troponin I 0.67 ng/ml (0.00-0.05) H* 03/25/17 05:55 Total Protein 4.6 g/dl (6.4-8.2) L 03/25/17 05:55 Microbiology 03/23/17 15:00 Stool Gram Stain - Final 03/23/17 10:45 Blood - Central Line Blood Culture - Preliminary NO GROWTH OBTAINED AFTER 48 HOURS, INCUBATION TO CONTINUE FOR 3 DAYS. 03/23/17 10:45 Blood - Peripheral Venous Blood Culture - Preliminary NO GROWTH OBTAINED AFTER 48 HOURS, INCUBATION TO CONTINUE FOR 3 DAYS. 03/24/17 16:45 Blood - Central Line Blood Parasites Smear (LUAN) - Final 03/23/17 15:00 Stool Clostridium difficile Antigen (LUAN) - Final 03/23/17 15:00 Stool Clostridium difficile Toxin Assay - Final 03/20/17 12:50 Abscess AFB Smear Concentration - Final 03/20/17 12:50 Abscess Mycobacterial Culture - Preliminary 03/20/17 12:13 Abscess NADYA Preparation - Preliminary 03/20/17 12:13 Abscess Fungal Culture - Preliminary 03/20/17 04:32 Blood - Peripheral Venous Blood Culture - Final Escherichia Coli 03/20/17 04:32 Blood - Peripheral Venous Blood Culture - Final Escherichia Coli 03/20/17 Unknown Abscess Gram Stain - Final 03/20/17 Unknown Abscess Body Fluid Culture - Final Escherichia Coli 03/20/17 Unknown Abscess Anaerobic Culture - Final NO ANAEROBES WERE ISOLATED 03/20/17 06:20 Urine - Urine - Catheterized Urine Culture - Final Escherichia Coli Albumin 1.8 g/dl (3.4-5.0) L 03/25/17 05:55 Total Amylase 31 U/L (25-115) 03/20/17 03:58 Lipase 43 U/L (73-393) L 03/20/17 09:45 Tumor Marker AFP 1.5 ng/ml (0.0-8.3) 03/20/17 16:00 Vitamin B12 42269 pg/ml (180-914) H 03/22/17 05:20 Serum Folate 16 ng/ml (3.1-17.5) 03/23/17 14:00 TSH 1.78 uIU/ml (0.358-3.74) 03/20/17 09:45 Serum , Qual Negative 03/20/17 03:58 Cortisol AM Sample 63.4 ug/dL (.) 03/20/17 03:58 - ....Imaging X-ray: Report Reviewed Problem List - Problems (1) Liver abscess Assessment/Plan: septic shock resolved, sepsis/SIRS resolving s/p percutaneous drainage of liver abscess - continue to monitor and record drainage, presence of bile would not be highly unusual on antibiotics for E. coli sepsis - responding well, lactate still slightly over normal, still coagulopathic cytology negative for malignant cells, consistent with abscess, special stains pending + bowel function and tolerating clears Lanier out - would continue to monitor strict I/Os until fluid status entirely euvolemic and lytes normal and stable leukocytosis may be related to steroids - would taper to off original etiology unclear - doubt urologic etiology - pt describes no urinary symptoms prior to shoulder pain with fevers 2+ weeks prior to admission, also no clear preceding illness that she recalls... consider imaging ?MRI abdomen/pelvis with contrast?, and also would consider colonoscopy as outpatient once acute issues have resolved continue care Code(s): K75.0 - ABSCESS OF LIVER (2) Multiorgan failure Assessment/Plan: still with some dysfunction but overall much improved see above LFTs down + bowel function, geraldine clears OOB and voiding Code(s): GKE2111 - (3) Respiratory failure requiring intubation Assessment/Plan: resolved Code(s): J96.90 - RESPIRATORY FAILURE, UNSP, UNSP W HYPOXIA OR HYPERCAPNIA (4) E. coli septic shock Assessment/Plan: shock resolved, SIRS resolving on antibiotics ID on board continue current care Code(s): A41.51 - SEPSIS DUE TO ESCHERICHIA COLI [E. COLI] R65.21 - SEVERE SEPSIS WITH SEPTIC SHOCK
--- NOTE | 2017-03-25 12:26 | PN ---
Teaching Attending Note Name of Resident: Clari Hearn ATTENDING PHYSICIAN STATEMENT I saw and evaluated the patient. I reviewed the resident's note and discussed the case with the resident. I agree with the resident's findings and plan as documented. SUBJECTIVE: Patient seen and examined in the ICU. Extubated. Awake and alert. Mild abdominal discomfort. Some dry cough. CXR: Persistent bibasilar congestion/infiltrates OBJECTIVE: Intake & Output 03/22/17 03/23/17 03/24/17 03/25/17 23:59 23:59 23:59 23:59 Intake Total 3258 2120 2200 1150 Output Total 4270 4525 1630 160 Balance -1012 -2405 570 990 Weight 181 lb 9 oz 173 lb 8 oz 169 lb 8.568 oz 165 lb 9.074 oz Last Vital Signs Temp Pulse Resp BP Pulse Ox 98.5 F 72 16 99/64 95 03/25/17 06:00 03/25/17 10:00 03/25/17 10:00 03/25/17 10:00 03/25/17 09:00 Active Medications Ceftriaxone Sodium (Rocephin 2gm Ivpb (Pre-Docked)) 2 gm IVPB DAILY [facility] Last Admin: 03/25/17 09:03 Dose: 2 gm Chlorhexidine Gluconate (Hibiclens For Decolonization -) 1 applic TP HS [facility] Last Admin: 03/24/17 21:42 Dose: 1 applic Hydrocortisone Sodium Succinate (Solu-Cortef -) 50 mg IVPB Q8H-IV [facility] Pantoprazole Sodium (Protonix 40mg Ivpb (Pre-Docked)) 100 mls @ 200 mls/hr IVPB DAILY [facility] Last Admin: 03/25/17 09:02 Dose: 200 mls/hr Potassium Chloride 10 meq/ (Sodium Chloride) 1,005 mls @ 75 mls/hr IVPB Q13H [facility] Last Admin: 03/25/17 09:04 Dose: 75 mls/hr Potassium Phosphate 30 mm/ (Dextrose) 260 mls @ 62.5 mls/hr IVPB ONCE ONE Stop: 03/25/17 13:39 Last Admin: 03/25/17 11:42 Dose: 62.5 mls/hr Gen: Awake and alert, mildly tachypneic at rest Heart: RRR Lung: Bibasilar rhonchi Abd: soft, nontender Ext: (+) edema Active Medications Ceftriaxone Sodium (Rocephin 2gm Ivpb (Pre-Docked)) 2 gm IVPB DAILY [facility] Last Admin: 03/25/17 09:03 Dose: 2 gm Chlorhexidine Gluconate (Hibiclens For Decolonization -) 1 applic TP HS [facility] Last Admin: 03/24/17 21:42 Dose: 1 applic Hydrocortisone Sodium Succinate (Solu-Cortef -) 50 mg IVPB Q8H-IV [facility] Pantoprazole Sodium (Protonix 40mg Ivpb (Pre-Docked)) 100 mls @ 200 mls/hr IVPB DAILY [facility] Last Admin: 03/25/17 09:02 Dose: 200 mls/hr Potassium Chloride 10 meq/ (Sodium Chloride) 1,005 mls @ 75 mls/hr IVPB Q13H [facility] Last Admin: 03/25/17 09:04 Dose: 75 mls/hr Potassium Phosphate 30 mm/ (Dextrose) 260 mls @ 62.5 mls/hr IVPB ONCE ONE Stop: 03/25/17 13:39 Last Admin: 03/25/17 11:42 Dose: 62.5 mls/hr Laboratory Results - last 24 hr 03/20/17 03/20/17 03/23/17 04:34 16:00 14:00 WBC RBC Hgb Hct MCV MCHC RDW Plt Count MPV Neutrophils % Lymphocytes % Haptoglobin 266 H INR PTT (Actin FS) Fibrinogen Sodium Potassium Chloride Carbon Dioxide Anion Gap BUN Creatinine Creat Clearance w eGFR Random Glucose Lactic Acid Calcium Phosphorus Magnesium Total Bilirubin AST ALT Alkaline Phosphatase Creatine Kinase Troponin I Total Protein Albumin Tumor Marker AFP 1.5 E. histolytica Antibody Negative Hepatitis A IgM Ab Negative Hep Bs Antigen Negative Hep B Core IgM Ab Negative Hepatitis C Ab (EIA) <0.1 Blood Type O POSITIVE Antibody Screen Positive H Antibody Identification Anti e Antigen Identification c Antigen - NEGATIVE Crossmatch See Detail 03/24/17 03/24/17 03/24/17 16:30 16:30 16:30 WBC 20.8 H RBC 3.57 L Hgb 10.5 L D Hct 32.2 L MCV 90.3 MCHC 32.6 RDW 15.2 Plt Count 71 L D MPV 11.1 Neutrophils % Lymphocytes % Y Haptoglobin INR 1.88 H PTT (Actin FS) 24.5 L Fibrinogen 227.0 L Sodium 149 H Potassium 3.5 Chloride 106 Carbon Dioxide 35 H Anion Gap 8 BUN 31 H Creatinine 0.6 D Creat Clearance w eGFR > 60 Random Glucose 119 H D Lactic Acid Calcium 7.3 L Phosphorus Magnesium Total Bilirubin 0.6 AST 114 H D ALT 541 H D Alkaline Phosphatase 188 H Creatine Kinase 28 Troponin I 1.02 H* Total Protein 4.7 L Albumin 1.7 L Tumor Marker AFP E. histolytica Antibody Hepatitis A IgM Ab Hep Bs Antigen Hep B Core IgM Ab Hepatitis C Ab (EIA) Blood Type Antibody Screen Antibody Identification Antigen Identification Crossmatch 03/24/17 03/25/17 03/25/17 16:30 05:55 05:55 WBC 24.3 H RBC 3.63 Hgb 10.8 Hct 33.0 MCV 90.8 MCHC 32.7 RDW 15.1 Plt Count 69 L MPV 10.2 Neutrophils % Y Lymphocytes % Y Haptoglobin INR 1.83 H PTT (Actin FS) 24.6 L Fibrinogen 179.0 L D Sodium Potassium Chloride Carbon Dioxide Anion Gap BUN Creatinine Creat Clearance w eGFR Random Glucose Lactic Acid 2.1 H* Calcium Phosphorus Magnesium Total Bilirubin AST ALT Alkaline Phosphatase Creatine Kinase Troponin I Total Protein Albumin Tumor Marker AFP E. histolytica Antibody Hepatitis A IgM Ab Hep Bs Antigen Hep B Core IgM Ab Hepatitis C Ab (EIA) Blood Type Antibody Screen Antibody Identification Antigen Identification Crossmatch 03/25/17 03/25/17 05:55 05:55 WBC RBC Hgb Hct MCV MCHC RDW Plt Count MPV Neutrophils % Lymphocytes % Haptoglobin INR PTT (Actin FS) Fibrinogen Sodium 146 H Potassium 3.1 L Chloride 104 Carbon Dioxide 34 H Anion Gap 8 BUN 26 H Creatinine 0.6 Creat Clearance w eGFR > 60 Random Glucose 107 H Lactic Acid 2.2 H* Calcium 7.1 L Phosphorus 2.7 Magnesium 1.8 Total Bilirubin 0.7 AST 96 H ALT 436 H Alkaline Phosphatase 174 H Creatine Kinase 28 Troponin I 0.67 H* Total Protein 4.6 L Albumin 1.8 L Tumor Marker AFP E. histolytica Antibody Hepatitis A IgM Ab Hep Bs Antigen Hep B Core IgM Ab Hepatitis C Ab (EIA) Blood Type Antibody Screen Antibody Identification Antigen Identification Crossmatch ASSESSMENT AND PLAN: Hepatic Abscess UTI E coli Bacteremia Septic Shock resolving Multiorgan Failure Acute Hypoxic Respiratory Failure Acute Kidney Injury improving Lactic Acidosis +Troponins likely Demand Ischemia Elevated LFTs likely Ischemic Injury improving Coagulopathy/Thrombocytopenia r/o DIC - O2 to maintain saturation - ABX - Steroid taper - Replete lytes - monitor coags, platelets, fibrinogen level - taper Fio2 to keep Spo2 >90% - DVT/GI prophylaxis - Incentive Spirometry Dr Hayden Critical care time spent in reviewing chart, evaluating patient and formulating plan 36 min
[2017-03-25 13:00] LABS: PLATELET ESTIMATE DECREASED (NORMAL)
--- NOTE | 2017-03-25 13:39 | PN ---
Teaching Attending Note Name of Resident: Mary Hernadez ATTENDING PHYSICIAN STATEMENT I saw and evaluated the patient. I reviewed the resident's note and discussed the case with the resident. I agree with the resident's findings and plan as documented. SUBJECTIVE: no fever or chills, extubated yesterday. has throat pain OBJECTIVE: awake , alert and oriented. CV: RRR Lungs; decreased breath sounds at bases otherwise , nl Ext : trace edema on feet. no erythema on legs, edema on hands ASSESSMENT AND PLAN: 31 y/o lady with no significant PMH who presented with fever , chills was found to have septic shock from LIver abscess. 1- Septic shock, 2/2 UTI--> bacteremia--> liver abscess . S/p IR drainage improved . extubated , off pressors - Cont ceftriaxone 2 g/daily - follow repeat blood cx - monitor out put from ANNEMARIE drain . will d/w IR - steroid taper started 2- Acute hypoxic resp failure ,extubated now . 3- Dehydration :Na improved . now extubated , can orally hydrate 4- Thrombocytopenia : likely due to sepsis . improved Monitor 5- NSTEMI: 2/2 to sepsis . no indication of asa or BB trop trended down. Echo with no focal WMA 6- New cardiomyopathy, with Mod reduced EF. likely due to sepsis montior . repeat echo after complete recovery 7- coagulopathy : stable INR and PTT . fibrinogen has decreased. mixing studies are pending . possible coagulopathy form liver dysfunction 8- L adrenal gland thickening , of unclear etiology . taper stress dose steroids and monitor BP . Critical Care Total Critical Care Time (in minutes): 35 Critical Care Statement: The care of this patient involved high complexity decision making to prevent further life threatening deterioration of the patient 's condition and/or to evalute & treat vital organ system(s) failure or risk of failure.
[2017-03-25 14:37] LABS: ALBUMIN 2.1 g/dl (3.4-5.0); ANION GAP 11 (8-16); BILIRUBIN,TOTAL 0.5 mg/dL (0.2-1.0); CALCIUM 7.3 mg/dL (8.5-10.1); CO2 31 mmol/L (21-32); CREATININE 0.6 mg/dL (0.55-1.02); GLUCOSE,RANDOM 184 mg/dL (74-106); MCH 29.3 pg (25.7-33.7); MEAN CELL VOLUME 91.6 fl (80-96); MEAN PLT VOLUME 10.9 fl (7.5-11.1); PLATELET COUNT 86 K/MM3 (134-434); RDW 15.2 % (11.6-15.6); SGOT/AST 104 U/L (15-37); TOT PROT 5.3 g/dl (6.4-8.2)
[2017-03-25 14:39] LABS: SGPT/ALT 464 U/L (12-78)
[2017-03-25 14:46] LABS: ALK PHOS 193 U/L (45-117)
[2017-03-25 14:48] LABS: WHITE BLOOD COUNT 32.4 K/mm3 (4.0-10.0)
[2017-03-25 15:00] LABS: TROPONIN I 0.61 ng/ml (0.00-0.05)
[2017-03-25 15:23] LABS: INR 1.71 (0.82-1.09)
[2017-03-25 15:30] LABS: PHOSPHOROUS 3.8 mg/dL (2.5-4.9)
[2017-03-25] MEDS ORDERED: SODIUM CHLORIDE 0.9%/KCL 1,000 ML IV SCH (15:30)
[2017-03-25] MEDS ORDERED: SODIUM CHLORIDE 1,000 ML IV STA ×2 (15:46→22:44)
[2017-03-25 16:09] LABS: PLATELET ESTIMATE DECREASED (NORMAL)
--- NOTE | 2017-03-25 16:11 | PN ---
Progress Note (short form) - Note Progress Note: Chief Complaint: fever, vomiting S: WBC rising, LFT's, Lactic acid rising. Worsened hypotension today. + diarrhea. diet now liquid, patient endorsing difficulty swallowing --> going down wrong tube. worsened sob today. no cp, palps, dizziness Current Medications Ceftriaxone Sodium (Rocephin 2gm Ivpb (Pre-Docked)) 2 gm IVPB DAILY [facility] Last Admin: 03/25/17 09:03 Dose: 2 gm Chlorhexidine Gluconate (Hibiclens For Decolonization -) 1 applic TP HS [facility] Last Admin: 03/24/17 21:42 Dose: 1 applic Hydrocortisone Sodium Succinate (Solu-Cortef -) 50 mg IVPB Q8H-IV [facility] Sodium Chloride (Normal Saline -) 1,000 mls @ 1,000 mls/hr IV ASDIR STA Stop: 03/25/17 16:45 Pantoprazole Sodium (Protonix -) 40 mg PO DAILY [facility] Vital Signs - 24 hr 03/24/17 03/24/17 03/24/17 18:00 20:00 21:00 Temperature 98.7 F Pulse Rate 94 H 72 Respiratory 18 20 20 Rate Blood Pressure 109/71 111/68 O2 Sat by Pulse Oximetry (%) 03/24/17 03/25/17 03/25/17 22:00 00:00 02:00 Temperature 98.3 F 98.4 F Pulse Rate 62 60 59 L Respiratory 20 14 18 Rate Blood Pressure 110/69 129/75 113/70 O2 Sat by Pulse Oximetry (%) 03/25/17 03/25/17 03/25/17 04:00 06:00 08:00 Temperature 98.6 F 98.5 F Pulse Rate 58 L 60 74 Respiratory 16 16 16 Rate Blood Pressure 116/71 116/71 88/52 O2 Sat by Pulse Oximetry (%) 03/25/17 03/25/17 03/25/17 09:00 10:00 12:00 Temperature Pulse Rate 72 62 Respiratory 16 16 16 Rate Blood Pressure 99/64 106/76 O2 Sat by Pulse 95 Oximetry (%) 03/25/17 14:00 Temperature 98.8 F Pulse Rate 68 Respiratory 16 Rate Blood Pressure 122/73 O2 Sat by Pulse Oximetry (%) Intake & Output 03/23/17 03/24/17 03/25/17 03/26/17 07:59 07:59 07:59 07:59 Intake Total 2670 2170 2200 Output Total 4130 7485 980 Balance -1265 -2550 1220 Weight 173 lb 8 oz 169 lb 8.568 oz 165 lb 9.074 oz Constitutional: Yes: Well Nourished, No Distress Eyes: No: Sclera Icterus HENT: No: Nasal Congestion Neck: No: Decreased ROM Respiratory: Yes: bibasilar dullness. No: Accessory Muscle Use, Rales, Wheezes Gastrointestinal: Yes: Normal Bowel Sounds. No: Distention, Hepatomegaly, Palpable Mass, Tenderness Cardiovascular: Yes: Regular Rate and Rhythm JVD: No Carotid Bruit: No PMI: Non-Displaced Heart Sounds: Yes: S1, S2. No: Gallop Murmur: No: Systolic Murmur, Diastolic Murmur Musculoskeletal: Yes: Other (No kyphosis) Extremities: + trace dependent edema (improving)No: Cold, Cyanosis Peripheral Pulses: 2+ Left Carotid, 2+ Right Carotid, 2+ Left Doralis Pedis, 2+ Right Dorsalis Pedis Integumentary: No: Jaundice Neurological: [email or web address] Psychiatric: No: Agitated - Other Data Labs, Other Data: CBC, BMP 03/25/17 13:45 03/25/17 13:45 Laboratory Tests 03/25/17 03/25/17 03/25/17 05:55 13:45 13:45 INR 1.71 H Lactic Acid 2.2 H* Total Bilirubin 0.5 D AST 104 H ALT 464 H Alkaline Phosphatase 193 H Troponin I 0.61 H* Albumin 2.1 L 03/25/17 13:45 INR Lactic Acid 5.2 H* Total Bilirubin AST ALT Alkaline Phosphatase Troponin I Albumin tele: nsr Assessment/Plan ECG's: #1: sinus tach, no isch abnormality #2: same, mildly prolonged QT #3: NSR, nonspecific ST-T abnormalities (QT normalized) CXR 03/21 am: bilat effusions and diffuse infiltrates, stable vs last film (incr vs admit film) cxr 03/24: per report slightly worse, but by my review looks improved. echo here 02/2017: moderately decreased biventricular function (global), mild- mod TR rvsp 34, + pleural effusion A/p 31 year old female with a significant past medical history of cholecystectomy ( 8 years ago), who emigrated from [place] (9 years ago) and presents in severe shock gram negative rich sepsis 2/2 hepatic abscess now s/p IR drainage.. septic shock, gram negative rich bacteremia, hepatic abscess: - s/p percutaneous liver drain -cont stress dose steroids per pmd/pulm/critical care. -abx per ID, f/u of abscess cx's - 03/23: hemodynamically stable at present off levophed and IVF. CVP improving today 03/23 s/p lasix trial. Close monitoring of alkalosis and potassium/electrolyte abnoromalities while on lasix - most recent pH 7.5, k 3.0 and patient with new bradycardia ?long qt. Repeat ekg tomorrow am. - 03/24: patient autodiuresing. Net negative. no need for lasix today. Monitor alkalosis and hypokalemia closely. - 03/25: clinically slightly worse this afternoon. urine output not entirely recorded due to frequent diarrhea. (no walter). hypotension worsened. IVF resumed. GI planning repeat MRI. patient with worsened sob, endorsing symptoms that may reflect aspiration. Will repeat CXR. elevated troponin: -trop peg to 20, trending down -ECG initially non-ischemic, then with nonspecific changes --> repeat with nonsp ST-Ts (actually improved slightly vs last tracing) -young female pt with no reported history of severe hyperlipidemia, diabetes, cigarettes--extremely low pretest prob of obstructive CAD -troponins and ECG are very likely secondary to sepsis related myonecrosis. hence ASA/AC, BB, statin not indicated (regardless, she is at prohibitive risks for these medical therapies, or invasive therapy of CAD, in light of heme abnormalities described above and septic shock) -less likely Takotsubo's from immense stressors. Echo here with moderately decreased biventricular function (global) see discusion below. 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 takotsubo cardiomyopathy (less likely ). - Will need follow up echo as outpatient once acute issues resolve. - ongoing mgm't of underlying condition/sepsis - 03/22: Although patient is total body volume overloaded, would not diurese. Fluid is mainly third-spaced as CVP is low. Would continue IVF resuscitation as needed to manage sepsis. Diuresis once clinical condition improves. - 03/23: now off IVF, pressors. Given trial of lasix 20 mg IV x1 --> tolerated well. If redose tomorrow, close montiroing of pH and K as mentioned above. - 03/24: auto diuresing, no need for lasix. - 03/25: worsened hypotension, wbc, lactate rising. IVF resumed anemia, thrombocytopenia, coagulopathy: -likely sec to sepsis -shock liver likely contributing to coagulopathy, ? DIC component -PLTs low, INR high -per critical care/heme SETH: resolved -sec to hypoperfusion vs sepsis -renal fxn improved s/p IVF, hemodynamic support as doing -renal following shock liver: -coagulation support as above -per critical care acute resp failure: -sec to severe metabolic acidosis/septic shock - resolved. now s/p extubation. est crit care time in mgmt and review of data = 35 min
--- NOTE | 2017-03-25 16:28 | PN ---
Physical Exam: SUBJECTIVE: Patient seen and examined at bed side this morning. She was sitting comfortably in a chair. Complained of throat discomfort. Denies chest pain, sob, cough, palpitation, abdominal pain, nausea or vomiting. OBJECTIVE: Vital Signs Period Temp Pulse Resp BP Sys/Bonner Pulse Ox Last 24 Hr 98.3 F-98.8 F 58-94 14-20 88-129/52-76 95 GENERAL: Young female, is sitting in a chair comfortably, awake, alert, oriented x 3, in no acute distress, nasal canula in place. IV line: Right IJ HEAD: Normal with no signs of trauma. EYES: Right conjunctival hemorrhage, No pallor or icterus, PERRLA EARS, NOSE, THROAT: Ears normal. NECK: Normal range of motion, supple without lymphadenopathy, JVD, or masses. LUNGS: Breath sounds equal, clear to auscultation bilaterally. No wheezes, and no crackles. No accessory muscle use. HEART: Regular rate and rhythm, normal S1 and S2 without murmur, rub or gallop. ABDOMEN: ANNEMARIE drain in place, Soft, not distended, normoactive bowel sounds, no guarding, no rebound, no masses. No hepatomegaly or splenomegaly. MUSCULOSKELETAL: Normal range of motion at all joints. No bony deformities or tenderness. UPPER EXTREMITIES: 2+ pulses, warm, well-perfused. No cyanosis. No clubbing. No peripheral edema. LOWER EXTREMITIES: 2+ pulses, warm, well-perfused. No calf tenderness. No peripheral edema. NEUROLOGICAL: Extubated now, alert, oriented x 3, neuro exam still not cooperative. PERRLA, moving all her limbs on low sedation. PSYCHIATRIC: Normal mood and affect. SKIN: Warm, normal turgor, no rashes or lesions noted, normal capillary refill. Laboratory Results - last 24 hr 03/23/17 03/24/17 03/24/17 14:00 16:30 16:30 WBC 20.8 H RBC 3.57 L Hgb 10.5 L D Hct 32.2 L MCV 90.3 MCHC 32.6 RDW 15.2 Plt Count 71 L D MPV 11.1 Neutrophils % Lymphocytes % Y Monocytes % Band Neutrophils Differential Comment Platelet Estimate Haptoglobin 266 H INR 1.88 H PTT (Actin FS) 24.5 L Fibrinogen 227.0 L Sodium Potassium Chloride Carbon Dioxide Anion Gap BUN Creatinine Creat Clearance w eGFR Random Glucose Lactic Acid Calcium Phosphorus Magnesium Total Bilirubin AST ALT Alkaline Phosphatase Creatine Kinase Troponin I Total Protein Albumin 03/24/17 03/24/17 03/25/17 16:30 16:30 05:55 WBC 24.3 H RBC 3.63 Hgb 10.8 Hct 33.0 MCV 90.8 MCHC 32.7 RDW 15.1 Plt Count 69 L MPV 10.2 Neutrophils % 78.0 Lymphocytes % 14.0 D Monocytes % 6.0 Band Neutrophils 2.0 Differential Comment Manual diff done Platelet Estimate Decreased Haptoglobin INR PTT (Actin FS) Fibrinogen Sodium 149 H Potassium 3.5 Chloride 106 Carbon Dioxide 35 H Anion Gap 8 BUN 31 H Creatinine 0.6 D Creat Clearance w eGFR > 60 Random Glucose 119 H D Lactic Acid 2.1 H* Calcium 7.3 L Phosphorus Magnesium Total Bilirubin 0.6 AST 114 H D ALT 541 H D Alkaline Phosphatase 188 H Creatine Kinase 28 Troponin I 1.02 H* Total Protein 4.7 L Albumin 1.7 L 03/25/17 03/25/17 03/25/17 05:55 05:55 05:55 WBC RBC Hgb Hct MCV MCHC RDW Plt Count MPV Neutrophils % Lymphocytes % Monocytes % Band Neutrophils Differential Comment Platelet Estimate Haptoglobin INR 1.83 H PTT (Actin FS) 24.6 L Fibrinogen 179.0 L D Sodium 146 H Potassium 3.1 L Chloride 104 Carbon Dioxide 34 H Anion Gap 8 BUN 26 H Creatinine 0.6 Creat Clearance w eGFR > 60 Random Glucose 107 H Lactic Acid 2.2 H* Calcium 7.1 L Phosphorus 2.7 Magnesium 1.8 Total Bilirubin 0.7 AST 96 H ALT 436 H Alkaline Phosphatase 174 H Creatine Kinase 28 Troponin I 0.67 H* Total Protein 4.6 L Albumin 1.8 L 03/25/17 03/25/17 03/25/17 13:45 13:45 13:45 WBC 32.4 H* D RBC 4.11 Hgb 12.1 D Hct 37.6 MCV 91.6 MCHC 32.0 RDW 15.2 Plt Count 86 L D MPV 10.9 Neutrophils % 85.0 H Lymphocytes % 8.0 D Monocytes % 7.0 Band Neutrophils Differential Comment Manual diff done Platelet Estimate Decreased Haptoglobin INR 1.71 H PTT (Actin FS) 24.0 L Fibrinogen 187.0 L Sodium 142 Potassium 3.2 L Chloride 100 Carbon Dioxide 31 Anion Gap 11 BUN 22 H Creatinine 0.6 Creat Clearance w eGFR > 60 Random Glucose 184 H D Lactic Acid Calcium 7.3 L Phosphorus 3.8 D Magnesium Total Bilirubin 0.5 D AST 104 H ALT 464 H Alkaline Phosphatase 193 H Creatine Kinase 43 Troponin I 0.61 H* Total Protein 5.3 L Albumin 2.1 L 03/25/17 13:45 WBC RBC Hgb Hct MCV MCHC RDW Plt Count MPV Neutrophils % Lymphocytes % Monocytes % Band Neutrophils Differential Comment Platelet Estimate Haptoglobin INR PTT (Actin FS) Fibrinogen Sodium Potassium Chloride Carbon Dioxide Anion Gap BUN Creatinine Creat Clearance w eGFR Random Glucose Lactic Acid 5.2 H* Calcium Phosphorus Magnesium Total Bilirubin AST ALT Alkaline Phosphatase Creatine Kinase Troponin I Total Protein Albumin Active Medications Generic Name Dose Route Start Last Admin Trade Name Freq PRN Reason Stop Dose Admin Ceftriaxone Sodium 2 gm 03/23/17 10:00 03/25/17 09:03 Rocephin 2gm Ivpb (Pre-Docked) IVPB 2 gm DAILY [facility] Administration Chlorhexidine Gluconate 1 applic 03/20/17 22:00 03/24/17 21:42 Hibiclens For Decolonization - TP 1 applic HS [facility] Administration Hydrocortisone Sodium Succinate 50 mg 03/25/17 18:00 Solu-Cortef - IVPB Q8H-IV [facility] Sodium Chloride 1,000 mls @ 1,000 mls/hr 03/25/17 15:46 03/25/17 16:11 Normal Saline - IV 03/25/17 16:45 1,000 mls/hr ASDIR STA Administration Pantoprazole Sodium 40 mg 03/26/17 10:00 Protonix - PO DAILY [facility] ASSESSMENT/PLAN: Patient is a 31 year old female with significant past medical history of Cholecystectomy (8 years ago), pyelonephritis, nephrolithiasis, emigrated from [place] 8 years ago who was brought in by patients boyfriend, with the chief complaints of fever, chills and generalized weakness since 2 weeks. # Respiratory failure due to septic shock with severe lactic acidosis with impending ARDS with Gram negative bacteremia (E.coli) with UTI Most likely had UTI leading to bacteremia as urine culture, blood culture and fluid culture is positive for E.coli. s/p IR guided liver abscess drainage ~ 25mls sent for Analysis including culture-pending Changed to IV Ceftriaxone 2gm Daily Day3. Lactic Acid-trending down after resucitation. # MODS with septic shock d/t Liver Abscess with bandemia and lactic acidosis s/p IR guided drainage, purulent drainage ~ 25 ccs and sent for analysis including culture and cytology Entamoeba Ab negative, HIV test negative IV Ceftriaxone 2gm Daily Day 3 Hydrocortisone decreased to IV 50mg Q8H for possible adrenal insufficiency due to septic shock # Abnormal LFT;s with coagulopathy like shock liver Decreasing LFTs on repeat labs FFPs 4 total given for coagulopathy Will monitor Avoid hepatotoxic drugs # SETH (resolved) with high anion gap metabolic acidosis(now with normal anion gap) with lactic acidosis Creatinine now at baseline after resuscitation Lanier in place to monitor urine output Avoid nephrotoxic drugs Renal consult appreciated Monitor BUN and creatinine and electrolytes # Thrombocytopenia due to septic shock vs dilutational No signs of active bleeding will monitor Avoid medication causing thrombocytopenia # NCNC Anemia likely due to septic shock -at baseline 1 PRBC transfusion this admission. No active signs of bleeding Transfuse if Hb < 7gm/dl # FEN No fluids Electrolytes to be repeated Clear liquid-sodium restricted # Prophylaxis FOr DVT: Not on AC due to coagulopathy, on SCDs For GI: ON Protonix # Code status: Full Code # Dispo: Admitted in the ICU. Duration of stay unknown. Illness, Investigation and Plan of care explained to the patients boyfriend. He verbalized understanding and agreed to the plan. Case seen and discussed with Dr. Beckham. Visit type - Emergency Visit Emergency Visit: Yes ED Registration Date: 03/20/17 Care time: The patient presented to the Emergency Department on the above date and was hospitalized for further evaluation of their emergent condition. - New Patient This patient is new to me today: No - Critical Care Critical Care patient: No
--- NOTE | 2017-03-25 16:31 | PN ---
GI Progress Note Subjective: Extubated, awake, alert, talking - Objective Vital Signs: Vital Signs Temperature 98.8 F 03/25/17 14:00 Pulse Rate 68 03/25/17 14:00 Respiratory Rate 16 03/25/17 14:00 Blood Pressure 122/73 03/25/17 14:00 O2 Sat by Pulse Oximetry (%) 95 03/25/17 09:00 Constitutional: Well Nourished HENT: Yes: Normocephalic Cardiovascular: Yes: Regular Rate and Rhythm Respiratory: Yes: CTA Bilaterally Gastrointestinal Inspection: Yes: WNL ...Auscultate: Yes: Normoactive Bowel Sounds ...Palpate: Yes: Soft. No: Tenderness Labs: CBC, BMP 03/25/17 13:45 03/25/17 13:45 INR, PTT INR 1.71 (0.82-1.09) H 03/25/17 13:45 Fibrinogen 187.0 mg/dL (238-498) L 03/25/17 13:45 Hepatic Panel Total Bilirubin 0.5 mg/dL (0.2-1.0) D 03/25/17 13:45 AST 104 U/L (15-37) H 03/25/17 13:45 ALT 464 U/L (12-78) H 03/25/17 13:45 Alkaline Phosphatase 193 U/L (45-117) H 03/25/17 13:45 Albumin 2.1 g/dl (3.4-5.0) L 03/25/17 13:45 Assessment/Plan Patient much improved. Concerned about her liver status MRI scheduled. Will review There is a significant solid component to the abscess Future management pending MR
[2017-03-25] MEDS: CHLORHEXIDINE GLUCONATE 4% CLEANSER FOR DECOLONIZATION TP SCH (22:00)
[2017-03-26] MEDS: HYDROCORTISONE SOD SUCCINATE 100 MG/2 ML VIAL IVPB SCH ×4 (02:00→18:17)
[2017-03-26 06:06] LABS: APTT 27.7 sec (22.9-30.2)
[2017-03-26 06:40] LABS: MCH 29.9 pg (25.7-33.7); MCHC 33.2 g/dl (32.0-36.0); MEAN PLT VOLUME 10.7 fl (7.5-11.1); PLATELET COUNT 105 K/MM3 (134-434); RDW 15.1 % (11.6-15.6); WHITE BLOOD COUNT 27.3 K/mm3 (4.0-10.0)
[2017-03-26 06:45] LABS: INR 1.65 (0.82-1.09); PROTHROMBIN TIME (PATIENT) 18.3 SEC (9.98-11.88)
[2017-03-26 06:48] LABS: ACTIVATED PTT 26.7 SECONDS (26.9-34.4)
[2017-03-26 07:12] LABS: ANION GAP 11 (8-16); CALCIUM 7.1 mg/dL (8.5-10.1); CO2 29 mmol/L (21-32); CREATININE 0.4 mg/dL (0.55-1.02); GLUCOSE,RANDOM 88 mg/dL (74-106); MAGNESIUM 1.5 mg/dL (1.8-2.4); PHOSPHOROUS 2.4 mg/dL (2.5-4.9); SGOT/AST 135 U/L (15-37); SGPT/ALT 380 U/L (12-78)
[2017-03-26 07:15] LABS: ALK PHOS 198 U/L (45-117); TROPONIN I 0.36 ng/ml (0.00-0.05)
[2017-03-26] MEDS ORDERED: MAGNESIUM SULF 50% (8.12 MEQ/2 ML-1 GM VIAL) IVPB ONE (07:45)
--- NOTE | 2017-03-26 08:50 | PN ---
Progress Note, Physician Chief Complaint: ID Extubated sitting in a chair Continues on Ceftriaxone and steroids Offers no complaints - Current Medication List Current Medications: Active Medications Ceftriaxone Sodium (Rocephin 2gm Ivpb (Pre-Docked)) 2 gm IVPB DAILY [facility] Last Admin: 03/25/17 09:03 Dose: 2 gm Chlorhexidine Gluconate (Hibiclens For Decolonization -) 1 applic TP HS [facility] Last Admin: 03/25/17 22:00 Dose: 1 applic Hydrocortisone Sodium Succinate (Solu-Cortef -) 50 mg IVPB Q8H-IV [facility] Last Admin: 03/26/17 02:00 Dose: 50 mg Potassium Chloride 10 meq/ (Sodium Chloride) 1,005 mls @ 75 mls/hr IVPB Q13H [facility] Last Admin: 03/25/17 21:30 Dose: 75 mls/hr Potassium Chloride (Potassium Chloride 10 Meq Premix Ivpb -) 100 mls @ 100 mls/ hr IVPB Q60M [facility] Stop: 03/26/17 10:44 Magnesium Oxide (Mag-Ox -) 400 mg PO BID [facility] Pantoprazole Sodium (Protonix -) 40 mg PO DAILY [facility] Potassium Chloride (K-Dur -) 40 meq PO ONCE ONE Stop: 03/26/17 12:01 - Objective Vital Signs: Vital Signs Temperature 98.5 F 03/26/17 06:00 Pulse Rate 58 L 03/26/17 06:00 Respiratory Rate 16 03/26/17 06:00 Blood Pressure 130/83 03/26/17 06:00 O2 Sat by Pulse Oximetry (%) 97 03/25/17 22:00 Constitutional: Yes: No Distress Eyes: Yes: Other (Right conjucntival hemmorage) Cardiovascular: Yes: Regular Rate and Rhythm, S1, S2 Respiratory: Yes: WNL, Regular, CTA Bilaterally, Diminished, Poor Air Entry. No : Rales, Rhonchi Gastrointestinal: Yes: WNL, Normal Bowel Sounds, Soft, Other (Drain). No: Tenderness, Tenderness, Epigastrium Edema: Yes Labs: CBC, BMP 03/26/17 05:20 03/26/17 05:20 INR, PTT INR 1.65 (0.82-1.09) H 03/26/17 05:20 Fibrinogen 152.0 mg/dL (238-498) L 03/26/17 05:20 Problem List - Problems (1) Liver abscess Code(s): K75.0 - ABSCESS OF LIVER (2) Multiorgan failure Code(s): JBP1320 - (3) Anaerobic bacteremia Code(s): R78.81 - BACTEREMIA Assessment/Plan Laboratory Tests 03/21/17 03/21/17 03/25/17 02:30 05:20 13:45 WBC Hgb Plt Count INR Sodium Potassium Lactic Acid 5.2 H* Total Bilirubin ALT Alkaline Phosphatase Troponin I 20.50 H* 19.00 H* 03/25/17 03/26/17 03/26/17 21:20 05:20 05:20 WBC 27.3 H Hgb 11.9 Plt Count 105 L D INR 1.65 H Sodium Potassium Lactic Acid 4.1 H* Total Bilirubin ALT Alkaline Phosphatase Troponin I 03/26/17 03/26/17 05:20 05:20 WBC Hgb Plt Count INR Sodium 141 Potassium 2.9 L* Lactic Acid 2.3 H* Total Bilirubin 1.0 D ALT 380 H Alkaline Phosphatase 198 H Troponin I 0.36 H Assessment Sepsis syndrome E Coli bacteremia Liver abscess with drain Elevated TNI sepsis related Low platelets sepsis Plan Is to continue current therapy Ceftriaxone Taper off steroids Doing well given her previously critical condition Eunice RANDOLPH
[2017-03-26] MEDS: cefTRIAXone 2 GM/100 ML BAG (PRE-DOCKED) IVPB SCH (09:13)
[2017-03-26] MEDS: KCL 10 MEQ IVPB 100 ML IVPB SCH ×2 (09:14→10:05)
[2017-03-26 09:20] LABS: PLATELET COMMENT2 NO CLOTTING DETECTED; PLATELET ESTIMATE MOD DECREASED (NORMAL); POIKILOCYTOSIS 1+; POLYCHROMASIA 1+
[2017-03-26] MEDS: PANTOPRAZOLE 40 MG TABLET (FP) PO SCH (09:25)
[2017-03-26] MEDS: MAGNESIUM OXIDE 400 MG TABLET (FP) PO SCH ×2 (09:25→21:39)
--- NOTE | 2017-03-26 09:44 | PN ---
Progress Note, Physician Chief Complaint: cardimyopathy History of Present Illness: awake, eating feels well denies sob including when removes NC oxygen no cp, palpit, syncope - Current Medication List Current Medications: Active Medications Ceftriaxone Sodium (Rocephin 2gm Ivpb (Pre-Docked)) 2 gm IVPB DAILY [facility] Last Admin: 03/26/17 09:13 Dose: 2 gm Chlorhexidine Gluconate (Hibiclens For Decolonization -) 1 applic TP HS [facility] Last Admin: 03/25/17 22:00 Dose: 1 applic Hydrocortisone Sodium Succinate (Solu-Cortef -) 25 mg IVPB Q8H-IV [facility] Potassium Chloride 10 meq/ (Sodium Chloride) 1,005 mls @ 75 mls/hr IVPB Q13H [facility] Last Admin: 03/25/17 21:30 Dose: 75 mls/hr Potassium Chloride (Potassium Chloride 10 Meq Premix Ivpb -) 100 mls @ 100 mls/ hr IVPB Q60M [facility] Stop: 03/26/17 10:44 Last Admin: 03/26/17 09:14 Dose: Not Given Magnesium Oxide (Mag-Ox -) 400 mg PO BID [facility] Last Admin: 03/26/17 09:25 Dose: 400 mg Pantoprazole Sodium (Protonix -) 40 mg PO DAILY [facility] Last Admin: 03/26/17 09:25 Dose: 40 mg Potassium Chloride (K-Dur -) 40 meq PO ONCE ONE Stop: 03/26/17 12:01 Potassium Chloride (K-Dur -) 40 meq PO ONCE ONE Stop: 03/26/17 10:01 - Objective Vital Signs: Vital Signs Temperature 98.5 F 03/26/17 06:00 Pulse Rate 84 03/26/17 09:06 Respiratory Rate 18 03/26/17 09:06 Blood Pressure 94/60 03/26/17 09:06 O2 Sat by Pulse Oximetry (%) 100 03/26/17 09:00 Constitutional: Yes: Well Nourished, No Distress, Calm Cardiovascular: Yes: Regular Rate and Rhythm, S1, S2. No: JVD, Gallop, Murmur Respiratory: Yes: Regular, CTA Bilaterally. No: Accessory Muscle Use, Rales, Wheezes Extremities: No: Cold Edema: No Neurological: Yes: Alert, Oriented Psychiatric: No: Agitated Labs: CBC, BMP 03/26/17 05:20 03/26/17 05:20 INR, PTT INR 1.65 (0.82-1.09) H 03/26/17 05:20 Fibrinogen 152.0 mg/dL (238-498) L 03/26/17 05:20 - ....Imaging EKG: Other (tele: NSR) Assessment/Plan CXR 03/21 am: bilat effusions and diffuse infiltrates, stable vs last film (incr vs admit film) cxr 03/24: per report slightly worse, but by dr robles review looks improved. CXF 03/26: gitig review: bibasilar findings L > R, doubt layering effusions, no vasc redistribution/congestion pattern Echo here 02/2017: moderately decreased biventricular function (global), mild- mod TR rvsp 34, + pleural effusion 31 year old female with a significant past medical history of cholecystectomy ( 8 years ago), who emigrated from [place] (9 years ago) and presents in severe shock gram negative rich sepsis 2/2 hepatic abscess now s/p IR drainage.. septic shock, gram negative rich bacteremia, hepatic abscess: - s/p percutaneous liver drain -cont stress dose steroids per pmd/pulm/critical care. -abx per ID, f/u of abscess cx's - 03/23: hemodynamically stable at present off levophed and IVF. CVP improving today 03/23 s/p lasix trial. Close monitoring of alkalosis and potassium/electrolyte abnoromalities while on lasix - most recent pH 7.5, k 3.0 and patient with new bradycardia ?long qt. Repeat ekg tomorrow am. - 03/24: patient autodiuresing. Net negative. no need for lasix today. Monitor alkalosis and hypokalemia closely. - 03/25: clinically slightly worse this afternoon. urine output not entirely recorded due to frequent diarrhea. (no walter). hypotension worsened. IVF resumed. GI planning repeat MRI. patient with worsened sob, endorsing symptoms that may reflect aspiration. Will repeat CXR. -03/26: appears clinically stable, much improved overall acute hypoxic resp failure: - ? due to severe septic shock - initially intubated, now extubated - at times still requiring suppl O2 (FM) 03/25, resp status stable/improved 03/26 on NC only - likely L effusion on CXR, ? layering R effusion - ? 3rd spacing (albumin currently 2.0), ? sympathetic effusions sec to acute abdominal process - doubt acute syst chf given no vascular redistribution/engorgement on xray - last CVP was 4 (03/24), no JVD on exam - cont close monitoring with IVF as indicated per crit care, deferring lasix elevated troponin, new cardiomyopathy: -trop peg to 20, trending down -ECG initially non-ischemic, then with nonspecific changes --> repeat with nonsp ST-Ts (actually improved slightly vs last tracing) -young female pt with no reported history of severe hyperlipidemia, diabetes, cigarettes--extremely low pretest prob of obstructive CAD -troponins and ECG are very likely secondary to sepsis related myonecrosis. hence ASA/AC, BB, statin not indicated (regardless, she is at prohibitive risks for these medical therapies, or invasive therapy of CAD, in light of heme abnormalities described above and septic shock) -less likely Takotsubo's from immense stressors. Echo here with moderately decreased biventricular function (global) see discusion below. -rpt echo next week (heart sounds strong/vigorous--? already LVEF has improved) -if EF remains down, will plan to rpt echo as outpt after sepsis fully resolves (in 4-6 wks); defer BB/TASNEEM until can reassess EF at that time, and observe baseline BP once recovers from acute sepsis -aggressive K and Mag repletion (as ordered) -tele monitoring for ventric arrhythmias anemia, thrombocytopenia, coagulopathy: -likely sec to sepsis -shock liver likely contributing to coagulopathy, ? DIC component -PLTs low, INR high -per critical care/heme SETH: resolved -sec to hypoperfusion vs sepsis -renal fxn improved s/p IVF, hemodynamic support as doing -renal following shock liver: -coagulation support as above -per critical care
--- NOTE | 2017-03-26 09:49 | PN ---
Progress Note (short form) - Note Progress Note: OBJECTIVE: Patient seen and examined in the ICU. remains extubated and improving oob to chair wbc downtrendingm, transaminitis stable steroids tapering afebrile CXR: Persistent bibasilar congestion/infiltrates OBJECTIVE: Vital Signs Temp 98.5 F 03/26/17 06:00 Pulse 84 03/26/17 09:06 Resp 18 03/26/17 09:06 BP 94/60 03/26/17 09:06 Pulse Ox 100 03/26/17 09:00 Intake & Output 03/25/17 03/25/17 03/26/17 11:59 23:59 11:59 Intake Total 1150 2790 1700 Output Total 160 1600 2505 Balance 990 1190 -805 Weight 75.1 kg 75.432 kg Intake: IV 750 2050 1600 Normal Saline - 1,000 ml 1000 @ 1000 mls/hr IV ASDIR STA Rx#:[id number] Normal Saline - 1,000 ml 1000 @ 1000 mls/hr IV ASDIR STA Rx#:[id number] 1/2NS +10meqKCl/liter at 750 1050 600 75cc/hr IVPB 100 400 100 Oral 300 340 Output: Gastric Drainage 0 Drainage 10 5 Right Upper Abdomen 10 5 Urine 150 1600 2500 Lanier 150 Void 1600 2500 Other: Voiding Method Indwelling Catheter Bedpan # Unmeasured Voids Void 2 Bowel Movement Yes Yes No # Bowel Movements 1 1 Weight Measurement Method Built in Bedscale Built in Bedscale CBC, BMP 03/26/17 05:20 03/26/17 05:20 Microbiology 03/23/17 15:00 Stool Gram Stain - Final 03/23/17 10:45 Blood - Central Line Blood Culture - Preliminary NO GROWTH OBTAINED AFTER 48 HOURS, INCUBATION TO CONTINUE FOR 3 DAYS. 03/23/17 10:45 Blood - Peripheral Venous Blood Culture - Preliminary NO GROWTH OBTAINED AFTER 48 HOURS, INCUBATION TO CONTINUE FOR 3 DAYS. 03/24/17 16:45 Blood - Central Line Blood Parasites Smear (LUAN) - Final 03/23/17 15:00 Stool Clostridium difficile Antigen (LUAN) - Final 03/23/17 15:00 Stool Clostridium difficile Toxin Assay - Final 03/20/17 12:50 Abscess AFB Smear Concentration - Final 03/20/17 12:50 Abscess Mycobacterial Culture - Preliminary 03/20/17 12:13 Abscess NADYA Preparation - Preliminary 03/20/17 12:13 Abscess Fungal Culture - Preliminary 03/20/17 04:32 Blood - Peripheral Venous Blood Culture - Final Escherichia Coli 03/20/17 04:32 Blood - Peripheral Venous Blood Culture - Final Escherichia Coli 03/20/17 Unknown Abscess Gram Stain - Final 03/20/17 Unknown Abscess Body Fluid Culture - Final Escherichia Coli 03/20/17 Unknown Abscess Anaerobic Culture - Final NO ANAEROBES WERE ISOLATED 03/20/17 06:20 Urine - Urine - Catheterized Urine Culture - Final Escherichia Coli Gen: Awake and alert, non distress, oob an in chair this am Heart: RRR Lung: Bibasilar crackles, no wheezes Abd: soft, nontender Ext: (+) edema, improved Active Medications Ceftriaxone Sodium (Rocephin 2gm Ivpb (Pre-Docked)) 2 gm IVPB DAILY [facility] Last Admin: 03/26/17 09:13 Dose: 2 gm Chlorhexidine Gluconate (Hibiclens For Decolonization -) 1 applic TP HS [facility] Last Admin: 03/25/17 22:00 Dose: 1 applic Hydrocortisone Sodium Succinate (Solu-Cortef -) 25 mg IVPB Q8H-IV [facility] Potassium Chloride 10 meq/ (Sodium Chloride) 1,005 mls @ 75 mls/hr IVPB Q13H [facility] Last Admin: 03/25/17 21:30 Dose: 75 mls/hr Potassium Chloride (Potassium Chloride 10 Meq Premix Ivpb -) 100 mls @ 100 mls/ hr IVPB Q60M [facility] Stop: 03/26/17 10:44 Last Admin: 03/26/17 09:14 Dose: Not Given Magnesium Oxide (Mag-Ox -) 400 mg PO BID [facility] Last Admin: 03/26/17 09:25 Dose: 400 mg Pantoprazole Sodium (Protonix -) 40 mg PO DAILY [facility] Last Admin: 03/26/17 09:25 Dose: 40 mg Potassium Chloride (K-Dur -) 40 meq PO ONCE ONE Stop: 03/26/17 12:01 Potassium Chloride (K-Dur -) 40 meq PO ONCE ONE Stop: 03/26/17 10:01 Lab Results WBC 27.3 K/mm3 (4.0-10.0) H 03/26/17 05:20 RBC 3.99 M/mm3 (3.60-5.2) 03/26/17 05:20 Hgb 11.9 GM/dL (10.7-15.3) 03/26/17 05:20 Hct 35.9 % (32.4-45.2) 03/26/17 05:20 MCV 90.0 fl (80-96) 03/26/17 05:20 MCHC 33.2 g/dl (32.0-36.0) 03/26/17 05:20 RDW 15.1 % (11.6-15.6) 03/26/17 05:20 Plt Count 105 K/MM3 (134-434) L D 03/26/17 05:20 Sodium 141 mmol/L (136-145) 03/26/17 05:20 Potassium 2.9 mmol/L (3.5-5.1) L* 03/26/17 05:20 Chloride 101 mmol/L (98-107) 03/26/17 05:20 Carbon Dioxide 29 mmol/L (21-32) 03/26/17 05:20 Anion Gap 11 (8-16) 03/26/17 05:20 BUN 12 mg/dL (7-18) D 03/26/17 05:20 Creatinine 0.4 mg/dL (0.55-1.02) L D 03/26/17 05:20 Random Glucose 88 mg/dL (74-106) D 03/26/17 05:20 Calcium 7.1 mg/dL (8.5-10.1) L 03/26/17 05:20 Blood Type O POSITIVE 03/20/17 04:34 Antibody Screen Positive H 03/20/17 04:34 INR 1.65 (0.82-1.09) H 03/26/17 05:20 ASSESSMENT AND PLAN: Hepatic Abscess UTI E coli Bacteremia Septic Shock resolving Multiorgan Failure Acute Hypoxic Respiratory Failure Acute Kidney Injury improving Lactic Acidosis +Troponins likely Demand Ischemia Elevated LFTs likely Ischemic Injury improving Coagulopathy/Thrombocytopenia r/o DIC - O2 to maintain saturation - ABX as per ID - rapid Steroid taper - Replete lytes - monitor coags, platelets, fibrinogen level - taper Fio2 to keep Spo2 >90% - DVT/GI prophylaxis - Incentive Spirometry - plan for MRI abd Dispo: Med surg Gonsalo Vera ACNP [phone]
[2017-03-26] MEDS ORDERED: POTASSIUM CHLORIDE TABS 20 MEQ TABLET.ER (FP) PO ONE ×3 (10:00→16:00)
[2017-03-26] MEDS: POTASSIUM CHLORIDE 10 MEQ in SODIUM CHLORIDE 0.45% 1,000 ML IVPB SCH (12:37)
--- NOTE | 2017-03-26 13:49 | PN ---
Progress Note, Physician Chief Complaint: The patient seen in bed in ICU. Reports feeling better than yesterday. Denies any pains/ Maintains good urine output. No shortmess of breath, No chest pains. - Current Medication List Current Medications: Active Medications Ceftriaxone Sodium (Rocephin 2gm Ivpb (Pre-Docked)) 2 gm IVPB DAILY [facility] Last Admin: 03/26/17 09:13 Dose: 2 gm Chlorhexidine Gluconate (Hibiclens For Decolonization -) 1 applic TP HS [facility] Last Admin: 03/25/17 22:00 Dose: 1 applic Hydrocortisone Sodium Succinate (Solu-Cortef -) 25 mg IVPB Q8H-IV [facility] Last Admin: 03/26/17 10:06 Dose: 25 mg Potassium Chloride 10 meq/ (Sodium Chloride) 1,005 mls @ 75 mls/hr IVPB Q13H [facility] Last Admin: 03/26/17 12:37 Dose: 75 mls/hr Magnesium Oxide (Mag-Ox -) 400 mg PO BID [facility] Last Admin: 03/26/17 09:25 Dose: 400 mg Pantoprazole Sodium (Protonix -) 40 mg PO DAILY [facility] Last Admin: 03/26/17 09:25 Dose: 40 mg - Objective Vital Signs: Vital Signs Temperature 98.8 F 03/26/17 10:00 Pulse Rate 80 03/26/17 12:00 Respiratory Rate 18 03/26/17 12:00 Blood Pressure 98/57 03/26/17 10:00 O2 Sat by Pulse Oximetry (%) 98 03/26/17 11:14 Constitutional: Yes: No Distress, Calm Eyes: Yes: Conjunctiva Clear Cardiovascular: Yes: S1, S2 Respiratory: Yes: Regular, Rales, Rhonchi Gastrointestinal: Yes: Normal Bowel Sounds, Soft Genitourinary: No: CVA Tenderness - Left, CVA Tenderness - Right Musculoskeletal: Yes: Joint Stiffness, Joint Swelling. No: Back Pain Labs: CBC, BMP 03/26/17 05:20 03/26/17 05:20 INR, PTT INR 1.65 (0.82-1.09) H 03/26/17 05:20 Fibrinogen 152.0 mg/dL (238-498) L 03/26/17 05:20 Problem List - Problems (1) Anaerobic bacteremia Code(s): R78.81 - BACTEREMIA (2) Hypotension Code(s): I95.9 - HYPOTENSION, UNSPECIFIED Qualifiers: Qualified Code(s): I95.89 - Other hypotension (3) Hypovolemic shock Code(s): R57.1 - HYPOVOLEMIC SHOCK (4) Liver abscess Code(s): K75.0 - ABSCESS OF LIVER (5) Renal failure Code(s): N19 - UNSPECIFIED KIDNEY FAILURE Qualifiers: Qualified Code(s): N17.8 - Other acute kidney failure (6) Septic shock Code(s): A41.9 - SEPSIS, UNSPECIFIED ORGANISM R65.21 - SEVERE SEPSIS WITH SEPTIC SHOCK (7) Hypokalemia due to loss of potassium Code(s): E87.6 - HYPOKALEMIA Assessment/Plan 31 y/o female admitted with Septic shock, and the finding of Liver abscess, which was drained . S/p acute Respiratory failure: Stable since extubation. Renal functions stable. Serum Bicarb still elevated, but improving. Maintains good urine output. Hypokalemia persists, partly due to the Hypomagnesemia, Alkalemia and resultant Kaliuresis. Will continue supplements Thank again, Laura Tirado MD
[2017-03-26] MEDS ORDERED: POTASSIUM CHLORIDE ORAL LIQUID 20 MEQ/15 ML ONE (15:26)
[2017-03-26 16:13] LABS: PT 17.6 sec (9.6-11.5); PT 1:1 1 HOUR INCUBATED 11.9 sec (9.6-11.5); PT 1:1 NP 11.8 sec (9.6-11.5)
--- NOTE | 2017-03-26 16:37 | PN ---
Progress Note (short form) - Note Progress Note: Subjective: no fever ro chills, feels better Objective: Vital Signs: Last Vital Signs Temp Pulse Resp BP Pulse Ox 98.8 F 57 L 18 109/67 98 03/26/17 10:00 03/26/17 16:00 03/26/17 16:00 03/26/17 14:00 03/26/17 11:14 Laboratory Results - last 24 hr 03/23/17 03/25/17 03/25/17 14:00 19:30 21:20 WBC RBC Hgb Hct MCV MCHC RDW Plt Count MPV Neutrophils % Lymphocytes % Monocytes % Band Neutrophils Platelet Estimate Platelet Comment Polychromasia Poikilocytosis INR PTT (Actin FS) Saline-Adjusted PTT 49.5 PT Mixing Study 17.6 H Fibrinogen Sodium Potassium Chloride Carbon Dioxide Anion Gap BUN Creatinine Creat Clearance w eGFR Random Glucose Lactic Acid 4.1 H* Calcium Phosphorus Magnesium Total Bilirubin AST ALT Alkaline Phosphatase Creatine Kinase Troponin I Total Protein Albumin Stool Occult Blood Negative 03/26/17 03/26/17 03/26/17 05:20 05:20 05:20 WBC 27.3 H RBC 3.99 Hgb 11.9 Hct 35.9 MCV 90.0 MCHC 33.2 RDW 15.1 Plt Count 105 L D MPV 10.7 Neutrophils % 90.0 H Lymphocytes % 3.0 L D Monocytes % 3.0 L Band Neutrophils 4.0 D Platelet Estimate Mod decreased Platelet Comment No clotting detected Polychromasia 1+ Poikilocytosis 1+ INR 1.65 H PTT (Actin FS) 26.7 L Saline-Adjusted PTT PT Mixing Study Fibrinogen 152.0 L Sodium 141 Potassium 2.9 L* Chloride 101 Carbon Dioxide 29 Anion Gap 11 BUN 12 D Creatinine 0.4 L D Creat Clearance w eGFR > 60 Random Glucose 88 D Lactic Acid Calcium 7.1 L Phosphorus 2.4 L D Magnesium 1.5 L Total Bilirubin 1.0 D AST 135 H D ALT 380 H Alkaline Phosphatase 198 H Creatine Kinase 63 Troponin I 0.36 H Total Protein 5.0 L Albumin 2.0 L Stool Occult Blood 03/26/17 05:20 WBC RBC Hgb Hct MCV MCHC RDW Plt Count MPV Neutrophils % Lymphocytes % Monocytes % Band Neutrophils Platelet Estimate Platelet Comment Polychromasia Poikilocytosis INR PTT (Actin FS) Saline-Adjusted PTT PT Mixing Study Fibrinogen Sodium Potassium Chloride Carbon Dioxide Anion Gap BUN Creatinine Creat Clearance w eGFR Random Glucose Lactic Acid 2.3 H* Calcium Phosphorus Magnesium Total Bilirubin AST ALT Alkaline Phosphatase Creatine Kinase Troponin I Total Protein Albumin Stool Occult Blood I&O: Intake & Output 03/23/17 03/24/17 03/25/17 03/26/17 23:59 23:59 23:59 23:59 Intake Total 2120 2200 3940 1700 Output Total 4525 1630 1760 3555 Balance -2405 570 2180 -1855 Weight 173 lb 8 oz 169 lb 8.568 oz 165 lb 9.074 oz 166 lb 4.8 oz Microbiology 03/23/17 15:00 Salmonella/Shigella Culture - Final Stool NO GROWTH OF SALMONELLA OR SHIGELLA SPECIES OBTAINED Campylobacter Culture - Final NO GROWTH OF CAMPYLOBACTER SPECIES OBTAINED Yersinia Culture - Final NO GROWTH OF YERSINIA SPECIES OBTAINED Vibrio Culture - Final NO GROWTH OF VIBRIO SPECIES OBTAINED Escherichia coli 0157 Culture - Final NO GROWTH OF E COLI 0157 OBTAINED 03/23/17 10:45 Blood Culture - Preliminary Blood - Central Line NO GROWTH OBTAINED AFTER 72 HOURS, INCUBATION TO CONTINUE FOR 2 DAYS. 03/23/17 10:45 Blood Culture - Preliminary Blood - Peripheral Venous NO GROWTH OBTAINED AFTER 72 HOURS, INCUBATION TO CONTINUE FOR 2 DAYS. 03/25/17 19:30 Clostridium difficile Antigen (LUAN) - Final Stool Clostridium difficile Toxin Assay - Final Physical Exam: awake , alert and oriented. R sub-conjunctival bleed CV: RRR Lungs; decreased breath sounds at bases otherwise , nl Ext : trace edema on feet. no erythema on legs, edema on hands ASSESSMENT AND PLAN: 31 y/o lady with no significant PMH who presented with fever , chills was found to have septic shock from LIver abscess. 1- Septic shock, 2/2 UTI--> bacteremia--> liver abscess. S/p IR drainage improved . extubated , off pressors - Cont ceftriaxone 2 g/daily - monitor out put from [facility] drain . - steroid taper - MRI of abd 2- Acute hypoxic resp failure ,extubated now . dc IVF 3-hypokalemia: replete and repeat level. refused IV Kcl hypernatremia , resolved. oral hydration hypomagnesemia : replete 4- Thrombocytopenia : likely due to sepsis . improved Monitor 5- NSTEMI: 2/2 to sepsis . no indication of asa or BB trop trended down. Echo with no focal WMA 6- New cardiomyopathy, with Mod reduced EF. likely due to sepsis monitor . repeat echo next week 7- coagulopathy : stable INR and PTT . fibrinogen has decreased. mixing studies are pending . possible coagulopathy form liver dysfunction 8- L adrenal gland thickening , of unclear etiology . taper stress dose steroids and monitor BP . Advance diet HLOC Visit type - Emergency Visit Emergency Visit: Yes ED Registration Date: 03/20/17 Care time: The patient presented to the Emergency Department on the above date and was hospitalized for further evaluation of their emergent condition. - New Patient This patient is new to me today: No - Critical Care Critical Care patient: No
[2017-03-26 18:52] LABS: ANION GAP 9 (8-16); CALCIUM 7.7 mg/dL (8.5-10.1); CO2 29 mmol/L (21-32); CREATININE 0.5 mg/dL (0.55-1.02); GLUCOSE,RANDOM 125 mg/dL (74-106)
[2017-03-26] MEDS: CHLORHEXIDINE GLUCONATE 4% CLEANSER FOR DECOLONIZATION TP SCH (21:38)
[2017-03-27] MEDS: HYDROCORTISONE SOD SUCCINATE 100 MG/2 ML VIAL IVPB SCH ×2 (01:20→09:46)
[2017-03-27 06:24] LABS: MCH 29.9 pg (25.7-33.7); MCHC 32.9 g/dl (32.0-36.0); MEAN CELL VOLUME 90.9 fl (80-96); PLATELET COUNT 142 K/MM3 (134-434); RDW 15.1 % (11.6-15.6); WHITE BLOOD COUNT 21.2 K/mm3 (4.0-10.0)
[2017-03-27 06:49] LABS: ANION GAP 6 (8-16); CALCIUM 7.4 mg/dL (8.5-10.1); CO2 30 mmol/L (21-32); CREATININE 0.5 mg/dL (0.55-1.02); GLUCOSE,RANDOM 82 mg/dL (74-106); MAGNESIUM 1.8 mg/dL (1.8-2.4); PHOSPHOROUS 2.6 mg/dL (2.5-4.9)
--- NOTE | 2017-03-27 07:50 | PN ---
Progress Note, Physician Chief Complaint: ID Progress continues daily Ceftriaxone - Current Medication List Current Medications: Active Medications Ceftriaxone Sodium (Rocephin 2gm Ivpb (Pre-Docked)) 2 gm IVPB DAILY [facility] Last Admin: 03/26/17 09:13 Dose: 2 gm Chlorhexidine Gluconate (Hibiclens For Decolonization -) 1 applic TP HS [facility] Last Admin: 03/26/17 21:38 Dose: 1 applic Hydrocortisone Sodium Succinate (Solu-Cortef -) 25 mg IVPB Q8H-IV [facility] Last Admin: 03/27/17 01:20 Dose: 25 mg Magnesium Oxide (Mag-Ox -) 400 mg PO BID [facility] Last Admin: 03/26/17 21:39 Dose: 400 mg Pantoprazole Sodium (Protonix -) 40 mg PO DAILY [facility] Last Admin: 03/26/17 09:25 Dose: 40 mg - Objective Vital Signs: Vital Signs Temperature 98.6 F 03/27/17 06:00 Pulse Rate 60 03/27/17 06:00 Respiratory Rate 14 03/27/17 06:00 Blood Pressure 114/79 03/27/17 06:00 O2 Sat by Pulse Oximetry (%) 98 03/26/17 22:00 Constitutional: Yes: No Distress Eyes: Yes: Other (Conjuctival hemmorage OD) Cardiovascular: Yes: Regular Rate and Rhythm, S1, S2. No: Murmur Respiratory: Yes: WNL, Regular, CTA Bilaterally Gastrointestinal: Yes: WNL, Normal Bowel Sounds, Soft, Other (Drain). No: Tenderness, Tenderness, Rebound Edema: Yes Labs: CBC, BMP 03/27/17 05:25 03/27/17 05:25 INR, PTT INR 1.65 (0.82-1.09) H 03/26/17 05:20 Fibrinogen 152.0 mg/dL (238-498) L 03/26/17 05:20 Problem List - Problems (1) Liver abscess Code(s): K75.0 - ABSCESS OF LIVER (2) Multiorgan failure Code(s): GHM1527 - (3) Anaerobic bacteremia Code(s): R78.81 - BACTEREMIA Assessment/Plan Laboratory Tests 03/26/17 03/27/17 05:20 05:25 WBC 21.2 H Hgb 11.6 Plt Count 142 D Total Bilirubin 1.0 D AST 135 H D ALT 380 H Alkaline Phosphatase 198 H Assessment Bacterial Liver abscess hematogenous from urosepsis E Coli Plan Continue IV antibiotic ESR CRP Continue to taper steroids Eunice RANDOLPH
[2017-03-27 08:54] LABS: C-REACTIVE PROTEIN 1.8 MG/DL (0.00-0.3)
--- NOTE | 2017-03-27 09:03 | PN ---
Progress Note, Physician Chief Complaint: septic shock History of Present Illness: feels better denies sob no cp, palpitation, syncope - Current Medication List Current Medications: Active Medications Ceftriaxone Sodium (Rocephin 2gm Ivpb (Pre-Docked)) 2 gm IVPB DAILY [facility] Last Admin: 03/26/17 09:13 Dose: 2 gm Chlorhexidine Gluconate (Hibiclens For Decolonization -) 1 applic TP HS [facility] Last Admin: 03/26/17 21:38 Dose: 1 applic Hydrocortisone Sodium Succinate (Solu-Cortef -) 25 mg IVPB Q8H-IV [facility] Last Admin: 03/27/17 01:20 Dose: 25 mg Magnesium Oxide (Mag-Ox -) 400 mg PO BID [facility] Last Admin: 03/26/17 21:39 Dose: 400 mg Pantoprazole Sodium (Protonix -) 40 mg PO DAILY [facility] Last Admin: 03/26/17 09:25 Dose: 40 mg - Objective Vital Signs: Vital Signs Temperature 98.6 F 03/27/17 06:00 Pulse Rate 60 03/27/17 06:00 Respiratory Rate 14 03/27/17 06:00 Blood Pressure 114/79 03/27/17 06:00 O2 Sat by Pulse Oximetry (%) 98 03/26/17 22:00 Constitutional: Yes: Well Nourished, No Distress, Calm Cardiovascular: Yes: Regular Rate and Rhythm, S1, S2. No: Gallop, Murmur Respiratory: Yes: Regular, CTA Bilaterally. No: Accessory Muscle Use, Rales, Wheezes Extremities: No: Cold Edema: No Neurological: Yes: Alert, Oriented Psychiatric: No: Agitated Labs: CBC, BMP 03/27/17 05:25 03/27/17 05:25 INR, PTT INR 1.65 (0.82-1.09) H 03/26/17 05:20 Fibrinogen 152.0 mg/dL (238-498) L 03/26/17 05:20 - ....Imaging EKG: Other (tele: NSR) Assessment/Plan CXR 03/21 am: bilat effusions and diffuse infiltrates, stable vs last film (incr vs admit film) cxr 03/24: per report slightly worse, but by dr robles review looks improved. CXF 03/26: gitig review: bibasilar findings L > R, doubt layering effusions, no vasc redistribution/congestion pattern Echo here 02/2017: moderately decreased biventricular function (global), mild- mod TR rvsp 34, + pleural effusion 31 year old female with a significant past medical history of cholecystectomy ( 8 years ago), who emigrated from [place] (9 years ago) and presents in severe shock gram negative rich sepsis 2/2 hepatic abscess now s/p IR drainage.. septic shock, E. coli urosepsis-->seeding liver with hepatic abscess: - s/p percutaneous liver drain -cont stress dose steroids per pmd/pulm/critical care. -abx per ID, f/u of abscess cx's - 03/23: hemodynamically stable at present off levophed and IVF. CVP improving today 03/23 s/p lasix trial. Close monitoring of alkalosis and potassium/electrolyte abnoromalities while on lasix - most recent pH 7.5, k 3.0 and patient with new bradycardia ?long qt. Repeat ekg tomorrow am. - 03/24: patient autodiuresing. Net negative. no need for lasix today. Monitor alkalosis and hypokalemia closely. - 03/25: clinically slightly worse this afternoon. urine output not entirely recorded due to frequent diarrhea. (no walter). hypotension worsened. IVF resumed. GI planning repeat MRI. patient with worsened sob, endorsing symptoms that may reflect aspiration. Will repeat CXR. -03/27: WBC and lactate downtrending, thrombocytopenia resolved, hemodynamics stable--much improved clinically acute hypoxic resp failure: - ? due to severe septic shock - initially intubated, now extubated - at times still requiring suppl O2 (FM) 03/25, resp status stable/improved 03/26 on NC only - likely L effusion on CXR, ? layering R effusion - ? 3rd spacing (albumin currently 2.0), ? sympathetic effusions sec to acute abdominal process - doubt acute syst chf given no vascular redistribution/engorgement on xray - last CVP was 4 (03/24), no JVD on exam - cont close monitoring with IVF as indicated per crit care, deferring lasix elevated troponin, new cardiomyopathy: -trop peg to 20, trending down -ECG initially non-ischemic, then with nonspecific changes --> repeat with nonsp ST-Ts (actually improved slightly vs last tracing) -young female pt with no reported history of severe hyperlipidemia, diabetes, cigarettes--extremely low pretest prob of obstructive CAD -troponins and ECG are very likely secondary to sepsis related myonecrosis. hence ASA/AC, BB, statin not indicated (regardless, she is at prohibitive risks for these medical therapies, or invasive therapy of CAD, in light of heme abnormalities described above and septic shock) -less likely Takotsubo's from immense stressors. Echo here with moderately decreased biventricular function (global) see discusion below. -rpt echo next week (heart sounds strong/vigorous--? already LVEF has improved) -if EF remains down, will plan to rpt echo as outpt after sepsis fully resolves (in 4-6 wks); defer BB/TASNEEM until can reassess EF at that time, and observe baseline BP once recovers from acute sepsis -aggressive K and Mag repletion, as doing -tele monitoring for ventric arrhythmias anemia, thrombocytopenia, coagulopathy: -likely sec to sepsis -shock liver likely contributing to coagulopathy, ? DIC component -PLTs low, INR high -per critical care/heme SETH: resolved -sec to hypoperfusion vs sepsis -renal fxn improved s/p IVF, hemodynamic support as doing -renal following shock liver: -per crit care, follow enzymes trend est crit care time 35 min
[2017-03-27] MEDS: PANTOPRAZOLE 40 MG TABLET (FP) PO SCH (09:32)
[2017-03-27] MEDS: MAGNESIUM OXIDE 400 MG TABLET (FP) PO SCH ×2 (09:32→22:20)
[2017-03-27] MEDS: cefTRIAXone 2 GM/100 ML BAG (PRE-DOCKED) IVPB SCH (09:32)
[2017-03-27 09:43] LABS: PLATELET ESTIMATE SLT DECREASED (NORMAL)
[2017-03-27] MEDS ORDERED: POTASSIUM CHLORIDE TABS 20 MEQ TABLET.ER (FP) PO ONE (09:48)
--- NOTE | 2017-03-27 10:06 | PN ---
Progress Note (short form) - Note Progress Note: Progress Note (short form) - Note Progress Note: PULMONARY / CRITICAL CARE PROGRESS NOTE: Patient seen and examined in the ICU. 24 HOUR EVENTS: -No events. Remains stable. Current Medications Ceftriaxone Sodium (Rocephin 2gm Ivpb (Pre-Docked)) 2 gm IVPB DAILY [facility] Last Admin: 03/27/17 09:32 Dose: 2 gm Chlorhexidine Gluconate (Hibiclens For Decolonization -) 1 applic TP HS [facility] Last Admin: 03/26/17 21:38 Dose: 1 applic Hydrocortisone Sodium Succinate (Solu-Cortef -) 25 mg IVPB Q8H-IV [facility] Last Admin: 03/27/17 09:46 Dose: 25 mg Magnesium Oxide (Mag-Ox -) 400 mg PO BID [facility] Last Admin: 03/27/17 09:32 Dose: 400 mg Pantoprazole Sodium (Protonix -) 40 mg PO DAILY [facility] Last Admin: 03/27/17 09:32 Dose: 40 mg Potassium Chloride (K-Dur -) 40 meq PO ONCE ONE Stop: 03/27/17 09:49 Vital Signs Temp 98.1 F 03/27/17 08:00 Pulse 80 03/27/17 09:48 Resp 14 03/27/17 09:48 BP 116/65 03/27/17 09:48 Pulse Ox 98 03/26/17 22:00 Intake & Output 03/26/17 03/27/17 03/27/17 18:59 06:59 18:59 Intake Total 1550 750 Output Total 1050 1330 Balance 500 -580 Weight 73.709 kg Intake: IV 825 300 1/2NS +10meqKCl/liter at 825 300 75cc/hr IVPB 200 150 Oral 525 300 Output: Drainage 30 Right Upper Abdomen 30 Urine 1050 1300 [place] 1050 Void 1300 Other: Voiding Method Bedpan Bowel Movement Yes No Weight Measurement Method Built in [facility]sholzer hospital EXAM Gen: Awake and alert, non distress, oob an in chair this am Heart: RRR Lung: Bibasilar crackles, no wheezes Abd: soft, nontender Ext: (+) edema, improved CBC, BMP 03/27/17 05:25 03/27/17 05:25 Microbiology 03/23/17 15:00 Stool Gram Stain - Final 03/23/17 10:45 Blood - Central Line Blood Culture - Preliminary NO GROWTH OBTAINED AFTER 48 HOURS, INCUBATION TO CONTINUE FOR 3 DAYS. 03/23/17 10:45 Blood - Peripheral Venous Blood Culture - Preliminary NO GROWTH OBTAINED AFTER 48 HOURS, INCUBATION TO CONTINUE FOR 3 DAYS. 03/24/17 16:45 Blood - Central Line Blood Parasites Smear (LUAN) - Final 03/23/17 15:00 Stool Clostridium difficile Antigen (LUAN) - Final 03/23/17 15:00 Stool Clostridium difficile Toxin Assay - Final 03/20/17 12:50 Abscess AFB Smear Concentration - Final 03/20/17 12:50 Abscess Mycobacterial Culture - Preliminary 03/20/17 12:13 Abscess NADYA Preparation - Preliminary 03/20/17 12:13 Abscess Fungal Culture - Preliminary 03/20/17 04:32 Blood - Peripheral Venous Blood Culture - Final Escherichia Coli 03/20/17 04:32 Blood - Peripheral Venous Blood Culture - Final Escherichia Coli 03/20/17 Unknown Abscess Gram Stain - Final 03/20/17 Unknown Abscess Body Fluid Culture - Final Escherichia Coli 03/20/17 Unknown Abscess Anaerobic Culture - Final NO ANAEROBES WERE ISOLATED 03/20/17 06:20 Urine - Urine - Catheterized Urine Culture - Final Escherichia Coli ASSESSMENT AND PLAN: Hepatic Abscess UTI E coli Bacteremia Septic Shock resolving Multiorgan Failure Acute Hypoxic Respiratory Failure Acute Kidney Injury improving Lactic Acidosis +Troponins likely Demand Ischemia Elevated LFTs likely Ischemic Injury improving Coagulopathy/Thrombocytopenia r/o DIC - O2 to maintain saturation - ABX as per ID - d/c Steroids - Replete lytes - monitor coags, platelets, fibrinogen level - taper Fio2 to keep Spo2 >90% - DVT/GI prophylaxis - Incentive Spirometry - plan for MRI abd Dispo: Med surg
--- NOTE | 2017-03-27 17:22 | PN ---
Progress Note (short form) - Note Progress Note: The patient seen in Telemetry. Feeling better. Took more steps today. still has exertional dyspnea. No chest pain. Afebrile. Lungs: Clear except for scattered rhonchi Heart: S1/ s2. no gallop Abd: Soft. RUQ tender. Ext: edema 2+ Laboratory Results - last 24 hr 03/26/17 03/27/17 03/27/17 17:58 05:25 05:25 WBC 21.2 H RBC 3.88 Hgb 11.6 Hct 35.2 MCV 90.9 MCHC 32.9 RDW 15.1 Plt Count 142 D MPV 10.0 Neutrophils % 91.0 H Lymphocytes % 8.0 D Monocytes % 1.0 L Differential Comment Manual diff done Platelet Estimate Slt decreased Sodium 142 141 Potassium 3.7 D 3.8 Chloride 104 105 Carbon Dioxide 29 30 Anion Gap 9 6 L BUN 12 12 Creatinine 0.5 L D 0.5 L Random Glucose 125 H D 82 D Calcium 7.7 L 7.4 L Phosphorus 2.6 Magnesium 1.8 C-Reactive Protein 1.8 H 03/27/17 08:30 WBC RBC Hgb Hct MCV MCHC RDW Plt Count MPV Neutrophils % Lymphocytes % Monocytes % Differential Comment Platelet Estimate Sodium Potassium Chloride Carbon Dioxide Anion Gap BUN Creatinine Random Glucose Calcium Phosphorus Magnesium C-Reactive Protein Cancelled Imp: Renal functions at her baseline. Still with tendency for abnormal K, Mg and p. Will monitor. Thank you. Laura Tirado MD Problem List - Problems (1) Anaerobic bacteremia Code(s): R78.81 - BACTEREMIA (2) Hypotension Code(s): I95.9 - HYPOTENSION, UNSPECIFIED Qualifiers: Qualified Code(s): I95.89 - Other hypotension (3) Hypovolemic shock Code(s): R57.1 - HYPOVOLEMIC SHOCK (4) Liver abscess Code(s): K75.0 - ABSCESS OF LIVER (5) Renal failure Code(s): N19 - UNSPECIFIED KIDNEY FAILURE Qualifiers: Qualified Code(s): N17.8 - Other acute kidney failure (6) Septic shock Code(s): A41.9 - SEPSIS, UNSPECIFIED ORGANISM R65.21 - SEVERE SEPSIS WITH SEPTIC SHOCK (7) Hypokalemia due to loss of potassium Code(s): E87.6 - HYPOKALEMIA
[2017-03-27] MEDS: CHLORHEXIDINE GLUCONATE 4% CLEANSER FOR DECOLONIZATION TP SCH (22:20)
[2017-03-28 06:07] LABS: MCH 29.8 pg (25.7-33.7); MCHC 32.5 g/dl (32.0-36.0); MEAN CELL VOLUME 91.9 fl (80-96); MEAN PLT VOLUME 9.5 fl (7.5-11.1); PLATELET COUNT 158 K/MM3 (134-434); RDW 15.3 % (11.6-15.6); WHITE BLOOD COUNT 16.9 K/mm3 (4.0-10.0)
[2017-03-28 07:12] LABS: ANION GAP 7 (8-16); CALCIUM 7.3 mg/dL (8.5-10.1); CO2 29 mmol/L (21-32); CREATININE 0.6 mg/dL (0.55-1.02); GLUCOSE,RANDOM 68 mg/dL (74-106); MAGNESIUM 1.7 mg/dL (1.8-2.4); PHOSPHOROUS 3.3 mg/dL (2.5-4.9)
--- NOTE | 2017-03-28 08:14 | PN ---
Progress Note, Physician Chief Complaint: Doing well No complaints - Current Medication List Current Medications: Active Medications Ceftriaxone Sodium (Rocephin 2gm Ivpb (Pre-Docked)) 2 gm IVPB DAILY [facility] Last Admin: 03/27/17 09:32 Dose: 2 gm Chlorhexidine Gluconate (Hibiclens For Decolonization -) 1 applic TP HS [facility] Last Admin: 03/27/17 22:20 Dose: 1 applic Magnesium Oxide (Mag-Ox -) 400 mg PO BID [facility] Last Admin: 03/27/17 22:20 Dose: 400 mg Pantoprazole Sodium (Protonix -) 40 mg PO DAILY [facility] Last Admin: 03/27/17 09:32 Dose: 40 mg - Objective Vital Signs: Vital Signs Temperature 99 F 03/28/17 02:00 Pulse Rate 88 03/28/17 04:00 Respiratory Rate 20 03/28/17 04:00 Blood Pressure 102/58 03/28/17 04:00 O2 Sat by Pulse Oximetry (%) 100 03/27/17 21:12 Constitutional: Yes: Well Nourished HENT: Yes: WNL, Atraumatic Neck: Yes: WNL, Supple Cardiovascular: Yes: S1, S2 Respiratory: Yes: WNL, Regular, CTA Bilaterally Gastrointestinal: Yes: WNL, Normal Bowel Sounds, Soft, Other (Drain). No: Tenderness Edema: Yes Labs: CBC, BMP 03/28/17 05:05 03/28/17 05:05 INR, PTT INR 1.65 (0.82-1.09) H 03/26/17 05:20 Fibrinogen 152.0 mg/dL (238-498) L 03/26/17 05:20 Problem List - Problems (1) Liver abscess Code(s): K75.0 - ABSCESS OF LIVER (2) Multiorgan failure Code(s): BTX2727 - (3) Anaerobic bacteremia Code(s): R78.81 - BACTEREMIA Assessment/Plan Laboratory Tests 03/28/17 03/28/17 05:05 05:05 WBC 16.9 H Hgb 11.1 Hct 34.2 Plt Count 158 BUN 11 Creatinine 0.6 Assessment Liver abscess with sepsis improving E Coli Plan Continue current therapy Eunice RANDOLPH
[2017-03-28] MEDS ORDERED: MAGNESIUM SULF 50% (8.12 MEQ/2 ML-1 GM VIAL) IVPB ONE ×2 (08:22→12:00)
[2017-03-28] MEDS ORDERED: POTASSIUM CHLORIDE TABS 20 MEQ TABLET.ER (FP) PO ONE (08:22)
--- NOTE | 2017-03-28 08:26 | PN ---
Progress Note, Physician Chief Complaint: septic shock History of Present Illness: feels better. no sob, cp, palpitations, presyncope no drug use - Current Medication List Current Medications: Active Medications Ceftriaxone Sodium (Rocephin 2gm Ivpb (Pre-Docked)) 2 gm IVPB DAILY [facility] Last Admin: 03/27/17 09:32 Dose: 2 gm Chlorhexidine Gluconate (Hibiclens For Decolonization -) 1 applic TP HS [facility] Last Admin: 03/27/17 22:20 Dose: 1 applic Magnesium Oxide (Mag-Ox -) 400 mg PO BID [facility] Last Admin: 03/27/17 22:20 Dose: 400 mg Pantoprazole Sodium (Protonix -) 40 mg PO DAILY [facility] Last Admin: 03/27/17 09:32 Dose: 40 mg - Objective Vital Signs: Vital Signs Temperature 99 F 03/28/17 02:00 Pulse Rate 88 03/28/17 04:00 Respiratory Rate 20 03/28/17 04:00 Blood Pressure 102/58 03/28/17 04:00 O2 Sat by Pulse Oximetry (%) 100 03/27/17 21:12 Constitutional: Yes: No Distress, Calm Eyes: No: Sclera Icterus HENT: No: Nasal Congestion Cardiovascular: Yes: Regular Rate and Rhythm, S1, S2, Other (PMI non diplaced). No: Gallop, Murmur Respiratory: Yes: CTA Bilaterally. No: Accessory Muscle Use, Rales, Wheezes Gastrointestinal: Yes: Normal Bowel Sounds, Soft. No: Tenderness Musculoskeletal: Yes: Other (No kyphosis) Extremities: No: Cold Edema: No Integumentary: No: Jaundice Neurological: Yes: Alert, Oriented (x3) Psychiatric: No: Agitated Labs: CBC, BMP 03/28/17 05:05 03/28/17 05:05 INR, PTT INR 1.65 (0.82-1.09) H 03/26/17 05:20 Fibrinogen 152.0 mg/dL (238-498) L 03/26/17 05:20 - ....Imaging EKG: Other (tele: NSR) Assessment/Plan CXR 03/21 am: bilat effusions and diffuse infiltrates, stable vs last film (incr vs admit film) cxr 03/24: per report slightly worse, but by dr robles review looks improved. CXF 03/26: gitig review: bibasilar findings L > R, doubt layering effusions, no vasc redistribution/congestion pattern Echo here 02/2017: moderately decreased biventricular function (global), mild- mod TR rvsp 34, + pleural effusion 31 year old female with a significant past medical history of cholecystectomy ( 8 years ago), who emigrated from [place] (9 years ago) and presents in severe shock gram negative rich sepsis 2/2 hepatic abscess now s/p IR drainage.. septic shock, E. coli urosepsis-->seeding liver with hepatic abscess: - s/p percutaneous liver drain -cont stress dose steroids per pmd/pulm/critical care. -abx per ID, f/u of abscess cx's - 03/23: hemodynamically stable at present off levophed and IVF. CVP improving today 03/23 s/p lasix trial. Close monitoring of alkalosis and potassium/electrolyte abnoromalities while on lasix - most recent pH 7.5, k 3.0 and patient with new bradycardia ?long qt. Repeat ekg tomorrow am. - 03/24: patient autodiuresing. Net negative. no need for lasix today. Monitor alkalosis and hypokalemia closely. - 03/25: clinically slightly worse this afternoon. urine output not entirely recorded due to frequent diarrhea. (no walter). hypotension worsened. IVF resumed. GI planning repeat MRI. patient with worsened sob, endorsing symptoms that may reflect aspiration. Will repeat CXR. -sepsis has resolved: WBC downtrending, thrombocytopenia resolved, hemodynamics stable acute hypoxic resp failure: - ? due to severe septic shock - initially intubated, now extubated - at times still requiring suppl O2 (FM) 03/25, resp status stable/improved 03/26 on NC only - likely L effusion on CXR, ? layering R effusion--? 3rd spacing (albumin currently 2.0), ? sympathetic effusions sec to acute abdominal process - doubt acute syst chf given no vascular redistribution/engorgement on xray - last CVP was 4 (03/24), no JVD on exam - resp status stable, with low O2 req'ts - defer lasix, repeat cxr tomorrow elevated troponin, new cardiomyopathy: -trop peg to 20, trending down -ECG initially non-ischemic, then with nonspecific changes --> repeat with nonsp ST-Ts (actually improved slightly vs last tracing) -young female pt with no reported history of severe hyperlipidemia, diabetes, cigarettes--extremely low pretest prob of obstructive CAD -troponins and ECG are very likely secondary to sepsis related myonecrosis. hence ASA/AC, BB, statin not indicated (regardless, she is at prohibitive risks for these medical therapies, or invasive therapy of CAD, in light of heme abnormalities described above and septic shock) -less likely Takotsubo's from immense stressors. Echo here with moderately decreased biventricular function (global) see discusion below. -rpt echo today re: LVEF reassessment -if EF remains down, will plan to rpt echo as outpt after sepsis fully resolves (in 4-6 wks); defer BB/TASNEEM until can reassess EF at that time, and observe baseline BP once recovers from acute sepsis -aggressive K and Mag repletion, as doing -tele monitoring for ventric arrhythmias anemia, thrombocytopenia, coagulopathy: -likely sec to sepsis -shock liver likely contributing to coagulopathy, ? DIC component -PLTs low, INR high -per critical care/heme SETH: resolved -sec to hypoperfusion vs sepsis -renal fxn improved s/p IVF, hemodynamic support as doing -renal following shock liver: -per crit care, follow enzymes trend
--- NOTE | 2017-03-28 11:38 | PN ---
Progress Note, Physician Chief Complaint: The patient seen in bed in ICU. Has a cough No urinary complaints, No chest pain, Still feeling weak. - Current Medication List Current Medications: Active Medications Ceftriaxone Sodium (Rocephin 2gm Ivpb (Pre-Docked)) 2 gm IVPB DAILY [facility] Last Admin: 03/27/17 09:32 Dose: 2 gm Chlorhexidine Gluconate (Hibiclens For Decolonization -) 1 applic TP HS [facility] Last Admin: 03/27/17 22:20 Dose: 1 applic Magnesium Oxide (Mag-Ox -) 400 mg PO BID [facility] Last Admin: 03/27/17 22:20 Dose: 400 mg Pantoprazole Sodium (Protonix -) 40 mg PO DAILY [facility] Last Admin: 03/27/17 09:32 Dose: 40 mg - Objective Vital Signs: Vital Signs Temperature 99 F 03/28/17 02:00 Pulse Rate 88 03/28/17 04:00 Respiratory Rate 20 03/28/17 04:00 Blood Pressure 102/58 03/28/17 04:00 O2 Sat by Pulse Oximetry (%) 100 03/27/17 21:12 Constitutional: Yes: Anxious, Mild Distress HENT: Yes: Atraumatic, Normocephalic Neck: Yes: Trachea Midline Cardiovascular: Yes: S1, S2 Respiratory: Yes: CTA Bilaterally, Poor Air Entry, Rhonchi. No: Rales Gastrointestinal: Yes: Normal Bowel Sounds, Soft. No: Tenderness Genitourinary: No: CVA Tenderness - Left, CVA Tenderness - Right Edema: Yes Edema: LLE: 1+, RLE: 1+ Labs: CBC, BMP 03/28/17 05:05 03/28/17 05:05 INR, PTT INR 1.65 (0.82-1.09) H 03/26/17 05:20 Fibrinogen 152.0 mg/dL (238-498) L 03/26/17 05:20 Problem List - Problems (1) Anaerobic bacteremia Code(s): R78.81 - BACTEREMIA (2) Hypotension Code(s): I95.9 - HYPOTENSION, UNSPECIFIED Qualifiers: Qualified Code(s): I95.89 - Other hypotension (3) Hypovolemic shock Code(s): R57.1 - HYPOVOLEMIC SHOCK (4) Liver abscess Code(s): K75.0 - ABSCESS OF LIVER (5) Renal failure Code(s): N19 - UNSPECIFIED KIDNEY FAILURE Qualifiers: Qualified Code(s): N17.8 - Other acute kidney failure (6) Septic shock Code(s): A41.9 - SEPSIS, UNSPECIFIED ORGANISM R65.21 - SEVERE SEPSIS WITH SEPTIC SHOCK (7) Hypokalemia due to loss of potassium Code(s): E87.6 - HYPOKALEMIA Assessment/Plan 31 y/o female admitted with Septic shock, and the finding of Liver abscess, which was drained . The cough is persistent, and as per the patient getting worse. S/p acute Respiratory failure: Stable since extubation. Renal functions stable. Serum Bicarb still elevated, but improving. Maintains good urine output. Serum K in acceptable range. Had MRI today. Laura Tirado MD
[2017-03-28] MEDS: cefTRIAXone 2 GM/100 ML BAG (PRE-DOCKED) IVPB SCH (11:40)
[2017-03-28] MEDS: MAGNESIUM OXIDE 400 MG TABLET (FP) PO SCH ×2 (11:41→22:04)
[2017-03-28] MEDS: PANTOPRAZOLE 40 MG TABLET (FP) PO SCH (11:41)
--- NOTE | 2017-03-28 17:34 | PN ---
Physical Exam: SUBJECTIVE: Patient seen and examined at bed side this morning. She was sitting comfortably in a chair. Denies chest pain, sob, cough, palpitation, abdominal pain, nausea or vomiting. OBJECTIVE: Vital Signs Period Temp Pulse Resp BP Sys/Bonner Pulse Ox Last 24 Hr 98.1 F-99.3 F 73-106 14-20 102-123/58-76 100-100 GENERAL: Young female, is sitting in a chair comfortably, awake, alert, oriented x 3, in no acute distress, nasal canula in place. IV line: Right IJ HEAD: Normal with no signs of trauma. EYES: Right conjunctival hemorrhage, No pallor or icterus, PERRLA EARS, NOSE, THROAT: Ears normal. NECK: Normal range of motion, supple without lymphadenopathy, JVD, or masses. LUNGS: Breath sounds equal, clear to auscultation bilaterally. No wheezes, and no crackles. No accessory muscle use. HEART: Regular rate and rhythm, normal S1 and S2 without murmur, rub or gallop. ABDOMEN: ANNEMARIE drain in place, Soft, not distended, normoactive bowel sounds, no guarding, no rebound, no masses. No hepatomegaly or splenomegaly. MUSCULOSKELETAL: Normal range of motion at all joints. No bony deformities or tenderness. UPPER EXTREMITIES: 2+ pulses, warm, well-perfused. No cyanosis. No clubbing. No peripheral edema. LOWER EXTREMITIES: 2+ pulses, warm, well-perfused. No calf tenderness. No peripheral edema. NEUROLOGICAL: Extubated now, alert, oriented x 3, neuro exam still not cooperative. PERRLA, moving all her limbs on low sedation. PSYCHIATRIC: Normal mood and affect. SKIN: Warm, normal turgor, no rashes or lesions noted, normal capillary refill. Laboratory Results - last 24 hr 03/28/17 03/28/17 03/28/17 05:05 05:05 05:05 WBC 16.9 H RBC 3.72 Hgb 11.1 Hct 34.2 MCV 91.9 MCHC 32.5 RDW 15.3 Plt Count 158 MPV 9.5 ESR 5 PTT (Actin FS) Sodium 141 Potassium 3.7 Chloride 105 Carbon Dioxide 29 Anion Gap 7 L BUN 11 Creatinine 0.6 Random Glucose 68 L Calcium 7.3 L Phosphorus 3.3 D Magnesium 1.7 L 03/28/17 15:00 WBC RBC Hgb Hct MCV MCHC RDW Plt Count MPV ESR PTT (Actin FS) 26.0 L Sodium Potassium Chloride Carbon Dioxide Anion Gap BUN Creatinine Random Glucose Calcium Phosphorus Magnesium Active Medications Generic Name Dose Route Start Last Admin Trade Name Elio PRN Reason Stop Dose Admin Ceftriaxone Sodium 2 gm 03/23/17 10:00 03/28/17 11:40 Rocephin 2gm Ivpb (Pre-Docked) IVPB 2 gm DAILY [facility] Administration Chlorhexidine Gluconate 1 applic 03/20/17 22:00 03/27/17 22:20 Hibiclens For Decolonization - TP 1 applic HS [facility] Administration Magnesium Oxide 400 mg 03/26/17 10:00 03/28/17 11:41 Mag-Ox - PO 400 mg BID [facility] Administration Pantoprazole Sodium 40 mg 03/26/17 10:00 03/28/17 11:41 Protonix - PO 40 mg DAILY [facility] Administration ASSESSMENT/PLAN: Patient is a 31 year old female with significant past medical history of Cholecystectomy (8 years ago), pyelonephritis, nephrolithiasis, emigrated from [place] 8 years ago who was brought in by patients boyfriend, with the chief complaints of fever, chills and generalized weakness since 2 weeks. # Respiratory failure due to septic shock with severe lactic acidosis with impending ARDS with Gram negative bacteremia (E.coli) with [id number] IR guided liver abscess drainage Most likely had UTI leading to bacteremia as urine culture, blood culture and fluid culture is positive for E.coli. Changed to IV Ceftriaxone 2gm Daily Day 6. Lactic Acid-trending down after resucitation. # MODS with septic shock d/t Liver Abscess with bandemia and lactic acidosis- Improved Pending MRI report s/p IR guided drainage, purulent drainage Entamoeba Ab negative, HIV test negative IV Ceftriaxone 2gm Daily Day 6 Off Hydrocortisone # Abnormal LFT;s with coagulopathy like shock liver-Improving Decreasing LFTs on repeat labs FFPs 4 total given for coagulopathy Will monitor Avoid hepatotoxic drugs # SETH (resolved) with high anion gap metabolic acidosis(now with normal anion gap) with lactic acidosis -improving Creatinine now at baseline after resuscitation Lanier discontinued, no problems in urination. Avoid nephrotoxic drugs Renal consult appreciated Monitor BUN and creatinine and electrolytes # Thrombocytopenia due to septic shock vs dilutational No signs of active bleeding will monitor Avoid medication causing thrombocytopenia # NCNC Anemia likely due to septic shock -at baseline 1 PRBC transfusion this admission. No active signs of bleeding Transfuse if Hb < 7gm/dl # FEN No fluids Electrolytes to be repeated Clear liquid-sodium restricted # Prophylaxis FOr DVT: Not on AC due to coagulopathy, on SCDs For GI: ON Protonix # Code status: Full Code # Dispo: Admitted in the ICU. Duration of stay unknown. Illness, Investigation and Plan of care explained to the patient. She verbalized understanding and agreed to the plan. Case discussed with Dr. Beckham. Visit type - Emergency Visit Emergency Visit: Yes ED Registration Date: 03/20/17 Care time: The patient presented to the Emergency Department on the above date and was hospitalized for further evaluation of their emergent condition. - New Patient This patient is new to me today: No - Critical Care Critical Care patient: No - Discharge Referral Referred to [facility] No
--- NOTE | 2017-03-28 17:55 | PN ---
Teaching Attending Note Name of Resident: Mary Hernadez ATTENDING PHYSICIAN STATEMENT I saw and evaluated the patient. I reviewed the resident's note and discussed the case with the resident. I agree with the resident's findings and plan as documented. SUBJECTIVE: no fever or chills, no abd pain , feels better , sore throat . OBJECTIVE: awake , alert and oriented. R sub-conjunctival bleed CV: RRR Lungs; decreased breath sounds at bases otherwise , nl Ext : trace edema on feet. no erythema on legs, edema on hands ASSESSMENT AND PLAN: 31 y/o lady with no significant PMH who presented with fever , chills was found to have septic shock from LIver abscess. 1- Septic shock, 2/2 UTI--> bacteremia--> liver abscess. S/p IR drainage Cont to improve - Cont ceftriaxone 2 g/daily - monitor out put from ANNEMARIE drain . - monitor BP off steroids - MRI of abd pending read 2- Acute hypoxic resp failure ,extubated now . has cough, will repeat Xray in am , might need togive little lasix 3-Electrolyte Abn: replete as needed 4- Thrombocytopenia : likely due to sepsis . improved Monitor 5- NSTEMI: 2/2 to sepsis . 6- New cardiomyopathy, with Mod reduced EF. likely due to sepsis repeat echo with NL EF and RV, LV sizeand function 7- Coagulopathy : stable INR and PTT . possible coagulopathy form liver dysfunction 8- L adrenal gland thickening, of unclear etiology . f/u needed as outpt HLOC
[2017-03-28] MEDS: CHLORHEXIDINE GLUCONATE 4% CLEANSER FOR DECOLONIZATION TP SCH (22:05)
[2017-03-29 06:43] LABS: ANION GAP 7 (8-16); CALCIUM 8.1 mg/dL (8.5-10.1); CO2 28 mmol/L (21-32); CREATININE 0.5 mg/dL (0.55-1.02); GLUCOSE,RANDOM 73 mg/dL (74-106); MAGNESIUM 1.9 mg/dL (1.8-2.4)
[2017-03-29 06:56] LABS: INR 1.37 (0.82-1.09); PROTHROMBIN TIME (PATIENT) 15.2 SEC (9.98-11.88)
[2017-03-29 07:29] LABS: ACTIVATED PTT 25.8 SECONDS (26.9-34.4)
--- NOTE | 2017-03-29 07:57 | PN ---
Progress Note, Physician Chief Complaint: ID Ceftriaxone continues No complaints Afebrile - Current Medication List Current Medications: Active Medications Ceftriaxone Sodium (Rocephin 2gm Ivpb (Pre-Docked)) 2 gm IVPB DAILY [facility] Last Admin: 03/28/17 11:40 Dose: 2 gm Chlorhexidine Gluconate (Hibiclens For Decolonization -) 1 applic TP HS [facility] Last Admin: 03/28/17 22:05 Dose: 1 applic Magnesium Oxide (Mag-Ox -) 400 mg PO BID [facility] Last Admin: 03/28/17 22:04 Dose: 400 mg Pantoprazole Sodium (Protonix -) 40 mg PO DAILY [facility] Last Admin: 03/28/17 11:41 Dose: 40 mg - Objective Vital Signs: Vital Signs Temperature 98.3 F 03/29/17 06:00 Pulse Rate 87 03/29/17 06:00 Respiratory Rate 16 03/29/17 06:00 Blood Pressure 104/60 03/29/17 06:00 O2 Sat by Pulse Oximetry (%) 100 03/27/17 21:12 Constitutional: Yes: Well Nourished, No Distress HENT: Yes: WNL, Atraumatic Neck: Yes: WNL, Supple Cardiovascular: Yes: Regular Rate and Rhythm, S1, S2 Respiratory: Yes: WNL, Regular, CTA Bilaterally Gastrointestinal: Yes: WNL, Normal Bowel Sounds, Soft, Other (Drain RUQ) Labs: CBC, BMP 03/28/17 05:05 03/29/17 05:15 INR, PTT INR 1.37 (0.82-1.09) H 03/29/17 05:15 Fibrinogen 365.0 mg/dL (238-498) D 03/29/17 05:15 Problem List - Problems (1) Liver abscess Code(s): K75.0 - ABSCESS OF LIVER (2) Multiorgan failure Code(s): [id number] - (3) Anaerobic bacteremia Code(s): R78.81 - BACTEREMIA Assessment/Plan Laboratory Tests 03/25/17 03/26/17 03/28/17 13:45 05:20 05:05 WBC 32.4 H* D Hgb Plt Count ESR 5 BUN Creatinine Total Bilirubin 1.0 D AST 135 H D ALT 380 H 03/28/17 03/29/17 05:05 05:15 WBC 16.9 H Hgb 11.1 Plt Count 158 ESR BUN 8 D Creatinine 0.5 L Total Bilirubin AST ALT Assessment Sepsis with liver abscess hematogenous in origin E Coli Improving CRP ESR normal Day 9 total duration pansensitive Plan By tomorrow we can switch her to oral quinolone for a short while longer Eunice RANDOLPH
--- NOTE | 2017-03-29 08:14 | PN ---
Progress Note, Physician Chief Complaint: cardiomyop, sepsis History of Present Illness: no sob, cp, palpit, presyncope - Current Medication List Current Medications: Active Medications Ceftriaxone Sodium (Rocephin 2gm Ivpb (Pre-Docked)) 2 gm IVPB DAILY [facility] Last Admin: 03/28/17 11:40 Dose: 2 gm Chlorhexidine Gluconate (Hibiclens For Decolonization -) 1 applic TP HS [facility] Last Admin: 03/28/17 22:05 Dose: 1 applic Magnesium Oxide (Mag-Ox -) 400 mg PO BID [facility] Last Admin: 03/28/17 22:04 Dose: 400 mg Pantoprazole Sodium (Protonix -) 40 mg PO DAILY [facility] Last Admin: 03/28/17 11:41 Dose: 40 mg - Objective Vital Signs: Vital Signs Temperature 98.3 F 03/29/17 06:00 Pulse Rate 87 03/29/17 06:00 Respiratory Rate 16 03/29/17 06:00 Blood Pressure 104/60 03/29/17 06:00 O2 Sat by Pulse Oximetry (%) 100 03/27/17 21:12 Constitutional: Yes: Well Nourished, No Distress, Calm Cardiovascular: Yes: Regular Rate and Rhythm, S1, S2. No: Gallop, Murmur Respiratory: Yes: Regular, CTA Bilaterally. No: Accessory Muscle Use, Rales, Wheezes Extremities: No: Cold Edema: No Neurological: Yes: Alert, Oriented Psychiatric: No: Agitated Labs: CBC, BMP 03/28/17 05:05 03/29/17 05:15 INR, PTT INR 1.37 (0.82-1.09) H 03/29/17 05:15 Fibrinogen 365.0 mg/dL (238-498) D 03/29/17 05:15 - ....Imaging EKG: Other (tele: NSR/sinus tach) Assessment/Plan CXR 03/21 am: bilat effusions and diffuse infiltrates, stable vs last film (incr vs admit film) cxr 03/24: per report slightly worse, but by dr robles review looks improved. CXF 03/26: gitig review: bibasilar findings L > R, doubt layering effusions, no vasc redistribution/congestion pattern Echo here 02/2017: moderately decreased biventricular function (global), mild- mod TR rvsp 34, + pleural effusion repeat limited echo 04/11: nl LV and RV fxn 31 year old female with a significant past medical history of cholecystectomy ( 8 years ago), who emigrated from [place] (9 years ago) and presents in severe shock gram negative rich sepsis 2/2 hepatic abscess now s/p IR drainage.. septic shock, E. coli urosepsis-->seeding liver with hepatic abscess: - s/p percutaneous liver drain -cont stress dose steroids per pmd/pulm/critical care. -abx per ID, f/u of abscess cx's - 03/23: hemodynamically stable at present off levophed and IVF. CVP improving today 03/23 s/p lasix trial. Close monitoring of alkalosis and potassium/electrolyte abnoromalities while on lasix - most recent pH 7.5, k 3.0 and patient with new bradycardia ?long qt. Repeat ekg tomorrow am. - 03/24: patient autodiuresing. Net negative. no need for lasix today. Monitor alkalosis and hypokalemia closely. - 03/25: clinically slightly worse this afternoon. urine output not entirely recorded due to frequent diarrhea. (no walter). hypotension worsened. IVF resumed. GI planning repeat MRI. patient with worsened sob, endorsing symptoms that may reflect aspiration. Will repeat CXR. -sepsis has resolved: WBC downtrending, thrombocytopenia resolved, hemodynamics stable acute hypoxic resp failure: - ? due to severe septic shock - initially intubated, now extubated - at times still requiring suppl O2 () 03/25, resp status stable/improved 03/26 on NC only - likely L effusion on CXR, ? layering R effusion--? 3rd spacing (albumin currently 2.0), ? sympathetic effusions sec to acute abdominal process - doubt acute syst chf given no vascular redistribution/engorgement on xray - last CVP was 4 (03/24), no JVD on exam - resp status stable, with low O2 req'ts - defer lasix, repeat cxr tomorrow elevated troponin, transient cardiomyopathy: -trop peg to 20, trending down -ECG initially non-ischemic, then with nonspecific changes --> repeat with nonsp ST-Ts (actually improved slightly vs last tracing) -young female pt with no reported history of severe hyperlipidemia, diabetes, cigarettes--extremely low pretest prob of obstructive CAD -troponins and ECG are very likely secondary to sepsis related myonecrosis. -rpt echo shows biventricular function has normalized--no further treatment or w /u indicated anemia, thrombocytopenia, coagulopathy: -likely sec to sepsis -shock liver likely contributing to coagulopathy, ? DIC component -PLTs low, INR high -per critical care/heme SETH: resolved -sec to hypoperfusion vs sepsis -renal fxn improved s/p IVF, hemodynamic support as doing -renal following shock liver: -per crit care, follow enzymes trend
[2017-03-29] MEDS: PANTOPRAZOLE 40 MG TABLET (FP) PO SCH (10:10)
[2017-03-29] MEDS: MAGNESIUM OXIDE 400 MG TABLET (FP) PO SCH ×2 (10:10→21:47)
[2017-03-29] MEDS: cefTRIAXone 2 GM/100 ML BAG (PRE-DOCKED) IVPB SCH (10:10)
--- NOTE | 2017-03-29 12:41 | PN ---
Progress Note (short form) - Note Progress Note: Subjective: no fever or chills . has no abd pain . no cough or SOB Objective: Vital Signs: Last Vital Signs Temp Pulse Resp BP Pulse Ox 98.7 F 85 17 110/65 100 03/29/17 10:00 03/29/17 10:00 03/29/17 10:00 03/29/17 10:00 03/27/17 21:12 Laboratory Results - last 24 hr 03/28/17 03/29/17 03/29/17 15:00 05:15 05:15 INR PTT (Actin FS) 26.0 L 25.8 L Fibrinogen 365.0 D Sodium 137 Potassium 4.3 Chloride 102 Carbon Dioxide 28 Anion Gap 7 L BUN 8 D Creatinine 0.5 L Random Glucose 73 L Calcium 8.1 L Magnesium 1.9 03/29/17 05:15 INR 1.37 H PTT (Actin FS) Fibrinogen Sodium Potassium Chloride Carbon Dioxide Anion Gap BUN Creatinine Random Glucose Calcium Magnesium Physical Exam: awake , alert and oriented. R sub-conjunctival bleed has significantly improved CV: RRR Lungs; decreased breath sounds at bases otherwise , nl Ext : trace edema on feet. no erythema ASSESSMENT AND PLAN: 31 y/o lady with no significant PMH who presented with fever , chills was found to have septic shock from LIver abscess. 1- Septic shock, 2/2 UTI--> bacteremia--> liver abscess. S/p IR drainage MRI showed decreased size of the liver abscess ( 7.3x6.4--->3.2x1.8) - Cont ceftriaxone 2 g/daily , follow ID Recs - monitor out put from ANNEMARIE drain . will need to d/w IR plan for drai 2- Acute hypoxic resp failure: resolved cxray with improved areation and b/l effusions 3-Electrolyte Abn: replete as needed 4- Thrombocytopenia : resolved 5- NSTEMI: 2/2 to sepsis . not active now 6- New cardiomyopathy, with Mod reduced EF. likely due to sepsis repeat echo with NL EF and RV, LV size and function 7- Coagulopathy : probably due to sepsis and liver dysfunction , much imporved 8- L adrenal gland thickening, of unclear etiology . f/u needed as outpt HLOC Visit type - Emergency Visit Emergency Visit: Yes ED Registration Date: 03/20/17 Care time: The patient presented to the Emergency Department on the above date and was hospitalized for further evaluation of their emergent condition. - New Patient This patient is new to me today: No - Critical Care Critical Care patient: No
--- NOTE | 2017-03-29 14:22 | PN ---
Progress Note, Physician Chief Complaint: The patient seen in bed in ICU. Still coughing, but better. Denies any chest pain. No abdominal pains. - Current Medication List Current Medications: Active Medications Ceftriaxone Sodium (Rocephin 2gm Ivpb (Pre-Docked)) 2 gm IVPB DAILY [facility] Last Admin: 03/29/17 10:10 Dose: 2 gm Chlorhexidine Gluconate (Hibiclens For Decolonization -) 1 applic TP HS [facility] Last Admin: 03/28/17 22:05 Dose: 1 applic Magnesium Oxide (Mag-Ox -) 400 mg PO BID [facility] Last Admin: 03/29/17 10:10 Dose: 400 mg Pantoprazole Sodium (Protonix -) 40 mg PO DAILY [facility] Last Admin: 03/29/17 10:10 Dose: 40 mg - Objective Vital Signs: Vital Signs Temperature 98.7 F 03/29/17 10:00 Pulse Rate 85 03/29/17 10:00 Respiratory Rate 17 03/29/17 10:00 Blood Pressure 110/65 03/29/17 10:00 O2 Sat by Pulse Oximetry (%) 100 03/27/17 21:12 Constitutional: Yes: No Distress Eyes: Yes: Conjunctiva Clear HENT: Yes: Normocephalic Cardiovascular: Yes: Regular Rate and Rhythm, S1, S2 Respiratory: Yes: Regular, CTA Bilaterally Gastrointestinal: Yes: Normal Bowel Sounds, Soft Genitourinary: No: CVA Tenderness - Left, CVA Tenderness - Right Musculoskeletal: No: Back Pain Labs: CBC, BMP 03/28/17 05:05 03/29/17 05:15 INR, PTT INR 1.37 (0.82-1.09) H 03/29/17 05:15 Fibrinogen 365.0 mg/dL (238-498) D 03/29/17 05:15 Problem List - Problems (1) Anaerobic bacteremia Code(s): R78.81 - BACTEREMIA (2) Hypotension Code(s): I95.9 - HYPOTENSION, UNSPECIFIED Qualifiers: Qualified Code(s): I95.89 - Other hypotension (3) Hypovolemic shock Code(s): R57.1 - HYPOVOLEMIC SHOCK (4) Liver abscess Code(s): K75.0 - ABSCESS OF LIVER (5) Renal failure Code(s): N19 - UNSPECIFIED KIDNEY FAILURE Qualifiers: Qualified Code(s): N17.8 - Other acute kidney failure (6) Septic shock Code(s): A41.9 - SEPSIS, UNSPECIFIED ORGANISM R65.21 - SEVERE SEPSIS WITH SEPTIC SHOCK (7) Hypokalemia due to loss of potassium Code(s): E87.6 - HYPOKALEMIA Assessment/Plan 31 y/o female admitted with Septic shock, and the finding of Liver abscess, which was drained . Has a persistent cough, but improving. Renal functions stable. Serum Bicarb still elevated, but improving. Hyperchloremic Metaboloc acidosis also resolving. Hypomagnesemia...received supplements. Maintains good urine output. Serum K in acceptable range. The MRCP findings noted. Persistence of the hepatic collection.? GI follow up. ? Surgical eval. Laura Tirado MD
[2017-03-29] MEDS: CHLORHEXIDINE GLUCONATE 4% CLEANSER FOR DECOLONIZATION TP SCH (21:47)
[2017-03-30 06:18] LABS: BASOPHIL 0.4 % (0-2.0); EOSINOPHIL 1.2 % (0-4.5); MCH 30.4 pg (25.7-33.7); MCHC 32.9 g/dl (32.0-36.0); MEAN CELL VOLUME 92.3 fl (80-96); MEAN PLT VOLUME 9.1 fl (7.5-11.1); NEUTROPHILS 69.6 % (42.8-82.8); PLATELET COUNT 194 K/MM3 (134-434); RDW 16.1 % (11.6-15.6); WHITE BLOOD COUNT 9.1 K/mm3 (4.0-10.0)
[2017-03-30 06:49] LABS: ANION GAP 6 (8-16); CALCIUM 8.1 mg/dL (8.5-10.1); CO2 31 mmol/L (21-32); GLUCOSE,RANDOM 77 mg/dL (74-106)
[2017-03-30 06:50] LABS: CREATININE 0.6 mg/dL (0.55-1.02); PHOSPHOROUS 4.4 mg/dL (2.5-4.9)
--- NOTE | 2017-03-30 07:46 | PN ---
Progress Note, Physician Chief Complaint: ID Doing well Ceftriaxone - Current Medication List Current Medications: Active Medications Ceftriaxone Sodium (Rocephin 2gm Ivpb (Pre-Docked)) 2 gm IVPB DAILY [facility] Last Admin: 03/29/17 10:10 Dose: 2 gm Chlorhexidine Gluconate (Hibiclens For Decolonization -) 1 applic TP HS [facility] Last Admin: 03/29/17 21:47 Dose: 1 applic Magnesium Oxide (Mag-Ox -) 400 mg PO BID [facility] Last Admin: 03/29/17 21:47 Dose: 400 mg Pantoprazole Sodium (Protonix -) 40 mg PO DAILY [facility] Last Admin: 03/29/17 10:10 Dose: 40 mg - Objective Vital Signs: Vital Signs Temperature 98.1 F 03/30/17 06:00 Pulse Rate 80 03/30/17 06:00 Respiratory Rate 18 03/30/17 06:00 Blood Pressure 89/47 03/30/17 06:00 O2 Sat by Pulse Oximetry (%) 100 03/27/17 21:12 Gastrointestinal: Yes: Soft, Other (Drain). No: Tenderness, Tenderness, Rebound Labs: CBC, BMP 03/30/17 05:15 03/30/17 05:15 INR, PTT INR 1.37 (0.82-1.09) H 03/29/17 05:15 Fibrinogen 365.0 mg/dL (238-498) D 03/29/17 05:15 Problem List - Problems (1) Liver abscess Code(s): K75.0 - ABSCESS OF LIVER (2) Multiorgan failure Code(s): BOI4837 - (3) Anaerobic bacteremia Code(s): R78.81 - BACTEREMIA Assessment/Plan Laboratory Tests 03/27/17 03/30/17 05:25 05:15 WBC 9.1 D Hgb 11.1 Plt Count 194 D C-Reactive Protein 1.8 H Assessment Sepsis Syndrome with E Coli bacteremia sepsis cardiomyopathy Plan Day 10 therapy antibiotic Substitute Levofloxacin 500mg daily 7 days Kindly recall as needed Eunice RANDOLPH
[2017-03-30] MEDS: SODIUM CHLORIDE 1,000 ML IV SCH ×2 (09:17→14:00)
[2017-03-30] MEDS: PANTOPRAZOLE 40 MG TABLET (FP) PO SCH (09:24)
[2017-03-30] MEDS: LEVOFLOXACIN 500 MG TABLET (FP) PO SCH (09:24)
[2017-03-30] MEDS: MAGNESIUM OXIDE 400 MG TABLET (FP) PO SCH ×2 (09:24→21:07)
--- NOTE | 2017-03-30 10:17 | PN ---
Progress Note (short form) - Note Progress Note: Progress Note, Physician Chief Complaint: cardiomyop, sepsis History of Present Illness: no sob, cp, palpit, presyncope - Current Medication List Current Medications: Active Medications Current Medications Generic Name Dose Route Start Last Admin Trade Name Carlq PRN Reason Stop Dose Admin Chlorhexidine Gluconate 1 applic 03/20/17 22:00 03/29/17 21:47 Hibiclens For Decolonization - TP 1 applic HS CHELY Administration Sodium Chloride 1,000 mls @ 200 mls/hr 03/30/17 08:45 03/30/17 09:17 Normal Saline - IV 03/31/17 13:44 200 mls/hr ASDIR CHELY Administration Levofloxacin 500 mg 03/30/17 10:00 03/30/17 09:24 Levaquin - PO 500 mg DAILY CHELY Administration Magnesium Oxide 400 mg 03/26/17 10:00 03/30/17 09:24 Mag-Ox - PO 400 mg BID CHELY Administration Pantoprazole Sodium 40 mg 03/26/17 10:00 03/30/17 09:24 Protonix - PO 40 mg DAILY CHELY Administration Vital Signs Period Temp Pulse Resp BP Sys/Bonner Pulse Ox Last 24 Hr 98.1 F-98.9 F 74-105 17-23 89-109/47-58 Constitutional: Yes: Well Nourished, No Distress, Calm Cardiovascular: Yes: Regular Rate and Rhythm, S1, S2. No: Gallop, Murmur Respiratory: Yes: Regular, CTA Bilaterally. No: Accessory Muscle Use, Rales, Wheezes Extremities: No: Cold Edema: No Neurological: Yes: Alert, Oriented Psychiatric: No: Agitated Labs: CBC, BMP 03/30/17 05:15 03/30/17 05:15 EKG: Other (tele: NSR/sinus tach) CXR 03/21 am: bilat effusions and diffuse infiltrates, stable vs last film (incr vs admit film) cxr 03/24: per report slightly worse, but by dr robles review looks improved. CXF 03/26: gitig review: bibasilar findings L > R, doubt layering effusions, no vasc redistribution/congestion pattern Echo here 02/2017: moderately decreased biventricular function (global), mild- mod TR rvsp 34, + pleural effusion repeat limited echo 04/11: nl LV and RV fxn a/p: 31 year old female with a significant past medical history of cholecystectomy ( 8 years ago), who emigrated from [place] (9 years ago) and presents in severe shock gram negative rich sepsis 2/2 hepatic abscess now s/p IR drainage.. septic shock, E. coli urosepsis-->seeding liver with hepatic abscess: - s/p percutaneous liver drain - sepsis has resolved - abx per ID acute hypoxic resp failure: - ? due to severe septic shock - initially intubated, now extubated - likely L effusion on CXR, ? layering R effusion--? 3rd spacing (albumin currently 2.0), ? sympathetic effusions sec to acute abdominal process - doubt acute syst chf given no vascular redistribution/engorgement on xray - resp status stable, with low O2 req'ts - defer lasix elevated troponin, transient cardiomyopathy: -trop peg to 20, trending down -ECG initially non-ischemic, then with nonspecific changes --> repeat with nonsp ST-Ts (actually improved slightly vs last tracing) -young female pt with no reported history of severe hyperlipidemia, diabetes, cigarettes--extremely low pretest prob of obstructive CAD -troponins and ECG are very likely secondary to sepsis related myonecrosis. -rpt echo shows biventricular function has normalized--no further treatment or w /u indicated at this time anemia, thrombocytopenia, coagulopathy: -likely sec to sepsis -shock liver likely contributing to coagulopathy, ? DIC component -per critical care/heme SETH: resolved -sec to hypoperfusion vs sepsis -renal fxn improved s/p IVF, hemodynamic support as doing -renal following
--- NOTE | 2017-03-30 12:03 | PN ---
Progress Note (short form) - Note Progress Note: Renal Follow up for SETH Pt seen and examined in the ICU awake and alert sitting at the edge of the bed no complaints good urine output Vital Signs Temperature 98.1 F 03/30/17 06:00 Pulse Rate 100 H 03/30/17 08:37 Respiratory Rate 23 03/30/17 08:37 Blood Pressure 95/56 03/30/17 08:37 O2 Sat by Pulse Oximetry (%) 100 03/27/17 21:12 Intake & Output 03/27/17 03/28/17 03/29/17 03/30/17 23:59 23:59 23:59 23:59 Intake Total 450 900 700 Output Total 1310 7 7 Balance -860 893 693 Weight 162 lb 8 oz 159 lb 3.2 oz 149 lb 14.4 oz 144 lb 4.8 oz Gen: NAD CVS: RRR Lungs: CTA Abd: no tenderness, abd drain in place Ext: No edema CBC, BMP 03/30/17 05:15 03/30/17 05:15 Current Medications Chlorhexidine Gluconate (Hibiclens For Decolonization -) 1 applic TP HS [facility] Last Admin: 03/29/17 21:47 Dose: 1 applic Sodium Chloride (Normal Saline -) 1,000 mls @ 200 mls/hr IV ASDIR [facility] Stop: 03/31/17 13:44 Last Admin: 03/30/17 09:17 Dose: 200 mls/hr Levofloxacin (Levaquin -) 500 mg PO DAILY [facility] Last Admin: 03/30/17 09:24 Dose: 500 mg Magnesium Oxide (Mag-Ox -) 400 mg PO BID [facility] Last Admin: 03/30/17 09:24 Dose: 400 mg Pantoprazole Sodium (Protonix -) 40 mg PO DAILY [facility] Last Admin: 03/30/17 09:24 Dose: 40 mg A/P 31 year old woman with PMhx of ovarian cyst, ? nephrolithiasis who presented with Abd pain and fever and found to have Sepsis with shock with suspected liver abcess and SETH and metabolic acidosis. #Acute Renal Failure with Lactic acidosis in acute septic shock pt is hemodynamically stable Renal function is improved and stable at this time Acidosis is resolved Continue to trend BUN/Cr as inpatient Surgical and ID follow up Yayo Jennings DO
--- NOTE | 2017-03-30 15:03 | PN ---
<Bg Gómez - Last Filed: 03/30/17 14:49> Physical Exam: SUBJECTIVE: Patient seen and examined at bedside. No complaints at this time. Pt denies headache, cp, sob, nausea, vomiting, diarrhea, dysuria. OBJECTIVE: Vital Signs Period Temp Pulse Resp BP Sys/Bonner Pulse Ox Last 24 Hr 98.1 F-98.9 F 74-105 17-23 89-109/47-58 99 GENERAL: The patient is awake, alert, and fully oriented, in no acute distress. HEAD: Normal with no signs of trauma. EYES: PERRL, extraocular movements intact, sclera anicteric, conjunctiva clear. No ptosis. ENT: Ears normal, nares patent, oropharynx clear without exudates, moist mucous membranes. NECK: Trachea midline, full range of motion, supple. LUNGS: Breath sounds equal, clear to auscultation bilaterally, no wheezes, no crackles, no accessory muscle use. HEART: Regular rate and rhythm, S1, S2 without murmur, rub or gallop. ABDOMEN: Soft, nontender, nondistended, normoactive bowel sounds, no guarding, no rebound, no hepatosplenomegaly, no masses. EXTREMITIES: 2+ pulses, warm, well-perfused, no edema. NEUROLOGICAL: Cranial nerves II through XII grossly intact. Normal speech, gait not observed. PSYCH: Normal mood, normal affect. SKIN: Warm, dry, normal turgor, no rashes or lesions noted Laboratory Results - last 24 hr 03/22/17 03/30/17 03/30/17 05:20 05:15 05:15 WBC 9.1 D RBC 3.64 Hgb 11.1 Hct 33.6 MCV 92.3 MCHC 32.9 RDW 16.1 H Plt Count 194 D MPV 9.1 Neutrophils % 69.6 D Lymphocytes % 18.4 D Monocytes % 10.4 H D Eosinophils % 1.2 D Basophils % 0.4 D Sodium 137 Potassium 4.7 Chloride 100 Carbon Dioxide 31 Anion Gap 6 L BUN 9 Creatinine 0.6 Random Glucose 77 Lactic Acid Calcium 8.1 L Phosphorus 4.4 D Magnesium 2.0 Iron 173 H TIBC 192 L Iron Saturation 90 H Echinococcus Antibody 0.09 03/30/17 05:15 WBC RBC Hgb Hct MCV MCHC RDW Plt Count MPV Neutrophils % Lymphocytes % Monocytes % Eosinophils % Basophils % Sodium Potassium Chloride Carbon Dioxide Anion Gap BUN Creatinine Random Glucose Lactic Acid 1.1 Calcium Phosphorus Magnesium Iron TIBC Iron Saturation Echinococcus Antibody Active Medications Generic Name Dose Route Start Last Admin Trade Name Elio PRN Reason Stop Dose Admin Chlorhexidine Gluconate 1 applic 03/20/17 22:00 03/29/17 21:47 Hibiclens For Decolonization - TP 1 applic HS CHELY Administration Sodium Chloride 1,000 mls @ 200 mls/hr 03/30/17 08:45 03/30/17 09:17 Normal Saline - IV 03/31/17 13:44 200 mls/hr ASDIR CHELY Administration Levofloxacin 500 mg 03/30/17 10:00 03/30/17 09:24 Levaquin - PO 500 mg DAILY [facility] Administration Magnesium Oxide 400 mg 03/26/17 10:00 03/30/17 09:24 Mag-Ox - PO 400 mg BID CHE[facility] Administration Pantoprazole Sodium 40 mg 03/26/17 10:00 03/30/17 09:24 Protonix - PO 40 mg DAILY [facility] Administration ASSESSMENT/PLAN: Patient is a 31 year old female with significant past medical history of Cholecystectomy (8 years ago), pyelonephritis, nephrolithiasis, emigrated from [place] 8 years ago who was brought in by patients boyfriend, with the chief complaints of fever, chills and generalized weakness for 2 weeks. # Respiratory failure due to septic shock with severe lactic acidosis with impending ARDS with Gram negative bacteremia (E.coli) with [id number] IR guided liver abscess drainage Most likely had UTI leading to bacteremia as urine culture, blood culture and fluid culture is positive for E.coli. Changed to IV Levaquin 500mg Daily Day 1. Lactic Acid-trending down after resucitation. Now 1.1. # MODS with septic shock d/t Liver Abscess with bandemia and lactic acidosis- Improved MRI report showed 3cm lobulated collection in right hepatic lobe suggestive of abscess s/p IR guided drainage, purulent drainage Entamoeba Ab negative, HIV test negative IV Ceftriaxone 2gm Daily Day 6 Off Hydrocortisone # Abnormal LFT;s with coagulopathy like shock liver-Improving f/u LFTs tomorrow FFPs 4 total given for coagulopathy Will monitor Avoid hepatotoxic drugs # SETH (resolved) with high anion gap metabolic acidosis(now with normal anion gap) with lactic acidosis -improving Creatinine now at baseline after resuscitation Lanier discontinued, no problems in urination. Avoid nephrotoxic drugs Renal consult appreciated Monitor BUN and creatinine and electrolytes # Thrombocytopenia due to septic shock vs dilutational No signs of active bleeding will monitor Avoid medication causing thrombocytopenia # NCNC Anemia likely due to septic shock -at baseline 1 PRBC transfusion this admission. No active signs of bleeding Transfuse if Hb < 7gm/dl # FEN No fluids Electrolytes to be repeated Clear liquid-sodium restricted # Prophylaxis For DVT: Not on AC due to coagulopathy, on SCDs For GI: ON Protonix # Code status: Full Code # Dispo: Admitted in the ICU. Duration of stay unknown. Illness, Investigation and Plan of care explained to the patient. She verbalized understanding and agreed to the plan. Visit type - Emergency Visit Emergency Visit: No - New Patient This patient is new to me today: Yes Date on this admission: 03/30/17 - Critical Care Critical Care patient: No <Espinoza Leal - Last Filed: 03/31/17 18:58> Physical Exam: SUBJECTIVE: Patient seen and examined OBJECTIVE: Vital Signs Period Temp Pulse Resp BP Sys/Bonner Pulse Ox Last 24 Hr 97.8 F-98.3 F 69-88 17-95 99-109/59-67 98-98 GENERAL: The patient is awake, alert, and fully oriented, in no acute distress. HEAD: Normal with no signs of trauma. EYES: PERRL, extraocular movements intact, sclera anicteric, conjunctiva clear. No ptosis. ENT: Ears normal, nares patent, oropharynx clear without exudates, moist mucous membranes. NECK: Trachea midline, full range of motion, supple. LUNGS: Breath sounds equal, clear to auscultation bilaterally, no wheezes, no crackles, no accessory muscle use. HEART: Regular rate and rhythm, S1, S2 without murmur, rub or gallop. ABDOMEN: Soft, nontender, nondistended, normoactive bowel sounds, no guarding, no rebound, no hepatosplenomegaly, no masses. EXTREMITIES: 2+ pulses, warm, well-perfused, no edema. NEUROLOGICAL: Cranial nerves II through XII grossly intact. Normal speech, gait not observed. PSYCH: Normal mood, normal affect. SKIN: Warm, dry, normal turgor, no rashes or lesions noted Laboratory Results - last 24 hr 03/31/17 03/31/17 05:10 05:10 WBC 7.7 RBC 3.37 L Hgb 10.4 L Hct 30.9 L MCV 91.5 MCHC 33.6 RDW 16.2 H Plt Count 209 MPV 8.3 Neutrophils % 67.4 Lymphocytes % 18.6 Monocytes % 12.7 H Eosinophils % 0.9 Basophils % 0.4 Sodium 138 Potassium 4.3 Chloride 102 Carbon Dioxide 30 Anion Gap 6 L BUN 10 Creatinine 0.6 Creat Clearance w eGFR > 60 Random Glucose 82 Calcium 8.4 L Magnesium 1.9 Total Bilirubin 0.9 AST 30 D ALT 133 H D Alkaline Phosphatase 145 H D Total Protein 5.7 L Albumin 2.4 L ASSESSMENT/PLAN: Abdomen: positive for Liver ANNEMARIE drainage
--- NOTE | 2017-03-30 16:07 | PN ---
Teaching Attending Note Name of Resident: Bg Gómez ATTENDING PHYSICIAN STATEMENT I saw and evaluated the patient. I reviewed the resident's note and discussed the case with the resident. I agree with the resident's findings and plan as documented. SUBJECTIVE: Patient is comfortable with no acute distress, no fever or chills , no shortness of breath. OBJECTIVE: Vital Signs Temperature 98.1 F 03/30/17 06:00 Pulse Rate 100 H 03/30/17 08:37 Respiratory Rate 23 03/30/17 08:37 Blood Pressure 95/56 03/30/17 08:37 O2 Sat by Pulse Oximetry (%) 99 03/30/17 09:00 PE: as per resident's note CBCD WBC 9.1 K/mm3 (4.0-10.0) D 03/30/17 05:15 RBC 3.64 M/mm3 (3.60-5.2) 03/30/17 05:15 Hgb 11.1 GM/dL (10.7-15.3) 03/30/17 05:15 Hct 33.6 % (32.4-45.2) 03/30/17 05:15 MCV 92.3 fl (80-96) 03/30/17 05:15 MCHC 32.9 g/dl (32.0-36.0) 03/30/17 05:15 RDW 16.1 % (11.6-15.6) H 03/30/17 05:15 Plt Count 194 K/MM3 (134-434) D 03/30/17 05:15 MPV 9.1 fl (7.5-11.1) 03/30/17 05:15 CMP Sodium 137 mmol/L (136-145) 03/30/17 05:15 Potassium 4.7 mmol/L (3.5-5.1) 03/30/17 05:15 Chloride 100 mmol/L (98-107) 03/30/17 05:15 Carbon Dioxide 31 mmol/L (21-32) 03/30/17 05:15 Anion Gap 6 (8-16) L 03/30/17 05:15 BUN 9 mg/dL (7-18) 03/30/17 05:15 Creatinine 0.6 mg/dL (0.55-1.02) 03/30/17 05:15 Creat Clearance w eGFR > 60 (>60) 03/26/17 05:20 Random Glucose 77 mg/dL (74-106) 03/30/17 05:15 Calcium 8.1 mg/dL (8.5-10.1) L 03/30/17 05:15 Total Bilirubin 1.0 mg/dL (0.2-1.0) D 03/26/17 05:20 AST 135 U/L (15-37) H D 03/26/17 05:20 ALT 380 U/L (12-78) H 03/26/17 05:20 Alkaline Phosphatase 198 U/L (45-117) H 03/26/17 05:20 Total Protein 5.0 g/dl (6.4-8.2) L 03/26/17 05:20 Albumin 2.0 g/dl (3.4-5.0) L 03/26/17 05:20 CARDIAC ENZYMES Creatine Kinase 63 IU/L (26-192) 03/26/17 05:20 Troponin I 0.36 ng/ml (0.00-0.05) H 03/26/17 05:20 Current Medications Generic Name Dose Route Start Last Admin Trade Name Carlq PRN Reason Stop Dose Admin Chlorhexidine Gluconate 1 applic 03/20/17 22:00 03/29/17 21:47 Hibiclens For Decolonization - TP 1 applic HS CHELY Administration Sodium Chloride 1,000 mls @ 200 mls/hr 03/30/17 08:45 03/30/17 09:17 Normal Saline - IV 03/31/17 13:44 200 mls/hr ASDIR CHELY Administration Levofloxacin 500 mg 03/30/17 10:00 03/30/17 09:24 Levaquin - PO 500 mg DAILY CHELY Administration Magnesium Oxide 400 mg 03/26/17 10:00 03/30/17 09:24 Mag-Ox - PO 400 mg BID CHELY Administration Pantoprazole Sodium 40 mg 03/26/17 10:00 03/30/17 09:24 Protonix - PO 40 mg DAILY CHELY Administration Home Medications Medication Instructions Recorded No Home Medications 0 dose .ROUTE UTDICT 05/05/12 Microbiology 03/23/17 10:45 Blood - Central Line Blood Culture - Final NO GROWTH AFTER 5 DAYS INCUBATION 03/23/17 10:45 Blood - Peripheral Venous Blood Culture - Final NO GROWTH AFTER 5 DAYS INCUBATION 03/23/17 15:00 Stool Salmonella/Shigella Culture - Final NO GROWTH OF SALMONELLA OR SHIGELLA SPECIES OBTAINED 03/23/17 15:00 Stool Campylobacter Culture - Final NO GROWTH OF CAMPYLOBACTER SPECIES OBTAINED 03/23/17 15:00 Stool Yersinia Culture - Final NO GROWTH OF YERSINIA SPECIES OBTAINED 03/23/17 15:00 Stool Vibrio Culture - Final NO GROWTH OF VIBRIO SPECIES OBTAINED 03/23/17 15:00 Stool Escherichia coli 0157 Culture - Final NO GROWTH OF E COLI 0157 OBTAINED 03/25/17 19:30 Stool Clostridium difficile Antigen (LUAN) - Final 03/25/17 19:30 Stool Clostridium difficile Toxin Assay - Final 03/23/17 15:00 Stool Gram Stain - Final 03/24/17 16:45 Blood - Central Line Blood Parasites Smear (LUAN) - Final 03/23/17 15:00 Stool Clostridium difficile Antigen (LUAN) - Final 03/23/17 15:00 Stool Clostridium difficile Toxin Assay - Final 03/20/17 12:50 Abscess AFB Smear Concentration - Final 03/20/17 12:50 Abscess Mycobacterial Culture - Preliminary 03/20/17 12:13 Abscess NADYA Preparation - Preliminary 03/20/17 12:13 Abscess Fungal Culture - Preliminary 03/20/17 04:32 Blood - Peripheral Venous Blood Culture - Final Escherichia Coli 03/20/17 04:32 Blood - Peripheral Venous Blood Culture - Final Escherichia Coli 03/20/17 Unknown Abscess Gram Stain - Final 03/20/17 Unknown Abscess Body Fluid Culture - Final Escherichia Coli 03/20/17 Unknown Abscess Anaerobic Culture - Final NO ANAEROBES WERE ISOLATED 03/20/17 06:20 Urine - Urine - Catheterized Urine Culture - Final Escherichia Coli ASSESSMENT AND PLAN: 31 y/o lady with no significant PMH who presented with fever , chills was found to have septic shock from LIver abscess. # Gram negative Bacteremia due to E.coli on Po levaqiun now. ID on the case appreciated #S/p Septic shock, due to UTI with Gram negative bacteremia due to E.coli with liver abscess. S/p IR drainage s/p IV ceftriaxone switched to po Levaquin continue as per ID. Minimal output from ANNEMARIE drain will d/w IR plan for drainage removal , also will ask surgery to revaluate the patient regarding the drainage removal and the Liver abscess and will discuss with ID the length of Antibiotic use. MRI showed decreased size of the liver abscess ( 7.3x6.4--->3.2x1.8) # s/p Acute hypoxic resp failure: s/p intubation and extubation. # Electrolyte imbalance : replete as needed # s/p Thrombocytopenia : due to sepsis resolved # NSTEMI: demand ischemia due to sepsis . # New cardiomyopathy, with Mod reduced EF. likely due to sepsis repeat echo with NL EF and RV, LV size and function # Coagulopathy with elevated liver enzymes due to sepsis and liver shock , improving. # L adrenal gland thickening, of unclear etiology . f/u needed as outpt DVT Px: SCDs early ambulation
[2017-03-30] MEDS: CHLORHEXIDINE GLUCONATE 4% CLEANSER FOR DECOLONIZATION TP SCH (21:07)
[2017-03-31 05:47] LABS: BASOPHIL 0.4 % (0-2.0); EOSINOPHIL 0.9 % (0-4.5); MCH 30.8 pg (25.7-33.7); MCHC 33.6 g/dl (32.0-36.0); MEAN CELL VOLUME 91.5 fl (80-96); MEAN PLT VOLUME 8.3 fl (7.5-11.1); NEUTROPHILS 67.4 % (42.8-82.8); PLATELET COUNT 209 K/MM3 (134-434); RDW 16.2 % (11.6-15.6); WHITE BLOOD COUNT 7.7 K/mm3 (4.0-10.0)
[2017-03-31 06:18] LABS: ALBUMIN 2.4 g/dl (3.4-5.0); ANION GAP 6 (8-16); CALCIUM 8.4 mg/dL (8.5-10.1); CO2 30 mmol/L (21-32); CREATININE 0.6 mg/dL (0.55-1.02); GLUCOSE,RANDOM 82 mg/dL (74-106); MAGNESIUM 1.9 mg/dL (1.8-2.4); SGOT/AST 30 U/L (15-37); SGPT/ALT 133 U/L (12-78)
[2017-03-31 06:19] LABS: ALK PHOS 145 U/L (45-117); BILIRUBIN,TOTAL 0.9 mg/dL (0.2-1.0); TOT PROT 5.7 g/dl (6.4-8.2)
[2017-03-31] MEDS: MAGNESIUM OXIDE 400 MG TABLET (FP) PO SCH (09:29)
[2017-03-31] MEDS: LEVOFLOXACIN 500 MG TABLET (FP) PO SCH (09:30)
[2017-03-31] MEDS: PANTOPRAZOLE 40 MG TABLET (FP) PO SCH (09:30)
[2017-03-31] MEDS: SODIUM CHLORIDE 1,000 ML IV SCH (09:31)
--- NOTE | 2017-03-31 10:01 | PN ---
Progress Note (short form) - Note Progress Note: Progress Note, Physician Chief Complaint: cardiomyop, sepsis History of Present Illness: no sob, cp, palpit, presyncope - Current Medication List Current Medications: Active Medications Current Medications Generic Name Dose Route Start Last Admin Trade Name Carlq PRN Reason Stop Dose Admin Chlorhexidine Gluconate 1 applic 03/20/17 22:00 03/30/17 21:07 Hibiclens For Decolonization - TP 1 applic HS CHELY Administration Sodium Chloride 1,000 mls @ 200 mls/hr 03/30/17 08:45 03/30/17 14:00 Normal Saline - IV 03/31/17 13:44 200 mls/hr ASDIR CHELY Administration Levofloxacin 500 mg 03/30/17 10:00 03/31/17 09:30 Levaquin - PO 500 mg DAILY CHELY Administration Magnesium Oxide 400 mg 03/26/17 10:00 03/31/17 09:29 Mag-Ox - PO 400 mg BID CHELY Administration Pantoprazole Sodium 40 mg 03/26/17 10:00 03/31/17 09:30 Protonix - PO 40 mg DAILY CHELY Administration Vital Signs Period Temp Pulse Resp BP Sys/Bonner Pulse Ox Last 24 Hr 97.8 F-98.2 F 69-98 18-23 99-100/60-65 98 Constitutional: Yes: Well Nourished, No Distress, Calm Cardiovascular: Yes: Regular Rate and Rhythm, S1, S2. No: Gallop, Murmur Respiratory: Yes: Regular, CTA Bilaterally. No: Accessory Muscle Use, Rales, Wheezes Extremities: No: Cold Edema: No Neurological: Yes: Alert, Oriented Psychiatric: No: Agitated Labs: CBC, BMP 03/31/17 05:10 03/31/17 05:10 EKG: Other (tele: NSR) CXR 03/21 am: bilat effusions and diffuse infiltrates, stable vs last film (incr vs admit film) cxr 03/24: per report slightly worse, but by dr robles review looks improved. CXF 03/26: gitig review: bibasilar findings L > R, doubt layering effusions, no vasc redistribution/congestion pattern Echo here 02/2017: moderately decreased biventricular function (global), mild- mod TR rvsp 34, + pleural effusion repeat limited echo 04/11: nl LV and RV fxn a/p: 31 year old female with a significant past medical history of cholecystectomy ( 8 years ago), who emigrated from [place] (9 years ago) and presents in severe shock gram negative rich sepsis 2/2 hepatic abscess now s/p IR drainage.. septic shock, E. coli urosepsis-->seeding liver with hepatic abscess: - s/p percutaneous liver drain - sepsis has resolved - on po abx now per ID acute hypoxic resp failure: - ? due to severe septic shock - initially intubated, now extubated - likely L effusion on CXR, ? layering R effusion--? 3rd spacing (albumin currently 2.0), ? sympathetic effusions sec to acute abdominal process - doubt acute syst chf given no vascular redistribution/engorgement on xray - resp status stable, with low O2 req'ts - defer lasix elevated troponin, transient cardiomyopathy: -trop peg to 20, trending down -ECG initially non-ischemic, then with nonspecific changes --> repeat with nonsp ST-Ts (actually improved slightly vs last tracing) -young female pt with no reported history of severe hyperlipidemia, diabetes, cigarettes--extremely low pretest prob of obstructive CAD -troponins and ECG are very likely secondary to sepsis related myonecrosis. -rpt echo shows biventricular function has normalized--no further treatment or w /u indicated at this time anemia, thrombocytopenia, coagulopathy: -likely sec to sepsis -shock liver (improved) likely contributing to coagulopathy, ? DIC component -per critical care/heme SETH: resolved -sec to hypoperfusion vs sepsis -renal fxn improved s/p IVF, hemodynamic support as doing -renal following
--- NOTE | 2017-03-31 12:14 | PN ---
Progress Note (short form) - Note Progress Note: Renal Follow up for SETH Pt seen and examined in the ICU awake and alert no acute complaints feels well drain in place Vital Signs Temperature 98.3 F 03/31/17 10:00 Pulse Rate 88 03/31/17 10:00 Respiratory Rate 17 03/31/17 10:00 Blood Pressure 99/67 03/31/17 10:00 O2 Sat by Pulse Oximetry (%) 98 03/31/17 09:00 Intake & Output 03/28/17 03/29/17 03/30/17 03/31/17 23:59 23:59 23:59 23:59 Intake Total 429 972 4392 Output Total 7 7 7 Balance 725 623 7009 Weight 159 lb 3.2 oz 149 lb 14.4 oz 144 lb 4.8 oz 144 lb 6.444 oz Gen: NAD CVS: RRR Lungs: CTA Abd: no tenderness, abd drain in place Ext: No edema CBC, BMP 03/31/17 05:10 03/31/17 05:10 Laboratory Tests 03/31/17 05:10 Magnesium 1.9 Albumin 2.4 L Current Medications Chlorhexidine Gluconate (Hibiclens For Decolonization -) 1 applic TP HS [facility] Last Admin: 03/30/17 21:07 Dose: 1 applic Sodium Chloride (Normal Saline -) 1,000 mls @ 200 mls/hr IV ASDIR [facility] Stop: 03/31/17 13:44 Last Admin: 03/30/17 14:00 Dose: 200 mls/hr Levofloxacin (Levaquin -) 500 mg PO DAILY [facility] Last Admin: 03/31/17 09:30 Dose: 500 mg Magnesium Oxide (Mag-Ox -) 400 mg PO BID [facility] Last Admin: 03/31/17 09:29 Dose: 400 mg Pantoprazole Sodium (Protonix -) 40 mg PO DAILY [facility] Last Admin: 03/31/17 09:30 Dose: 40 mg A/P 31 year old woman with PMhx of ovarian cyst, ? nephrolithiasis who presented with Abd pain and fever and found to have Sepsis with shock with suspected liver abcess and SETH and metabolic acidosis. #Acute Renal Failure with Lactic acidosis in acute septic shock Renal function stable and pt with good urine output trend BUN/Cr and electrolytes as inpatient #Sespsis/Liver Abcess Management as per ID and surgery on oral Abx now Yayo Jennings DO
[2017-03-31 14:06] VITALS: BP 109/59; PULSE 86; TEMP 98.1
--- NOTE | 2017-03-31 16:27 | PN ---
Teaching Attending Note Name of Resident: Bg Gómez ATTENDING PHYSICIAN STATEMENT I saw and evaluated the patient. I reviewed the resident's note and discussed the case with the resident. I agree with the resident's findings and plan as documented. SUBJECTIVE: Patient is comfortable with no acute distress. OBJECTIVE: Vital Signs Temperature 98.1 F 03/31/17 14:00 Pulse Rate 86 03/31/17 14:00 Respiratory Rate 95 H 03/31/17 14:00 Blood Pressure 109/59 03/31/17 14:00 O2 Sat by Pulse Oximetry (%) 98 03/31/17 09:00 Pe: per resident's note CBCD WBC 7.7 K/mm3 (4.0-10.0) 03/31/17 05:10 RBC 3.37 M/mm3 (3.60-5.2) L 03/31/17 05:10 Hgb 10.4 GM/dL (10.7-15.3) L 03/31/17 05:10 Hct 30.9 % (32.4-45.2) L 03/31/17 05:10 MCV 91.5 fl (80-96) 03/31/17 05:10 MCHC 33.6 g/dl (32.0-36.0) 03/31/17 05:10 RDW 16.2 % (11.6-15.6) H 03/31/17 05:10 Plt Count 209 K/MM3 (134-434) 03/31/17 05:10 MPV 8.3 fl (7.5-11.1) 03/31/17 05:10 CMP Sodium 138 mmol/L (136-145) 03/31/17 05:10 Potassium 4.3 mmol/L (3.5-5.1) 03/31/17 05:10 Chloride 102 mmol/L (98-107) 03/31/17 05:10 Carbon Dioxide 30 mmol/L (21-32) 03/31/17 05:10 Anion Gap 6 (8-16) L 03/31/17 05:10 BUN 10 mg/dL (7-18) 03/31/17 05:10 Creatinine 0.6 mg/dL (0.55-1.02) 03/31/17 05:10 Creat Clearance w eGFR > 60 (>60) 03/31/17 05:10 Random Glucose 82 mg/dL (74-106) 03/31/17 05:10 Calcium 8.4 mg/dL (8.5-10.1) L 03/31/17 05:10 Total Bilirubin 0.9 mg/dL (0.2-1.0) 03/31/17 05:10 AST 30 U/L (15-37) D 03/31/17 05:10 ALT 133 U/L (12-78) H D 03/31/17 05:10 Alkaline Phosphatase 145 U/L (45-117) H D 03/31/17 05:10 Total Protein 5.7 g/dl (6.4-8.2) L 03/31/17 05:10 Albumin 2.4 g/dl (3.4-5.0) L 03/31/17 05:10 CARDIAC ENZYMES Creatine Kinase 63 IU/L (26-192) 03/26/17 05:20 Troponin I 0.36 ng/ml (0.00-0.05) H 03/26/17 05:20 Current Medications Generic Name Dose Route Start Last Admin Trade Name Freq PRN Reason Stop Dose Admin Chlorhexidine Gluconate 1 applic 03/20/17 22:00 03/30/17 21:07 Hibiclens For Decolonization - TP 1 applic HS CHELY Administration Levofloxacin 500 mg 03/30/17 10:00 03/31/17 09:30 Levaquin - PO 500 mg DAILY CHELY Administration Magnesium Oxide 400 mg 03/26/17 10:00 03/31/17 09:29 Mag-Ox - PO 400 mg BID CHELY Administration Pantoprazole Sodium 40 mg 03/26/17 10:00 03/31/17 09:30 Protonix - PO 40 mg DAILY CHELY Administration Microbiology 03/23/17 10:45 Blood - Central Line Blood Culture - Final NO GROWTH AFTER 5 DAYS INCUBATION 03/23/17 10:45 Blood - Peripheral Venous Blood Culture - Final NO GROWTH AFTER 5 DAYS INCUBATION 03/23/17 15:00 Stool Salmonella/Shigella Culture - Final NO GROWTH OF SALMONELLA OR SHIGELLA SPECIES OBTAINED 03/23/17 15:00 Stool Campylobacter Culture - Final NO GROWTH OF CAMPYLOBACTER SPECIES OBTAINED 03/23/17 15:00 Stool Yersinia Culture - Final NO GROWTH OF YERSINIA SPECIES OBTAINED 03/23/17 15:00 Stool Vibrio Culture - Final NO GROWTH OF VIBRIO SPECIES OBTAINED 03/23/17 15:00 Stool Escherichia coli 0157 Culture - Final NO GROWTH OF E COLI 0157 OBTAINED 03/25/17 19:30 Stool Clostridium difficile Antigen (LUAN) - Final 03/25/17 19:30 Stool Clostridium difficile Toxin Assay - Final 03/23/17 15:00 Stool Gram Stain - Final 03/24/17 16:45 Blood - Central Line Blood Parasites Smear (LUAN) - Final 03/23/17 15:00 Stool Clostridium difficile Antigen (LUAN) - Final 03/23/17 15:00 Stool Clostridium difficile Toxin Assay - Final 03/20/17 12:50 Abscess AFB Smear Concentration - Final 03/20/17 12:50 Abscess Mycobacterial Culture - Preliminary 03/20/17 12:13 Abscess NADYA Preparation - Preliminary 03/20/17 12:13 Abscess Fungal Culture - Preliminary 03/20/17 04:32 Blood - Peripheral Venous Blood Culture - Final Escherichia Coli 03/20/17 04:32 Blood - Peripheral Venous Blood Culture - Final Escherichia Coli 03/20/17 Unknown Abscess Gram Stain - Final 03/20/17 Unknown Abscess Body Fluid Culture - Final Escherichia Coli 03/20/17 Unknown Abscess Anaerobic Culture - Final NO ANAEROBES WERE ISOLATED 03/20/17 06:20 Urine - Urine - Catheterized Urine Culture - Final Escherichia Coli ASSESSMENT AND PLAN: 31 y/o lady with no significant PMH who presented with fever , chills was found to have septic shock from LIver abscess. # s/p Gram negative Bacteremia due to E.coli on Po levaqiun now for total 7 more days, as per ID. (5 more days left). #S/p Septic shock, due to UTI with Gram negative bacteremia due to E.coli with liver abscess. S/p IR drainage s/p IV ceftriaxone switched to po Levaquin continue as per ID for total of 7 days but 5 more days left . Minimal output from ANNEMARIE drain , d/w with IR plan for drainage removal in [address] of abdomen done prior the removal of drainage. Discussed with the surgeon will refer to IR suggestions. MRI showed decreased size of the liver abscess ( 7.3x6.4--->3.2x1.8) # s/p Acute hypoxic resp failure: s/p intubation and extubation. # s/p Electrolyte imbalance : repleted as needed # s/p Thrombocytopenia : due to sepsis resolved # NSTEMI: demand ischemia due to sepsis . # s/p New cardiomyopathy, with Mod reduced EF. likely due to sepsis repeat echo with NL EF and RV, LV size and function # s/p Coagulopathy with elevated liver enzymes due to sepsis and liver shock , improving LFTs repeat LFTs as an outpatient. # L adrenal gland thickening, of unclear etiology . f/u needed as outpt Discharge patient home. Discussed with the patient in details.
--- NOTE | 2017-03-31 16:43 | DS ---
Physical Exam: SUBJECTIVE: Patient seen and examined at bed side this morning. No complaints. Denies chest pain, sob, cough, palpitation, abdominal pain, nausea or vomiting. Bowel/Bladder habit normal. Sleep/Appetite normal. OBJECTIVE: Vital Signs Period Temp Pulse Resp BP Sys/Bonner Pulse Ox Last 24 Hr 97.8 F-98.3 F 69-98 17-95 99-109/59-67 98-98 PHYSICAL EXAM GENERAL: Young female, is sitting in a chair comfortably, awake, alert, oriented x 3, in no acute distress. HEAD: Normal with no signs of trauma. EYES: Right conjunctival hemorrhage-resolving, No pallor or icterus, PERRLA EARS, NOSE, THROAT: Ears normal. NECK: Normal range of motion, supple without lymphadenopathy, JVD, or masses. LUNGS: Breath sounds equal, clear to auscultation bilaterally. No wheezes, and no crackles. No accessory muscle use. HEART: Regular rate and rhythm, normal S1 and S2 without murmur, rub or gallop. ABDOMEN: ANNEMARIE drain in place, Soft, not distended, normoactive bowel sounds, no guarding, no rebound, no masses. No hepatomegaly or splenomegaly. MUSCULOSKELETAL: Normal range of motion at all joints. No bony deformities or tenderness. UPPER EXTREMITIES: 2+ pulses, warm, well-perfused. No cyanosis. No clubbing. No peripheral edema. LOWER EXTREMITIES: 2+ pulses, warm, well-perfused. No calf tenderness. No peripheral edema. NEUROLOGICAL: No facial droop, bulk/tone/power/reflexes normal. CN 2-12 grossly intact, gait normal. SKIN: Warm, normal turgor, no rashes or lesions noted, normal capillary refill. LABS Laboratory Results - last 24 hr 03/31/17 03/31/17 05:10 05:10 WBC 7.7 RBC 3.37 L Hgb 10.4 L Hct 30.9 L MCV 91.5 MCHC 33.6 RDW 16.2 H Plt Count 209 MPV 8.3 Neutrophils % 67.4 Lymphocytes % 18.6 Monocytes % 12.7 H Eosinophils % 0.9 Basophils % 0.4 Sodium 138 Potassium 4.3 Chloride 102 Carbon Dioxide 30 Anion Gap 6 L BUN 10 Creatinine 0.6 Creat Clearance w eGFR > 60 Random Glucose 82 Calcium 8.4 L Magnesium 1.9 Total Bilirubin 0.9 AST 30 D ALT 133 H D Alkaline Phosphatase 145 H D Total Protein 5.7 L Albumin 2.4 L Microbiology 03/23/17 10:45 Blood - Central Line Blood Culture - Final NO GROWTH AFTER 5 DAYS INCUBATION 03/23/17 10:45 Blood - Peripheral Venous Blood Culture - Final NO GROWTH AFTER 5 DAYS INCUBATION 03/23/17 15:00 Stool Salmonella/Shigella Culture - Final NO GROWTH OF SALMONELLA OR SHIGELLA SPECIES OBTAINED 03/23/17 15:00 Stool Campylobacter Culture - Final NO GROWTH OF CAMPYLOBACTER SPECIES OBTAINED 03/23/17 15:00 Stool Yersinia Culture - Final NO GROWTH OF YERSINIA SPECIES OBTAINED 03/23/17 15:00 Stool Vibrio Culture - Final NO GROWTH OF VIBRIO SPECIES OBTAINED 03/23/17 15:00 Stool Escherichia coli 0157 Culture - Final NO GROWTH OF E COLI 0157 OBTAINED 03/25/17 19:30 Stool Clostridium difficile Antigen (LUAN) - Final 03/25/17 19:30 Stool Clostridium difficile Toxin Assay - Final 03/23/17 15:00 Stool Gram Stain - Final 03/24/17 16:45 Blood - Central Line Blood Parasites Smear (LUAN) - Final 03/23/17 15:00 Stool Clostridium difficile Antigen (LUAN) - Final 03/23/17 15:00 Stool Clostridium difficile Toxin Assay - Final 03/20/17 12:50 Abscess AFB Smear Concentration - Final 03/20/17 12:50 Abscess Mycobacterial Culture - Preliminary 03/20/17 12:13 Abscess NADYA Preparation - Preliminary 03/20/17 12:13 Abscess Fungal Culture - Preliminary 03/20/17 04:32 Blood - Peripheral Venous Blood Culture - Final Escherichia Coli 03/20/17 04:32 Blood - Peripheral Venous Blood Culture - Final Escherichia Coli 03/20/17 Unknown Abscess Gram Stain - Final 03/20/17 Unknown Abscess Body Fluid Culture - Final Escherichia Coli 03/20/17 Unknown Abscess Anaerobic Culture - Final NO ANAEROBES WERE ISOLATED 03/20/17 06:20 Urine - Urine - Catheterized Urine Culture - Final Escherichia Coli CT abdomen/Pelvis 03/20/17: Liver, spleen, adrenals, and pancreas demonstrate a grossly unremarkable, unenhanced morphology. There is dilatation of the common bile duct up to 9 mm AP, without distal obstructing mass or calculus, in this patient status post cholecystectomy. There is no evidence of renal or ureteral calculus, hydronephrosis, or perinephric collection. The urinary bladder is grossly unremarkable. The uterine fundus is to the left of midline with mildly prominent central low attenuation in its endometrial region. There is a rounded low-attenuation lesion in the right adnexa that measures approximately 5 cm in diameter (image 112; series 3). The appendix is normal in caliber and thickness and there is no periappendiceal fluid or inflammatory change. There is no ascites, abscess , free air, or bowel obstruction. No significantly enlarged lymphadenopathy is evident in the abdomen or pelvis. Evaluation of the visualized bony structures fails to identify any fractures or focal destructive or blastic lesions. Chest CT 03/20/17: In comparison to an abdomen CT study (which also imaged the lower chest) performed several hours earlier interval development of prominent bilateral alveolar opacities are noted in association with septal line thickening. The CT appearance is suggestive of noncardiogenic pulmonary edema/ ARDS (versus cardiogenic pulmonary edema). Aspiration pneumonia may also be a consideration. Infectious infiltrates are probably less likely given the rapidity of this finding. HOSPITAL COURSE: Date of Admission:03/20/17 Date of Discharge: 03/31/17 Patient is a 31 year old female with significant past medical history of Cholecystectomy (8 years ago), pyelonephritis, nephrolithiasis, emigrated from [place] 8 years ago who was brought in by patients boyfriend, with the chief complaints of fever, chills and generalized weakness since 2 weeks. Respiratory failure due to septic shock with severe lactic acidosis with impending ARDS with Gram negative bacteremia (E.coli) with UTI- Resolved. Patient initially presented with a systolic BP of 60's, Lactic acid of 9; Triple base disorder in ABG- Primary metabolic anion gap acidosis (due to lactic acidosis) Concurrent respiratory acidosis (due to pulmonary infiltrates and inadequate ventilation)Concurrent metabolic alkalosis (likely due to contraction alkalosis and diarrhea).ARDS in CT scan of chest, Liver abscess in CT abdomen. Patient was intubated immediately for airway protection; the same day IR guided liver abscess was drained ~ 25cc, ANNEMARIE drain was placed 03/20/2017 and sent for culture which grew E. coli. Most likely patient had UTI that lead to bacteremia leading to liver abscess. Was treated with IV Zosyn, Ceftriaxone, IV Vancomycin and Metron during the hospital course. Patient got symptomatically better, leukocytosis resolved, Liver enzymes decreased but hasn't normalized, needs outpatient follow up. Sending patient home on Levofloxacin 500mg PO x 5 more days. ANNEMARIE drain in place, have recommended patient to visit IR in 2 weeks, needs repeat abdominal imaging and removal of ANNEMARIE drain. Patient verbalized understanding. # Multiorgan dysfunction syndrome (Renal failure, ARDS) with septic shock d/t Liver Abscess (size decreased) with bandemia and lactic acidosis-Resolved. # Abnormal LFT;s with coagulopathy likely due to shock liver-Decreasing LFTs on repeat labs. FFPs 4 total given for coagulopathy. Needs outpatient follow up. # SETH (resolved). Creatinine now at baseline after resuscitation. Lanier discontinued, no problems in urination. # Thrombocytopenia due to septic shock vs dilutational-normalized. No signs of active bleeding # Normocytic Anemia likely due to septic shock -at baseline. 1 PRBC transfusion this admission. No active signs of bleeding Plan of care explained to the patient. She verbalized understanding and agreed to the plan. Case discussed with Dr. Leal. Minutes to complete discharge: 45 Discharge Summary Reason For Visit: HYPOVOLEMIC SHOCK,DEHYDRATION Current Active Problems Anaerobic bacteremia (Acute) Dehydration (Acute) E. coli septic shock (Acute) Enterocolitis (Acute) Gram negative septic shock (Acute) Hypokalemia due to loss of potassium (Acute) Hypotension (Acute) Hypovolemic shock (Acute) Liver abscess (Acute) Liver failure (Acute) Multiorgan failure (Acute) Renal failure (Acute) Respiratory failure requiring intubation (Acute) Septic shock (Acute) UTI (urinary tract infection) (Acute) Condition: Guarded - Instructions Diet, Activity, Other Instructions: You were admitted for evaluation of severe infection most likely due to urinary tract infection that leaded to blood infection and liver abscess. Abscess was drained and you have a ANNEMARIE drain in place, please empty it as directed by the RN. You have to follow up with the interventional radiologist in 2 weeks, repeat the abdominal imaging and they will remove the ANNEMARIE drain depending upon the collection you have. The liver enzymes are trending down but still elevated, you need a work up as outpatient. Please follow up with primary doctor and GI doctor. Left adrenal gland thickening, of unclear etiology . f/u needed as outpatient Return to the Emergency Department if your symptoms worsen or if you develop any new symptoms. Referrals: Trevon Miller MD [Primary Care Provider] - 1 Week Elio Love MD [Staff Physician] - 1 Week Jomar Odonnell MD [Staff Physician] - 2 Weeks (Repeat abdominal imaging and possible removal of ANNEMARIE drain.) Disposition: HOME - Home Medications Comprehensive Discharge Medication List: Ambulatory Orders No Home Medications 0 dose .ROUTE UTDICT 05/05/12 Levofloxacin [Levaquin] 500 mg PO DAILY #5 tablet 03/31/17 This patient is new to me today: No Emergency Visit: Yes ED Registration Date: 03/20/17 Care time: The patient presented to the Emergency Department on the above date and was hospitalized for further evaluation of their emergent condition. Critical Care patient: No - Discharge Referral Referred to [facility] No
== END 2017-03-31 18:42 | disposition home or self-care (01) | DRG 720 ==
LOC: JER 03:25 → JERBED 06:36 → JICU 09:17 → J2W 03-27 14:36
PROVIDERS: ADMIT Internal Medicine; ATTEND Internal Medicine
PROC: 5A1945Z Respiratory Ventilation, 24-96 Consecutive Hours (ICD-10-PCS; principal; 2017-03-20)
PROC: 0BH17EZ Insertion of Endotracheal Airway into Trachea, Via Natural or Artificial Opening (ICD-10-PCS; 2017-03-20)
PROC: 30233K1 Transfusion of Nonautologous Frozen Plasma into Peripheral Vein, Percutaneous Approach (ICD-10-PCS; 2017-03-20)
PROC: 30233N1 Transfusion of Nonautologous Red Blood Cells into Peripheral Vein, Percutaneous Approach (ICD-10-PCS; 2017-03-20)
PROC: 05HM33Z Insertion of Infusion Device into Right Internal Jugular Vein, Percutaneous Approach (ICD-10-PCS; 2017-03-20)
PROC: B543ZZA Ultrasonography of Right Jugular Veins, Guidance (ICD-10-PCS; 2017-03-20)
PROC: 0F9130Z Drainage of Right Lobe Liver with Drainage Device, Percutaneous Approach (ICD-10-PCS; 2017-03-20)
DX: A41.9 Sepsis, unspecified organism (principal); K75.0 Abscess of liver; N17.8 Other acute kidney failure; K72.00 Acute and subacute hepatic failure without coma; I95.1 Orthostatic hypotension; R65.21 Severe sepsis with septic shock; R68.0 Hypothermia, not associated with low environmental temperature; E87.4 Mixed disorder of acid-base balance; D68.8 Other specified coagulation defects; D64.9 Anemia, unspecified; D69.6 Thrombocytopenia, unspecified; J96.00 Acute respiratory failure, unspecified whether with hypoxia or hypercapnia; E83.51 Hypocalcemia; I24.8 Other forms of acute ischemic heart disease; N39.0 Urinary tract infection, site not specified; B96.20 Unspecified Escherichia coli [E. coli] as the cause of diseases classified elsewhere; I42.9 Cardiomyopathy, unspecified; E87.0 Hyperosmolality and hypernatremia; M25.511 Pain in right shoulder; A48.0 Gas gangrene; I21.4 Non-ST elevation (NSTEMI) myocardial infarction
CPT/HCPCS: 31500; 36415; 36430; 36600; 49405; 71010-TC; 71250-TC; 74176-TC; 74182-TC; 75984-TC; 76700-TC; 77012-TC; 80048; 80053; 80074; 80307; 81003; 81015; 82105; 82150; 82272; 82330; 82436; 82438; 82533; 82550; 82553; 82570; 82607; 82728; 82746; 82803; 82945; 83010; 83540; 83550; 83605; 83615; 83690; 83735; 83874; 84100; 84133; 84156; 84157; 84300; 84443; 84484; 84550; 84703; 85025; 85027; 85044; 85379; 85384; 85610; 85651; 85730; 86140; 86682; 86753; 86850; 86870; 86880; 86900; 86901; 86902; 86922; 87040; 87045; 87046; 87070; 87075; 87086; 87102; 87116; 87186; 87205; 87206; 87207; 87210; 87324; 87389; 87449; 88108; 88305-TC; 89051; 93005; 93010; 93306-TC; 94002; 94640; 97116-GP; 97161-GP; 99285-25; C1729; C1769; C1887; G0480; P9017; P9038; P9058

== ENCOUNTER 2017-04-13 10:29 | Emergency (ER) | payer SELFPAY ==
[2017-04-13 10:36] VITALS: BMI 23.9
[2017-04-13 11:20] LABS: BASOPHIL 0.9 % (0-2.0); EOSINOPHIL 0.9 % (0-4.5); MCH 30.7 pg (25.7-33.7); MCHC 33.2 g/dl (32.0-36.0); MEAN CELL VOLUME 92.4 fl (80-96); NEUTROPHILS 54.3 % (42.8-82.8); PLATELET COUNT 99 K/MM3 (134-434); RDW 17.7 % (11.6-15.6); WHITE BLOOD COUNT 4.9 K/mm3 (4.0-10.0)
[2017-04-13 11:34] LABS: INR 1.13 (0.82-1.09); PROTHROMBIN TIME (PATIENT) 12.5 SEC (9.98-11.88)
[2017-04-13 11:37] LABS: ACTIVATED PTT 30.4 SECONDS (26.9-34.4)
[2017-04-13 11:45] LABS: ALBUMIN 3.1 g/dl (3.4-5.0); ANION GAP 5 (8-16); CALCIUM 8.6 mg/dL (8.5-10.1); CO2 29 mmol/L (21-32); GLUCOSE,RANDOM 110 mg/dL (74-106)
[2017-04-13 11:52] LABS: ALK PHOS 111 U/L (45-117); BILIRUBIN,DIRECT 0.3 mg/dL (0.0-0.2); BILIRUBIN,TOTAL 0.6 mg/dL (0.2-1.0); CREATININE 0.7 mg/dL (0.55-1.02); SGOT/AST 60 U/L (15-37); SGPT/ALT 85 U/L (12-78); TOT PROT 6.6 g/dl (6.4-8.2); TROPONIN I < 0.02 ng/ml (0.00-0.05)
[2017-04-13 12:11] LABS: URINE APPEARANCE SLCLOUDY; URINE BILIRUBIN NEGATIVE (NEGATIVE); URINE BLOOD 3+ (NEGATIVE); URINE COLOR YELLOW; URINE GLUCOSE (UA) NEGATIVE (NEGATIVE); URINE KETONE NEGATIVE (NEGATIVE); URINE LEUK ESTERASE NEGATIVE (NEGATIVE); URINE NITRITE NEGATIVE (NEGATIVE); URINE PROTEIN NEGATIVE (NEGATIVE); URINE UROBILINOGEN NEGATIVE mg/dL (0.2-1.0)
[2017-04-13 12:15] LABS: URINE MUCUS RARE; URINE RBC 86 /hpf (0-3); URINE WBC 1 /hpf (3-5)
--- NOTE | 2017-04-13 12:59 | PDOC ---
History of Present Illness - General History Source: Patient Exam Limitations: No Limitations - History of Present Illness Initial Comments: 04/13/17 13:31 The patient is a 31 year old female, with a recent past medical history of Cholecystectomy(8 years ago), pyelonephritis, nephrolithiasis, respiratory failure due to septic shock, Multiorgan dysfunction(renal failure, ARDS), liver abscess, thrombocytopenia,, who presents to the emergency department complaining of right upper quadrant abdominal pain since her discharge from [facility] on 03/31/17. Per records the patient was admitted on 03/20/17 for septic shock, multiple systemic organ failure, and a liver abscess, where she was placed on life support. Patient had drain placed to the liver, which according to boyfriend was initially discharging blood and white pus. Patient reports associated pain at the site of the wound since her discharge. Per partner, patient had an appointment to follow-up with Dr. Love on 04/11/17, which she showed up for but Dr. Love was not in the office. Since then the patient reports her pain continues, and she is not currently on any antibiotics or pain medications. Patient denies any associated nausea, vomiting, diarrhea, or constipation. She denies any associated fever, chills, or weakness. In the past 2 days, patient reports there has not been much discharge at the site of the ANNEMARIE drain. She denies any recent travel or sick contacts. Allergies: NKDA Past Surgical History: Cholecystectomy Social History: Immigrated from [place] 9 years ago. Non smoker. No ETOH or drug use. PCP: Dr. Miller GI: Dr. Love <Angelica Lopes - Last Filed: 04/13/17 17:56> <Marvin Delgadillo - Last Filed: 04/17/17 09:32> - General Chief Complaint: Pain Stated Complaint: FOLLOW-UP/ ANNEMARIE DRAIN Time Seen by Provider: 04/13/17 10:45 Past History <Angelica Lopes - Last Filed: 04/13/17 17:56> - Past Medical History Anemia: No Asthma: No Cancer: No Cardiac Disorders: No CVA: No COPD: No CHF: No Dementia: No Diabetes: No Dialysis: No GI Disorders: No Disorders: No HTN: No Hypercholesterolemia: No HIV: No Kidney Stones: No Liver Disease: No Suicide Attempt (Hx): No Seizures: No Thyroid Disease: No - Surgical History Abdominal Surgery: No Appendectomy: No Cardiac Surgery: No Cholecystectomy: Yes Lung Surgery: No Neurologic Surgery: No Orthopedic Surgery: No - Immunization History Td Vaccination: Yes TDAP Vaccination: No Immunization Up to Date: Yes - Psycho/Social/Smoking Cessation Hx Anxiety: No Suicidal Ideation: No Smoking Status: No Smoking History: Never smoked Years of Tobacco Use: 0 Have you smoked in the past 12 months: No Number of Cigarettes Smoked Daily: 0 Cigars Per Day: 0 Hx Alcohol Use: No Drug/Substance Use Hx: No Substance Use Type: None Hx Substance Use Treatment: No <Marvin Delgadillo - Last Filed: 04/17/17 09:32> - Past Medical History Allergies/Adverse Reactions: Allergies Allergy/AdvReac Type Severity Reaction Status Date / Time No Known Allergies Allergy Verified 04/13/17 10:36 Home Medications: Ambulatory Orders No Home Medications 0 dose .ROUTE UTDICT 05/05/12 Levofloxacin [Levaquin] 500 mg PO DAILY #5 tablet 03/31/17 Review of Systems - Review of Systems Able to Perform ROS?: Yes Comments:: 04/13/17 13:31 GENERAL/CONSTITUTIONAL: No fever or chills. No weakness. HEAD, EYES, EARS, NOSE AND THROAT: No change in vision. No ear pain or discharge. No sore throat. CARDIOVASCULAR: No chest pain or shortness of breath. RESPIRATORY: No cough, wheezing, or hemoptysis. GASTROINTESTINAL: Yes: +RUQ abdominal pain at site of ANNEMARIE drain. No nausea, vomiting, diarrhea or constipation. GENITOURINARY: No dysuria, frequency, or change in urination. MUSCULOSKELETAL: No joint or muscle swelling or pain. No neck or back pain. SKIN: No rash NEUROLOGIC: No headache, vertigo, loss of consciousness, or change in strength/ sensation. ENDOCRINE: No increased thirst. No abnormal weight change. HEMATOLOGIC/LYMPHATIC: No anemia, easy bleeding, or history of blood clots. ALLERGIC/IMMUNOLOGIC: No hives or skin allergy. <Angelica Lopes - Last Filed: 04/13/17 17:56> *Physical Exam - Vital Signs Last Vital Signs Temp Pulse Resp BP Pulse Ox 97.7 F 78 20 118/67 100 04/13/17 10:31 04/13/17 10:31 04/13/17 10:31 04/13/17 10:31 04/13/17 10:31 - Physical Exam Comments: 04/13/17 13:31 GENERAL: Awake, alert, and fully oriented, in no acute distress HEAD: No signs of trauma EYES: PERRLA, EOMI, sclera anicteric, conjunctiva clear ENT: Auricles normal inspection, hearing grossly normal, nares patent, oropharynx clear without exudates. Moist mucosa NECK: Normal ROM, supple, no lymphadenopathy, JVD, or masses LUNGS: Breath sounds equal, clear to auscultation bilaterally. No wheezes, and no crackles HEART: Regular rate and rhythm, normal S1 and S2, no murmurs, rubs or gallops ABDOMEN: ANNEMARIE drain in RUQ. Soft, nontender, normoactive bowel sounds. No guarding , no rebound. No masses EXTREMITIES: Normal range of motion, no edema. No clubbing or cyanosis. No cords , erythema, or tenderness NEUROLOGICAL: Cranial nerves II through XII grossly intact. Normal speech, normal gait SKIN: Warm, Dry, normal turgor, no rashes or lesions noted. <Angelica Lopes - Last Filed: 04/13/17 17:56> - Vital Signs Last Vital Signs Temp Pulse Resp BP Pulse Ox 97.7 F 78 20 118/67 100 04/13/17 10:31 04/13/17 10:31 04/13/17 10:31 04/13/17 10:31 04/13/17 10:31 <Marvin Delgadillo - Last Filed: 04/17/17 09:32> Heart Score/ECG Review - ECG Intrepretation Comment:: 04/13/17 16:24 Vent Rate: 67 bpm IMPRESSION: Normal sinus rhythm. <Angelica Lopes - Last Filed: 04/13/17 17:56> ED Treatment Course - LABORATORY CBC & Chemistry Diagram: 04/13/17 11:11 04/13/17 11:11 - ADDITIONAL ORDERS Additional order review: Laboratory Results 04/13/17 04/13/17 04/13/17 11:11 11:11 11:11 INR PTT (Actin FS) Sodium 139 Potassium 4.3 Chloride 105 Carbon Dioxide 29 Anion Gap 5 L BUN 11 Creatinine 0.7 Creat Clearance w eGFR > 60 Random Glucose 110 H D Calcium 8.6 Total Bilirubin 0.6 D Direct Bilirubin 0.3 H AST 60 H D ALT 85 H D Alkaline Phosphatase 111 D Creatine Kinase 36 Troponin I < 0.02 Total Protein 6.6 Albumin 3.1 L D Urine Color Yellow Urine Appearance Slcloudy Urine pH 6.0 Urine Protein Negative Urine Glucose (UA) Negative Urine Ketones Negative Urine Blood 3+ H Urine Nitrite Negative Urine Bilirubin Negative Urine Urobilinogen Negative Ur Leukocyte Esterase Negative Urine RBC 86 Urine WBC 1 Ur Epithelial Cells Many Urine Mucus Rare Urine HCG, Qual Negative 04/13/17 11:11 INR 1.13 PTT (Actin FS) 30.4 Sodium Potassium Chloride Carbon Dioxide Anion Gap BUN Creatinine Creat Clearance w eGFR Random Glucose Calcium Total Bilirubin Direct Bilirubin AST ALT Alkaline Phosphatase Creatine Kinase Troponin I Total Protein Albumin Urine Color Urine Appearance Urine pH Urine Protein Urine Glucose (UA) Urine Ketones Urine Blood Urine Nitrite Urine Bilirubin Urine Urobilinogen Ur Leukocyte Esterase Urine RBC Urine WBC Ur Epithelial Cells Urine Mucus Urine HCG, Qual 04/13/17 11:11 RBC 3.76 MCV 92.4 MCHC 33.2 RDW 17.7 H MPV 8.0 Neutrophils % 54.3 Lymphocytes % 37.3 D Monocytes % 6.6 Eosinophils % 0.9 Basophils % 0.9 - RADIOLOGY Radiograph Interpretation: 04/13/17 17:56 EXAM: CT Abdomen and Pelvis INTERPRETED BY: Dr. Loco REVIEWED BY: Dr. Delgadillo IMPRESSION: In comparison to an MRI study of 03/28/2017 a percutaneous drainage catheter is again seen in place within a right hepatic abscess superiorly. The abscess cavity appears diminished in size. Note is again made of low- attenuation parenchyma surrounding the abscess which may be on the basis of inflammatory granulation tissue and probably less likely underlying neoplastic disease. This latter finding appears to be unchanged in comparison to the 2016 MRI study although probably improved in comparison to a noncontrast CT exam of 03/20/2017. In this regard percutaneous needle biopsy may be considered if there is no definite resolution on close follow-up imaging. Note is again made of a small amount of perihepatic fluid laterally adjacent to the hepatic dome. EXAM: CXR INTERPRETED BY: Dr. Bridges REVIEWED BY: Dr. Delgadillo IMPRESSION: Lung apex was not included limiting this exam. A right pigtail/ chest tube catheter again seen in the right lung base without evidence of a pneumothorax or pleural effusion. There is interval total clearing of previously visualized left lung base airspace disease without gross evidence of a left pleural effusion <Angelica Lopes - Last Filed: 04/13/17 17:56> - LABORATORY CBC & Chemistry Diagram: 04/13/17 11:11 04/13/17 11:11 - ADDITIONAL ORDERS Additional order review: Laboratory Results 04/13/17 04/13/17 04/13/17 11:11 11:11 11:11 INR PTT (Actin FS) Sodium 139 Potassium 4.3 Chloride 105 Carbon Dioxide 29 Anion Gap 5 L BUN 11 Creatinine 0.7 Creat Clearance w eGFR > 60 Random Glucose 110 H D Calcium 8.6 Total Bilirubin 0.6 D Direct Bilirubin 0.3 H AST 60 H D ALT 85 H D Alkaline Phosphatase 111 D Creatine Kinase 36 Troponin I < 0.02 Total Protein 6.6 Albumin 3.1 L D Urine Color Yellow Urine Appearance Slcloudy Urine pH 6.0 Urine Protein Negative Urine Glucose (UA) Negative Urine Ketones Negative Urine Blood 3+ H Urine Nitrite Negative Urine Bilirubin Negative Urine Urobilinogen Negative Ur Leukocyte Esterase Negative Urine HCG, Qual Negative 04/13/17 11:11 INR 1.13 PTT (Actin FS) 30.4 Sodium Potassium Chloride Carbon Dioxide Anion Gap BUN Creatinine Creat Clearance w eGFR Random Glucose Calcium Total Bilirubin Direct Bilirubin AST ALT Alkaline Phosphatase Creatine Kinase Troponin I Total Protein Albumin Urine Color Urine Appearance Urine pH Urine Protein Urine Glucose (UA) Urine Ketones Urine Blood Urine Nitrite Urine Bilirubin Urine Urobilinogen Ur Leukocyte Esterase Urine HCG, Qual 04/13/17 11:11 RBC 3.76 MCV 92.4 MCHC 33.2 RDW 17.7 H MPV 8.0 Neutrophils % 54.3 Lymphocytes % 37.3 D Monocytes % 6.6 Eosinophils % 0.9 Basophils % 0.9 - RADIOLOGY Radiology Studies Ordered: Category Date Time Status ABSCESSOGRAM [RADS] Stat Radiology 04/13/17 12:37 Ordered CXRPORT [CHEST X-RAY PORTABLE*] [RAD] Stat Radiology 04/13/17 10:55 Taken <Marvin Delgadillo - Last Filed: 04/17/17 09:32> Medical Decision Making - Medical Decision Making 04/13/17 13:34 Patient will obtain bloodwork, Urine, CT, and Abscessogram in the ED. <Angelica Lopes - Last Filed: 04/13/17 17:56> *DC/Admit/Observation/Transfer - Attestations Scribe Attestion: 04/13/17 13:32 Documentation prepared by Angelica Lopes, acting as medical support assistant for Marvin Delgadillo DO. <Angelica Lopes - Last Filed: 04/13/17 17:56> - Attestations Physician Attestion: 04/13/17 12:41 I, Dr. Marvin Delgadillo, attest that this document has been prepared under my direction and personally reviewed by me in its entirety. I further attest, that it accurately reflects all work, treatment, procedures and medical decision -making performed by me. <Marvin Delgadillo - Last Filed: 04/17/17 09:32> Diagnosis at time of Disposition: Change or removal of drains - Discharge Dispostion Disposition: HOME Condition at time of disposition: Stable - Patient Instructions Printed Discharge Instructions: DI for Yay[facility]-Heard Drains
--- NOTE | 2017-04-13 14:47 | EKG ---
Test Reason : Blood Pressure : / mmHG Vent. Rate : 067 BPM Atrial Rate : 067 BPM P-R Int : 134 ms QRS Dur : 074 ms QT Int : 406 ms P-R-T Axes : 012 048 013 degrees QTc Int : 429 ms NORMAL SINUS RHYTHM NORMAL ECG WHEN COMPARED WITH ECG OF 21-MAR-2017 02:22, [place] INTERVAL HAS INCREASED NONSPECIFIC T WAVE ABNORMALITY, IMPROVED IN ANTEROLATERAL LEADS Confirmed by DEA RANDOLPH, YARON ([id number]) on 04/13/2017 2:46:54 PM Referred By: Confirmed By:YARON MALIN MD
[2017-04-13 17:00] VITALS: PULSE 70; TEMP 97.6
--- NOTE | 2017-04-13 20:00 | PDOC ---
*Physical Exam - Vital Signs Last Vital Signs Temp Pulse Resp BP Pulse Ox 97.6 F 70 18 116/70 99 04/13/17 16:58 04/13/17 16:58 04/13/17 16:58 04/13/17 16:58 04/13/17 16:58 ED Treatment Course - LABORATORY CBC & Chemistry Diagram: 04/13/17 11:11 04/13/17 11:11 - ADDITIONAL ORDERS Additional order review: Laboratory Results 04/13/17 04/13/17 04/13/17 11:11 11:11 11:11 INR PTT (Actin FS) Sodium 139 Potassium 4.3 Chloride 105 Carbon Dioxide 29 Anion Gap 5 L BUN 11 Creatinine 0.7 Creat Clearance w eGFR > 60 Random Glucose 110 H D Calcium 8.6 Total Bilirubin 0.6 D Direct Bilirubin 0.3 H AST 60 H D ALT 85 H D Alkaline Phosphatase 111 D Creatine Kinase 36 Troponin I < 0.02 Total Protein 6.6 Albumin 3.1 L D Urine Color Yellow Urine Appearance Slcloudy Urine pH 6.0 Ur Specific [place] 1.020 Urine Protein Negative Urine Glucose (UA) Negative Urine Ketones Negative Urine Blood 3+ H Urine Nitrite Negative Urine Bilirubin Negative Urine Urobilinogen Negative Ur Leukocyte Esterase Negative Urine RBC 86 Urine WBC 1 Ur Epithelial Cells Many Urine Mucus Rare Urine HCG, Qual Negative 04/13/17 11:11 INR 1.13 PTT (Actin FS) 30.4 Sodium Potassium Chloride Carbon Dioxide Anion Gap BUN Creatinine Creat Clearance w eGFR Random Glucose Calcium Total Bilirubin Direct Bilirubin AST ALT Alkaline Phosphatase Creatine Kinase Troponin I Total Protein Albumin Urine Color Urine Appearance Urine pH Ur Specific [place] Urine Protein Urine Glucose (UA) Urine Ketones Urine Blood Urine Nitrite Urine Bilirubin Urine Urobilinogen Ur Leukocyte Esterase Urine RBC Urine WBC Ur Epithelial Cells Urine Mucus Urine HCG, Qual 04/13/17 11:11 RBC 3.76 MCV 92.4 MCHC 33.2 RDW 17.7 H MPV 8.0 Neutrophils % 54.3 Lymphocytes % 37.3 D Monocytes % 6.6 Eosinophils % 0.9 Basophils % 0.9 Medical Decision Making - Medical Decision Making 04/13/17 19:59 chest xray negative for any complication after removal of drain. Pt to be discharged. Follow up with pcp. *DC/Admit/Observation/Transfer Diagnosis at time of Disposition: Change or removal of drains - Discharge Dispostion Disposition: HOME Condition at time of disposition: Stable Admit: No - Patient Instructions Printed Discharge Instructions: DI for [facility] Drains
[2017-04-13 20:23] VITALS: BP 117/68
== END 2017-04-13 20:25 | disposition home or self-care (01) ==
LOC: JER 10:29
DX: Z45.89 Encounter for adjustment and management of other implanted devices (principal); J80 Acute respiratory distress syndrome; K75.0 Abscess of liver; N19 Unspecified kidney failure; A41.9 Sepsis, unspecified organism; N12 Tubulo-interstitial nephritis, not specified as acute or chronic
CPT/HCPCS: 36415; 49424; 71010-TC; 74177-TC; 76080-TC; 80053; 80076; 81003; 81015; 82550; 84484; 84703; 85025; 85610; 85730; 93005; 93010; 99283-25; C1769; C1894

== ENCOUNTER 2020-07-16 08:43 | Emergency (ER) | payer OTHER ==
[2020-07-16 08:52] VITALS: BMI 27.4
--- OUTSIDE RECORDS SUMMARY | 2020-07-16 08:55 | XMS ---
:1985 Author Organization [facility] Support Name Relationship Address Phone SE Unavailable Unavailable Unavailable BISI ALEXANDER FRIEND [address] [place] [address] Re-disclosure Warning The records that you are about to access may contain information from federally- assisted alcohol or drug abuse programs. If such information is present, then the following federally mandated warning applies: This information has been disclosed to you from records protected by federal confidentiality rules (42 CFR part 2). The federal rules prohibit you from making any further disclosure of this information unless further disclosure is expressly permitted by the written consent of the person to whom it pertains or as otherwise permitted by 42 CFR part 2. A general authorization for the release of medical or other information is NOT sufficient for this purpose. The Federal rules restrict any use of the information to criminally investigate or prosecute any alcohol or drug abuse patient.The records that you are about to access may contain highly sensitive health information, the redisclosure of which is protected by Article 27-F of the [facility] Public Health law. If you continue you may haveaccess to information: Regarding HIV / AIDS; Provided by facilities licensed or operated by the [facility] Office of Mental Health; or Provided by the [facility] Office for People With Developmental Disabilities. If such information is present, then the following [facility] mandated warning applies: This information has been disclosed to you from confidential records which are protected by state law. State law prohibits you from making any further disclosure of this information without the specific written consent of the person to whom it pertains, or as otherwise permitted by law. Any unauthorized further disclosure in violation of state law may result in a fine or fdc sentence or both. A general authorization for the release of medical or other information is NOT sufficient authorization for further disclosure. Insurance Providers Payer name Policy type Policy ID Covered Covered democrat's Policy P makayla / Coverage democrat ID relationship to [place] Inf ormation type [place] MEDICAID [id number] SP [id number] Results ID Date Data Source [id number] 03/18/2020 12:00:00 AM EDT [facility] Name Value Range Interpretation Code Description Data Elsa rce(s) Supporting Document(s ) 2019-nCoV [facility] RNA XXX MONIQUE+probe- Imp This lab was ordered by [facility] and reported by [employer] Procedure
--- NOTE | 2020-07-16 09:05 | PDOC ---
History of Present Illness - General Chief Complaint: Back Pain Stated Complaint: BACK PAIN Time Seen by Provider: 07/16/20 08:53 History Source: Patient Exam Limitations: No Limitations - History of Present Illness Initial Comments: 07/16/20 09:03 Patient is a 35-year-old female with no past medical history who presents to the ED with complaint of 4 days of dysuria, frequency, urgency with pain radiating to her right flank for the last 4 days. She denies any fevers or chills. She denies any nausea, vomiting or diarrhea. She denies any blood in her urine. The patient states that her urine is foul-smelling. She took Advil few days ago without any relief of her symptoms. The patient does have a history of a cholecystectomy in the past. Past History - Medical History Allergies/Adverse Reactions: Allergies Allergy/AdvReac Type Severity Reaction Status Date / Time No Known Allergies Allergy Verified 07/16/20 08:49 Home Medications: Ambulatory Orders No Home Medications 0 dose .ROUTE UTDICT 05/05/12 Levofloxacin [Levaquin] 500 mg PO DAILY #5 tablet 03/31/17 Cephalexin [Keflex] 500 mg PO BID #14 capsule 07/16/20 Anemia: No Asthma: No Cancer: No Cardiac Disorders: No CVA: No COPD: No CHF: No Dementia: No Diabetes: No Dialysis: No GI Disorders: No Disorders: No HTN: No Hypercholesterolemia: No Kidney Stones: No Liver Disease: No Seizures: No Thyroid Disease: No - Surgical History Abdominal Surgery: No Appendectomy: No Cardiac Surgery: No Cholecystectomy: Yes Lung Surgery: No Neurologic Surgery: No Orthopedic Surgery: No - Reproductive History Is Patient Now?: No - Immunization History Td Vaccination: Yes TDAP Vaccination: No Immunization Up to Date: Yes - Psycho-Social/Smoking History Smoking Status: No Smoking History: Never smoked Years of Tobacco Use: 0 Have you smoked in the past 12 months: No Number of Cigarettes Smoked Daily: 0 Cigars Per Day: 0 Information on smoking cessation initiated: No - Substance Abuse Hx (Audit-C & DAST Scrn) How often the patient has a drink containing alcohol: Never Score: In Men: 4 or > Positive; In Women: 3 or > Positive: 0 Screen Result (Pos requires Nsg. Audit-10AR): Negative In the last yr the pt used illegal drug/Rx for NonMed reason: No Score: Yes response is considered Positive: 0 Screen Result (Positive result requires Nsg. DAST-10): Negative Review of Systems - Review of Systems Comments:: 07/16/20 09:03 - Review of Systems Able to Perform ROS?: Yes Constitutional: No: Fever, Chills, Loss of Appetite, Night Sweats, Weakness HEENTM: No: Eye Pain, Vision changes, Ear Pain, Throat Pain, Throat Swelling, Mouth Pain, Difficulty Swallowing Respiratory: No: Cough, Shortness of Breath, Wheezing, Sputum Production Cardiac (ROS): No: Chest Pain, Chest Tightness, Palpitations, Irregular Heart Beat, Edema ABD/GI: No: Nausea, Vomiting, Abdominal Pain, Diarrhea : No Hematuria, No Vaginal Discharge/Pain; positive: Dysuria, frequency, urgency Musculoskeletal: No: Muscle Pain, Back Pain, Joint Pain, Muscle Weakness, Neck Pain Integumentary: No: Lesions, Rash Neurological: No: Headache, Numbness, Tingling, Weakness, Speech Difficulties *Physical Exam - Vital Signs Last Vital Signs Temp Pulse Resp BP Pulse Ox 98.8 F 95 H 17 114/73 100 07/16/20 08:46 07/16/20 08:46 07/16/20 08:46 07/16/20 08:46 07/16/20 08:46 - Physical Exam 07/16/20 09:04 - Physical Exam General Appearance: Nourished, Appropriately Dressed, No Distress HEENT: EOMI, Normal Voice, Hearing Grossly Normal Neck: Supple, No Lymphadenopathy (R), No Lymphadenopathy (L), No Rigidity, No Decreased range of motion Respiratory/Chest: Lungs Clear, Normal Breath Sounds. No Respiratory Distress, No Accessory Muscle Use Cardiovascular: Regular Rhythm, Regular Rate, S1, S2 Gastrointestinal/Abdominal: Normal Bowel Sounds, Soft. Non-tender, No Guarding, No Rebound, No Rigidity; moderate suprapubic abdominal tenderness to palpation. No CVA tenderness bilaterally. GENERAL INTERN: Uterus is nonfriable appearing. There is thick, white, [id number] discharge in the vaginal vault. No CMT appreciated. Uterus nontender nonpalpable. Left adnexa nontender nonpalpable. Mild tenderness in the right adnexa without palpable masses. No masses or lesions appreciated. Musculoskeletal: Normal Inspection. No Decreased Range of Motion Extremity: Normal Capillary Refill, Normal Inspection Integumentary: Normal Color, Dry. 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 Plan: -UA ordered -Urine culture ordered -Urine hCG ordered -Will reassess 07/16/20 10:46 Patient made aware that her labs are stable and she has evidence of bacteriuria and blood in her urine. Her spiral CT is still pending a radiology read. Patient is resting comfortably in the chair. 07/16/20 11:21 The patient has been made aware that her CT does not show a stone but she does have a large, possibly hemorrhagic, cyst on her right adnexa. The patient will be sent for an ultrasound for further evaluation and to rule out ovarian torsion. Genital culture swab obtained, GC/chlamydia swab obtained and sent to the lab. 07/16/20 14:23 The patient has been made aware that she has a right-sided hemorrhagic ovarian cyst which could be partially causing her abdominal pain. She does have ba cteriuria with UTI-like symptoms so we will treat her with Keflex. First dose given in the ED. We will send the remaining prescription to her pharmacy. She is to follow-up with her primary doctor within 1 to 2 days for repeat evaluation. She understands and agrees this treatment plan and she is stable for discharge. Discharge - Discharge Information Problems reviewed: Yes Clinical Impression/Diagnosis: Right ovarian cyst UTI (urinary tract infection) Qualifiers: Urinary tract infection type: acute cystitis Hematuria presence: without hematuria Qualified Code(s): N30.00 - Acute cystitis without hematuria Condition: Stable Disposition: HOME - Additional Discharge Information Prescriptions: Cephalexin [Keflex] 500 mg PO BID #14 capsule - Follow up/Referral - Patient Discharge Instructions Patient Printed Discharge Instructions: DI for Urinary Tract Infection (UTI), DI for Ovarian Cyst Additional Instructions: Get plenty of rest and drink plenty of fluids. Be sure to take the antibiotics as prescribed and complete the entire course. Follow-up with your primary doctor or your [facility] within 2 to 3 days for repeat evaluation. Return to the emergency department for high fevers, shaking chills, profuse vomiting, severe abdominal pain or any other worsening symptoms. Descanse lo suficiente y nenita muchos lquidos. Asegrese de flor los antibiticos segn lo prescrito y completar todo el ciclo. Devin un seguimiento con clemons mdico de cabecera o con clemons obstetra / gineclogo dentro de 2 a 3 feng para repetir la evaluacin. Regrese al departamento de emergencias si tiene fiebre nettie, escalofros, vmitos profusos, dolor abdominal intenso o cualquier otro sntoma que empeore. Print Language: WELSH - Post Discharge Activity Work/Back to School Note: Back to Work
[2020-07-16 09:26] LABS: EPI CELLS 4 /uL (0-25.1); HYALINE CASTS 0 /uL (0-3.1); PH,URINE 5.5 (5.0-8.0); URINE APPEARANCE CLEAR; URINE BACTERIA 3257 /uL (0-1359); URINE BILIRUBIN NEGATIVE (NEGATIVE); URINE COLOR YELLOW; URINE GLUCOSE (UA) NEGATIVE (NEGATIVE); URINE KETONE NEGATIVE (NEGATIVE); URINE LEUK ESTERASE NEGATIVE (NEGATIVE); URINE NITRITE NEGATIVE (NEGATIVE); URINE PROTEIN NEGATIVE (NEGATIVE); URINE RBC 349 /uL (0-23.9); URINE UROBILINOGEN 0.2 mg/dL (0.2-1.0); URINE WBC 6 /uL (0-25.8)
[2020-07-16] MEDS ORDERED: ACETAMINOPHEN 500 MG TABLET (FP) PO ONE (09:31)
[2020-07-16] MEDS ORDERED: ACETAMINOPHEN 500 MG TABLET (FP) ONE (09:39)
[2020-07-16 10:04] LABS: BASO % 0.4 % (0-2.0); EOS % 0.2 % (0-4.5); HEMATOCRIT 41.1 % (32.4-45.2); HEMOGLOBIN 13.8 GM/dL (10.7-15.3); MCH 31.5 pg (25.7-33.7); MCHC 33.7 g/dl (32.0-36.0); MEAN CELL VOLUME 93.3 fl (80-96); MEAN PLT VOLUME 7.7 fl (7.5-11.1); MONO % 6.4 % (3.8-10.2); PLATELET COUNT 219 K/MM3 (134-434); RDW 13.1 % (11.6-15.6); WHITE BLOOD COUNT 8.2 K/mm3 (4.0-10.0)
[2020-07-16 10:19] LABS: POTASSIUM 4.5 mmol/L (3.5-5.1)
[2020-07-16 10:21] LABS: ALBUMIN 3.8 g/dl (3.4-5.0); BLOOD UREA NITROGEN 10.2 mg/dL (7-18); CALCIUM 9.4 mg/dL (8.5-10.1)
[2020-07-16 10:24] LABS: CREATININE 0.8 mg/dL (0.55-1.3)
[2020-07-16 10:26] LABS: BILIRUBIN,TOTAL 0.7 mg/dL (0.2-1); TOT PROT 7.5 g/dl (6.4-8.2)
[2020-07-16] MEDS ORDERED: CEPHALEXIN MONOHYDRATE 500 MG CAPSULE (UD) PO ONE (14:23)
[2020-07-16] MEDS ORDERED: CEPHALEXIN MONOHYDRATE 500 MG CAPSULE (UD) ONE (14:38)
[2020-07-16 15:20] VITALS: BP 114/70; PULSE 89; TEMP 97.8
== END 2020-07-16 15:21 | disposition home or self-care (01) ==
LOC: JERFT 08:43
DX: N83.201 Unspecified ovarian cyst, right side (principal); N30.00 Acute cystitis without hematuria
CPT/HCPCS: 36415; 74176-TC; 76830-TC; 80053; 81003; 84703; 85025; 87070; 87077; 87086; 87186; 87205; 87491; 87591; 99285-25

== ENCOUNTER 2021-04-10 05:24 | Emergency (ER) | payer OTHER ==
[2021-04-10 05:51] VITALS: BP 115/71; PULSE 104; TEMP 98.5; BMI 26.9
[2021-04-10] MEDS ORDERED: MAG HYDROX/AL HYDROX/SIMETH 30 ML UNIT-DOSE CUP PO ONE (08:44)
[2021-04-10] MEDS ORDERED: SODIUM CHLORIDE 1,000 ML IV STA (08:44)
[2021-04-10] MEDS ORDERED: ACETAMINOPHEN 1000 MG/100 ML VIAL (NON FORMULARY) IVPB ONE (08:44)
[2021-04-10] MEDS ORDERED: FAMOTIDINE 20 MG/50 ML IVPB 20 MG/50 ML MG IVPB ONE ×2 (08:44→08:47)
[2021-04-10] MEDS ORDERED: ACETAMINOPHEN INJECTION 100 ML IVPB ONE (08:46)
[2021-04-10] MEDS ORDERED: MAG HYDROX/AL HYDROX/SIMETH 30 ML UNIT-DOSE CUP ONE (08:47)
[2021-04-10 09:28] LABS: BASO % 0.3 % (0-2.0); EOS % 0.1 % (0-4.5); HEMOGLOBIN 12.9 GM/dL (10.7-15.3); LYMPH % 8.9 % (8-40); MCH 31.6 pg (25.7-33.7); MCHC 33.9 g/dl (32.0-36.0); MEAN CELL VOLUME 93.1 fl (80-96); MONO % 5.2 % (3.8-10.2); NEUT % 85.5 % (42.8-82.8); PLATELET COUNT 200 10^3/uL (134-434); RBC 4.08 M/mm3 (3.60-5.2); RDW 13.5 % (11.6-15.6); WHITE BLOOD COUNT 13.5 K/mm3 (4.0-10.0)
[2021-04-10 09:49] LABS: ALBUMIN 3.7 g/dl (3.4-5.0); CALCIUM 8.7 mg/dL (8.5-10.1)
[2021-04-10 09:51] LABS: HCG,QUALITATIVE URINE Negative
[2021-04-10 09:53] LABS: CREATININE 0.8 mg/dL (0.55-1.3)
[2021-04-10 09:54] LABS: BILIRUBIN,TOTAL 0.6 mg/dL (0.2-1); TOT PROT 7.1 g/dl (6.4-8.2)
[2021-04-10 10:13] LABS: URINE APPEARANCE CLEAR; URINE BILIRUBIN NEGATIVE (NEGATIVE); URINE COLOR YELLOW; URINE GLUCOSE (UA) NEGATIVE (NEGATIVE); URINE KETONE NEGATIVE (NEGATIVE)
[2021-04-10 10:14] LABS: URINE LEUK ESTERASE NEGATIVE (NEGATIVE); URINE NITRITE NEGATIVE (NEGATIVE); URINE PROTEIN NEGATIVE (NEGATIVE); URINE UROBILINOGEN 0.2 mg/dL (0.2-1.0)
[2021-04-10 11:47] LABS: URINE RBC 20-30 /uL (0-23.9)
[2021-04-10 11:48] LABS: EPI CELLS FEW /uL (0-25.1); URINE BACTERIA FEW /uL (0-1359)
== END 2021-04-10 11:30 | disposition home or self-care (01) ==
LOC: JER 05:24
PROC: 3E033NZ Introduction of Analgesics, Hypnotics, Sedatives into Peripheral Vein, Percutaneous Approach (ICD-10-PCS; principal; 2021-04-10)
PROC: 3E033GC Introduction of Other Therapeutic Substance into Peripheral Vein, Percutaneous Approach (ICD-10-PCS; 2021-04-10)
PROC: 3E0337Z Introduction of Electrolytic and Water Balance Substance into Peripheral Vein, Percutaneous Approach (ICD-10-PCS; 2021-04-10)
DX: R10.13 Epigastric pain (principal)
CPT/HCPCS: 36415; 80053; 81003; 83690; 84703; 85025; 87086; 99284-25; J0131

== ENCOUNTER 2023-11-10 09:26 | Emergency (ER) | payer OTHER ==
[2023-11-10 09:31] VITALS: BP 120/85; PULSE 84; RESP 18; TEMP 98.4; BMI 28.3
== END 2023-11-10 10:40 | disposition home or self-care (01) ==
LOC: JERFT 09:26
DX: R50.9 Fever, unspecified (principal); M79.10 Myalgia, unspecified site; R51.9 Headache, unspecified; R07.81 Pleurodynia; R05.9 Cough, unspecified; J40 Bronchitis, not specified as acute or chronic; H00.011 Hordeolum externum right upper eyelid; Z20.822 Contact with and (suspected) exposure to COVID-19
CPT/HCPCS: 0241U-QW; 99283-25

== ENCOUNTER 2024-03-30 10:11 | Emergency (ER) | payer SELFPAY ==
[2024-03-30 10:21] VITALS: BP 144/85; PULSE 89; RESP 17; TEMP 97.3; BMI 30.6
[2024-03-30] MEDS ORDERED: KETOROLAC TROMETHAMINE 30 MG/1 ML VIAL ONE (11:08)
[2024-03-30] MEDS: KETOROLAC TROMETHAMINE 30 MG/1 ML VIAL IM ONE (11:25)
== END 2024-03-30 12:30 | disposition home or self-care (01) ==
LOC: JERFT 10:11
PROC: 3E0133Z Introduction of Anti-inflammatory into Subcutaneous Tissue, Percutaneous Approach (ICD-10-PCS; principal; 2024-03-30)
DX: S93.401A Sprain of unspecified ligament of right ankle, initial encounter (principal); S80.02XA Contusion of left knee, initial encounter; W18.30XA Fall on same level, unspecified, initial encounter; Y93.66 Activity, soccer
CPT/HCPCS: 73560-TC-LT-FY; 73610-TC-RT-FY; 73630-TC-RT-FY; 99284-25